=== PATIENT | male | born 1960 | race Caucasian/White ===

== ENCOUNTER → 2022-12-04 10:44 | Outpatient (CLI) | payer MEDICARE, MEDICAID, SELFPAY | PROVIDERS: PCP Family Medicine; Visit Provider Surgery | DX: K40.30 Unilateral inguinal hernia, with obstruction, without gangrene, not specified as recurrent (principal) | CPT/HCPCS: 99202 ==

== ENCOUNTER 2023-01-08 05:45 | Day surgery (SDC) | payer OTHER, SELFPAY ==
[2023-01-01 12:00] VITALS: BMI 36.9
--- NOTE | 2023-01-04 14:31 | P.CONAN_ITS ---
Documented by User: Kimberly Richard NP 01/04/23 14:39 HPI - Anesthesia Eval Consult details Narrative: 62yo F for Right Hernia Repair Inguinal / Open Cardiac cleared ASL Eliquis for afib/flutter PMFSH Active Problems Active Problems: All Active Problems (Updated 01/01/23 @ 11:59 by Britney Knox RN) Inguinal hernia of right side with obstruction and without gangrene (Acute) Past Medical History Medical History Arthritis Atrial flutter Benign prostate hyperplasia Depression Dyslipidemia Essential (primary) hypertension Hearing impairment Hx of coronary angiogram Obesity Prediabetes Tricuspid regurgitation Venous insufficiency Family History Family History Father Heart disease Surgical History Surgical History History of cardiac radiofrequency ablation Hx of appendectomy Hx of heart surgery Social History Social History Are you a primary pet care technician to a significant other at home: No Do you presently have visiting nurse or other home services: Yes (has TTY hearing assistance) Patient Tobacco Use Status: Never used Tobacco Use of substances other than those prescribed or required for medical reasons: No Have you been hit, kicked, punched, or otherwise hurt by someone within the past year? If so, by whom?: No Are you DNR?: No Advance Directives Information Provided: Yes (as above noted) Advance Directives on File: No Recently lost weight without trying: No Eating poorly because of decreased appetite: No Nutrition Risks: No Nutritional Risk Poor oral hygiene: No Meds Allergies Allergy/AdvReac Type Severity Reaction Status Date / Time No Known Allergies Allergy Verified 01/08/23 05:56 Home Medications Medication Instructions Recorded Confirmed Last Taken Type allopurinol 300 mg tablet 300 mg PO DAILY 12/30/22 12/31/22 Unknown History amlodipine 5 mg tablet 5 mg PO DAILY 12/30/22 12/31/22 Unknown History apixaban 5 mg tablet (Eliquis) 5 mg PO BID 12/30/22 12/31/22 01/05/23 History atorvastatin 10 mg tablet 10 mg PO BEDTIME 12/30/22 12/31/22 Unknown History cholecalciferol (vitamin D3) 50 50 mcg PO DAILY 12/30/22 12/31/22 Unknown History mcg (2,000 unit) capsule finasteride 5 mg tablet 5 mg PO DAILY 12/30/22 12/31/22 Unknown History fluoxetine 20 mg capsule 20 mg PO DAILY 12/30/22 12/31/22 Unknown History gabapentin 600 mg tablet 600 mg PO DAILY 12/30/22 12/31/22 Unknown History pantoprazole 40 mg tablet,delayed 40 mg PO DAILY 12/30/22 12/31/22 Unknown History release potassium chloride 20 mEq 20 meq PO DAILY 12/30/22 12/31/22 Unknown History tablet,extended release pramipexole 0.25 mg tablet 0.25 mg PO DAILY 12/30/22 12/31/22 Unknown History spironolactone 25 mg tablet 25 mg PO DAILY 12/30/22 12/31/22 Unknown History tamsulosin 0.4 mg capsule 0.4 mg PO DAILY 12/30/22 12/31/22 Unknown History Exam Exam Date and Time: January 04, 2023 1431 Height,Weight and Vital Signs: Height 6 ft 1 in Weight 127.006 kg Pertinent Lab Results Pertinent Lab Results: From outside facility 09/2022 CBC WNL BMP WNL Narrative Narrative: EKG 11/2022 SR @ 62 1st deg AV block Anterior infarct ECHO 2020 moderate concentric LVH preserved LV systolic function with EF 60-65% hypokenisis of anteroseptal segment mild MR mild to mod TR Assessment and Plan Assessment Anesthesia Assessment: Chart Reviewed Documented by User: Linda Santana MD 01/08/23 07:51 [facility] Past Medical History Medical History Arthritis Atrial flutter Benign prostate hyperplasia Depression Dyslipidemia Essential (primary) hypertension Hearing impairment Hx of coronary angiogram Obesity Prediabetes Tricuspid regurgitation Venous insufficiency Family History Family History Father Heart disease Surgical History Surgical History History of cardiac radiofrequency ablation Hx of appendectomy Hx of heart surgery History of Problems with Anesthesia: No Social History Social History Are you a primary pet care technician to a significant other at home: No Do you presently have visiting nurse or other home services: Yes (has TTY hearing assistance) Patient Tobacco Use Status: Never used Tobacco Use of substances other than those prescribed or required for medical reasons: No Have you been hit, kicked, punched, or otherwise hurt by someone within the past year? If so, by whom?: No Are you DNR?: No Advance Directives Information Provided: Yes (as above noted) Advance Directives on File: No Recently lost weight without trying: No Eating poorly because of decreased appetite: No Nutrition Risks: No Nutritional Risk Poor oral hygiene: No Meds Allergies Allergy/AdvReac Type Severity Reaction Status Date / Time No Known Allergies Allergy Verified 01/08/23 05:56 Home Medications Medication Instructions Recorded Confirmed Last Taken Type allopurinol 300 mg tablet 300 mg PO DAILY 12/30/22 12/31/22 Unknown History amlodipine 5 mg tablet 5 mg PO DAILY 12/30/22 12/31/22 Unknown History apixaban 5 mg tablet (Eliquis) 5 mg PO BID 12/30/22 12/31/22 01/05/23 History atorvastatin 10 mg tablet 10 mg PO BEDTIME 12/30/22 12/31/22 Unknown History cholecalciferol (vitamin D3) 50 50 mcg PO DAILY 12/30/22 12/31/22 Unknown History mcg (2,000 unit) capsule finasteride 5 mg tablet 5 mg PO DAILY 12/30/22 12/31/22 Unknown History fluoxetine 20 mg capsule 20 mg PO DAILY 12/30/22 12/31/22 Unknown History gabapentin 600 mg tablet 600 mg PO DAILY 12/30/22 12/31/22 Unknown History pantoprazole 40 mg tablet,delayed 40 mg PO DAILY 12/30/22 12/31/22 Unknown History release potassium chloride 20 mEq 20 meq PO DAILY 12/30/22 12/31/22 Unknown History tablet,extended release pramipexole 0.25 mg tablet 0.25 mg PO DAILY 12/30/22 12/31/22 Unknown History spironolactone 25 mg tablet 25 mg PO DAILY 12/30/22 12/31/22 Unknown History tamsulosin 0.4 mg capsule 0.4 mg PO DAILY 12/30/22 12/31/22 Unknown History Exam Airway Mallampati Class: III TM Dist: >3cm Neck ROM: Full Loose/Missing/Broken Teeth: No Heart: RRR Lungs: CTA Assessment and Plan Final Anesthetic Review History of Problems with Anesthesia: No NPO: Yes ASA Class: III Final Preanesthetic Review: Meds/Allgs Chart Reviewed, Consent Obtained/Reviewed and Anes Risks/Benef Reviewed Patient Risk: Intermediate Procedure Risk: Low Anesthetic Plan Anesthetic Plan: GA Disposition: Standard PACU
--- NOTE | 2023-01-07 14:14 | MHC.SHP ---
Pre-Procedural Eval Section A Date of Service: 01/07/23 The patient is an INPATIENT: No Changes since office visit: No Cold of Flu in the past 2 weeks, No New Medical Problems, No Changes in Medication and No Patient answered all questions The History & Physical has been completed within 30 days and I have reviewed it.: Yes Section B Chief Complaint: Unilateral inguinal hernia, with obstruction, with Allergies: Allergies Allergy/AdvReac Type Severity Reaction Status Date / Time No Known Allergies Allergy Verified 12/04/22 11:03 Plan I have reviewed the history and physical and performed a pertinent physical examination on my patient. No changes have occurred unless specified. Time Spent With Patient Time: Total time managing care of this patient today ____ minutes.
[2023-01-08] VITALS (8 sets, daily range): BP systolic 97–139; BP diastolic 46–83; PULSE 58–65; RESP 16–18; TEMP 36.3; O2SAT 96–98
[2023-01-08] MEDS: Lactated Ringers 1,000 ML 100 ML IVCONT (06:13)
--- NOTE | 2023-01-08 08:48 | P.OP_ITS ---
Operative Note Operative Note Date of Service: 01/08/23 Narrative: Preoperative diagnosis: []Incarcerated complete/ scrotal right inguinal hernia Postop diagnosis: [] save Procedure [] open repair with mesh right inguinal hernia incarcerated/scrotal /complete Surgeon: [] Donnell Die Out Worker: [] aguilar Mi Type of Anesthesia: [] general Indication for surgery: [] massive incarcerated right inguinal hernia indirect extending down into the scrotum. very corpulent abdomen Findings: [] Patient brought to the operative room, placed on operative table supine position, after adequate level of general anesthesia was induced, the patient's right groin and scrotum were prepped and draped in usual sterile fashion. Using a right perianal incision, this carried down through skin, subcutaneous tissue, which was quite extensive, Isabelle's fascia, down to the external oblique fascia which was opened in direction of its fibers with care to isolate and preserve the ilioinguinal nerve throughout the procedure. No direct hernia was demonstrated. An enormous incarcerated complete/scrotal indirect indirect hernia was identified and reduced from of the scrotum and brought onto the field. This was from the spermatic cord. This is quite tedious secondary to the marked cicatrization and scarring of this chronic hernia. Once completely freed, The massive indirect hernia was reduced and an extra-large Bard plug placed in this defect. The mesh was sutured superiorly to the transversalis fascia and inferiorly to the inguinal ligament using interrupted 0 Ethibond suture. A completion the procedure, internal ring admitted 1 fingertip. t\The mesh also covered The inguinal floor. Wound was irrigated, secured hemostasis, and closed in the following manner; external oblique fascia was reapproximated using running 2-0 Vicryl suture. Interrupted 3-0 Vicryl sutures was used to close Isabelle's fascia. Interrupted inverted subdermal 3-0 Vicryl sutures followed by running subcuticular 4-0 Vicryl suture were placed. States strips insert dressings were applied. Wounds were treated 0.5% Marcaine at completion the procedure. If she lateral testicles intrascrotal at completion of the procedure. Sponge, needle, instrument counts were reported to be correct. Patient tolerated the procedure well and emerged from anesthesia stable condition. EBL minimum
[2023-01-08] MEDS: ondansetron HCL 4 MG/2 ML VIAL IVPUSH (09:18)
== END 2023-01-08 10:25 | disposition home or self-care (01) ==
PROVIDERS: Visit Provider Surgery
PROC: (CPT 49507; principal; 2023-01-08 07:30)
DX: K40.30 Unilateral inguinal hernia, with obstruction, without gangrene, not specified as recurrent (principal)
CPT/HCPCS: 49507; C1781; J0690; J1100; J1170; J2250; J2370; J2405; J2795; J3010

== ENCOUNTER 2023-01-14 13:35 | Outpatient (REF) | payer OTHER, SELFPAY ==
--- NOTE | ~2023-01-14 | US_ITS ---
EXAMINATION: US SCROTUM CLINICAL INFORMATION: Status post right hernia repair 3 days ago. Now presents with enlarged and painful scrotum. COMPARISON: None available. TECHNIQUE: A sonogram of the scrotum was performed assessing green-scale appearance and color Doppler flow. Spectral Doppler analysis of the arterial and venous flow were performed in the testes bilaterally. FINDINGS: RIGHT: Right testicle measures 3.7 x 2.6 x 2.8 cm, volume 14.4 mL. No focal testicular parenchymal lesions are visualized. Spectral Doppler analysis of the arterial and venous flow is mildly increased in the right testis. Right epididymal head is normal in size. There is a small right hydrocele. There is a septated fluid collection along the lateral and superior scrotal sacs suspicious for an multiloculated abscess. There is increased echogenicity of the spermatic cord likely congestion or inflammation. There is arterial thickening seen. The epididymis is identified and has normal vascularity. LEFT: Left testicle measures 4.2 x 2.3 x 2.5 cm, volume 12.7 mL. No focal testicular parenchymal lesions are visualized. Spectral Doppler analysis of the arterial and venous flow is normal in the left testis. Left epididymal head is normal in size. Small left hydrocele is suspected. There is no varicocele seen. Left epididymal Doppler flow is normal. US/US scrotum doppler IMPRESSION: Right scrotal abscess superior and lateral to the inferiorly located testis. Also visualized is echogenic spermatic cord likely edema or inflammation. Mild wall thickening or spermatic vessels are noted. However there is no varicocele suspected. There is increased vascularity of right testis likely reactionary secondary to abscess and spermatic cord inflammation. The right epididymis is normal. Small right hydrocele. Unremarkable left testis and epididymis.
== END 2023-01-14 13:36 | disposition home or self-care (01) ==
LOC: HO.US 13:35
PROVIDERS: Visit Provider Family Medicine
DX: N50.89 Other specified disorders of the male genital organs (principal)
CPT/HCPCS: 76870; 93975

== ENCOUNTER 2023-01-14 14:51 | Emergency (ER) | payer OTHER, SELFPAY ==
[2023-01-14 15:13] VITALS: BP 144/71; PULSE 65; RESP 20; TEMP 36.9; O2SAT 99; BMI 27.1
--- NOTE | 2023-01-14 15:17 | ED_ITS ---
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 Patient was seen by Dr. Jacobo the surgeon postoperatively and was put on Keflex, patient is concerned because increase right scrotal swelling. No trauma. <Juana Rodriguez MD - Last Filed: 01/14/23 20:47> Related Data Home medications: Home Medications Medication Instructions Recorded Confirmed allopurinol 300 mg tablet 300 mg PO DAILY 12/30/22 12/31/22 amlodipine 5 mg tablet 5 mg PO DAILY 12/30/22 12/31/22 apixaban 5 mg tablet (Eliquis) 5 mg PO BID 12/30/22 12/31/22 atorvastatin 10 mg tablet 10 mg PO BEDTIME 12/30/22 12/31/22 cholecalciferol (vitamin D3) 50 50 mcg PO DAILY 12/30/22 12/31/22 mcg (2,000 unit) capsule finasteride 5 mg tablet 5 mg PO DAILY 12/30/22 12/31/22 fluoxetine 20 mg capsule 20 mg PO DAILY 12/30/22 12/31/22 gabapentin 600 mg tablet 600 mg PO DAILY 12/30/22 12/31/22 pantoprazole 40 mg tablet,delayed 40 mg PO DAILY 12/30/22 12/31/22 release potassium chloride 20 mEq 20 meq PO DAILY 12/30/22 12/31/22 tablet,extended release pramipexole 0.25 mg tablet 0.25 mg PO DAILY 12/30/22 12/31/22 spironolactone 25 mg tablet 25 mg PO DAILY 12/30/22 12/31/22 tamsulosin 0.4 mg capsule 0.4 mg PO DAILY 12/30/22 12/31/22 Previous Rx's Medication Instructions Recorded hydrocodone 5 mg-acetaminophen 325 1 tab PO Q4-6H PRN pain #30 tabs 01/08/23 mg tablet <BRIAN Herring - Last Filed: 01/14/23 15:18> Allergies/Adverse reactions: Allergies Allergy/AdvReac Type Severity Reaction Status Date / Time No Known Allergies Allergy Verified 01/08/23 05:56 <BRIAN Herring - Last Filed: 01/14/23 15:18> Review of Systems Review of Systems: All other systems are reviewed and are negative Constitutional: Reports as per HPI and Reports no additional constitutional complaints Eyes: Reports as per HPI and Reports no additional eye complaints Reports system reviewed and no additional complaints, except as documented Cardiovascular: Reports as per HPI and Reports no additional cardiovascular complaints Respiratory: Reports as per HPI and Reports no additional respiratory complaints Gastrointestinal: Reports as per HPI and Reports no additional gastrointestinal complaints Genitourinary: Reports no additional female genitourinary complaints Musculoskeletal: Reports no additional musculoskeletal complaints Skin/Breast: Reports system reviewed and no additional complaints, except as docu Psychiatric: Reports no additional psychiatric complaints Endocrine: Reports no additional endocrine complaints Hematologic/Lymphatic: Reports no additional hematologic/lymphatic complaints Allergic/Immunologic: Reports no additional allergic/immunologic complaints Reports system reviewed and no additional complaints, except as documented and Reports Abnormal speech present <Juana Rodriguez MD - Last Filed: 01/14/23 20:47> [facility] Past Medical History Medical History: Medical History Arthritis Atrial flutter Benign prostate hyperplasia Depression Dyslipidemia Essential (primary) hypertension Hearing impairment Hx of coronary angiogram Obesity Prediabetes Tricuspid regurgitation Venous insufficiency <BRIAN Herring - Last Filed: 01/14/23 15:18> Surgical History: Surgical History History of cardiac radiofrequency ablation Hx of appendectomy Hx of heart surgery <BRIAN Herring - Last Filed: 01/14/23 15:18> Family History Family History: Family History Father Heart disease <BRIAN Herring - Last Filed: 01/14/23 15:18> Social History Social History: Social History Are you a primary animal care supervisor to a significant other at home: No Do you presently have visiting nurse or other home services: Yes (has TTY hearing assistance) Patient Tobacco Use Status: Never used Tobacco Advance Directives: No Advance Directives Information Provided: No <BRIAN Herring - Last Filed: 01/14/23 15:18> Physical Exam Vital Signs: Vital Signs: Last Vital Signs Temp 98.5 F 01/14/23 17:14 Pulse 59 01/14/23 18:30 Resp 18 01/14/23 18:30 BP 121/71 01/14/23 18:30 Pulse Ox 98 01/14/23 18:30 O2 Del Method Room Air 01/14/23 18:30 BMI result Body Mass Index 27.1 <BRIAN Herring - Last Filed: 01/14/23 15:18> Vital Signs: Last Vital Signs Temp 98.5 F 01/14/23 17:14 Pulse 59 01/14/23 18:30 Resp 18 01/14/23 18:30 BP 121/71 01/14/23 18:30 Pulse Ox 98 01/14/23 18:30 O2 Del Method Room Air 01/14/23 18:30 BMI result Body Mass Index 27.1 Vital signs have been reviewed as appeared to be correct. Blood pressure normal. Heart rate normal. Respiration rate normal. Temperature normal. Oxygen saturation normal. <Juana Rodriguez MD - Last Filed: 01/14/23 20:47> Appearance: Alert. Oriented X3. No acute distress. Head: Normal external exam. Normocephalic. Atraumatic. No Miller signs noted. No raccoon eyes noted Eyes: PERRLA. EOMI. Conjunctiva and sclera normal. Eyelids normal. ENT: TM's Normal. Pharynx normal. Uvula midline. Moist mucous membranes. No trismus noted. No drooling noted. No muffled voice noted. Neck: Normal inspection. Neck supple. FROM. No adenopathy. Thyroid Normal. No meningeal signs. No neck mass noted. CVS: Normal heart rate and rhythm. Heart sound normal. No murmurs noted. Pulses normal throughout. Respiratory: No respiratory distress. Painless inspiration. Breath sounds normal. No wheezes/rales/rhonchi noted. Chest nontender. No accessory muscle usage noted or decreased air movement noted. Abdomen: Soft and nontender. Bowel sounds normal in all 4 quadrants. No distention noted. No organomegaly noted. No visible injury noted. Right inguinal incision is dry and clean and intact with no discharge. : Right scrotal swelling, normal cremasteric reflex. Back: No CVA tenderness. Full range of motion noted. Skin: Skin warm and dry. Normal skin color. Normal skin turgor. No rashes/lesions/lacerations noted. Extremities: No lower extremity edema. Extremities exhibit normal range of motion. Extremities nontender. Neuro: Oriented X 3. Cranial nerve exam: II-XII are grossly intact No motor deficit. No sensory deficit. Reflexes normal. <Juana Rodriguez MD - Last Filed: 01/14/23 20:47> Course Course Course Narrative: This is an RME: Additional HPI, ROS, PE not included below will be deferred to primary provider. 62-year-old male presents with swelling to his scrotum concerns that he may have an infection to the right side of his groin, patient had an operation on on 01/04/2023 for unilateral inguinal hernia repair here at [facility], since then he reports he thinks he has been getting an infection in his right groin region, currently on Keflex, despite this infection is getting worse per patient. Denies fevers, chills nausea, vomiting abdominal pain. Plan basic labs. <BRIAN Herring - Last Filed: 01/14/23 15:18> Reevaluation(s) Reevaluation #1: S/p right hernia repair with incarceration to the right scrotum by Dr. Jacobo, no wbc's, no sign of sepsis, had an ultrasound which is questioning right scrotal abscesses the finding was discussed with Dr. Jacobo who believes it is seroma and not abscess, given that the patient is not in toxic appearance with normal labs and WBCs patient will be discharged tonight and follow up with Dr. Jacobo at 08:30 tomorrow. Will give 1 dose of Zosyn in the emergency department and discharged to follow-up with Dr. Allen tomorrow morning. <Juana Rodriguez MD - Last Filed: 01/14/23 20:47> Medications Administered Discontinued Medications Generic Name Dose Route Start Last Admin Trade Name Freq PRN Reason Stop Dose Admin Piperacillin Sod/Tazobactam 50 mls @ 100 mls/hr 01/14/23 19:47 01/14/23 20:26 Sod 3.375 gm/ Sodium Chloride IV 01/14/23 20:16 100 mls/hr ONCE ONE Administration <BRIAN Herring - Last Filed: 01/14/23 15:18> Medications Administered Discontinued Medications Generic Name Dose Route Start Last Admin Trade Name Freq PRN Reason Stop Dose Admin Piperacillin Sod/Tazobactam 50 mls @ 100 mls/hr 01/14/23 19:47 01/14/23 20:26 Sod 3.375 gm/ Sodium Chloride IV 01/14/23 20:16 100 mls/hr ONCE ONE Administration <Juana Rodriguez MD - Last Filed: 01/14/23 20:47> Medical Decision Making Differential Diagnosis Differential Diagnoses: The differential diagnosis associated with the presentation includes (Scrotal cellulitis, seroma, scrotal abscess, sepsis.) <Juana Rodriguez MD - Last Filed: 01/14/23 20:47> Admission/Observation Consideration of admission/observation: Escalation of care including admission/observation considered <Juana Rodriguez MD - Last Filed: 01/14/23 20:47> Consult Healthcare Provider Management of the patient was discussed with: Level Vial Inspector And Tester (Dr. Jacobo.) <Juana Rodriguez MD - Last Filed: 01/14/23 20:47> Lab Data MDM Lab Attestation statement: I reviewed the patient's lab results. <Juana Rodriguez MD - Last Filed: 01/14/23 20:47> Result Diagrams: 01/14/23 15:41 01/14/23 15:41 <BRIAN Herring - Last Filed: 01/14/23 15:18> Labs: Lab Results 01/14/23 01/14/23 Range/Units 15:41 15:41 WBC 7.6 (4.8-10.8) X10*3/uL RBC 4.72 (4.60-5.80) X10*6/uL Hgb 15.3 (14.0-18.0) g/dl Hct 46.2 (42.0-52.0) % MCV 97.9 (80.0-98.0) fL MCH 32.4 (27.0-33.0) pg MCHC 33.1 (31.0-36.0) g/dl RDW 13.1 (11.0-16.0) % Plt Count 267 (160-400) X10*3/uL MPV 10.8 (9.4-12.4) fL Immature Gran % (Auto) 0.4 (0.0-0.4) % Neut % (Auto) 70.8 (45-73) % Lymph % (Auto) 18.3 L (20-40) % Pettis % (Auto) 8.9 (2-11) % Eos % (Auto) 1.2 (0-4) % Baso % (Auto) 0.4 (0-2) % Lymph # (Auto) 1.4 (1.2-4.9) X10*3/uL Pettis # (Auto) 0.7 (0.1-1.2) X10*3/uL Eos # (Auto) 0.1 (0.0-0.4) X10*3/uL Baso # (Auto) 0.0 (0.0-0.2) X10*3/uL Abs Immat Gran (auto) 0.03 (0.00-0.03) X10*3/uL Absolute Neuts (auto) 5.4 (2.0-8.3) x10*3/uL Absolute Nucleated RBC 0.000 (0.0-0.012) X10*3/uL Nucleated RBC % (auto) 0.0 (0.0-0.2) /100WBC Sodium 139 (135-145) mmol/L Potassium 4.4 (3.3-5.1) mmol/L Chloride 103 (96-108) mmol/L Carbon Dioxide 25 (22-29) mmol/L Anion Gap 15 (12-20) BUN 13 (9-16) mg/dL Creatinine 0.79 (0.5-1.4) mg/dL Estim Creat Clear Calc 105.0 Estimated GFR > 60 Random Glucose 104 (60-115) mg/dL Calcium 9.2 (8.4-10.2) mg/dL Total Bilirubin 1.5 H (0.0-1.0) mg/dL AST 27 (5-37) U/L ALT 22 (0-40) U/L Alkaline Phosphatase 66 (39-117) U/L Total Protein 6.9 (6.5-8.0) g/dL Albumin 3.8 (3.5-5.0) g/dL <BRIAN Herring - Last Filed: 01/14/23 15:18> Lab Results 01/14/23 01/14/23 Range/Units 15:41 15:41 WBC 7.6 (4.8-10.8) X10*3/uL RBC 4.72 (4.60-5.80) X10*6/uL Hgb 15.3 (14.0-18.0) g/dl Hct 46.2 (42.0-52.0) % MCV 97.9 (80.0-98.0) fL MCH 32.4 (27.0-33.0) pg MCHC 33.1 (31.0-36.0) g/dl RDW 13.1 (11.0-16.0) % Plt Count 267 (160-400) X10*3/uL MPV 10.8 (9.4-12.4) fL Immature Gran % (Auto) 0.4 (0.0-0.4) % Neut % (Auto) 70.8 (45-73) % Lymph % (Auto) 18.3 L (20-40) % Pettis % (Auto) 8.9 (2-11) % Eos % (Auto) 1.2 (0-4) % Baso % (Auto) 0.4 (0-2) % Lymph # (Auto) 1.4 (1.2-4.9) X10*3/uL Pettis # (Auto) 0.7 (0.1-1.2) X10*3/uL Eos # (Auto) 0.1 (0.0-0.4) X10*3/uL Baso # (Auto) 0.0 (0.0-0.2) X10*3/uL Abs Immat Gran (auto) 0.03 (0.00-0.03) X10*3/uL Absolute Neuts (auto) 5.4 (2.0-8.3) x10*3/uL Absolute Nucleated RBC 0.000 (0.0-0.012) X10*3/uL Nucleated RBC % (auto) 0.0 (0.0-0.2) /100WBC Sodium 139 (135-145) mmol/L Potassium 4.4 (3.3-5.1) mmol/L Chloride 103 (96-108) mmol/L Carbon Dioxide 25 (22-29) mmol/L Anion Gap 15 (12-20) BUN 13 (9-16) mg/dL Creatinine 0.79 (0.5-1.4) mg/dL Estim Creat Clear Calc 105.0 Estimated GFR > 60 Random Glucose 104 (60-115) mg/dL Calcium 9.2 (8.4-10.2) mg/dL Total Bilirubin 1.5 H (0.0-1.0) mg/dL AST 27 (5-37) U/L ALT 22 (0-40) U/L Alkaline Phosphatase 66 (39-117) U/L Total Protein 6.9 (6.5-8.0) g/dL Albumin 3.8 (3.5-5.0) g/dL <Juana Rodriguez MD - Last Filed: 01/14/23 20:47> Independent Interpretation I performed an independent interpretation of an: Ultrasound (Scrotal ultrasound: Possible right scrotal abscess) <Juana Rodriguez MD - Last Filed: 01/14/23 20:47> Radiology Impression Discussion of test interpretation with radiology: I have reviewed the radiologist's reading. <Juana Rodriguez MD - Last Filed: 01/14/23 20:47> Discharge Plan Discharge Clinical Impression: Swelling of right half of scrotum <BRIAN Herring - Last Filed: 01/14/23 15:18> Patient Disposition: Home, Self-Care <BRIAN Herring - Last Filed: 01/14/23 15:18> Instructions: Scrotal Pain (ED) <BRIAN Herring - Last Filed: 01/14/23 15:18> Additional Instructions: Walk into Dr. Jacobo's office tomorrow 08:30 <BRIAN Herring - Last Filed: 01/14/23 15:18> Prescriptions: No Action allopurinol 300 mg tablet 300 mg PO DAILY amlodipine 5 mg tablet 5 mg PO DAILY cholecalciferol (vitamin D3) 50 mcg (2,000 unit) capsule 50 mcg PO DAILY atorvastatin 10 mg tablet 10 mg PO BEDTIME Eliquis 5 mg tablet 5 mg PO BID finasteride 5 mg tablet 5 mg PO DAILY fluoxetine 20 mg capsule 20 mg PO DAILY gabapentin 600 mg tablet 600 mg PO DAILY pantoprazole 40 mg tablet,delayed release (DR/EC) 40 mg PO DAILY potassium chloride 20 mEq tablet extended release 20 meq PO DAILY pramipexole 0.25 mg tablet 0.25 mg PO DAILY spironolactone 25 mg tablet 25 mg PO DAILY tamsulosin 0.4 mg capsule 0.4 mg PO DAILY hydrocodone-acetaminophen 5-325 mg tablet 1 tab PO Q4-6H PRN (Reason: pain) Qty: 30 0RF Rx Instructions: Partial Fill upon patient request. <BRIAN Herring Last Filed: 01/14/23 15:18> Referrals: Lj Jacobo MD [Physician] - <BRIAN Herring - Last Filed: 01/14/23 15:18>
[2023-01-14 15:45] LABS: MANUAL DIFF FLAG NO
[2023-01-14 15:47] LABS: Basophils Percent Auto 0.4 % (0-2); Eosinophils Absolute Auto 0.1 X10*3/uL (0.0-0.4); Eosinophils Percent Auto 1.2 % (0-4); Hematocrit 46.2 % (42.0-52.0); Hemoglobin 15.3 g/dl (14.0-18.0); Imm Gran Abs Auto 0.03 X10*3/uL (0.00-0.03); Imm Gran Pct Auto 0.4 % (0.0-0.4); Lymphocytes Absolute Auto 1.4 X10*3/uL (1.2-4.9); Lymphocytes Percent Auto 18.3 % (20-40); Mean Corpuscular HGB Conc 33.1 g/dl (31.0-36.0); Mean Corpuscular Hemoglobin 32.4 pg (27.0-33.0); Mean Corpuscular Volume 97.9 fL (80.0-98.0); Mean Platelet Volume 10.8 fL (9.4-12.4); Monocytes Absolute Auto 0.7 X10*3/uL (0.1-1.2); Monocytes Percent Auto 8.9 % (2-11); Neutrophils Absolute Auto 5.4 x10*3/uL (2.0-8.3); Neutrophils Percent Auto 70.8 % (45-73); Platelet Count 267 X10*3/uL (160-400); Red Blood Count 4.72 X10*6/uL (4.60-5.80); Red Cell Distribution Width 13.1 % (11.0-16.0); White Blood Count 7.6 X10*3/uL (4.8-10.8)
[2023-01-14 16:05] LABS: Alanine Aminotransferase 22 U/L (0-40); Albumin Level 3.8 g/dL (3.5-5.0); Alkaline Phosphatase 66 U/L (39-117); Anion Gap 15 (12-20); Aspartate Amino Transferase 27 U/L (5-37); Bilirubin Total 1.5 mg/dL (0.0-1.0); Blood Urea Nitrogen 13 mg/dL (9-16); Calcium 9.2 mg/dL (8.4-10.2); Carbon Dioxide 25 mmol/L (22-29); Chloride 103 mmol/L (96-108); Estimated Glomerular Filt Rate > 60; Glucose Random 104 mg/dL (60-115); Potassium 4.4 mmol/L (3.3-5.1); Sodium 139 mmol/L (135-145); Total Protein 6.9 g/dL (6.5-8.0)
[2023-01-14 17:14] VITALS: BP 134/69; PULSE 61; RESP 18; TEMP 36.9; O2SAT 98
[2023-01-14 18:30] VITALS: BP 121/71; PULSE 59; RESP 18; O2SAT 98
[2023-01-14] MEDS: Piperacillin Sodium/Tazobactam 3.375 GM in 0.9 % Sodium Chloride 50 ML IV (20:26)
[2023-01-14 21:07] LABS: Lactic Acid 1.5 mmol/L (0.5-2.0)
== END 2023-01-14 21:17 | disposition home or self-care (01) ==
PROVIDERS: Physician Assistant; Emergency Provider Emergency Medicine
DX: N50.89 Other specified disorders of the male genital organs (principal); Z79.899 Other long term (current) drug therapy
CPT/HCPCS: 36415; 80053; 83605; 85025; 87040; 96365; 99284; J2543

== ENCOUNTER → 2023-01-15 08:37 | Outpatient (BNVA) | payer OTHER, SELFPAY | PROVIDERS: Visit Provider Surgery | DX: K40.30 Unilateral inguinal hernia, with obstruction, without gangrene, not specified as recurrent (principal) | CPT/HCPCS: 99212 ==

== ENCOUNTER → 2023-02-03 08:48 | Outpatient (BNVA) | payer OTHER, SELFPAY | PROVIDERS: Visit Provider Surgery | DX: Z48.815 Encounter for surgical aftercare following surgery on the digestive system (principal); Z87.19 Personal history of other diseases of the digestive system | CPT/HCPCS: 99212 ==

== ENCOUNTER 2023-09-17 11:46 | Outpatient (REF) | payer MEDICARE, SELFPAY ==
[2023-09-17 14:02] LABS: Estimated Average Glucose 108 mg/dL; Hemoglobin A1C 152.5415 umol/L; Hemoglobin A1c % 5.4 % (<6.0)
[2023-09-17 14:44] LABS: Alanine Aminotransferase 27 U/L (0-40); Albumin Level 4.3 g/dL (3.5-5.0); Alkaline Phosphatase 77 U/L (39-117); Anion Gap 13 (12-20); Aspartate Amino Transferase 28 U/L (5-37); Bilirubin Direct 0.3 mg/dL (0.0-0.5); Blood Urea Nitrogen 20 mg/dL (9-16); Calcium 9.7 mg/dL (8.4-10.2); Carbon Dioxide 28 mmol/L (22-29); Chloride 102 mmol/L (96-108); Cholesterol 146 mg/dL (<200); Estimated Glomerular Filt Rate > 60; Glucose Random 112 mg/dL (60-115); HDL Cholesterol 60 mg/dL (>40); LDL Cholesterol Calculated 69 mg/dL (<100); Potassium 4.3 mmol/L (3.3-5.1); Sodium 139 mmol/L (135-145); Total Protein 8.1 g/dL (6.5-8.0); Triglycerides 85 mg/dL (<150)
[2023-09-17 15:22] LABS: Creatinine Urine 113.42 mg/dL; Microalbum/Creatinine Ratio Ur 51.1 ug/mg cr (<30)
== END 2023-09-17 11:47 | disposition home or self-care (01) ==
LOC: HO.HHCL 11:46
PROVIDERS: Visit Provider Family Medicine
DX: I10 Essential (primary) hypertension (principal); E78.5 Hyperlipidemia, unspecified; R73.03 Prediabetes
CPT/HCPCS: 36415; 80048; 80061; 80076; 82043; 82570; 83036

== ENCOUNTER 2024-09-21 10:15 | Outpatient (AMB) | payer MEDICARE, SELFPAY ==
--- NOTE | 2024-09-21 10:18 | A.OFFVIS_ITS ---
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 He is a nonsmoker nondiabetic. He had reported to his primary care that he had left lower extremity pain it was more on the pretibial surface. He reports that he can walk several blocks with no significant difficulty. He now presents for vascular evaluation. He does report some swelling of bilateral lower extremities. Left more so than right. Patient denies any previous venous surgery or injections. Patient denies any history of DVT/ PE. Patient denies any history of phlebitis. Trial of compression includes - [id number] They now present for vascular evaluation regarding their varicose veins. [facility] Medical History Arthritis Atrial flutter Benign prostate hyperplasia Depression Dyslipidemia Essential (primary) hypertension Hearing impairment Hx of coronary angiogram Obesity Prediabetes Tricuspid regurgitation Venous insufficiency Surgical History History of cardiac radiofrequency ablation Hx of appendectomy Hx of heart surgery Family History Father Heart disease Social History Are you a primary home care consultant to a significant other at home: No Do you presently have visiting nurse or other home services: Yes (has TTY hearing assistance) Patient Tobacco Use Status: Never used Tobacco Review of Systems Const All systems reviewed & are unremarkable except as noted in HPI and below Reports no additional complaints ENT Reports Normal hearing present Card Denies chest pain, Denies chest pain at rest, Denies chest pain with activity and Denies pedal edema Resp Denies cough GI Denies abdominal pain Musc Denies abnormal gait, Denies muscle cramps and Denies radiating pain into limb Skin/Breast Denies skin ulcer and Denies wounds Neuro Reports Normal hearing present and Denies abnormal gait Psych Reports no additional complaints Physical Exam Const General: cooperative, healthy appearing and comfortable Orientation/consciousness: oriented to person, oriented to place and oriented to time HEENT Head: Yes normal to inspection Neck Neck: Yes normal visual inspection Carotids: no bruits Chest Chest palpation & inspection: normal inspection of the chest Resp Effort & Inspection: normal respiratory effort and able to speak in complete sentences Auscultation: clear to auscultation bilaterally, no crackles, no rales, no rhonchi and no wheezes Cardio Rate: regular rate Rhythm: regular rhythm Heart sounds: S1 normal heart sound present and S2 normal heart sound present Bruits: no carotid bruits Peripheral pulses: Peripheral pulses 2+ throughout GI Inspection: Yes normal to inspection Skin Wounds: no wounds Hair: normal Neuro General: oriented to person, oriented to place and oriented to time Cranial nerves: Yes CN's II-XII intact bilaterally and Yes Normal hearing present Cognition (Neuro): normal cognition Motor exam (neuro): 5/5 motor strength present throughout Extrem Other: venous exam: +2 edema left greater than right Pretibial pain on direct palpation. General: No clubbing, No cyanosis and No edema Psych Appearance: grossly normal Mental Status: mental status grossly normal Speech and movement: Normal speech and movement present Assessment & Plan Assessment & Plan (1) Varicose veins of left lower extremity with inflammation: Code(s): I83.12 - Varicose veins of left lower extremity with inflammation Category: Medical Plan: In short patient has lower extremity discomfort. This does not appear to be arterial in nature as I did appreciate palpable bilateral dorsalis pedis pulses. Does have some edema and prior history of venous disease. I have taken the liberty of ordering venous insufficiency testing to rule that out. I do feel this may have a component musculoskeletal disease as there is pain and discomfort on direct palpation. He will follow up with us after venous insufficiency testing. Thank you for allowing us to assist in his care. If there are any questions or concerns please do not hesitate to contact us Orders: Orders US venous duplex LE BI 1 Week I83.12 - Varicose veins of left lower extremity with inflammation Coding Level of Care Code New Pt Level 4 (87154) Diagnoses Varicose veins of left lower extremity with inflammation I83.12
== END 2024-09-21 10:48 | disposition home or self-care (01) ==
PROVIDERS: Visit Provider Surgery Vascular Surgery
DX: I83.12 Varicose veins of left lower extremity with inflammation (principal)
CPT/HCPCS: 99204

== ENCOUNTER → 2024-09-21 10:15 | Outpatient (BNVA) | payer MEDICARE, SELFPAY | PROVIDERS: Visit Provider Surgery Vascular Surgery | DX: I83.12 Varicose veins of left lower extremity with inflammation (principal); I73.9 Peripheral vascular disease, unspecified | CPT/HCPCS: 99202 ==

== ENCOUNTER 2024-10-25 12:18 | Outpatient (REF) | payer MEDICARE, MEDICAID, SELFPAY ==
--- NOTE | ~2024-10-25 | US_ITS ---
CLINICAL HISTORY: I83.12 - Varicose veins of left lower extremity with inflammation Venous duplex ultrasound bilateral lower extremity Comparison: None Findings: The visualized deep and veins are fully compressible with normal Doppler color flow and spectral tracings. No popliteal cyst. IMPRESSION: 1. Negative for bilateral lower extremity deep vein thrombosis. This document has been electronically signed by: Cornel Villa MD on 10/26/2024 06:51:53
--- OUTSIDE RECORDS SUMMARY | 2024-10-25 15:13 | XMS_ITS | Encounter Summary ---
Author Organization [employer] Address [address] [facility] 7t [place] [address] Care Team Providers Care Automatic Seamer Name Role Phone Bethany Mccormick MD Primary Care Provider +1- [phone] Reason for Visit * Reason Onset Date Comments Med Refill 12/23/2023 Encounter Details Date Type Department Care Team (Late st Contact Info) Description 12/23/2023 Telephone [facility] MEDICINE [address] [place], [place] [phone] Bethany Mccormick MD [address] [place], [place] [phone] Med Refill Social History Tobacco Use Types Packs/Day Years Used Date Smoking Tobacco: Never Smokeless Tobacco: Never Alcohol Use Standard Drinks/Week Comments Never 0 (1 standard drink = 0.6 oz pur e alcohol) Depression Answer Date Recorded Patient Health Questionnaire-9 Score 0 10/02/2022 Housing Stability Answer Date Recorded What is your housing situation today? I have nimisha esquivel 06/22/[address] you li ve. Do you have problems with any of the following? None of the above 06/22/2023 Food Insecurity Answer Date Recorded Within the past 12 months, y ou worried that your food would run out before you got money to buy more: Never True 06/22/2023 Within the past 12 months,th e food you bought just didn't last and you didn't have enough money to get more: Never True Transportation Answer Date Recorded In the past 12 months, has l ack of transportation kept you from medical appts, meetings, work or from getting things needed for daily living? No 06/22/2023 Utilities Answer Date Recorded In the past 12 months, has t he electric, gas, oil or water company threatened to shut off services in your home? No 06/22/2023 Depression Answer Date Recorded Patient Health Questionnaire-2 Score 0 10/02/2022 Sex and Gender Information Value Date Recorded Sex Assigned at Male 10/01/2022 10:14 AM EST Legal Sex Male 11:11 AM EST Gender Identity Male 10/01/2022 10:14 AM EST Sexual Orientation Choose not to disclose 2022 10:14 AM EST documented as of this encounter Miscellaneous Notes * Telephone Encounter - Darling Clark LPN - 12/23/2023 1:40 PM EDT Medication was sent to [facility] on 09/21/23 #90 with 1 refill. * Telephone Encounter - Ilya Culver - 12/23/2023 1:38 PM EDT TC from pt requesting medication refill. Medications needing refill : finasteride (Proscar) 5 MG tablet To be sent to: [facility] - [place], [place] - [address] [place] [address] documented in this encounter Plan of Treatment Upcoming Encounters Date Type Department Care Team (Late st Contact Info) Description 10/26/2024 10:00 AM EST Medication Management [facility] [address] [place] [address] 11/30/2024 9:45 AM EDT Office Visit [facility] [address] [place] [address] Bethany Mccormick MD [address] [place] [address] documented as of this encounter Visit Diagnoses Not on filedocumented in this encounter Additional Health Concerns Assessment Noted Time PHQ-9 Depression Total Score: 0 10/02/19 23 9:21 AM EST documented as of this encounter Care Teams Automatic Seamer Relationship Specialty Start Date End Date Bethany Mccormick MD [address] [place] [address] PCP - General Family Medicine 09/10/22 documented as of this encounter
--- OUTSIDE RECORDS SUMMARY | 2024-10-25 15:13 | XMS_ITS | Encounter Summary ---
Author Organization [employer] Address [address] 7t [place] [address] Care Team Providers Care Medicare Insurance Specialist Name Role Phone Bethany Mccormick MD Primary Care Provider +1- [phone] Reason for Visit * Reason Onset Date Comments PT-1 09/26/2024 Encounter Details Date Type Department Care Team (Late st Contact Info) Description 09/26/2024 Telephone [facility] MEDICINE [address] [place], [place] [phone] Bethany Mccormick MD [address] [place], [place] [phone] PT-1 Social History Tobacco Use Types Packs/Day Years Used Date Smoking Tobacco: Never Smokeless Tobacco: Never Alcohol Use Standard Drinks/Week Comments Never 0 (1 standard drink = 0.6 oz pur e alcohol) Alcohol Answer Date Recorded Frequency of Alcohol Consumption Not on file 07/10/2024 Average Number of Drinks Not on file 024 Frequency of Binge Drinking Not on file 06/30 Score 0 07/10/2024 Depression Answer Date Recorded Patient Health Questionnaire-9 Score 0 01/26/2024 Patient Health Questionnaire-9 Score 0 01/26/2024 Last PHQ-9: Questionnaire Data Not on file 0 01/26/2024 Housing Stability Answer Date Recorded What is your housing situation today? I have nimisha esquivel 01/26/[address] you li ve. Do you have problems with any of the following? None of the above 01/26/2024 Food Insecurity Answer Date Recorded Within the past 12 months, y ou worried that your food would run out before you got money to buy more: Never True 01/26/2024 Within the past 12 months,th e food you bought just didn't last and you didn't have enough money to get more: Never True Transportation Answer Date Recorded In the past 12 months, has l ack of transportation kept you from medical appts, meetings, work or from getting things needed for daily living? Yes, it has kept me from medical appointments or getting medications. 09/19/2024 Utilities Answer Date Recorded In the past 12 months, has t he electric, gas, oil or water company threatened to shut off services in your home? No 01/26/2024 Depression Answer Date Recorded Patient Health Questionnaire-2 Score 0 01/26/2024 Internet Access Answer Date Recorded Internet Access Q1 Yes 06/29/2024 Internet Access Q2 Not on file 06/29/2024 Sex and Gender Information Value Date Recorded Sex Assigned at Male 10/01/2022 10:14 AM EST Legal Sex Male 11:11 AM EST Gender Identity Male 10/01/2022 10:14 AM EST Sexual Orientation Choose not to disclose 2022 10:14 AM EST documented as of this encounter Miscellaneous Notes * Telephone Encounter - David Blankenship - 09/26/2024 11:19 AM EST Patient calling requesting PT1 Home Address verified: Y/N: Yes Provider name or facility name: [place] [address] Escort needed: Y/N: Yes Do you have a wheelchair: Y/N: No If yes- Manual or electric: N/A Visits: (amount of visits) ( x monthly, weekly, daily) 5 times a month documented in this encounter Plan of Treatment Upcoming Encounters Date Type Department Care Team (Late st Contact Info) Description 10/26/2024 10:00 AM EST Medication Management [facility] MEDICINE [address] [place] [address] 11/30/2024 9:45 AM EDT Office Visit [facility] [address] [place] [address] Bethany Mccormick MD [address] [place] [address] documented as of this encounter Visit Diagnoses Not on filedocumented in this encounter Additional Health Concerns Assessment Noted Time PHQ-9 Depression Total Score: 0 01/26/20 24 10:39 AM EDT documented as of this encounter Care Teams Medicare Insurance Specialist Relationship Specialty Start Date End Date Bethany Mccormick MD [address] [place] [address] PCP - General Family Medicine 09/10/22 documented as of this encounter
--- OUTSIDE RECORDS SUMMARY | 2024-10-25 15:13 | XMS_ITS | Encounter Summary ---
Author Organization [employer] Address [address] 7t [place] [address] Care Team Providers Care Field Appraiser Name Role Phone Bethany Mccormick MD Primary Care Provider +1- [phone] Reason for Visit * Reason Onset Date Comments PT1 10/04/2024 Encounter Details Date Type Department Care Team ([facility] st Contact Info) Description 10/04/2024 Telephone [facility] MEDICINE [address] [place], [place] [phone] Bethany Mccormick MD [address] [place], [place] [phone] PT1 Social History Tobacco Use Types Packs/Day Years [...] encounter Miscellaneous Notes * Telephone Encounter - Yamile Ratliff - 10/12/2024 10:29 AM EST PT-[address] submitted [address] patient for [address] Shahid [address] [place] [address]. They will receive a letter of approval or denial in the mail. PT-1 for PCP good until 03/06/2025 ands [facility] good until 10/09/2025 [facility] good until 09/27/2025. * Telephone Encounter - Zainab Loera - 10/04/2024 9:52 AM EST Patient walked in said he as an active PT1 for 1. [facility] -[address] [facility] [address] [address] Mccormick, 2. [facility]- [address] [facility] [address] [address] Bassem Shahid 3. [facility]- [address] [facility] [address]. Patient said Since end of Jul the services seem to have topped. Patient wants to know if he can renew PT1? Patient has just added 1 more location ([facility] was sent prior) other than that the locations are the same, number of visits a month are the same as well. No wheel chair needed. No escort needed. documented in this encounter Plan of Treatment Upcoming Encounters Date Type Department Care Team (Late st Contact Info) Description 10/26/2024 10:00 AM EST Medication Management [address] [address] 11/30/2024 9:45 AM EDT Office Visit [address] [address] Bethany Mccormick MD [address] [place] [address] documented as of this encounter Visit Diagnoses Not on filedocumented in this encounter Additional Health Concerns Assessment Noted Time PHQ-9 Depression Total Score: 0 01/26/20 24 10:39 AM EDT documented as of this encounter Care Teams Field Appraiser Relationship Specialty Start Date End Date Bethany Mccormick MD [address] [place] [address] PCP - General Family Medicine 09/10/22 documented as of this encounter
--- OUTSIDE RECORDS SUMMARY | 2024-10-25 15:13 | XMS_ITS | Encounter Summary ---
Author Organization [employer] Address [address] [facility] [address] [address] 7t [place] [address] Care Team Providers Care Curer Foam Rubber Name Role Phone Bethany Mccormick MD Primary Care Provider +1- [phone] Reason for Visit * Reason Onset Date Comments PT1 08/31/2024 Encounter Details Date Type Department Care Team ([facility] st Contact Info) Description 08/31/[address] [facility] MEDICINE [address] [place], [place] [phone] Bethany Mccormick MD [address] [place], [place] [phone] PT1 Social History Tobacco Use Types Packs/Day [...] getting things needed for daily living? No 01/26/2024 Utilities Answer Date Recorded In the past [...] encounter Miscellaneous Notes * Telephone Encounter - Lexi Ratliff - 08/31/2024 2:17 PM EST Patient calling requesting PT1 Home Address verified: Y/N: Yes Provider name or facility name: [address] [address] [address] Bassem Shahid (Tuber Machine Operator Helper) Escort needed: Y/N: No Do you have a wheelchair: Y/N: No If yes- Manual or electric: N/A Visits: (2) ( x monthly) documented in this encounter Plan of Treatment Upcoming Encounters Date Type Department Care Team ([facility] st Contact Info) Description 10/26/2024 10:00 AM EST Medication Management [facility] MEDICINE [address] [place] [address] 11/30/2024 9:45 AM EDT Office Visit [facility]INE [address] [place] [address] Bethany Mccormick MD [address] [place] [address] documented as of this encounter Visit Diagnoses Not on filedocumented in this encounter Additional Health Concerns Assessment Noted Time PHQ-9 Depression Total Score: 0 01/26/20 24 10:39 AM EDT documented as of this encounter Care Teams Curer Foam Rubber Relationship Specialty Start Date End Date [place], [place] Bethany [address] [place] [address] PCP - General Family Medicine 09/10/22 documented as of this encounter
--- OUTSIDE RECORDS SUMMARY | 2024-10-25 15:13 | XMS_ITS | Encounter Summary ---
Author Organization [employer] Address [address] 7t [place] [address] Care Team Providers Care Compliance Monitor Name Role Phone Bethany Mccormick MD Primary Care Provider +1- [phone] Reason for Visit * Reason Comments Med Refill Encounter Details Date Type Department Care Team ([facility] st Contact Info) Description 10/18/2024 Refill [facility] [address] [place] [address] Sadie Chavira MD [address] [place] [address] Bilateral foot pain Social History Tobacco Use Types Packs/Day Years [...] AM EST documented as of this encounter Plan of Treatment Upcoming Encounters Date Type Department Care Team (Late st Contact Info) Description 10/26/2024 10:00 AM EST Medication Management [facility] [address] [place] [address] 11/30/2024 9:45 AM EDT Office Visit [address] [address] Bethany Mccormick MD [address] [place] [address] documented as of this encounter Visit Diagnoses Diagnosis Bilateral foot pain documented in this encounter Additional Health Concerns Assessment Noted Time PHQ-9 Depression Total Score: 0 01/26/20 24 10:39 AM EDT documented as of this encounter Care Teams Compliance Monitor Relationship Specialty Start Date End Date Bethany Mccormick MD [address] [place] [address] PCP - General Family Medicine 09/10/22 documented as of this encounter
--- OUTSIDE RECORDS SUMMARY | 2024-10-25 15:13 | XMS_ITS | Encounter Summary ---
Author Organization [employer] Address [address] 7[address] [place] [address] Care Team Providers Care Religious Educator Name Role Phone Bethany Mccormick MD Primary Care Provider +1- [phone] Reason for Visit * Reason Comments Care Coordination CHW outreach for SDO H PT-1 - LVM Encounter Details Date Type Department Care Team (Latest Contact Info) Description 09/26/2024 Patient Outreach [facility]INE [address] [place] [address] Bethany Mccormick MD [address] [place] [address] Care Coordination (CHW outreach for SDOH PT-1 - LVM ) Social History Tobacco Use Types Packs/Day Years [...] is your housing situation today? I have niimsha esquivel 01/26/[address] you [...] AM EST documented as of this encounter Progress Notes * Zi Singh - 09/26/2024 11:33 AM EST CHW Zi Singh, placed outbound call to patient for assistance with SDOH as a referral was placed by the provider. Patient had screened positive for the following SDOH insecurities. No answer atthis time. Patient's name and were not confirmed. CHW left detailed message and provided contact information requesting return call for assistance. Patient educated on extended clinic hours on Mondays through Wednesdays, and Walk-In Urgent Care Located in [facility]. Patient provided with after-hours line for [facility], , which offer night time triage service and option to transfer toon call provider if needed. documented in this encounter Plan of Treatment Upcoming Encounters Date Type Department Care Team (Late st Contact Info) Description 10/26/2024 10:00 AM EST Medication Management [facility] MEDICINE [address] [place] [address] 11/30/2024 9:45 AM EDT Office Visit [facility] MEDICINE [address] [place] [address] Bethany Mccormick MD [address] [place] [address] documented as of this encounter Visit Diagnoses Not on filedocumented in this encounter Additional Health Concerns Assessment Noted Time PHQ-9 Depression Total Score: 0 01/26/20 24 10:39 AM EDT documented as of this encounter Care Teams Religious Educator Relationship Specialty Start Date End Date Bethany Mccormick MD [address] [place] [address] PCP - General Family Medicine 09/10/22 documented as of this encounter
--- OUTSIDE RECORDS SUMMARY | 2024-10-25 15:13 | XMS_ITS | Clinical Summary ---
Author Organization [address] [facility] Address [address] [place] [address] Phone Care Team Providers Care Dental Surgeon Name Role Phone Physician, Pcp Unknown Primary Care Provider Delaney vailable Social History Tobacco Use Types Packs/Day Years Used Date Smoking Tobacco: Never Assessed Sex and Gender Information Value Date Recorded Sex Assigned at Not on file Legal Sex Male 3:44 PM EDT Gender Identity Not on file Sexual Orientation Not on file Plan of Treatment Upcoming Encounters Date Type Department Care Team (Late st Contact Info) Description 12/05/2024 1:45 PM EDT Consult Orthopedic Surgery - [place] [address] [phone] Chris Edmond, [place] [address] [address] Health Maintenance Due Date Last Done Comments DTaP,Tdap,and Td Vaccines (1 - Tdap) 11/18/1978 Pneumococcal Vaccine: 50+ Ye ars (1 of 1 - PCV) 11/18/2009 Zoster Vaccines (1 of 2) 11/18/2009 COVID-19 Vaccine ( - 2023-2 5 season) 2024 Influenza Vaccine (#1) 2024 Cholesterol Screening (Lipid Panel) 06/08/2024 Colorectal Cancer Screening: Colonoscopy 06/08/2024 Depression Screening 06/08/2024 HIV Screening 06/08/2024 Hepatitis C Screening 06/08/2024 Medicare Annual Wellness Visit 06/08/2024 Social Influencers of Health Screening 06/08/2024 RSV Immunization Patients 60 + Years Old (1 - 1-dose 75+ series) 11/18/2034 HIB Vaccines Aged Out No longer eligi ble based on patient's age to complete this topic HPV Vaccines Aged Out No longer eligi ble based on patient's age to complete this topic Hepatitis A Vaccines Aged Out No long er eligible based on patient's age to complete this topic Hepatitis B Vaccines Aged Out No long er eligible based on patient's age to complete this topic IPV Vaccines Aged Out No longer eligi ble based on patient's age to complete this topic MMR Vaccines Aged Out No longer eligi ble based on patient's age to complete this topic Meningococcal ACWY Vaccine Aged Out N o longer eligible based on patient's age to complete this topic Meningococcal B Vacine Aged Out No lo nger eligible based on patient's age to complete this topic Pneumococcal Vaccine: Pediat rics (0 to 5 Years) and At-Risk Patients (6 to 64 Years) Aged Out No longer eligible b ased on patient's age to complete this topic RSV Immunization Patients Un pato 20 months Aged Out No longer eligible b ased on patient's age to complete this topic Varicella Vaccines Aged Out No longer eligible based on patient's age to complete this topic Insurance MEDICAID - [place] [employer] MEDICARE ADVANTAGE Care Teams Dental Surgeon Relationship Specialty Start Date End Date Physician, Pcp Unknown PCP - General 09/26/24
--- OUTSIDE RECORDS SUMMARY | 2024-10-25 15:13 | XMS_ITS | Encounter Summary ---
Author Organization [email or web address] Address [address] [facility] [address] [place] [address] Care Team Providers Care Provider Network Analyst Name Role Phone Bethany Mccormick MD Primary Care Provider +1- [phone] Reason for Visit * Reason Onset Date Comments Chart Prep 09/29/2024 Encounter Details Date Type Department Care Team ([facility] st Contact Info) Description 09/29/2024 Telephone [facility] [address] [place], [place] [phone] Bethany Mccormick MD [address] [place], [place] [phone] Chart Prep Social History Tobacco Use Types Packs/Day Years [...] encounter Miscellaneous Notes * Telephone Encounter - Dianna Daniel MA - 09/29/2024 11:43 AM EST Chart Prep Labs: not applicable Images: not applicable Vaccines due: Tdap Due Referrals: Vascular complete and Podiatry pending appt; faxed a request in case pt has been seen. Screenings: Colonoscopy Overdue care gaps: A1C and Glucose Chart prep for upcoming appt with Dr.Billings day. LB documented in this encounter Plan of Treatment Upcoming Encounters Date Type Department Care Team (Late st Contact Info) Description 10/26/2024 10:00 AM EST Medication Management [facility] [address] [place] [phone] 11/30/2024 9:45 AM EDT Office Visit [facility] [address] [place] [address] Bethany Mccormick MD [address] [place] [phone] documented as of this encounter Visit Diagnoses Not on filedocumented in this encounter Additional Health Concerns Assessment Noted Time PHQ-9 Depression Total Score: 0 01/26/20 24 10:39 AM EDT documented as of this encounter Care Teams Provider Network Analyst Relationship Specialty Start Date End Date Bethany Mccormick MD [address] [facility] [place] [address] PCP - General Family Medicine 09/10/22 documented as of this encounter
--- OUTSIDE RECORDS SUMMARY | 2024-10-25 15:13 | XMS_ITS | Encounter Summary ---
Author Organization [employer] Address [address] [facility] [address] [facility] [address] [place] [address] Care Team Providers Care Inspector Floor Name Role Phone Bethany Mccormick MD Primary Care Provider +1- [phone] Encounter Details Date Type Department Care Team ([facility] st Contact Info) Description 10/06/2024 Telephone [facility] [address] [place], [place] [phone] Bethany Mccormick MD [address] [place], [place] [phone] Social History Tobacco Use Types Packs/Day Years [...] Description 10/26/2024 10:00 AM EST Medication Management [facility] [address] [place] [phone] 11/30/2024 9:45 AM EDT Office Visit [facility] [address] [place] [phone] Bethany Mccormick MD [address] [place] [phone] documented as of this encounter Visit Diagnoses Not on filedocumented in this encounter Additional Health Concerns Assessment Noted Time PHQ-9 Depression Total Score: 0 01/26/20 24 10:39 AM EDT documented as of this encounter Care Teams Inspector Floor Relationship Specialty Start Date End Date Bethany Mccormick MD [address] [place] [phone] PCP - General Family Medicine 09/10/22 documented as of this encounter
--- OUTSIDE RECORDS SUMMARY | 2024-10-25 15:13 | XMS_ITS | Encounter Summary ---
Author Organization [employer] Address [address] [facility] [address] [place] [address] Care Team Providers Care [employer] T[employer] Repairer Name Role Phone Bethany Mccormick MD Primary Care Provider +1- [phone] Reason for Visit * Reason Comments Med Refill Encounter Details Date Type Department Care Team ([facility] st Contact Info) Description 08/17/2024 Refill [facility] [address] [place], [place] [phone] Bethany Mccormick MD [address] [place], [place] [phone] Primary hypertension; Gastroesophageal reflux disease without esophagitis; Gout, unspecified cause, unspecified chronicity, unspecified site; Major depressive disorder, recurrent episode, mild (CMS/HCC) Social History Tobacco Use Types Packs/Day Years [...] Description 10/26/2024 10:00 AM EST Medication Management [facility] [address] [place] [phone] 11/30/2024 9:45 AM EDT Office Visit [facility] [address] [place] [phone] Bethany Mccormick MD [address] [place] [phone] documented as of this encounter Visit Diagnoses Diagnosis Primary hypertension Unspecified essential hypertension Gastroesophageal reflux disease without esophagitis Esophageal reflux Gout, unspecified cause, unspecified chronicity, unspecified site Major depressive disorder, recurrent episode, mild ([facility]/HCC) Major depressive disorder, recurrent episode, mild documented in this encounter Additional Health Concerns Assessment Noted Time PHQ-9 Depression Total Score: 0 01/26/20 24 10:39 AM EDT documented as of this encounter Care Teams [employer] Repairer Relationship Specialty Start Date End Date Jace, MD Bethany [address] [place] [address] PCP - General Family Medicine 09/10/22 documented as of this encounter
--- OUTSIDE RECORDS SUMMARY | 2024-10-25 15:13 | XMS_ITS | Encounter Summary ---
Author Organization [employer] Address [address] [facility] 7[address] [place] [address] Care Team Providers Care Lining Sewer Name Role Bethany Barros MD Primary Care Provider +1- [phone] Reason for Visit * Reason Comments Med Refill Encounter Details Date Type Department Care Team (Late st Contact Info) Description 05/04/2023 Refill [facility] [address] [place] [phone] Darling Savage DO [address] [place] [address] Benign prostatic hyperplasia, unspecified whether lower urinary tract symptoms present Social History Tobacco Use Types Packs/Day Years Used Date Smoking Tobacco: Never Smokeless Tobacco: Never Alcohol Use Standard Drinks/Week Comments Never 0 (1 standard drink = 0.6 oz pur e alcohol) Depression Answer Date Recorded Patient Health Questionnaire-9 Score 0 10/02/2022 Depression Answer Date Recorded Patient Health Questionnaire-2 [...] Description 10/26/2024 10:00 AM EST Medication Management [facility] [address] [place] [phone] 11/30/2024 9:45 AM EDT Office Visit [facility] [address] [place] [address] Bethany Mccormick MD [address] [place] [address] documented as of this encounter Visit Diagnoses Diagnosis Benign prostatic hyperplasia, unspecified whether lower urinary tract symptoms present documented in this encounter Additional Health Concerns Assessment Noted Time PHQ-9 Depression Total Score: 0 10/02/19 9:21 AM EST documented as of this encounter Care Teams Lining Sewer Relationship Specialty Start Date End Date Bethany Mccormick MD [address] [place] [phone] PCP - General Family Medicine 09/10/22 documented as of this encounter
--- OUTSIDE RECORDS SUMMARY | 2024-10-25 15:13 | XMS_ITS | Clinical Summary ---
Author Organization [employer] Address [address] [place] [address] Care Team Providers Care Clinician Oncology Name Role Phone Bethany Mccormick MD Primary Care Provider [phone] Allergies No known active allergies Medications apixaban (Eliquis) 5 MG tabletIndication s:Atrial flutter, unspecified type (CMS/HCC) Take 1 tablet (5 mg) by mouth 2 times daily. 180 tablet 3 07/10/20 24 Active finasteride (Proscar) 5 MG tabletIndication s:Benign prostatic hyperplasia without lower urinary tract symptoms Take 1 tablet (5 mg) by mouth in the morning. 90 tablet 3 07/10/20 24 Active atorvastatin (Lipitor) 10 MG tabletIndication s:Dyslipidemia Take 1 tablet (10 mg) by mouth at bedtime. 90 tablet 3 07/10/20 24 Active pantoprazole (ProtoNix) 40 MG EC tabletIndication s:Gastroesophage al reflux disease without esophagitis Take 1 tablet (40 mg) by mouth in the morning. 90 tablet 3 07/10/20 24 Active allopurinol (Zyloprim) 300 MG tabletIndication s:Gout, unspecified cause, unspecified chronicity, unspecified site Take 1 tablet (300 mg) by mouth in the morning. 90 tablet 3 07/10/20 24 Active FLUoxetine (PROzac) 20 MG capsuleIndicatio ns:Major depressive disorder, recurrent episode, mild (CMS/HCC) Take 1 capsule (20 mg) by mouth Once per day. 90 capsule 3 07/10/20 24 Active spironolactone (Aldactone) 25 MG tabletIndication s:Primary hypertension Take 1 tablet (25 mg) by mouth in the morning. 90 tablet 1 07/10/20 24 Active amLODIPine (Norvasc) 5 MG tabletIndication s:Primary hypertension Take 1 tablet (5 mg) by mouth in the morning. 90 tablet 3 07/10/20 24 Active ibuprofen 600 MG tabletIndication s:Status post fall Take 1 tablet (600 mg) by mouth every 8 (eight) hours if needed for moderate pain or fever. 15 tablet 07/10/20 24 Active gabapentin (Neurontin) 600 MG tablet Take 1 tablet by mouth at bedtime. Active Blood Pressure kitIndications:E ssential hypertension Check bp three times a week 1 kit 08/28/20 24 Active gabapentin (Neurontin) 300 MG capsuleIndicatio ns:Bilateral foot pain TAKE 1 CAPSULE BY MOUTH THREE TIMES DAILY 90 capsule 10/18/19 25 Active gabapentin (Neurontin) 300 MG capsuleIndicatio ns:Bilateral foot pain Take 1 capsule (300 mg) by mouth 3 times daily. 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 Status post fall. Reportedly tripped on some uneven ground and fell onto the cement, face first, injuring left check, RUE, Bilateral Knees. - CT imaging head and maxillofacial reviewed and reassuring. Pt was DC with rx for Ibuprofen for pain. Rest, ice. PCP follow up as needed. - Prescribe 600 mg of Ibuprofen Assessment & Plan (07/11/2024 11:43 AM EST): - Seen on 06/15/24 at [facility]. Status post fall. Reportedly tripped on some uneven ground and fell onto the cement, face first, injuring left check, RUE, Bilateral Knees. - CT imaging head and maxillofacial reviewed and reassuring. Pt was DC with rx for Ibuprofen for pain. Rest, ice. PCP follow up as needed. - Prescribe 600 mg of Ibuprofen First degree AV block 12/30/2023 Overview (12/30/2023): -noted on EKG with cardiology 12/13/22 Assessment & Plan (07/11/2024 10:40 AM EST): -noted on EKG with cardiology 12/13/22 Cardiac risk counseling 12/30/2023 Overview (07/11/2024): Calculated 07/11/24: Intermediate Risk, patient is on moderate intensity statin with LDL at goal The 10-year ASCVD risk score (Geronimo ESTRADA, et al., 2019) is: 11.4% Values used to calculate the score: Age: 63 years Sex: Male Is Non- : No Diabetic: No Tobacco smoker: No Systolic Blood Pressure: 140 mmHg Is BP treated: Yes HDL Cholesterol: 60 mg/dL Total Cholesterol: 146 mg/dL Lab Results Component Value Date LDLCHOL 67 10/06/2022 -LDL goal < 100 -Tobacco cessation: not applicable -Statin therapy: atorvastatin 10mg -Importance of moderate physical activity and nutrition interventions discussed. Assessment & Plan (07/11/2024 11:56 AM EST): Calculated 07/11/24: Intermediate Risk, patient is on moderate intensity statin with LDL at goal The 10-year ASCVD risk score (Geronimo ESTRADA, et al., 2019) is: 11.4% Values used to calculate the score: Age: 63 years Sex: Male Is Non- : No Diabetic: No Tobacco smoker: No Systolic Blood Pressure: 140 mmHg Is BP treated: Yes HDL Cholesterol: 60 mg/dL Total Cholesterol: 146 mg/dL Lab Results Component Value Date LDLCHOL 67 10/06/2022 -LDL goal < 100 -Tobacco cessation: not applicable -Statin therapy: atorvastatin 10mg -Importance of moderate physical activity and nutrition interventions discussed. Tubular adenoma 11/29/2023 Overview (01/26/2024): -tubular adenoma on colonoscopy 11/25/[address] Harman Cabello recommending repeat in 3 years Assessment & Plan (07/11/2024 10:44 AM EST): -tubular adenoma on colonoscopy 11/25/[address] Harman Cabello recommending repeat in 3 years Assessment & Plan (01/26/2024 11:24 AM EDT): -tubular adenoma on colonoscopy 11/25/[address] Harman Cabello recommending repeat in 3 years Venous stasis 05/31/2023 Assessment & Plan (05/31/2023 12:56 PM EDT): -compression stocking written 05/31/2023 Onychomycosis 05/31/2023 Severe obesity 05/24/2023 Tricuspid regurgitation 05/24/2023 Venous insufficiency 05/24/2023 Other specified health status 01/12/2023 Overview (05/22/2024): -next comprehensive annual evaluation due after 01/25/25 -eye care last seen on 11/19, followed by Dr. Naveen Dunn of [facility] -dental is in [place] -health care proxy on file 09/17/23 Assessment & Plan (05/22/2024 10:54 AM EDT): -next comprehensive annual evaluation due after 01/25/25 -eye care last seen on 11/19, followed by Dr. Naveen Dunn of [facility] -dental is in [place] -[facility] proxy on file 09/17/23 Assessment & Plan (01/26/2024 11:24 AM EDT): -Next physical due after 10/01/2023 -Eye care last seen on 11/19 -Dental is in [place] -[facility] care proxy on file 09/17/23 Assessment & Plan (09/17/2023 11:07 AM EST): -Next physical due after 10/01/2023 -Eye care last seen on 11/19 -Dental is in [place] -[facility] proxy paperwork given 09/17/23 Right inguinal hernia 11/18/2022 Overview (07/11/2024): -repaired with [facility] general surgeons 01/2023 Assessment & Plan (07/11/2024 10:41 AM EST): -repaired with [facility] general surgeons 01/2023 Assessment & Plan (09/17/2023 9:53 AM EST): -repiared with [facility] general surgeons 01/2023 Assessment & Plan (11/18/2022 12:04 PM EDT): Referral for surgery done 11/18/22. Gout 10/02/2022 Dyslipidemia 10/02/2022 Overview (01/25/2024): Lab Results Component Value Date CHOL 146 09/17/2023 TRIG 85 09/17/2023 TRIG 95 10/06/2022 HDL 60 09/17/2023 LDLCHOLCAL 69 09/17/2023 -LDL is at goal of < 100 -continue lifestyle modifications -continue atorvastatin 10mg Assessment & Plan (07/11/2024 10:42 AM EST): Lab Results Component Value Date CHOL 146 09/17/2023 TRIG 85 09/17/2023 TRIG 95 10/06/2022 HDL 60 09/17/2023 LDLCHOLCAL 69 09/17/2023 -LDL is at goal of < 100 -continue lifestyle modifications -continue atorvastatin 10mg Assessment & Plan (01/26/2024 11:22 AM EDT): Lab Results Component Value Date CHOL 146 09/17/2023 TRIG 85 09/17/2023 TRIG 95 10/06/2022 HDL 60 09/17/2023 LDLCHOLCAL 69 09/17/2023 -LDL is at goal of < 100 -continue lifestyle modifications -continue atorvastatin 10mg Assessment & Plan (09/17/2023 10:58 AM EST): Lab Results Component Value Date CHOLESTEROL 143 10/06/2022 HDLCHOL 58 10/06/2022 TRIG 95 10/06/2022 LDLCHOL 67 10/06/2022 CHOLHDLRAT 2.5 10/06/2022 NONHDLCHOL 85 10/06/2022 -continue lifestyle modifications -continue atorvastatin 10mg BPH (benign prostatic hyperplasia) 10/02/2022 Essential hypertension 10/02/2022 Overview (09/17/2023): -Blood pressure is at goal -Continue lifestyle modifications -Continue current medications Assessment & Plan (05/22/2024 10:53 AM EDT): -Blood pressure is at goal -Continue lifestyle modifications -Continue current medications Assessment & Plan (01/26/2024 11:23 AM EDT): -Blood pressure is at goal -Continue lifestyle modifications -Continue current medications Assessment & Plan (09/17/2023 10:58 AM EST): -Blood pressure is at goal -Continue lifestyle modifications -Continue current medications Deaf 10/02/2022 Overview (03/15/2024): -Patient needs cognos tm1 developer for all visits. Please make note of this in any referrals. -Audiology at [facility] -has appropriate assistive devices in home including fire alarm with light Patient walked in with PT1 denial letter for [facility]. The letter says it was denied because '[facility] does not participate with medicaid. Patient showed FD appointment reminder for [facility] set for 04/28/2024 at 10am. FD called '[facility]' to ask if the accept Patient insurance or if they can provide on time transpiration. [facility] advised they do not accept Patient insurance and he has No Showed to the last few apps (according to them he does not have an yelitza set up). Patient said he was already evaluated (ear molds were taken, hearing was checked the only reason for the yelitza was to f/u). Patient would like new place to keep getting evaluated that do accept his insurance and so PT1 can be approved. Patient cannot travel in bus. He gets lost. -referral placed to audiology 03/15/24 Assessment & Plan (07/11/2024 10:43 AM EST): -Patient needs cognos tm1 developer for all visits. Please make note of this in any referrals. -Audiology at [facility] -has appropriate assistive devices in home including fire alarm with light Patient walked in with PT1 denial letter for [facility]. The letter says it was denied because '[facility] does not participate with medicaid. Patient showed FD appointment reminder for [facility] set for 04/28/2024 at 10am. FD called '[facility]' to ask if the accept Patient insurance or if they can provide on time transpiration. [facility] advised they do not accept Patient insurance and he has No Showed to the last few apps (according to them he does not have an yelitza set up). Patient said he was already evaluated (ear molds were taken, hearing was checked the only reason for the yelitza was to f/u). Patient would like new place to keep getting evaluated that do accept his insurance and so PT1 can be approved. Patient cannot travel in bus. He gets lost. -referral placed to audiology 03/15/24 Assessment & Plan (05/22/2024 10:53 AM EDT): -Patient needs cognos tm1 developer for all visits. Please make note of this in any referrals. -Audiology at [facility] -has appropriate assistive devices in home including fire alarm with light Patient walked in with PT1 denial letter for [facility]. The letter says it was denied because '[employer]' does not participate with medicaid. Patient showed FD appointment reminder for '[facility]' set for 04/28/2024 at 10am. FD called '[employer]' to ask if the accept Patient insurance or if they can provide on time transpiration. [facility] [employer] advised they do not accept Patient insurance and he has No Showed to the last few apps (according to them he does not have an yelitza set up). Patient said he was already evaluated (ear molds were taken, hearing was checked the only reason for the yelitza was to f/u). Patient would like new place to keep getting evaluated that do accept his insurance and so PT1 can be approved. Patient cannot travel in bus. He gets lost. -referral placed to audiology 03/15/24 Assessment & Plan (01/26/2024 11:23 AM EDT): -Patient needs cognos tm1 developer for all visits. Please make note of this in any referrals. -Audiology at [facility] -has appropriate assistive devices in home including fire alarm with light Assessment & Plan (09/17/2023 9:50 AM EST): -[place]dean Sign Language Assessment & Plan (10/02/2022 12:38 PM EST): -[place] Sign Language used during visit PVD (peripheral vascular disease) 10/02/2022 Overview (10/02/2022): -doppler 04/19/2021 in [place] revealed evidence of bilateral common femoral and popliteal venin valves incompetence Assessment & Plan (09/01/2024 3:17 PM EST): Patient also tells me pain is worse with walking, feels cramps and throbbing sensation I will refer him to vascular specialist in light he already had h/o PVD Assessment & Plan (09/17/2023 9:50 AM EST): -doppler 04/19/2021 in [place] revealed evidence of bilateral common femoral and popliteal venin valves incompetence Assessment & Plan (10/02/2022 12:35 PM EST): -doppler 04/19/2021 in [place] revealed evidence of bilateral common femoral and popliteal venin valves incompetence Arterial atherosclerosis 10/02/2022 Overview (05/31/2023): -Cardiac cath in [place] 07/05/2020 for chest pain and noted to have normal coronaries without any evidence of atherosclerosis Assessment & Plan (07/11/2024 10:40 AM EST): -Cardiac cath in [place] 07/05/2020 for chest pain and noted to have normal coronaries without any evidence of atherosclerosis Assessment & Plan (09/17/2023 9:50 AM EST): -Cardiac cath in [place] 07/05/2020 for chest pain and noted to have normal coronaries without any evidence of atherosclerosis Prediabetes 10/02/2022 Overview (07/11/2024): Lab Results Component Value Date HGBA1C 5.1 01/26/2024 HGBA1C 5.4 09/17/2023 HGBA1C 5.7 09/17/2023 HGBA1C 5.7 (H) 10/06/2022 GLUCOSE 112 09/17/2023 -Lifestyle modification discussed Assessment & Plan (07/11/2024 11:51 AM EST): Lab Results Component Value Date HGBA1C 5.1 01/26/2024 HGBA1C 5.4 09/17/2023 HGBA1C 5.7 09/17/2023 HGBA1C 5.7 (H) 10/06/2022 GLUCOSE 112 09/17/2023 -Lifestyle modification discussed Assessment & Plan (01/26/2024 11:24 AM EDT): Lab Results Component Value Date HGBA1C 5.4 09/17/2023 HGBA1C 5.7 09/17/2023 HGBA1C 5.7 (H) 10/06/2022 GLUCOSE 112 09/17/2023 -Lifestyle modification discussed Assessment & Plan (09/17/2023 9:52 AM EST): Lab Results Component Value Date HGBA1C 5.7 (H) 10/06/2022 ---Lifestyle modification discussed Assessment & Plan (05/31/2023 12:56 PM EDT): Lab Results Component Value Date HGBA1C 5.7 (H) 10/06/2022 GLUCOSE 123 (H) 01/19/2023 -Lifestyle modification discussed Assessment & Plan (11/18/2022 12:06 PM EDT): A1c 5.7% on 10/06/2022. Lifestyle modification discussed. Hx of myocardial infarction 10/02/2022 Hx of hypertrophic cardiomyopathy 10/02/2022 Overview (05/31/2024): -Hx cardiac cath 07/05/2020 in [place] with normal coronary arteries, mild dilated left ventricle with borderline low EF, mild pulmonary hypertension, normal cardiac output -echo 06/17/2021 EF 60-65%, mild anteroseptal LV wall motion is hypokinetic, mild dilated left atrium, mild enlarged right atrium, calcified aortic cusps, mild MR, mild to mod TR -Cardiology note from 05/04/24 reviewed -Pt on Eliquis for aflutter but has been NSR. Recommends Zio path for 24 days, if no further aflutter episodes will discontinue apixaban -repeat Echo ordered 05/04/24 Assessment & Plan (05/22/2024 10:54 AM EDT): -Hx cardiac cath 07/05/2020 in [place] with normal coronary arteries, mild dilated left ventricle with borderline low EF, mild pulmonary hypertension, normal cardiac output -echo 06/17/2021 EF 60-65%, mild anteroseptal LV wall motion is hypokinetic, mild dilated left atrium, mild enlarged right atrium, calcified aortic cusps, mild MR, mild to mod TR -referred back to Cardiology 05/22/24 Assessment & Plan (01/26/2024 11:23 AM EDT): -Hx cardiac cath 07/05/2020 in [place] with normal coronary arteries, mild dilated left ventricle with borderline low EF, mild pulmonary hypertension, normal cardiac output -echo 06/17/2021 EF 60-65%, mild anteroseptal LV wall motion is hypokinetic, mild dilated left atrium, mild enlarged right atrium, calcified aortic cusps, mild MR, mild to mod TR Assessment & Plan (09/17/2023 9:53 AM EST): -Hx cardiac cath 07/05/2020 in [place] with normal coronary arteries, mild dilated left ventricle with borderline low EF, mild pulmonary hypertension, normal cardiac output -echo 06/17/2021 EF 60-65%, mild anteroseptal LV wall motion is hypokinetic, mild dilated left atrium, mild enlarged right atrium, calcified aortic cusps, mild MR, mild to mod TR Assessment & Plan (10/02/2022 12:33 PM EST): -Hx cardiac cath 07/05/2020 in [place] with normal coronary arteries, mild dilated left ventricle with borderline low EF, mild pulmonary hypertension, normal cardiac output -echo 06/17/2021 EF 60-65%, mild anteroseptal LV wall motion is hypokinetic, mild dilated left atrium, mild enlarged right atrium, calcified aortic cusps, mild MR, mild to mod TR -euvolemic on exam Atrial flutter 10/02/2022 Overview (05/31/2024): Noted in [place] during ECG for palpitations. -[id number] of 1 -s/p CTI ablation 09/22/2021 with good results -on Eliquis (apixaban) -seen by [facility] cardiology Dr. Myra Feliciano MD 12/13/2022 recommending 6 month follow up -Cardiology note from 05/04/24 reviewed Recommends Zio path for 24 days, if no further aflutter episodes will discontinue apixaban -repeat Echo ordered Assessment & Plan (05/22/2024 10:53 AM EDT): Noted in [place] during ECG for palpitations. -[id number] of 1 -s/p CTI ablation 09/22/2021 with good results -on Eliquis (apixaban) -seen by [facility] cardiology Dr. Myra Feliciano MD 12/13/2022 recommending 6 month follow up -has not been to see incubator tender since, referred back again today 05/22/24. Assessment & Plan (01/26/2024 11:23 AM EDT): Noted in [place] during ECG for palpitations. -[id number] of 1 -s/p CTI ablation 09/22/2021 with good results -on Eliquis (apixaban) -seen by [facility] cardiology Dr. Myra Feliciano MD 12/13/2022 recommending 6 month follow up Assessment & Plan (09/17/2023 9:52 AM EST): Noted in [place] during ECG for palpitations. -[id number] of 1 -s/p CTI ablation 09/22/2021 with good results -on Eliquis (apixaban) -seen by [facility] cardiology Dr. Myra Feliciano MD 12/13/2022 recommending 6 month follow up Assessment & Plan (05/31/2023 12:55 PM EDT): Noted in [place] during ECG for palpitations. -[id number] of 1 -s/p CTI ablation 09/22/2021 with good results -on Eliquis (apixaban) -seen by [facility] cardiology Dr. Myra Feliciano MD 12/13/2022 recommending 6 month follow up Assessment & Plan (10/02/2022 12:36 PM EST): Noted in [place] during ECG for palpitations. -s/p CTI ablation 09/22/2021 with good results -on Eliquis Resolved Problems Problem Noted Date Diagnosed Date Resolved Date Homeless 09/17/2023 01/26/2024 Left foot pain 11/18/2022 01/26/2024 Overview (11/18/2022): Exam normal. Possible planter fascitis. Discussed massage with ball. Assessment & Plan (09/17/2023 9:53 AM EST): Exam normal. Possible planter fascitis. Discussed massage with ball. Assessment & Plan (11/18/2022 12:06 PM EDT): Exam normal. Possible planter fascitis. Discussed massage with ball. Eye exam, routine 11/18/2022 09/06/2024 Assessment & Plan (11/18/2022 12:10 PM EDT): Pt will call to schedule a vision screening. Hx of heart surgery 10/02/2022 05/31/20 Overview (10/02/2022): -pt repots hx heart surgery age 5 in [place] for unknown reason Assessment & Plan (10/02/2022 12:31 PM EST): -pt repots hx heart surgery age 5 in [place] for unknown reason Encounters Date Type Department Care Team Description 10/18/2024 Refill [facility] [address] [place] [address] Sadie Chavira MD Bilateral foot pain 10/06/2024 Telephone [facility] [address], [place] [phone] Bethany Mccormick MD 10/04/2024 Telephone [facility] [address], [place] [phone] Bethany Mccormick MD PT1 09/29/2024 Telephone [facility] [address] [place], [place] [phone] Bethany Mccormick MD Chart Prep 09/26/2024 Patient Outreach [facility] [address] [place] [phone] Bethany Mccormick MD Care Coordination (W outreach for SDOH PT-1 - LVM ) 09/26/[address] [phone] Bethany Mccormick MD PT-1 09/20/2024 Patient Outreach [address] [address] Bethany Mccormick MD Care Coordination (W outreach for SDOH PT-1 - LVM ) 09/19/2024 Patient Outreach [address] [address] Bethany Mccormick MD Pre-visit Planning (SDOH Screening positive and Tobacco screening negative) 09/01/2024 2:00 PM EST Office Visit [facility] [address] [place] [phone] Sadie Chavira MD Bilateral foot pain (Primary Dx); PVD (peripheral vascular disease) ([facility]); Prediabetes 08/31/2024 Patient Outreach [address] [phone] Bethany Mccormick MD Care Coordination ([facility] outreach for SDOH PT-1 and food needs-referral completed /) 08/31/2024 Patient Outreach [address] [phone] Bethany Mccormick MD Care Coordination ([facility] outreach for SDOH PT-1 and food needs-referral completed /) 08/31/[address] [phone] Bethany Mccormick MD PT1 08/28/2024 Orders Only [address] [phone] Bethany Mccormick MD Essential hypertension (Primary Dx) 08/17/[address] [address] Bethany Mccormick MD Primary hypertension; Gastroesophageal reflux disease without esophagitis; Gout, unspecified cause, unspecified chronicity, unspecified site; Major depressive disorder, recurrent episode, mild ([facility]/HCC) 08/07/2024 Telephone [facility] [address] [place] [phone] Bethany Mccormick MD mdication refill from Last 3 Months Immunizations Name Administration Dates Next Due Hep B, adult 05/31/2023,12/22/2022,11/18/2022 Influenza injectable quadriv alent preservative free 05/31/2023,11/18/2022 Influenza, seasonal, injecta ble, preservative free 05/22/2024 Pfizer Covid-19 Vaccine 12+ 05/22/2024, Pfizer Covid-19 Vaccine 12+ Bivalent 11/18/2022 Pneumococcal Conjugate PCV 20 09/17/2023 RSV Bivalent 02/08/2024 Tdap 11/12/2022 Zoster, Recombinant 11/12/2022,09/10/2022 Social History Tobacco Use Types Packs/Day Years Used Date Smoking Tobacco: Never Smokeless Tobacco: Never Tobacco Cessation:Counseling Given: Not Answered Alcohol Use Standard Drinks/Week Comments Never 0 [...] not to disclose 2022 10:14 AM EST Last Filed Vital Signs Vital Sign Reading Time Taken Comments Blood Pressure 128/77 09/01/2024 2:04 PM EST Pulse 55 09/01/2024 2:04 PM EST Temperature 36.4 ??C (97.5 ??F) 09/01/2024 2:04 PM ES T Respiratory Rate 18 09/01/2024 2:04 PM EST Oxygen Saturation 96% 09/01/2024 2:04 PM EST Inhaled Oxygen Concentration - - Weight 132 kg (290 lb 12.8 oz) 07/10/2024 9:11 A M EST Height 185.4 cm (6' 1 ) 07/10/2024 9:11 AM EST Body Mass Index 38.37 07/10/2024 9:11 AM EST Plan of Treatment Upcoming Encounters Date Type Department Care Team (Late st Contact Info) Description 10/26/2024 10:00 AM EST Medication Management [facility] [address] [place] [address] [phone] 11/30/2024 9:45 AM EDT Office Visit [facility] [address] [place] [phone] Bethany Mccormick MD [address] [place] [phone] Health Maintenance Due Date Last Done Comments CT Colonography 1959 FIT DNA/Cologuard 1959 FIT 1959 FOBT 1959 Sigmoidoscopy 1959 Depression Screening 01/25/2025 01/26/2024, 01/26/20 24 Diabetes: Hemoglobin A1C 01/25/2025 024, 09/17/2023, 09/17/2023, Additional history exists Alcohol/Substance Use Screening 07/10/2025 07/10/2024 Tobacco Screening 07/10/2025 07/10/2024 SDOH Screening 09/19/2025 09/19/2024 Colonoscopy 11/25/2025 11/25/2022 Colorectal Cancer Screening 11/25/2025 Lipid Panel 09/17/2028 09/17/2023, 10/06/2022 DTaP/Tdap/Td Vaccines (2 - Td or Tdap) 11/12/2032 11/12/2022 HIV Screening Completed 10/06/2022 Hepatitis C Screening Completed 10/06/2022 Zoster Vaccines Completed 11/12/2022, 09/10/2022 Hepatitis B Vaccines Completed 05/31/2023, 12/22/2022, 11/18/2022 Pneumococcal Vaccine: 50+ Years Completed 09/17/2023 RSV Patients and Patients Aged 60 years or older Completed 02/08/2024 COVID-19 Vaccine Completed 05/22/2024, 09/2022, 11/18/2022 Influenza Vaccine Completed 05/22/2024, , 11/18/2022 HIB Vaccines Aged Out No longer eligi [...] patient's age to complete this topic Meningococcal Vaccine Aged Out No dee dee skip eligible based on patient's age to complete this topic RSV under 20 months Aged Out No longe r eligible based on patient's age to complete this topic Rotavirus Vaccines Aged Out No longer eligible based on patient's age to complete this topic Procedures Procedure Name Priority Date/Time Associated Diagnosis Comments POCT GLYCATED HEMOGLOBIN, TOTAL Routine 01/26/2024 2:46 PM EDT Prediabetes LIPID PANEL, STANDARD Routine 09/17/2023 11:50 AM EST Dyslipidemia HM COLONOSCOPY Routine 11/25/2022 HEPATITIS C AB W/REFL TO HCV RNA, QN, PCR Routine 10/06/2022 8:42 AM EST Routine screening for STI (sexually transmitted infection) HIV 1/2 ANTIGEN/ANTIBODY, FOURTH GENERATION W/RFL Routine 10/06/2022 8:42 AM EST Routine screening for STI (sexually transmitted infection) from Last 3 Months or Most Recently Relevant to Health Maintenance Results * POCT A1C (01/26/2024 2:46 PM EDT) Hemoglobin A1C 5.1 4.0 - 6.0 % QC Media Lot # [id number] Lot# Expiration Date Blood 01/26/2024 2:46 PM EDT Bethany Mccormick MD POINT OF CARE TEST ENTER/E DIT ORDERABLES Final Result * Lipid Panel, Standard (09/17/2023 11:50 AM EST) Triglycerides 85 <150 mg/dL [facility] Comment:Desirable Triglyceri de: less than 150 mg/dLBorderline High Triglyceride 150-199 mg/dLHigh Triglyceride: 200-499 mg/dLVery High Triglyceride: greater than or equal to 5OO mg/dL Cholesterol 146 <200 mg/dL [facility] Comment:Desirable Cholestero l: less than 200 mg/dLBorderline High Cholesterol: 200-239 mg/dLHigh Cholesterol: greater than 239 mg/dL LDL Cholesterol Calculated 69 <100 mg/dL [facility] Comment:Desirable LDL: less than 100 mg/dLNear Optimal/Above Optimal LDL: 110- 129 mg/dLBorderline High LDL: 130-159 mg/dLHigh LDL: 160-189 mg/dLVery High LDL: greater than or equal to 190 mg/dL HDL Cholesterol 60 >40 mg/dL [facility] Comment:Desirable HDL: great er than 40 mg/dL Note: This HDL assay may give artificially low results in patients with liver disease. Blood Venous blood specimen / Unknown 09/17/2023 11:50 AM EST 09/17/2023 1:26 PM EST Bethany Mccormick MD LAB BLOOD ORDERABLES Final Result Performing Organization Address City/[facility]/ZIP Co de Phone Number [facility] [address] [place] [phone] * (ABNORMAL) Hm Colonoscopy (11/25/2022) Pathologist [facility] Colonoscopy Abnormal(A ) Normal Jose Ramon Hernández MD HEALTH MAINTENANCE Final Result * Hepatitis C Antibody with Reflex to HCV, RNA, Quantitative, Real-Time PCR (10/06/2022 8:42 AM EST) Pathologist [facility] Hepatitis C Antibody NON-REACT MIRA NON-REACT MIRA [facility] [place] [employer] Index 0.07 <1.00 [facility] Comment: HCV antibody was non-reactive. There is no laboratory evidence of HCV infection. In most cases, no further action is required. However, if recent HCV exposure is suspected, a test for HCV RNA (test code 91285) is suggested. For additional information please refer to http://education.[employer]/faq/DKJ63r1 (This link is being provided for informational/ educational purposes only.) Blood Venous blood specimen / Unknown 10/06/2022 8:42 AM EST 10/06/2022 8:43 AM EST Narrative [facility] - 10/09/2022 12:25 AM EST FASTING:YES FASTING: YES Bethany Mccormick MD LAB BLOOD ORDERABLES Final Result Performing Organization Address City/[facility]/ZIP Co de Phone Number [facility] [address] [place] [address], [place] [address] [facility] [address] [facility], [address]) [place] [address] * HIV-1/2 Antigen and Antibodies, Fourth Generation, with Reflexes (10/06/2022 8:42 AM EST) HIV Antigen/Antibody, 4th Generation NON-REAC TIVE NON-REAC TIVE [facility] Comment: HIV-1 antigen and HIV-1/HIV-2 antibodies were not detected. There is no laboratory evidence of HIV infection. PLEASE NOTE: This information has been disclosed to you from records whose confidentiality may be protected by state law. ??If your state requires such protection, then the state law prohibits you from making any further disclosure of the information without the specific written consent of the person to whom it pertains, or as otherwise permitted by law. A general authorization for the release of medical or other information is NOT sufficient for this purpose. ?? For additional information please refer to http://education.[employer]/faq/XTK966 (This link is being provided for informational/ educational purposes only.) The performance of this assay has not been clinically validated in patients less than 2 years old. Blood Venous blood specimen / Unknown 10/06/2022 8:42 AM EST 10/06/2022 8:43 AM EST Narrative [facility] - 10/09/2022 12:25 AM EST FASTING:YES FASTING: YES Bethany Mccormick MD LAB BLOOD ORDERABLES Final Result [facility] [address] [facility], [place] [address] [facility] [address] [facility], [address] [place] [address] from Last 3 Months or Most Recently Relevant to Health Maintenance [place] [address] [place] [address] STANDARD [employer] MEDICARE REPLACEMENT Advance Directives Documents on File Type Date Recorded 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
== END 2024-10-25 12:19 | disposition home or self-care (01) ==
LOC: HO.US 12:18
PROVIDERS: Visit Provider Surgery Vascular Surgery
DX: I83.12 Varicose veins of left lower extremity with inflammation (principal)
CPT/HCPCS: 93970

== ENCOUNTER → 2024-10-25 12:24 | Outpatient (BNV) | payer MEDICARE, MEDICAID, SELFPAY | PROVIDERS: Visit Provider Radiology Diagnostic Radiology | DX: I83.12 Varicose veins of left lower extremity with inflammation (principal) | CPT/HCPCS: 93970 ==

== ENCOUNTER 2024-11-07 12:52 | Outpatient (AMB) | payer MEDICARE, MEDICAID, SELFPAY ==
--- NOTE | 2024-11-07 13:14 | MHC.OFFVIS ---
Intake Visit Reasons: follow up s/p US 10/26/24 Intake Note: Patient presents for US performed on 10/26/24. No complaints. Accompanied by: Self / Same As Patient Allergies No Known Allergies Allergy (Verified 11/07/24 13:16) HPI HPI follow up s/p US 10/26/24: Details: William is presenting today for a follow up to US, performed on 10/25/24. 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 The pt states he is able to read lips, in Mexican. He has no complaints today. He states the swelling and pain has gone away. He is participating in PT, which he states is helping a lot. PFSH Medical History Arthritis Hearing impairment Depression Hx of coronary angiogram Venous insufficiency Tricuspid regurgitation Prediabetes Obesity Essential (primary) hypertension Dyslipidemia Benign prostate hyperplasia Atrial flutter Surgical History Hx of appendectomy History of cardiac radiofrequency ablation Hx of heart surgery Family History Father Heart disease Social History Are you a primary child care development specialist to a significant other at home: No Do you presently have visiting nurse or other home services: Yes (has TTY hearing assistance) Patient Tobacco Use Status: Never used Tobacco Review of Systems Const Reports as per HPI and Denies weakness ENT Reports Normal hearing present and Denies dizziness Card Reports as per HPI, Denies chest pain, Denies chest pain at rest, Denies chest pain with activity, Denies dyspnea and Denies dyspnea on exertion Resp Reports as per HPI, Denies cough, Denies dyspnea and Denies dyspnea on exertion GI Reports as per HPI, Denies abdominal pain, Denies nausea and Denies vomiting Musc Denies numbness Skin/Breast Reports as per HPI, Denies erythema and Denies wounds Neuro Reports Normal hearing present, Denies dizziness, Denies numbness, Denies Sensory deficit (Neuro) and Denies weakness Psych Reports no additional complaints Endo Reports no additional complaints Physical Exam Const General: healthy appearing and no acute distress Orientation/consciousness: patient oriented x3 HEENT Head: Yes normal to inspection Ears: hearing grossly normal bilaterally Mouth: Normal oral and palatal mucosa present Resp Effort & Inspection: normal respiratory effort and able to speak in complete sentences Auscultation: clear to auscultation bilaterally Cardio Jugular venous distension: no JVD Rate: regular rate Rhythm: regular rhythm Heart sounds: S1 normal heart sound present and S2 normal heart sound present Bruits: no abdominal aortic bruits, no carotid bruits, no femoral bruits and no renal bruits Peripheral pulses: Peripheral pulses 2+ throughout GI Inspection: Yes normal to inspection Palpation (GI): No Abdominal aortic bruit present Skin General skin exam: no rashes or lesions noted Wounds: no wounds Hair: normal Neuro General: patient oriented x3 Cranial nerves: Yes Normal hearing present Cognition (Neuro): normal cognition Gait exam (Neuro): Normal gait present Motor exam (neuro): 5/5 motor strength present throughout Sensory Exam: No Sensory deficit (Neuro) Extrem Other: Bilateral lower extremities: Trace peripheral edema noted. No pain to palpation. Palpable DP pulses. General: Yes normal to inspection, Yes full ROM, Yes capillary refill normal and Yes normal gait Results Reviewed Results Reviewed: Brief summary of venous insufficiency testing is as follows: right great saphenous vein: negative; small amount of reflux noted mid thigh to the above the knee with very small vein size. right small saphenous vein: negative right accessory vein: none present left great saphenous vein: negative left small saphenous vein: negative left accessory vein: none present Please note there is no evidence of any venous aneurysms or significant tortuosity Assessment & Plan Assessment & Plan (1) Varicose veins of left lower extremity with inflammation: Code(s): I83.12 - Varicose veins of left lower extremity with inflammation Category: Medical Plan: William is presenting today as a follow up to venous insufficiency ultrasound, performed on 10/25/2024. He states the swelling in the pain in his lower extremities has gotten better. There was no venous insufficiency noted on ultrasound; however, there was a small amount of reflux noted in the right great saphenous vein in the mid thigh/above knee area, but the veins are small in size and the patient has no complaints in that area. He states he has started PT and he has been feeling better since starting it; he has also been walking more. We discussed to continue with PT as well as physical activity. We discussed that if he has any concerns he can reach back out to us. Thank you for allowing us to participate in the patient's care. If there are any questions or concerns, please do not hesitate to reach out to us. Coding Level of Care Code Est Pt Level 4 (79520) Diagnoses Varicose veins of left lower extremity with inflammation I83.12 Comment Review of venous insufficiency ultrasound
--- OUTSIDE RECORDS SUMMARY | 2024-11-07 15:24 | XMS_ITS | Encounter Summary ---
Author Organization [employer] Address [address] [facility] 7[address] [place] [address] Care Team Providers Care Child Care Cook Name Role Phone Bethany Mccormick MD Primary Care Provider [phone]- [phone] Reason for Visit * Reason Comments Med Refill Encounter Details Date Type Department Care Team (Late st Contact Info) Description 05/04/2023 Refill [facility] [address] [place] [phone] Darling Savage DO [address] [place] [address] Benign prostatic hyperplasia, unspecified whether lower urinary [...] Care Team (Late st Contact Info) Description 11/30/2024 9:45 AM EDT Office Visit [facility] [address] [place] [address] Bethany Mccormick MD [address] [place] [address] documented as of this encounter Visit Diagnoses Diagnosis Benign prostatic hyperplasia, unspecified whether lower urinary tract symptoms present documented in this encounter Additional Health Concerns Assessment Noted Time PHQ-9 Depression Total Score: 0 10/02/19 23 9:21 AM EST documented as of this encounter Care Teams Child Care Cook Relationship Specialty Start Date End Date Bethany Mccormick MD [address] [place] [address] PCP - General Family Medicine 09/10/22 documented as of this encounter
--- OUTSIDE RECORDS SUMMARY | 2024-11-07 15:24 | XMS_ITS | Encounter Summary ---
Author Organization [employer] Address [address] [facility] [address] 7[address] [place] [address] Care Team Providers Care Foundation Relations Director Name Role Phone Bethany Mccormick MD Primary Care Provider [phone]- [phone] Reason for Visit * Reason Onset Date Comments PT1 08/31/2024 Encounter Details Date Type Department Care Team ([facility] st Contact Info) Description 08/31/2024 Telephone [facility] [address] [place], [place] [phone] Bethany Mccormick MD [address] [place], [place] [phone] PT1 Social History Tobacco Use Types Packs/Day [...] Y/N: Yes Provider name or facility name: [address] [address] [address] Bassem Shahid (Day Worker) Escort needed: Y/N: No Do you have a wheelchair: Y/N: No If yes- Manual or electric: N/A Visits: (2) ( x monthly) documented in this encounter Plan of Treatment Upcoming Encounters Date Type Department Care Team ([facility] st Contact Info) Description 11/30/2024 9:45 AM EDT Office Visit [facility] [address] [place], [place] [phone] Bethany Mccormick MD [address] [place], [place] [phone] documented as of this encounter Visit Diagnoses Not on filedocumented in this encounter Additional Health Concerns Assessment Noted Time PHQ-9 Depression Total Score: 0 01/26/20 24 10:39 AM EDT documented as of this encounter Care Teams Foundation Relations Director Relationship Specialty Start Date End Date Bethany Mccormick MD [address] [place] [address] PCP - General Family Medicine 09/10/22 documented as of this encounter
--- OUTSIDE RECORDS SUMMARY | 2024-11-07 15:24 | XMS_ITS | Encounter Summary ---
Author Organization [employer] Address [address] [facility] [address] [place] [address] Care Team Providers Care Finance Clerk Name Role Phone Bethany Mccormick MD Primary Care Provider [phone]- [phone] Reason for Visit * Reason Onset Date Comments PT1 10/04/2024 Encounter Details Date Type Department Care Team ([facility] st Contact Info) Description 10/04/2024 Telephone [facility] [address] [place], [place] [phone] Bethany Mccormick MD [address] [place], [place] [phone] PT1 Social History Tobacco Use Types Packs/Day [...] PT-1 submitted for patient for Dr Shahid [address] [place] [address]. They will receive a letter of approval or denial in the mail. PT-1 for PCP good until 03/06/2025 ands [facility] good until 10/09/2025 [facility] good until 09/27/2025. * Telephone Encounter - Zainab Loera - 10/04/2024 9:52 AM EST Patient walked in said he as an active PT1 for 1. [facility] -[address] [facility] [address] [address] Mccormick, 2. [facility]- [address] [facility] [address] Dr[address] Bassem Shahid 3. [facility]- [address] [facility] [address]. Patient said Since end of Jul the services seem to have topped. Patient wants to know if he can renew PT1? Patient has just added 1 more location ([facility] message was sent prior) other than that the locations are the same, number of visits a month are the same as well. No wheel chair needed. No escort needed. documented in this encounter Plan of Treatment Upcoming Encounters Date Type Department Care Team (Late st Contact Info) Description 11/30/2024 9:45 AM EDT Office Visit [facility] [address] [place] [address] Bethany Mccormick MD [address] [place] [address] documented as of this encounter Visit Diagnoses Not on filedocumented in this encounter Additional Health Concerns Assessment Noted Time PHQ-9 Depression Total Score: 0 01/26/20 24 10:39 AM EDT documented as of this encounter Care Teams Finance Clerk Relationship Specialty Start Date End Date Bethany Mccormick MD [address] [place] [address] PCP - General Family Medicine 09/10/22 documented as of this encounter
--- OUTSIDE RECORDS SUMMARY | 2024-11-07 15:24 | XMS_ITS | Encounter Summary ---
Author Organization [employer] Address [address] [place] [address] Care Team Providers Care Customer Service And Sales Consultant Name Role Phone Bethany Mccormick MD Primary Care Provider [phone]- [phone] Reason for Visit * Reason Onset Date Comments PT-1 09/26/2024 Encounter Details Date Type Department Care Team (Late st Contact Info) Description 09/26/2024 Telephone [facility] [address] [place], [place] [phone] Bethany Mccormick MD [address] [place], [place] [phone] PT-1 Social History Tobacco Use Types Packs/Day [...] Y/N: Yes Provider name or facility name: [place] [address] Escort needed: Y/N: Yes Do you have a wheelchair: Y/N: No If yes- Manual or electric: N/A Visits: (amount of visits) ( x monthly, weekly, daily) 5 times a month documented in this encounter Plan of Treatment Upcoming Encounters Date Type Department Care Team (Late st Contact Info) Description 11/30/2024 9:45 AM EDT Office Visit [facility] [address] [place] [address] Bethany Mccormick MD [address] [place] [address] documented as of this encounter Visit Diagnoses Not on filedocumented in this encounter Additional Health Concerns Assessment Noted Time PHQ-9 Depression Total Score: 0 01/26/20 24 10:39 AM EDT documented as of this encounter Care Teams Customer Service And Sales Consultant Relationship Specialty Start Date End Date Bethany Mccormick MD [address] [place] [address] PCP - General Family Medicine 09/10/22 documented as of this encounter
--- OUTSIDE RECORDS SUMMARY | 2024-11-07 15:24 | XMS_ITS | Clinical Summary ---
Author Organization [employer] Address [address] 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 Status post fall. Reportedly tripped on some [...] AM EST): - Seen on 06/15/24 at [facility]. Status post fall. Reportedly tripped on some [...] 11/19, followed by Dr. Naveen Dunn of [facility] -dental is [place] -health care proxy on file 09/17/23 Assessment & Plan (05/22/2024 10:54 AM EDT): -next comprehensive annual evaluation due after 01/25/25 -eye care last seen on 11/19, followed by Dr. Naveen Dunn of [facility] -dental is [place] -[facility] proxy on file 09/17/23 Assessment & Plan (01/26/2024 11:24 AM EDT): -Next physical due after 10/01/2023 -Eye care last seen on 11/19 -Dental is in [place] -[facility] care proxy on file 09/17/23 Assessment & Plan (09/17/2023 11:07 AM EST): -Next physical due after 10/01/2023 -Eye care last seen on 11/19 -Dental is in [place] -[facility] proxy paperwork given 09/17/23 Right inguinal hernia 11/18/2022 Overview (07/11/2024): -repaired with [facility] general surgeons 01/2023 Assessment & Plan (07/11/2024 10:41 AM EST): -repaired with [facility] general surgeons 01/2023 Assessment & Plan (09/17/2023 9:53 AM EST): -repiared with [facility] general surgeons 01/2023 Assessment & Plan (11/18/2022 [...] medications Deaf 10/02/2022 Overview (03/15/2024): -Patient needs snap shearer for all visits. Please make note of this in any referrals. -Audiology at [facility] -has appropriate assistive devices in home including [...] Plan (07/11/2024 10:43 AM EST): -Patient needs snap shearer for all visits. Please make note of this in any referrals. -Audiology at [facility] -has appropriate assistive devices in home including [...] Plan (05/22/2024 10:53 AM EDT): -Patient needs snap shearer for all visits. Please make note of this in any referrals. -Audiology at [facility] -has appropriate assistive devices in home including fire alarm with light Patient walked in with PT1 denial letter for [employer]. The letter says it was denied because '[employer]' does not participate with medicaid. Patient showed FD appointment reminder for [facility]' set for 04/28/2024 at 10am. FD called '[employer]' to ask if the accept Patient insurance or if they can provide on time transpiration. [facility] advised they do not accept Patient insurance [...] Plan (01/26/2024 11:23 AM EDT): -Patient needs snap shearer for all visits. Please make note of this in any referrals. -Audiology at [facility] -has appropriate assistive devices in home including fire alarm with light Assessment & Plan (09/17/2023 9:50 AM EST): -British Sign Language Assessment & Plan (10/02/2022 12:38 PM EST): -British Sign Language used during visit PVD (peripheral vascular disease) 10/02/2022 Overview (10/02/2022): -doppler 04/19/2021 in [place] revealed evidence of bilateral common femoral and popliteal venin valves incompetence Assessment & Plan (09/01/2024 3:17 PM EST): Patient also tells me pain is worse with walking, feels cramps and throbbing sensation I will refer him to vascular specialist in light he already had h/o PVD Assessment & Plan (09/17/2023 9:50 AM EST): -doppler 04/19/2021 in [place] revealed evidence of bilateral common femoral and popliteal venin valves incompetence Assessment & Plan (10/02/2022 12:35 PM EST): -doppler 04/19/2021 in [place] revealed evidence of bilateral common femoral and popliteal venin valves incompetence Arterial atherosclerosis 10/02/2022 Overview (05/31/2023): -Cardiac cath in [place] 07/05/2020 for chest pain and noted to have normal coronaries without any evidence of atherosclerosis Assessment & Plan (07/11/2024 10:40 AM EST): -Cardiac cath in [place] 07/05/2020 for chest pain and noted to have normal coronaries without any evidence of atherosclerosis Assessment & Plan (09/17/2023 9:50 AM EST): -Cardiac cath in [place] 07/05/2020 for chest pain and noted to [...] Overview (05/31/2024): -Hx cardiac cath 07/05/2020 in [place] with normal coronary arteries, mild dilated left [...] AM EDT): -Hx cardiac cath 07/05/2020 in [place] with normal coronary arteries, mild dilated left ventricle with borderline low EF, mild pulmonary hypertension, normal cardiac output -echo 06/17/2021 EF 60-65%, mild anteroseptal LV wall motion is hypokinetic, mild dilated left atrium, mild enlarged right atrium, calcified aortic cusps, mild MR, mild to mod TR -referred back to Cardiology 05/22/24 Assessment & Plan (01/26/2024 11:23 AM EDT): -Hx cardiac cath 07/05/2020 in [place] with normal coronary arteries, mild dilated left ventricle with borderline low EF, mild pulmonary hypertension, normal cardiac output -echo 06/17/2021 EF 60-65%, mild anteroseptal LV wall motion is hypokinetic, mild dilated left atrium, mild enlarged right atrium, calcified aortic cusps, mild MR, mild to mod TR Assessment & Plan (09/17/2023 9:53 AM EST): -Hx cardiac cath 07/05/2020 in [place] with normal coronary arteries, mild dilated left ventricle with borderline low EF, mild pulmonary hypertension, normal cardiac output -echo 06/17/2021 EF 60-65%, mild anteroseptal LV wall motion is hypokinetic, mild dilated left atrium, mild enlarged right atrium, calcified aortic cusps, mild MR, mild to mod TR Assessment & Plan (10/02/2022 12:33 PM EST): -Hx cardiac cath 07/05/2020 in [place] with normal coronary arteries, mild dilated left ventricle with borderline low EF, mild pulmonary hypertension, normal cardiac output -echo 06/17/2021 EF 60-65%, mild anteroseptal LV wall motion is hypokinetic, mild dilated left atrium, mild enlarged right atrium, calcified aortic cusps, mild MR, mild to mod TR -euvolemic on exam Atrial flutter 10/02/2022 Overview (05/31/2024): Noted in [place] during ECG for palpitations. -[id number] of 1 -s/p CTI ablation 09/22/2021 with good results -on Eliquis (apixaban) -seen by [facility] cardiology Dr. Myra Feliciano MD 12/13/2022 recommending 6 month follow up -Cardiology note from 05/04/24 reviewed Recommends Zio path for 24 days, if no further aflutter episodes will discontinue apixaban -repeat Echo ordered Assessment & Plan (05/22/2024 10:53 AM EDT): Noted in [place] during ECG for palpitations. -[id number] of 1 -s/p CTI ablation 09/22/2021 with good results -on Eliquis (apixaban) -seen by [facility] cardiology Dr. Myra Feliciano MD 12/13/2022 recommending 6 month follow up -has not been to see emergency preparedness coordinator since, referred back again today 05/22/24. Assessment & Plan (01/26/2024 11:23 AM EDT): Noted in [place] during ECG for palpitations. -[id number] of 1 -s/p CTI ablation 09/22/2021 with good results -on Eliquis (apixaban) -seen by [facility] cardiology Dr. Myra Feliciano MD 12/13/2022 recommending 6 month follow up Assessment & Plan (09/17/2023 9:52 AM EST): Noted in [place] during ECG for palpitations. -[id number] of 1 -s/p CTI ablation 09/22/2021 with good results -on Eliquis (apixaban) -seen by [facility] cardiology Dr. Myra Feliciano MD 12/13/2022 recommending 6 month follow up Assessment & Plan (05/31/2023 12:55 PM EDT): Noted in [place] during ECG for palpitations. -[id number] of 1 -s/p CTI ablation 09/22/2021 with good results -on Eliquis (apixaban) -seen by [facility] cardiology Dr. Myra Feliciano MD 12/13/2022 recommending 6 month follow up Assessment & Plan (10/02/2022 12:36 PM EST): Noted in [place] during ECG for palpitations. -s/p CTI ablation [...] repots hx heart surgery age 5 in [place] for unknown reason Assessment & Plan (10/02/2022 12:31 PM EST): -pt repots hx heart surgery age 5 in [place] for unknown reason Encounters Date Type Department Care Team Description 10/18/2024 Refill [facility] [address] [place] [address] Sadie Chavira MD Bilateral foot pain 10/06/2024 Telephone [facility] [address] [place], [place] [phone] Bethany Mccormick MD 10/04/2024 Telephone [facility] [address] [place], [place] [phone] Bethany Mccormick MD PT1 09/29/2024 Telephone [facility] [address] [place], [place] [phone] Bethany Mccormick MD Chart Prep 09/26/2024 Patient Outreach [facility] [address] [place] [phone] Bethany Mccormick MD Care Coordination (W outreach for SDOH PT-1 - LVM ) 09/26/[address] [address] Bethany Mccormick MD PT-1 09/20/2024 Patient Outreach [address] [address] Bethany Mccormick MD Care Coordination (W outreach for SDOH PT-1 - LVM ) 09/19/2024 Patient Outreach [address] [address] Bethany Mccormick MD Pre-visit Planning (SDOH Screening positive and Tobacco screening negative) 09/01/2024 2:00 PM EST Office Visit [facility] [address] [place] [phone] Sadie Chavira MD Bilateral foot pain (Primary Dx); PVD (peripheral vascular disease) ([facility]); Prediabetes 08/31/2024 Patient Outreach [address] [address] Bethany Mccormick MD Care Coordination (CHW outreach for SDOH PT-1 and food needs-referral completed /) 08/31/2024 Patient Outreach [address] [address] Bethany Mccormick MD Care Coordination (CHW outreach for SDOH PT-1 and food needs-referral completed /) 08/31/[address] [address] Bethany Mccormick MD PT1 08/28/2024 Orders Only [address] [address] Bethany Mccormick MD Essential hypertension (Primary Dx) 08/17/[address] [address] Bethany Mccormick MD Primary hypertension; Gastroesophageal reflux disease without esophagitis; Gout, unspecified cause, unspecified chronicity, unspecified site; Major depressive disorder, recurrent episode, mild (CMS/HCC) from Last 3 Months Immunizations Name Administration [...] Description 11/30/2024 9:45 AM EDT Office Visit [facility] [address] [place] [address] Bethany Mccormick MD [address] [place] [address] Health Maintenance Due Date Last Done Comments [...] 11:50 AM EST) Triglycerides 85 <150 mg/dL [facility] Comment:Desirable Triglyceri de: less than 150 mg/dLBorderline High Triglyceride 150-199 mg/dLHigh Triglyceride: 200-499 mg/dLVery High Triglyceride: greater than or equal to 5OO mg/dL Cholesterol 146 <200 mg/dL [facility] Comment:Desirable Cholestero l: less than 200 mg/dLBorderline High Cholesterol: 200-239 mg/dLHigh Cholesterol: greater than 239 mg/dL LDL Cholesterol Calculated 69 <100 mg/dL [facility] Comment:Desirable LDL: less than 100 mg/dLNear Optimal/Above Optimal LDL: 110- 129 mg/dLBorderline High LDL: 130-159 mg/dLHigh LDL: 160-189 mg/dLVery High LDL: greater than or equal to 190 mg/dL HDL Cholesterol 60 >40 mg/dL [facility] Comment:Desirable HDL: great er than 40 mg/dL Note: This HDL assay may give artificially low results in patients with liver disease. Blood Venous blood specimen / Unknown 09/17/2023 11:50 AM EST 09/17/2023 1:26 PM EST Bethany Mccormick MD LAB BLOOD ORDERABLES Final Result Performing Organization Address City/[facility]/ZIP Co de Phone Number [facility] [address] [place] [phone] * (ABNORMAL) Hm Colonoscopy (11/25/2022) Colonoscopy Abnormal(A ) Normal Historical Provider HEALTH MAINTENANCE Final Result * Hepatitis C Antibody with Reflex to HCV, RNA, Quantitative, Real-Time PCR (10/06/2022 8:42 AM EST) Pathologist [facility] Hepatitis C Antibody NON-REACT MIRA NON-REACT MIRA [facility] [place] [employer] [facility] Index 0.07 <1.00 [facility] [place] [facility] Comment: HCV antibody was non-reactive. There is no laboratory evidence of HCV infection. In most cases, no further action is required. However, if recent HCV exposure is suspected, a test for HCV RNA (test code 07526) is suggested. For additional information please refer to http://education.[employer]/faq/YJF84v9 (This link is being provided for informational/ educational purposes only.) Blood Venous blood specimen / Unknown 10/06/2022 8:42 AM EST 10/06/2022 8:43 AM EST Narrative [facility] - 10/09/2022 12:25 AM EST FASTING:YES FASTING: YES Result [facility] Bethany Mccormick MD LAB BLOOD ORDERABLES Final Result Performing Organization Address City/[facility]/ZIP Co de Phone Number [facility] [address] [place] [address], [facility], [place] [address] [facility] [place] [employer] [facility] [address] [facility], ([address]) [place] [address] * HIV-1/2 Antigen and Antibodies, Fourth Generation, with Reflexes (10/06/2022 8:42 AM EST) Pathologist [facility] HIV Antigen/Antibody, 4th Generation NON-REAC TIVE NON-REAC TIVE [facility] [place] [facility] Comment: HIV-1 antigen and HIV-1/HIV-2 antibodies [...] ?? For additional information please refer to http://education.[employer]ior/faq/YNZ900 (This link is being provided for informational/ educational purposes only.) The performance of this assay has not been clinically validated in patients less than 2 years old. Blood Venous blood specimen / Unknown 10/06/2022 8:42 AM EST 10/06/2022 8:43 AM EST Narrative [facility] - 10/09/2022 12:25 AM EST FASTING:YES FASTING: YES us Bethany Mccormick MD LAB BLOOD ORDERABLES Final Result [facility] [address], [place] [address] [facility] [place] [facility] [address] [facility], ([address]) [place] [address] from Last 3 Months or Most Recently Relevant to Health Maintenance [place] [address] [place] [address] STANDARD AET[employer] MEDICARE REPLACEMENT Advance Directives Documents on File Type Date Recorded Patient Aerospace Project Manager Expl anation Power of Sock Knitting Machine Operator 09/21/2023 HealthCare Proxy 09/17/23 Care Teams Fusing Machine Operator Relationship Specialty Start Date End Date Jace, MD Bethany [address] [place] [phone] PCP - General Family Medicine 09/10/22
--- OUTSIDE RECORDS SUMMARY | 2024-11-07 15:24 | XMS_ITS | Clinical Summary ---
Author Organization [address] [facility] Address [address] [place] [address] Phone Care Team Providers Care Pump Machine Operator Name Role Phone Physician, Pcp Unknown Primary [...] 1:45 PM EDT Consult Orthopedic Surgery - [place] [address] [phone] Chris Edmond, [place] [address] [address] Health Maintenance Due Date Last Done Comments [...] to complete this topic Insurance [place]ICA[place] AETNA MEDICARE ADVANTAGE Care Teams Pump Machine Operator Relationship Specialty Start Date End Date Physician, Pcp Unknown PCP - General 09/26/24
--- OUTSIDE RECORDS SUMMARY | 2024-11-07 15:24 | XMS_ITS | Encounter Summary ---
Author Organization [employer] Address [address] [place] [address] Care Team Providers Care Frame Tender Name Role Phone Bethany Mccormick MD Primary Care Provider +1- [phone] Encounter Details Date Type Department Care Team ([facility] st Contact Info) Description 10/06/2024 Telephone [facility] [address] [place], [place] [phone] Bethany Mccormick MD [address] [place], [place] [phone] Social History Tobacco Use Types Packs/Day Years [...] Description 11/30/2024 9:45 AM EDT Office Visit [facility] [address] [place] [phone] Bethany Mccormick MD [address] [place] [phone] documented as of this encounter Visit Diagnoses Not on filedocumented in this encounter Additional Health Concerns Assessment Noted Time PHQ-9 Depression Total Score: 0 01/26/20 24 10:39 AM EDT documented as of this encounter Care Teams Frame Tender Relationship Specialty Start Date End Date Bethany Mccormick MD [address] [place] [phone] PCP - General Family Medicine 09/10/22 documented as of this encounter
--- OUTSIDE RECORDS SUMMARY | 2024-11-07 15:24 | XMS_ITS | Encounter Summary ---
Author Organization [employer] Address [address] [facility] 7t [place] [address] Care Team Providers Care Information Security Associate Name Role Phone Bethany Mccormick MD Primary Care Provider +1- [phone] Reason for Visit * Reason Onset Date Comments Med Refill 12/23/2023 Encounter Details Date Type Department Care Team (Late st Contact Info) Description 12/23/2023 Telephone [facility] [address] [place], [place] [phone] Bethany Mccormick MD [address] [place], [place] [phone] Med Refill Social History Tobacco Use Types [...] 1:40 PM EDT Medication was sent to [facility] on 09/21/23 #90 with 1 refill. * Telephone Encounter - Ilya Culver - 12/23/2023 1:38 PM EDT TC from pt requesting medication refill. Medications needing refill : finasteride (Proscar) 5 MG tablet To be sent to: [facility] - [place], [place] - [address] [facility] documented in this encounter Plan of Treatment Upcoming Encounters Date Type Department Care Team (Late st Contact Info) Description 11/30/2024 9:45 AM EDT Office Visit [facility] [address] [place] [address] Bethany Mccormick MD [address] [place] [address] documented as of this encounter Visit Diagnoses Not on filedocumented in this encounter Additional Health Concerns Assessment Noted Time PHQ-9 Depression Total Score: 0 10/02/19 23 9:21 AM EST documented as of this encounter Care Teams Information Security Associate Relationship Specialty Start Date End Date Bethany Mccormick MD [address] [place] [phone] PCP - General Family Medicine 09/10/22 documented as of this encounter
--- OUTSIDE RECORDS SUMMARY | 2024-11-07 15:24 | XMS_ITS | Encounter Summary ---
Author Organization [employer] Address [address] [facility] [facility] [address] [place] [address] Care Team Providers Care Forest Fire Warden Name Role Phone Bethany Mccormick MD Primary Care Provider +1- [phone] Reason for Visit * Reason Comments Med Refill Encounter Details Date Type Department Care Team ([facility] st Contact Info) Description 08/17/2024 Refill [facility] [address] [place], [place] [phone] Bethany Mccormick MD 230 [place], [place] [phone] Primary hypertension; Gastroesophageal reflux disease without esophagitis; [...] Description 11/30/2024 9:45 AM EDT Office Visit [facility] [address] [place] [phone] Bethany Mccormick MD [address] [place] [phone] documented as of this encounter Visit Diagnoses Diagnosis Primary hypertension Unspecified essential hypertension Gastroesophageal reflux disease without esophagitis Esophageal reflux Gout, unspecified cause, unspecified chronicity, unspecified site Major depressive disorder, recurrent episode, mild (CMS/[facility]) Major depressive disorder, recurrent episode, mild documented in this encounter Additional Health Concerns Assessment Noted Time PHQ-9 Depression Total Score: 0 01/26/20 24 10:39 AM EDT documented as of this encounter Care Teams Forest Fire Warden Relationship Specialty Start Date End Date Bethany Mccormick MD [address] [place] [phone] PCP - General Family Medicine 09/10/22 documented as of this encounter
--- OUTSIDE RECORDS SUMMARY | 2024-11-07 15:24 | XMS_ITS | Encounter Summary ---
Author Organization [employer] Address [address] [facility] [address] [place] [address] Care Team Providers Care Hazardous Substances Scientist Name Role Phone Bethany Mccormick MD Primary Care Provider +1- [phone] Reason for Visit * Reason Comments Med Refill Encounter Details Date Type Department Care Team ([facility] st Contact Info) Description 10/18/2024 Refill [facility] [address] [place] [address] Sadie Chavira MD [address] [place] [address] Bilateral foot pain Social History Tobacco Use [...] Description 11/30/2024 9:45 AM EDT Office Visit [facility] [address] [place] [address] Bethany Mccormick MD [address] [place] [address] documented as of this encounter Visit Diagnoses Diagnosis Bilateral foot pain documented in this encounter Additional Health Concerns Assessment Noted Time PHQ-9 Depression Total Score: 0 01/26/20 24 10:39 AM EDT documented as of this encounter Care Teams Hazardous Substances Scientist Relationship Specialty Start Date End Date Bethany Mccormick MD [address] [place] [phone] PCP - General Family Medicine 09/10/22 documented as of this encounter
== END 2024-11-07 13:26 | disposition home or self-care (01) ==
LOC: HO.HVS 12:52
PROVIDERS: Visit Provider Physician Assistant Surgical
DX: I83.12 Varicose veins of left lower extremity with inflammation (principal)
CPT/HCPCS: 99214

== ENCOUNTER → 2024-11-07 12:52 | Outpatient (BNVA) | payer MEDICARE, MEDICAID, SELFPAY | PROVIDERS: Visit Provider Physician Assistant Surgical | DX: I83.12 Varicose veins of left lower extremity with inflammation (principal) | CPT/HCPCS: 99212 ==

== ENCOUNTER 2024-11-30 11:28 | Outpatient (REF) | payer MEDICARE, MEDICAID, SELFPAY ==
--- OUTSIDE RECORDS SUMMARY | 2024-11-30 12:46 | XMS_ITS | Clinical Summary ---
Author Organization [employer] Address [address] [place] [address] Care Team Providers Care Filling Separator Name Role Phone Bethany Ruano MD Primary Care Provider [phone]- [phone] Allergies No known active allergies Medications apixaban [...] or fever. 15 tablet 07/10/20 24 Active Blood Pressure kitIndications:E ssential hypertension Check bp three times a week 1 kit 08/28/20 24 Active gabapentin (Neurontin) 300 MG capsuleIndicatio ns:Bilateral foot pain Take 1 capsule (300 mg) by mouth 2 times daily. 190 capsule 3 12/01/19 25 Active lisinopril 10 MG tabletIndication s:Primary hypertension Take 1 tablet (10 mg) by mouth Once per day. 30 tablet 11 12/01/19 25 026 Active gabapentin (Neurontin) 600 MG tablet Take 1 tablet by mouth at bedtime. 025 Discontinued gabapentin (Neurontin) 300 MG capsuleIndicatio ns:Bilateral foot pain TAKE 1 CAPSULE BY MOUTH THREE TIMES DAILY 90 capsule 10/18/19 25 025 Discontinued gabapentin (Neurontin) 300 MG capsuleIndicatio ns:Bilateral foot pain TAKE 1 CAPSULE BY MOUTH THREE TIMES DAILY 90 capsule 11/15/19 25 025 Discontinued(Re order (will not trigger notification to Pharmacy)) Active Problems Problem Noted Date Diagnosed Date Urinary hesitancy 11/30/2024 Overview (11/30/2024): Reports frequent urinary hesitancy episodes. -ordered PSA and UA + Culture 11/30/24 -referred to Urology 11/30/24 Assessment & Plan (11/30/2024 11:06 AM EDT): Reports frequent urinary hesitancy episodes. -ordered PSA and UA + Culture 11/30/24 -referred to Urology 11/30/24 Class 2 severe obesity due t o excess calories with serious comorbidity and body mass index (BMI) of 39.0 to 39.9 in adult 10/02/2024 Overview (11/30/2024): Discussed weight, diet, exercise with patient in relation to health conditions. Used motivational interviewing to illicit change talk and established initial goals with patient. Assessment & Plan (11/30/2024 10:57 AM EDT): Discussed weight, diet, exercise with patient in relation to health conditions. Used motivational interviewing to illicit change talk and established initial goals with patient. Exercise counseling 10/02/2024 Assessment & Plan (11/30/2024 10:57 AM EDT): Exercise Recommendations: At least 150 minutes of moderate-intensity physical activity per week, or an equivalent combination of moderate- and vigorous-intensity activity. Dietary counseling 10/02/2024 Assessment & Plan (11/30/2024 10:58 AM EDT): Dietary Recommendations: Fruits, vegetables, whole grains, protein foods, and fat-free or low-fat dairy products are healthy choices. Eat different types of protein foods in your diet. This can include seafood, lean meats, poultry, beans, peas, lentils, nuts, seeds, soy products, and eggs. Limit foods and beverages higher in added sugars, saturated fat, and sodium. Major depressive disorder, recurrent episode, mi ld 09/06/2024 Overview (11/30/2024): Denies suicidial or homacidial ideation. Therapist and psychiatrist offered. -referred to [facility] 11/30/24 Assessment & Plan (11/30/2024 11:12 AM EDT): Denies suicidial or homacidial ideation. Therapist and psychiatrist offered. -referred to [facility] 11/30/24 Bilateral foot pain 09/01/2024 Overview (11/30/2024): Clinical picture neuropathy. -was switched to Gabapentin 300mg Q 8hrs. -referred to Podiatry 09/01/24 -encouraged to call 11/30/24 Assessment & Plan (11/30/2024 11:10 AM EDT): Clinical picture neuropathy. -was switched to Gabapentin 300mg Q 8hrs. -referred to Podiatry 09/01/24 -encouraged to call 11/30/24 Assessment & Plan (09/01/2024 3:15 PM EST): Clinical picture neuropathy, patient used to be on gabapentin 600mg at bed time, I will put him on gabapentin 300mg Q 8hrs I debt counselor patient about side effects I will refer him to podiatry Status post fall 07/10/2024 Overview (07/11/2024): - Seen on 06/15/24 at [facility]. Status post fall. Reportedly tripped on some [...] AM EST): - Seen on 06/15/24 at [facility]. Status post fall. Reportedly tripped on some [...] cardiology 12/13/22 Cardiac risk counseling 12/30/2023 Overview (11/30/2024): Calculated 11/30/24: Intermediate Risk, patient is on moderate intensity statin with LDL at goal The 10-year ASCVD risk score (Geronimo ESTRADA, et al., 2019) is: 10.7% Values used to calculate the score: Age: 64 years Sex: Male Is Non- : No Diabetic: No Tobacco smoker: No Systolic Blood Pressure: 128 mmHg Is BP treated: Yes HDL Cholesterol: [...] 11/19, followed by Dr. Naveen Dunn of [facility] -[place] -[facility] care proxy on file 09/17/23 Assessment & Plan (05/22/2024 10:54 AM EDT): -next comprehensive annual evaluation due after 01/25/25 -eye care last seen on 11/19, followed by Dr. Naveen Dunn of [facility] -[place] -[facility] care proxy on file 09/17/23 Assessment & Plan (01/26/2024 11:24 AM EDT): -Next physical due after 10/01/2023 -Eye care last seen on 11/19 -Dental is [place] -[facility] proxy on file 09/17/23 Assessment & Plan (09/17/2023 11:07 AM EST): -Next physical due after 10/01/2023 -Eye care last seen on 11/19 -Dental is [place] -[facility] proxy paperwork given 09/17/23 Right inguinal hernia 11/18/2022 Overview (07/11/2024): -repaired with [facility] general surgeons 01/2023 Assessment & Plan (07/11/2024 10:41 AM EST): -repaired with [facility] general surgeons 01/2023 Assessment & Plan (09/17/2023 9:53 AM EST): -repiared with [facility] general surgeons 01/2023 Assessment & Plan [...] atorvastatin 10mg BPH (benign prostatic hyperplasia) 10/02/2022 Deaf 10/02/2022 Overview (03/15/2024): -Patient needs hourly sign language interpreter for all visits. Please make note of this in any referrals. -Audiology at [facility] -has appropriate assistive devices in home including fire alarm with light Patient walked in with PT1 denial letter for [employer]. The letter says it was denied because '[employer]' does not participate with medicaid. Patient showed FD appointment reminder for '[employer] [facility]' set for 04/28/2024 at 10am. [...] placed to audiology 03/15/24 Assessment & Plan (11/30/2024 10:58 AM EDT): -Patient needs hourly sign language interpreter for all visits. Please make note of this in any referrals. -Audiology at [facility] -has appropriate assistive devices in home including fire alarm with light Patient walked in with PT1 denial letter for [employer]. The letter says it was denied because '[employer]' does not participate with medicaid. Patient showed FD appointment reminder for '[employer] [facility]' set for 04/28/2024 at 10am. [...] Plan (07/11/2024 10:43 AM EST): -Patient needs hourly sign language interpreter for all visits. Please make note of this in any referrals. -Audiology at [facility] -has appropriate assistive devices in home including fire alarm with light Patient walked in with PT1 denial letter for [employer]. The letter says it was denied because '[employer]' does not participate with medicaid. Patient showed FD appointment reminder for '[employer] [facility]' set for 04/28/2024 at 10am. [...] Plan (05/22/2024 10:53 AM EDT): -Patient needs hourly sign language interpreter for all visits. Please make note of this in any referrals. -Audiology at [facility] -has appropriate assistive devices in home including fire alarm with light Patient walked in with PT1 denial letter for [facility]. The letter says it was denied because '[employer]' does not participate with medicaid. Patient showed FD appointment reminder for '[employer] [facility]' set for 04/28/2024 at 10am. [...] Plan (01/26/2024 11:23 AM EDT): -Patient needs hourly sign language interpreter for all visits. Please make note of this in any referrals. -Audiology at [facility] -has appropriate assistive devices in home including fire alarm with light Assessment & Plan (09/17/2023 9:50 AM EST): -Sudanese Sign Language Assessment & Plan (10/02/2022 12:38 PM EST): -Sudanese Sign Language used during visit PVD (peripheral vascular disease) 10/02/2022 Overview (10/02/2022): -doppler 04/19/2021 in [place] revealed evidence of bilateral common femoral and popliteal venin valves incompetence Assessment & Plan (09/01/2024 3:17 PM EST): Patient also tells me pain is worse with walking, feels cramps and throbbing sensation I will refer him to vascular specialist in light he already had h/o PVD Assessment & Plan (09/17/2023 9:50 AM EST): -doppler 04/19/2021 in [place] revealed evidence of bilateral common femoral and popliteal venin valves incompetence Assessment & Plan (10/02/2022 12:35 PM EST): -doppler 04/19/2021 in [place] revealed evidence of bilateral common femoral and popliteal venin valves incompetence Arterial atherosclerosis 10/02/2022 Overview (05/31/2023): -Cardiac cath in [place] 07/05/2020 for chest pain and noted to have normal coronaries without any evidence of atherosclerosis Assessment & Plan (07/11/2024 10:40 AM EST): -Cardiac cath in [place] 07/05/2020 for chest pain and noted to have normal coronaries without any evidence of atherosclerosis Assessment & Plan (09/17/2023 9:50 AM EST): -Cardiac cath in [place] 07/05/2020 for chest pain and noted to have normal coronaries without any evidence of atherosclerosis Prediabetes 10/02/2022 Overview (11/30/2024): Lab Results Component Value Date HGBA1C 5.1 [...] Overview (05/31/2024): -Hx cardiac cath 07/05/2020 in [place] with normal coronary arteries, mild dilated left [...] AM EDT): -Hx cardiac cath 07/05/2020 in [place] with normal coronary arteries, mild dilated left ventricle with borderline low EF, mild pulmonary hypertension, normal cardiac output -echo 06/17/2021 EF 60-65%, mild anteroseptal LV wall motion is hypokinetic, mild dilated left atrium, mild enlarged right atrium, calcified aortic cusps, mild MR, mild to mod TR -referred back to Cardiology 05/22/24 Assessment & Plan (01/26/2024 11:23 AM EDT): -Hx cardiac cath 07/05/2020 in [place] with normal coronary arteries, mild dilated left ventricle with borderline low EF, mild pulmonary hypertension, normal cardiac output -echo 06/17/2021 EF 60-65%, mild anteroseptal LV wall motion is hypokinetic, mild dilated left atrium, mild enlarged right atrium, calcified aortic cusps, mild MR, mild to mod TR Assessment & Plan (09/17/2023 9:53 AM EST): -Hx cardiac cath 07/05/2020 in [place] with normal coronary arteries, mild dilated left ventricle with borderline low EF, mild pulmonary hypertension, normal cardiac output -echo 06/17/2021 EF 60-65%, mild anteroseptal LV wall motion is hypokinetic, mild dilated left atrium, mild enlarged right atrium, calcified aortic cusps, mild MR, mild to mod TR Assessment & Plan (10/02/2022 12:33 PM EST): -Hx cardiac cath 07/05/2020 in [place] with normal coronary arteries, mild dilated left ventricle with borderline low EF, mild pulmonary hypertension, normal cardiac output -echo 06/17/2021 EF 60-65%, mild anteroseptal LV wall motion is hypokinetic, mild dilated left atrium, mild enlarged right atrium, calcified aortic cusps, mild MR, mild to mod TR -euvolemic on exam Atrial flutter 10/02/2022 Overview (05/31/2024): Noted in [place] during ECG for palpitations. -[id number] of 1 -s/p CTI ablation 09/22/2021 with good results -on Eliquis (apixaban) -seen by [facility] cardiology Dr. Myra Feliciano MD 12/13/2022 recommending 6 month follow up -Cardiology note from 05/04/24 reviewed Recommends Zio path for 24 days, if no further aflutter episodes will discontinue apixaban -repeat Echo ordered Assessment & Plan (11/30/2024 11:13 AM EDT): Noted in [place] during ECG for palpitations. -[id number] of 1 -s/p CTI ablation 09/22/2021 with good results -on Eliquis (apixaban) -seen by [facility] cardiology Dr. Myra Feliciano MD 12/13/2022 recommending 6 month follow up -Cardiology note from 05/04/24 reviewed Recommends Zio path for 24 days, if no further aflutter episodes will discontinue apixaban -repeat Echo ordered Assessment & Plan (05/22/2024 10:53 AM EDT): Noted in [place] during ECG for palpitations. -[id number] of 1 -s/p CTI ablation 09/22/2021 with good results -on Eliquis (apixaban) -seen by [facility] cardiology Dr. Myra Feliciano MD 12/13/2022 recommending 6 month follow up -has not been to see machine buffer since, referred back again today 05/22/24. Assessment & Plan (01/26/2024 11:23 AM EDT): Noted in [place] during ECG for palpitations. -[id number] of 1 -s/p CTI ablation 09/22/2021 with good results -on Eliquis (apixaban) -seen by [facility] cardiology Dr. Myra Feliciano MD 12/13/2022 recommending 6 month follow up Assessment & Plan (09/17/2023 9:52 AM EST): Noted in [place] during ECG for palpitations. -[id number] of 1 -s/p CTI ablation 09/22/2021 with good results -on Eliquis (apixaban) -seen by [facility] cardiology Dr. Myra Feliciano MD 12/13/2022 recommending 6 month follow up Assessment & Plan (05/31/2023 12:55 PM EDT): Noted in [place] during ECG for palpitations. -[id number] of 1 -s/p CTI ablation 09/22/2021 with good results -on Eliquis (apixaban) -seen by [facility] cardiology Dr. Myra Feliciano MD 12/13/2022 recommending 6 month follow up Assessment & Plan (10/02/2022 12:36 PM EST): Noted in [place] during ECG for palpitations. -s/p CTI ablation 09/22/2021 with good results -on Eliquis Primary hypertension 10/02/2022 Overview (11/30/2024): -Blood pressure is not at goal, not currently on any medications 11/30/24 -Continue lifestyle modifications -Continue current medications -Referred to [facility] with our DINO Thompson 07/10/24 -Start Lisinopril 10 mg 11/30/24 -Re-referred to [facility] with our DINO Thompson 11/30/24 -Follows with [facility] cardiology Dr. Myra Feliciano MD Assessment & Plan (11/30/2024 11:09 AM EDT): -Blood pressure is not at goal, not currently on any medications 11/30/24 -Continue lifestyle modifications -Continue current medications -Referred to [facility] with our DINO Thompson 07/10/24 -Start Lisinopril 10 mg 11/30/24 -Re-referred to [facility]agment Program with our PharmD, DINO 11/30/24 -Follows with [facility] cardiology Dr. Myra Feliciano MD Assessment & Plan (11/30/2024 11:02 AM EDT): >>ASSESSMENT AND PLAN FOR ESSENTIAL HYPERTENSION WRITTEN ON 09/17/2023 10:58 AM BY CHICO NIELSEN -Blood pressure is at goal -Continue lifestyle modifications -Continue current medications Assessment & Plan (11/30/2024 11:02 AM EDT): >>ASSESSMENT AND PLAN FOR ESSENTIAL HYPERTENSION WRITTEN ON 01/26/2024 11:23 AM BY BETHANY RUANO MD -Blood pressure is at goal -Continue lifestyle modifications -Continue current medications Assessment & Plan (11/30/2024 11:02 AM EDT): >>ASSESSMENT AND PLAN FOR ESSENTIAL HYPERTENSION WRITTEN ON 05/22/2024 10:53 AM BY EZEQUIEL NANCE -Blood pressure is at goal -Continue lifestyle modifications -Continue current medications Assessment & Plan (07/11/2024 12:05 PM EST): -Blood pressure is at goal -Continue lifestyle modifications -Continue current medications - Referred to [facility] Program with our DINO Thompson 07/10/24 Resolved Problems Problem Noted Date Diagnosed Date [...] screening. Hx of heart surgery 10/02/2022 05/31/20 23 Overview (10/02/2022): -pt repots hx heart surgery age 5 in [place] for unknown reason Assessment & Plan (10/02/2022 12:31 PM EST): -pt repots hx heart surgery age 5 in [place] for unknown reason Encounters Date Type Department Care Team Description 11/30/2024 9:45 AM EDT Office Visit [facility] [address] [place] [phone] Bethany Ruano MD Primary hypertension (Primary Dx); Atrial flutter, unspecified type (CMS/HCC); Bilateral foot pain; Urinary hesitancy; Major depressive disorder, recurrent episode, mild (CMS/HCC); Class 2 severe obesity due to excess calories with serious comorbidity and body mass index (BMI) of 39.0 to 39.9 in adult (CMS/HCC); Dietary counseling; Exercise counseling; Bilateral deafness 11/30/2024 Telephone [facility] [address] [place] [phone] Bethany Ruano MD 11/27/2024 Telephone [facility] [address] [place] [phone] Bethany Ruano MD chartprep 11/21/2024 Patient Outreach [facility] [address] [place] [phone] Bethany Ruano MD Pre-visit Planning (SDOH screening was completed on 09/19/2024) 11/14/2024 Refill [facility] [address] [place] [address] [phone] Lorna Phillips MD Bilateral foot pain 10/18/2024 Refill [facility] [address] [address] Sadie Chavira MD Bilateral foot pain 10/06/[address] [address] Bethany Ruano MD 10/04/[address] [address] Bethany Ruano MD PT1 09/29/[address] [phone] Bethany Ruano MD Chart Prep 09/26/2024 Patient Outreach [address] [phone] Bethany Ruano MD Care Coordination ([facility] outreach for SDOH PT-1 - LVM ) 09/26/[address] [address] Bethany Ruano MD PT-1 09/20/2024 Patient Outreach [address] [address] Bethany Ruano MD Care Coordination ([facility] outreach for SDOH PT-1 - LVM ) 09/19/2024 Patient Outreach [address] [address] Bethany Ruano MD Pre-visit Planning (SDOH Screening positive and Tobacco screening negative) 09/01/2024 2:00 PM EST Office Visit [facility] [address] [address] Sadie Chavira MD Bilateral foot pain (Primary Dx); PVD (peripheral vascular disease) (CMS/HCC); Prediabetes from Last 3 Months Immunizations Name Administration Dates Next Due Hep B, adult 05/31/2023,12/22/2022,11/18/2022 Influenza injectable quadriv alent preservative free 05/31/2023,11/18/2022 Influenza, seasonal, injecta ble, preservative free 05/22/2024 Pfizer Covid-19 Vaccine 12+ 05/22/2024, Pfizer Covid-19 Vaccine 12+ Bivalent 11/18/2022 Pneumococcal Conjugate PCV 20 09/17/2023 RSV Bivalent 02/08/2024 Tdap 11/12/2022 Zoster, Recombinant 11/12/2022,09/10/2022 Family History Medical History Relation Name Comments Diabetes Maternal Grandmother Breast cancer Sister Relation Name Status Comments Maternal Grandmother Sister Social History Tobacco Use Types Packs/Day Years [...] Answer Date Recorded Patient Health Questionnaire-9 Score 2 11/30/2024 Patient Health Questionnaire-9 Score 2 11/30/2024 Last PHQ-9: Questionnaire Data Not on file 0 11/30/2024 Housing Stability Answer Date Recorded What is [...] Answer Date Recorded Patient Health Questionnaire-2 Score 2 11/30/2024 Internet Access Answer Date Recorded Internet Access [...] Sign Reading Time Taken Comments Blood Pressure 142/78 11/30/2024 11:13 AM EDT Pulse 57 11/30/2024 10:32 AM EDT Temperature 36.9 ??C (98.5 ??F) 11/30/2024 10:32 AM E DT Respiratory Rate 18 11/30/2024 10:32 AM EDT Oxygen Saturation 98% 11/30/2024 10:32 AM EDT Inhaled Oxygen Concentration - - Weight 136 kg (300 lb 9.6 oz) 11/30/2024 10:32 A M EDT Height 185.4 cm (6' 1 ) 07/10/2024 9:11 AM EST Body Mass Index 39.66 07/10/2024 9:11 AM EST Plan of Treatment Upcoming Encounters Date Type Department Care Team (Late st Contact Info) Description 02/21/2025 10:30 AM EDT Office Visit [facility] [address] [place] [address] Bethany Ruano MD [address] [place] [address] Health Maintenance Due Date Last Done Comments CT Colonography 1959 FIT DNA/Cologuard 1959 FIT 1959 FOBT 1960 Sigmoidoscopy 1959 Diabetes: Hemoglobin A1C 01/25/2025 024, 09/17/2023, 09/17/2023, Additional history exists Alcohol/Substance Use Screening 07/10/2025 07/10/2024 SDOH Screening 09/19/2025 09/19/2024 Colonoscopy 11/25/2025 11/25/2022 Colorectal Cancer Screening 11/25/2025 Depression Screening 11/30/2025 11/30/2024, 12/01/19 Tobacco Screening 11/30/2025 11/30/2024 Lipid Panel 09/17/2028 09/17/2023, 10/06/2022 DTaP/Tdap/Td Vaccines (2 - Td or Tdap) 11/12/2032 11/12/2022 Hepatitis C Screening Completed 10/06/2022 Zoster Vaccines [...] Date Blood 01/26/2024 2:46 PM EDT Bethany Ruano MD POINT OF CARE TEST ENTER/E DIT ORDERABLES Final Result * Lipid Panel, Standard (09/17/2023 11:50 AM EST) Triglycerides 85 <150 mg/dL [facility] Comment:Desirable Triglyceri de: less than 150 mg/dLBorderline High Triglyceride 150-199 mg/dLHigh Triglyceride: 200-499 mg/dLVery High Triglyceride: greater than or equal to 5OO mg/dL Cholesterol 146 <200 mg/dL [facility] Comment:Desirable Cholestero l: less than 200 mg/dLBorderline High Cholesterol: 200-239 mg/dLHigh Cholesterol: greater than 239 mg/dL LDL Cholesterol Calculated 69 <100 mg/dL [facility] Comment:Desirable LDL: less than 100 mg/dLNear Optimal/Above Optimal LDL: 110- 129 mg/dLBorderline High LDL: 130-159 mg/dLHigh LDL: 160-189 mg/dLVery High LDL: greater than or equal to 190 mg/dL HDL Cholesterol 60 >40 mg/dL [facility] Comment:Desirable HDL: great er than 40 mg/dL Note: This HDL assay may give artificially low results in patients with liver disease. Blood Venous blood specimen / Unknown 09/17/2023 11:50 AM EST 09/17/2023 1:26 PM EST Bethany Ruano MD LAB BLOOD ORDERABLES Final Result [facility] [address] [place] [phone] * (ABNORMAL) Hm Colonoscopy (11/25/2022) Colonoscopy Abnormal(A ) Normal Jose Ramon Hernández MD HEALTH MAINTENANCE Final Result * Hepatitis C Antibody with Reflex to HCV, RNA, Quantitative, Real-Time PCR (10/06/2022 8:42 AM EST) Hepatitis C Antibody NON-REACT MIRA NON-REACT MIRA [facility] [place] [employer] Index 0.07 <1.00 [facility] [place] [employer] Comment: HCV antibody was non-reactive. There is no laboratory evidence of HCV infection. In most cases, no further action is required. However, if recent HCV exposure is suspected, a test for HCV RNA (test code 04438) is suggested. For additional information please refer to http://education.Nexsan/faq/STD06t2 (This link is being provided for informational/ educational purposes only.) Blood Venous blood specimen / Unknown 10/06/2022 8:42 AM EST 10/06/2022 8:43 AM EST Narrative [facility] - 10/09/2022 12:25 AM EST FASTING:YES FASTING: YES Bethany Ruano MD LAB BLOOD ORDERABLES Final Result [facility] [address], [place] [address] [facility] [place] [employer] [address] [facility], ([address]) [place] [address] from Last 3 Months or Most Recently Relevant to Health Maintenance Insurance [facility] [employer] MEDICARE REPLACEMENT Advance Directives Documents on File Type Date Recorded Patient Seal Delivery Vehicle Officer Expl anation Power of Detective Investigator 09/21/2023 HealthCare Proxy 09/17/23 Care Teams Filling Separator Relationship Specialty Start Date End Date Jace, MD Bethany [address] [place] [address] PCP - General Family Medicine 09/10/22 Dr. Bassem Shahid [facility] [address] [place] [address] Cardiology 11/30/24
--- OUTSIDE RECORDS SUMMARY | 2024-11-30 12:47 | XMS_ITS | Encounter Summary ---
Author Organization [employer] Address [address] [facility] 7t [place] [address] Care Team Providers Care Automated Manufacturing Instructor Name Role Phone Bethany Mccormick MD Primary Care Provider +1- [phone] Reason for Visit * Reason Onset Date Comments Med Refill 12/23/2023 Encounter Details Date Type Department Care Team (Late st Contact Info) Description 12/23/2023 Telephone [facility] MEDICINE [address] [place], [place] [phone] Bethany Mccormick MD 230 [place], [place] [phone] Med Refill Social History Tobacco Use Types [...] 1:40 PM EDT Medication was sent to [facility] on 09/21/23 #90 with 1 refill. * Telephone Encounter - Ilya Culver - 12/23/2023 1:38 PM EDT TC from pt requesting medication refill. Medications needing refill : finasteride (Proscar) 5 MG tablet To be sent to: [facility] - [place], [place] - [address] [facility] documented in this encounter Plan of Treatment Upcoming Encounters Date Type Department Care Team (Late st Contact Info) Description 02/21/2025 10:30 AM EDT Office Visit [facility] MEDICINE [address] [place] [address] Bethany Mccormick MD 230 [place] [address] documented as of this encounter Visit Diagnoses Not on filedocumented in this encounter Additional Health Concerns Assessment Noted Time PHQ-9 Depression Total Score: 0 10/02/19 23 9:21 AM EST documented as of this encounter Care Teams Automated Manufacturing Instructor Relationship Specialty Start Date End Date Bethany Mccormick MD 230 [place] [address] PCP - General Family Medicine 09/10/22 Dr. Bassem Shahid [address] [address] Cardiology 11/30/24 documented as of this encounter
--- OUTSIDE RECORDS SUMMARY | 2024-11-30 12:47 | XMS_ITS | Encounter Summary ---
Author Organization [employer] Address [address] [facility] 7t [place] [address] Care Team Providers Care Dialysis Equipment Technician Name Role Phone Bethany Mccormick MD Primary Care Provider +1- [phone] Reason for Visit * Reason Comments Med Refill Encounter Details Date Type Department Care Team (Late st Contact Info) Description 05/04/2023 Refill [facility] MEDICINE [address] [place] [address] Darling Savage DO [address] [place] [address] Benign prostatic hyperplasia, unspecified whether lower urinary [...] Description 02/21/2025 10:30 AM EDT Office Visit [facility] MEDICINE [address] [place] [address] Bethany Mccormick MD [address] [place] [address] documented as of this encounter Visit Diagnoses Diagnosis Benign prostatic hyperplasia, unspecified whether lower urinary tract symptoms present documented in this encounter Additional Health Concerns Assessment Noted Time PHQ-9 Depression Total Score: 0 10/02/19 23 9:21 AM EST documented as of this encounter Care Teams Dialysis Equipment Technician Relationship Specialty Start Date End Date Bethany Mccormick MD [address] [place] [address] PCP - General Family Medicine 09/10/22 [place] [address] Cardiology 11/30/24 documented as of this encounter
--- OUTSIDE RECORDS SUMMARY | 2024-11-30 12:47 | XMS_ITS | Encounter Summary ---
Author Organization [employer] Address [address] [facility] [address] 7t [place] [address] Care Team Providers Care Mechanical Systems Design Engineer Name Role Phone Bethany Mccormick MD Primary Care Provider +1- [phone] Reason for Visit * Reason Onset Date Comments PT1 08/31/2024 Encounter Details Date Type Department Care Team ([facility] st Contact Info) Description 08/31/2024 Telephone [facility] MEDICINE 230 [place], [place] [phone] Bethany Mccormick MD 230 [place], [place] [phone] PT1 Social History Tobacco Use Types Packs/Day [...] Yes Provider name or facility name: [address] [address] [address] Bassem Shahid (Dice Spotter) Escort needed: Y/N: No Do you have a wheelchair: Y/N: No If yes- Manual or electric: N/A Visits: (2) ( x monthly) documented in this encounter Plan of Treatment Upcoming Encounters Date Type Department Care Team ([facility] st Contact Info) Description 02/21/2025 10:30 AM EDT Office Visit [facility] MEDICINE [address] [place], [place] [phone] Bethany Mccormick MD [address] [place], [place] [phone] documented as of this encounter Visit Diagnoses Not on filedocumented in this encounter Additional Health Concerns Assessment Noted Time PHQ-9 Depression Total Score: 0 01/26/20 24 10:39 AM EDT documented as of this encounter Care Teams Mechanical Systems Design Engineer Relationship Specialty Start Date End Date Bethany Mccormick MD 230 [place] [address] PCP - General Family Medicine 09/10/22 Dr. Bassem Shahid [address] [address] Cardiology 11/30/24 documented as of this encounter
--- OUTSIDE RECORDS SUMMARY | 2024-11-30 12:47 | XMS_ITS | Encounter Summary ---
Author Organization [email or web address] Address [address] [facility] [address] 7t [place] [address] Care Team Providers Care Corn Sheller Name Role Phone Bethany Mccormick MD Primary Care Provider +1- [phone] Encounter Details Date Type Department Care Team ([facility] st Contact Info) Description 10/06/2024 Telephone [facility] MEDICINE 230 [place], [place] [phone] Bethany Mccormick MD 230 [place], [place] [phone] Social History Tobacco Use Types Packs/Day Years [...] Description 02/21/2025 10:30 AM EDT Office Visit [facility] MEDICINE 230 [place] [address] Bethany Mccormick MD [address] [place] [address] documented as of this encounter Visit Diagnoses Not on filedocumented in this encounter Additional Health Concerns Assessment Noted Time PHQ-9 Depression Total Score: 0 01/26/20 24 10:39 AM EDT documented as of this encounter Care Teams Corn Sheller Relationship Specialty Start Date End Date Bethany Mccormick MD [address] [place] [address] PCP - General Family Medicine 09/10/22 Dr. Bassem Shahid [place] [address] [place] [address] Cardiology 11/30/24 documented as of this encounter
--- OUTSIDE RECORDS SUMMARY | 2024-11-30 12:47 | XMS_ITS | Encounter Summary ---
Author Organization [employer] Address [address] [facility] [address] 7t [place] [address] Care Team Providers Care Risk Management Intern Name Role Phone Bethany Mccormick MD Primary Care Provider +1- [phone] Reason for Visit * Reason Onset Date Comments PT-1 09/26/2024 Encounter Details Date Type Department Care Team (Late st Contact Info) Description 09/26/2024 Telephone [facility] MEDICINE 230 [place], [place] [phone] Bethany Mccormick MD 230 [place], [place] [phone] PT-1 Social History Tobacco Use Types Packs/Day [...] Y/N: Yes Provider name or facility name: [place] [address] Escort needed: Y/N: Yes Do you have a wheelchair: Y/N: No If yes- Manual or electric: N/A Visits: (amount of visits) ( x monthly, weekly, daily) 5 times a month documented in this encounter Plan of Treatment Upcoming Encounters Date Type Department Care Team (Late st Contact Info) Description 02/21/2025 10:30 AM EDT Office Visit [facility] MEDICINE [address] [place] [address] Bethany Mccormick MD 230 [place] [address] documented as of this encounter Visit Diagnoses Not on filedocumented in this encounter Additional Health Concerns Assessment Noted Time PHQ-9 Depression Total Score: 0 01/26/20 24 10:39 AM EDT documented as of this encounter Care Teams Risk Management Intern Relationship Specialty Start Date End Date Bethany Mccormick MD 230 [place] [address] PCP - General Family Medicine 09/10/22 Dr. Bassem Shahid [facility] [address] [place] [address] Cardiology 11/30/24 documented as of this encounter
--- OUTSIDE RECORDS SUMMARY | 2024-11-30 12:47 | XMS_ITS | Encounter Summary ---
Author Organization [employer] Address [address] [facility] [address] 7t [place] [address] Care Team Providers Care Offbearer Name Role Phone Bethany Mccormick MD Primary Care Provider +1- [phone] Reason for Visit * Reason Comments Med Refill Encounter Details Date Type Department Care Team ([facility] st Contact Info) Description 08/17/2024 Refill [facility] MEDICINE 230 [place], [place] [phone] Bethany Mccormick MD 230 [place], [place] [phone] Primary hypertension; Gastroesophageal reflux disease without esophagitis; [...] Description 02/21/2025 10:30 AM EDT Office Visit [facility] MEDICINE [address] [place] [address] Bethany Mccormick MD [address] [place] [address] documented as of this encounter Visit Diagnoses Diagnosis Primary hypertension Unspecified essential hypertension Gastroesophageal reflux disease without esophagitis Esophageal reflux Gout, unspecified cause, unspecified chronicity, unspecified site Major depressive disorder, recurrent episode, mild (CMS/[facility]) Major depressive disorder, recurrent episode, mild documented in this encounter Additional Health Concerns Assessment Noted Time PHQ-9 Depression Total Score: 0 01/26/20 24 10:39 AM EDT documented as of this encounter Care Teams Offbearer Relationship Specialty Start Date End Date Bethany Mccormick MD [address] [place] [address] PCP - General Family Medicine 09/10/22 Dr. Bassem Shahid [address] [address] Cardiology 11/30/24 documented as of this encounter
--- OUTSIDE RECORDS SUMMARY | 2024-11-30 12:47 | XMS_ITS | Clinical Summary ---
Author Organization [address] [facility] Address 175 [place] [address] Phone Care Team Providers Care Music Agent Name Role Phone Physician, Pcp Unknown Primary [...] 1:45 PM EDT Consult Orthopedic Surgery - [place] [address] [phone] Chris Edmond, [place] [address] [address] Health Maintenance Due Date Last Done Comments DTaP,Tdap,and Td Vaccines (1 - Tdap) 11/18/1978 Pneumococcal Vaccine: 50+ Ye ars (1 of 1 - PCV) 11/18/2009 Zoster Vaccines (1 of 2) 11/18/2009 COVID-19 Vaccine ( - 2023-2 5 season) 2024 Abdominal Aortic Aneurysm (A AA) Screen 06/08/2024 Cholesterol Screening (Lipid Panel) 06/08/2024 Colorectal Cancer Screening: Colonoscopy 06/08/2024 Depression Screening 06/08/2024 Hepatitis C Screening 06/08/2024 Medicare Annual Wellness Visit 06/08/2024 Social Influencers of Health Screening 06/08/2024 Falls Risk Assessment 11/18/2024 Influenza Vaccine (Season Ended) 2025 RSV Immunization Adult Patie nts (1 - 1-dose 75+ series) 11/18/2034 HIB [...] to complete this topic Insurance MEDICAID - [place] [employer] MEDICARE ADVANTAGE Care Teams Music Agent Relationship Specialty Start Date End Date Physician, Pcp Unknown PCP - General 09/26/24
--- OUTSIDE RECORDS SUMMARY | 2024-11-30 12:47 | XMS_ITS | Encounter Summary ---
Author Organization [employer] Address [address] [facility] [address] 7t [place] [address] Care Team Providers Care Almond Blancher Name Role Phone Bethany Mccormick MD Primary Care Provider +1- [phone] Encounter Details Date Type Department Care Team ([facility] st Contact Info) Description 11/30/2024 Telephone [facility] MEDICINE 230 [place], [place] [phone] Bethany Mccormick MD [address] [place], [place] [phone] Social History Tobacco Use Types Packs/Day Years [...] encounter Miscellaneous Notes * Telephone Encounter - Dulce Maria Valera RN - 11/30/2024 12:03 PM EDT Pt came via PT1 but service did not show up to pick pt up. Ordered Uber per policy. * Telephone Encounter - Lexus Ratliff - 11/30/2024 10:05 AM EDT Pt no showed to apt on 11/30/2024 letter will be sent out to rs documented in this encounter Plan of Treatment Upcoming Encounters Date Type Department Care Team (Late st Contact Info) Description 02/21/2025 10:30 AM EDT Office Visit [facility] MEDICINE 230 [place] [address] Bethany Mccormick MD 230 [place] [address] documented as of this encounter Visit Diagnoses Not on filedocumented in this encounter Additional Health Concerns Assessment Noted Time PHQ-9 Depression Total Score: 2 12/01/19 25 10:35 AM EDT documented as of this encounter Care Teams Almond Blancher Relationship Specialty Start Date End Date Jace, MD Bethany [address] [place] [address] PCP - General Family Medicine 09/10/22 Dr. Bassem Shahid [place] [address] [place] [address] Cardiology 11/30/24 documented as of this encounter
--- OUTSIDE RECORDS SUMMARY | 2024-11-30 12:47 | XMS_ITS | Encounter Summary ---
Author Organization [employer] Address [address] [facility] 7t [place] [address] Care Team Providers Care Express Manager Name Role Phone Bethany Mccormick MD Primary Care Provider +1- [phone] Reason for Referral * Consultation (Routine) - Pending Review Specialty Diagnoses / Procedures Referred By Domenica chávez Referred To Contact Behavioral Health Diagnoses Depression, unspecified depression type Bethany Mccormick MD [address] [place] [address] Phone: tel: fax: Referral ID Status Reason Start Date Expiration Date Visits Requested Visits Authorized [id number] Pending Review Specialty Services Required 11/30/2024 11/30/2025 1 1 * Consultation (Routine) - Authorized Specialty Diagnoses / Procedures Referred By Domenica chávez Referred To Contact Pharmacy Diagnoses Primary hypertension Bethany Mccormick MD [address] [place] [address] Phone: tel: fax: Referral ID Status Reason Start Date Expiration Date Visits Requested Visits Authorized [id number] Authorized Consult and Treat 11/30/2024 11/30/2025 6 6 * Consultation (Routine) - Pending Review Specialty Diagnoses / Procedures Referred By Domenica chávez Referred To Contact Urology Diagnoses Urinary hesitancy Bilateral deafness Bethany Mccormick MD [address] [place] [address] Phone: tel: fax: Referral ID Status Reason Start Date Expiration Date Visits Requested Visits Authorized [id number] Pending Review Specialty Services Required 11/30/2024 11/30/2025 1 1 Reason for Visit * Reason Comments Follow-up Pain in leg Encounter Details Date Type Department Care Team (Late st Contact Info) Description 11/30/2024 9:45 AM EDT Office Visit [facility] [address] [facility] [place] [address] Bethany Mccormick MD [address] [place] [address] Primary hypertension (Primary Dx); Atrial flutter, unspecified type (CMS/HCC); Bilateral foot pain; Urinary hesitancy; Major depressive disorder, recurrent episode, mild (CMS/HCC); Class 2 severe obesity due to excess calories with serious comorbidity and body mass index (BMI) of 39.0 to 39.9 in adult (CMS/HCC); Dietary counseling; Exercise counseling; Bilateral deafness Social History Tobacco Use Types Packs/Day Years [...] the past 12 months, has t he [employer], gas, oil or water company threatened to [...] AM EST documented as of this encounter Last Filed Vital Signs Vital Sign Reading [...] oz) 11/30/2024 10:32 A M EDT Height - - Body Mass Index 39.66 07/10/2024 9:11 AM EST documented in this encounter Patient Instructions * Patient Instructions* Bethany Mccormick MD - 11/30/2024 9:45 AM EDT FOOT DOCTOR Chris Edmond DPM Podiatry [address] [place] [address] Date: December 05, 2024 Time 2:00 documented in this encounter Miscellaneous Notes * Assessment & Plan Note - Billy Gabriel - 11/30/2024 11:13 AM EDTAssociated Problem(s): Atrial flutter (CMS/HCC) Noted in [place] during ECG for palpitations. -[id number] of 1 -s/p CTI ablation 09/22/2021 with good results -on Eliquis (apixaban) -seen by [facility] cardiology Dr. Myra Feliciano MD 12/13/2022 recommending 6 month follow up -Cardiology note from 05/04/24 reviewed Recommends Zio path for 24 days, if no further aflutter episodes will discontinue apixaban -repeat Echo ordered * Assessment & Plan Note - Billy Gabriel - 11/30/2024 11:10 AM EDTAssociated Problem(s): Bilateral foot pain Clinical picture neuropathy. -was switched to Gabapentin 300mg Q 8hrs. -referred to Podiatry 09/01/24 -encouraged to call 11/30/24 * Assessment & Plan Note - Billy Gabriel - 11/30/2024 11:06 AM EDTAssociated Problem(s): Major depressive disorder, recurrent episode, mild (CMS/HCC) Denies suicidial or homacidial ideation. Therapist and psychiatrist offered. -referred to [facility] 11/30/24 * Assessment & Plan Note - Billy Gabriel - 11/30/2024 11:06 AM EDTAssociated Problem(s): Urinary hesitancy Reports frequent urinary hesitancy episodes. -ordered PSA and UA + Culture 11/30/24 -referred to Urology 11/30/24 * Assessment & Plan Note - Billy Gabriel - 11/30/2024 11:05 AM EDTAssociated Problem(s): Primary hypertension -Blood pressure is not at goal, not currently on any medications 11/30/24 -Continue lifestyle modifications -Continue current medications -Referred to Collaborative Drug Therapy Managment Program with our DINO Thompson 07/10/24 -Start Lisinopril 10 mg 11/30/24 -Re-referred to Collaborative Drug Therapy Managment Program with our PharmDDINO 11/30/24 -Follows with [facility] cardiology Dr. Myra Feliciano MD * Assessment & Plan Note - Billy Gabriel - 11/30/2024 11:02 AM EDTAssociated Problem(s): Essential hypertension (Deleted) -Blood pressure is not at goal, not currently on any medications 11/30/24 -Continue lifestyle modifications -Continue current medications -Start Lisinopril 10 mg 11/30/24 * Assessment & Plan Note - Billy Gabriel - 11/30/2024 10:58 AM EDTAssociated Problem(s): Deaf -Patient needs language interpreter for all visits. Please make note of this in any referrals. -Audiology at [facility] -has appropriate assistive devices in home including fire alarm with light Patient walked in with PT1 denial letter for [facility] [place]. The letter says it was denied because '[facility]' does not participate with medicaid. Patient showed FD appointment reminder for '[facility]' set for 04/28/2024 at 10am. FD called [facility] to ask if the accept Patient insurance or if they can provide on time transpiration. '[facility]' advised they do not accept Patient insurance and he has No Showed to the last few apps (according to them he does not have an yelitza set up). Patient said he was already evaluated (ear molds were taken, hearing was checked the only reason for the yelitza was to f/u). Patient would like new place to keep getting evaluated that do accept his in surance and so PT1 can be approved. Patient cannot travel in bus. He gets lost. -referral placed to audiology 03/15/24 * Assessment & Plan Note - Billy Gabriel - 11/30/2024 10:58 AM EDTAssociated Problem(s): Dietary counseling Dietary Recommendations: Fruits, vegetables, whole grains, protein foods, and fat-free or low-fat dairy products are healthychoices. Eat different types of protein foods in your diet. This can include seafood, lean meats, poultry, beans, peas, lentils, nuts, seeds, soy products, and eggs. Limit foods and beverages higher in added sugars, saturated fat, and sodium. * Assessment & Plan Note - Billy Gabriel - 11/30/2024 10:57 AM EDTAssociated Problem(s): Exercise counseling Exercise Recommendations: At least 150 minutes of moderate-intensity physical activity per week, or an equivalent combinationof moderate- and vigorous-intensity activity. * Assessment & Plan Note - Billy Gabriel - 11/30/2024 10:57 AM EDTAssociated Problem(s): Class 2 severe obesity due to excess calories with serious comorbidity and body mass index (BMI) of 39.0 to 39.9 in adult ([facility]) Discussed weight, diet, exercise with patient in relation to health conditions. Used motivational interviewing to illicit change talk and established initial goals with patient. documented in this encounter Plan of Treatment Upcoming Encounters Date Type Department Care Team (Late st Contact Info) Description 02/21/2025 10:30 AM EDT Office Visit [facility] [address] [place] [address] Bethany Mccormick MD [address] [place] [address] Scheduled Orders Name Type Priority Associated Diagnoses Orde r Schedule PSA,Total Lab Routine Urinary hesitancy Expected: 11/30/2024, Expires: 11/30/2025 Urinalysis, Complete, with Reflex to Culture Lab Routine Urinary hesitancy Expected: 11/30/2024 (Approximate), Expires: 11/30/2025 Scheduled Referrals Name Type Priority Associated Diagnoses Orde r Schedule Referral to Urology Outpatient Referral Routine Urinary hesitancy Bilateral deafness Expected: 11/30/2024 (Approximate), Expires: 11/30/2025 Referral to Pharmacy CDTM Outpatient Referral Routine Primary hypertension Ordered: 11/30/2024 Referral to Behavioral Health Outpatient Referral Routine Major depressive disorder, recurrent episode, mild (CMS/HCC) Expected: 11/30/2024 (Approximate), Expires: 11/30/2025 documented as of this encounter Visit Diagnoses Diagnosis Primary hypertension- Primary Unspecified essential hypertension Atrial flutter, unspecified type (CMS/HCC) Bilateral foot pain Urinary hesitancy Major depressive disorder, recurrent episode, mild (CMS/HCC) Major depressive disorder, recurrent episode, mild Class 2 severe obesity due to excess calories with serious comorbidity and body mass index (BMI) of 39.0 to 39.9 in adult (CMS/HCC) Dietary counseling Dietary surveillance and counseling Exercise counseling Bilateral deafness Unspecified hearing loss documented in this encounter Additional Health Concerns Assessment Noted Time PHQ-9 Depression Total Score: 2 12/01/19 25 10:35 AM EDT documented as of this encounter Care Teams Express Manager Relationship Specialty Start Date End Date Bethany Mccormick MD [address] [place] [address] PCP - General Family Medicine 09/10/22 Dr. Bassem Shahid [address] [address] Cardiology 11/30/24 documented as of this encounter
--- OUTSIDE RECORDS SUMMARY | 2024-11-30 12:47 | XMS_ITS | Encounter Summary ---
Author Organization [employer] Address [address] [facility] [address] 7t [place] [address] Care Team Providers Care Farm Crew Member Name Role Phone Bethany Mccormick MD Primary Care Provider +1- [phone] Reason for Visit * Reason Onset Date Comments chartprep 11/27/2024 Encounter Details Date Type Department Care Team (Late st Contact Info) Description 11/27/2024 Telephone [facility] MEDICINE [address] [place], [place] [phone] Bethany Mccormick MD [address] [place], [place] [phone] chartprep Social History Tobacco Use Types Packs/Day Years [...] encounter Miscellaneous Notes * Telephone Encounter - Madonna Culver MA - 11/27/2024 11:02 AM EDT ..Chart Prep Labs: not applicable Images: not applicable Vaccines due: Updated Referrals: Not Applicable Screenings: Colonoscopy Overdue care gaps: A1C, Glucose, Sbirt, SDOH, PQ9, and Disability documented in this encounter Plan of Treatment Upcoming Encounters Date Type Department Care Team (Late st Contact Info) Description 02/21/2025 10:30 AM EDT Office Visit [facility] MEDICINE [address] [place], [place] [phone] Bethany Mccormick MD [address] [place] [address] documented as of this encounter Visit Diagnoses Not on filedocumented in this encounter Additional Health Concerns Assessment Noted Time PHQ-9 Depression Total Score: 0 01/26/20 10:39 AM EDT documented as of this encounter Care Teams Farm Crew Member Relationship Specialty Start Date End Date [place], [place] Bethany [address] [place] [address] PCP - General Family Medicine 09/10/22 documented as of this encounter
[2024-11-30 13:25] LABS: Appearance Urine Clear; Color Urine Yellow; Glucose Urine UA Negative (Negative); Leukocyte Esterase Urine Moderate (2+) (Negative); Nitrite Urine Positive (Negative); PH 6.5 (5.0-9.0); UMIC TRIGGER UACC YES; Urine Blood Small (1+) (Negative); Urine Ketones Negative (Negative); Urine Protein Trace mg/dL (Neg-Trace)
[2024-11-30 13:28] LABS: Bacteria Urine 2+ (None Seen); Hyaline Casts Urine 0-2 /LPF (0-2); Squamous Epithelial Cell Urine 0-2 /HPF (0-2); UACC Culture Trigger YES; WBC Urine 21-50 /HPF (0-5)
== END 2024-11-30 11:29 | disposition home or self-care (01) ==
LOC: HO.HHCL 11:28
PROVIDERS: Visit Provider Family Medicine
DX: R39.11 Hesitancy of micturition (principal); Z12.5 Encounter for screening for malignant neoplasm of prostate
CPT/HCPCS: 36415; 81001; 84153; 87086; 87088; 87186

== ENCOUNTER 2024-12-13 09:37 | Outpatient (REF) | payer MEDICARE, MEDICAID, SELFPAY ==
--- OUTSIDE RECORDS SUMMARY | 2024-12-13 10:45 | XMS_ITS | Encounter Summary ---
Author Organization [employer] Address [address] 7[address] [place] [address] Care Team Providers Care Hairpiece Stylist Name Role Phone Bethany Mccormick MD Primary Care Provider +- [phone] Jennifer Kramer PharmD Unavailable Irineo Arevalo MD Unavailable [phone] Encounter Details Date Type Department Care Team (Late st Contact Info) Description 12/13/2024 Telephone [facility] [address] [place], [place] [phone] Bethany Mccormick MD [address] [place], [place] [phone] Social History Tobacco Use Types Packs/Day Years [...] encounter Miscellaneous Notes * Telephone Encounter - Bethany Mccromick MD - 12/13/2024 9:21 AM EDT Please set up PT 1 for urology at [address] [place] [address] [address]. Thank you. documented in this encounter Plan of Treatment Upcoming Encounters Date Type Department Care Team (Late st Contact Info) Description 01/01/2025 10:00 AM EDT Medication Management [facility] [address] [place] [address] Jennifer Kramer, PharmD [address] [place] [address] 02/21/2025 10:30 AM EDT Office Visit [facility] [address] [place] [address] Bethany Mccormick MD 230 [place] [address] documented as of this encounter Visit Diagnoses Not on filedocumented in this encounter Additional Health Concerns Assessment Noted Time PHQ-9 Depression Total Score: 2 12/01/19 25 10:35 AM EDT documented as of this encounter Care Teams Hairpiece Stylist Relationship Specialty Start Date End Date Bethany Mccormick MD [address] [place] [address] PCP - General Family Medicine 09/10/22 Jennifer Kramer, AllanD [address] [place] [address] Pharmacist Internal Medicine 12/04/24 Irineo Arevalo MD [address] [place] [address] Urology 12/13/24 Dr. Bassem Shahid [facility] [address] [place] [address] Cardiology 11/30/24 documented as of this encounter
--- OUTSIDE RECORDS SUMMARY | 2024-12-13 10:45 | XMS_ITS | Encounter Summary ---
Author Organization [employer] Address [address] 7t [place] [address] Care Team Providers Care Insecticide Supervisor Name Role Phone Bethany Mccormick MD Primary Care Provider +- [phone] Jennifer Kramer PharmD Unavailable Irineo Arevalo MD Unavailable +[phone] Encounter Details Date Type Department Care Team (Late st Contact Info) Description 10/06/2024 Telephone [facility] 230 [place], [place] [phone] Bethany Mccormick MD 230 [place], [place] [phone] Social History Tobacco Use Types Packs/Day Years [...] Description 01/01/2025 10:00 AM EDT Medication Management [facility] [address] [place] [address] Jennifer Kramer, PharmD [address] [place] [address] 02/21/2025 10:30 AM EDT Office Visit [facility] [address] [place] [address] Bethany Mccormick MD [address] [place] [address] documented as of this encounter Visit Diagnoses Not on filedocumented in this encounter Additional Health Concerns Assessment Noted Time PHQ-9 Depression Total Score: 0 01/26/20 24 10:39 AM EDT documented as of this encounter Care Teams Insecticide Supervisor Relationship Specialty Start Date End Date Bethany Mccormick MD [address] [place] [address] PCP - General Family Medicine 09/10/22 Jennifer Kramer PharmD 230 [place] [address] Pharmacist Internal Medicine 12/04/24 Irineo Arevalo MD [address] [place] [address] Drive [address] [place] [address] Urology 12/13/24 Dr. Bassem Shahid [address] [address] Cardiology 11/30/24 documented as of this encounter
--- OUTSIDE RECORDS SUMMARY | 2024-12-13 10:45 | XMS_ITS | Encounter Summary ---
Author Organization [employer] Address [address] 7[address] [place] [address] Care Team Providers Care Glue Maker Bone Name Role Phone Bethany Mccormick MD Primary Care Provider + [phone] Jennifer Kramer PharmD Unavailable [phone] Irnieo Arevalo MD Unavailable [phone] Encounter Details Date Type Department Care Team (Latest Contact Info) Description 12/13/2024 Travel Social History Tobacco Use Types Packs/Day Years [...] your housing situation today? I have nimisha sing 01/26/[address] you li [...] Description 01/01/2025 10:00 AM EDT Medication Management [facility] [address] [place] [address] Jennifer Kramer, PharmD [address] [place] [address] 02/21/2025 10:30 AM EDT Office Visit [facility] [address] [place] [address] Bethany Mccormick MD [address] [place] [address] documented as of this encounter Visit Diagnoses Not on filedocumented in this encounter Additional Health Concerns Assessment Noted Time PHQ-9 Depression Total Score: 2 12/01/19 25 10:35 AM EDT documented as of this encounter Care Teams Glue Maker Bone Relationship Specialty Start Date End Date Bethany Mccormick MD [address] [place] [address] PCP - General Family Medicine 09/10/22 Jennifer Kramer, AllanD 230 [place] [address] Pharmacist Internal Medicine 12/04/24 Irineo Arevalo MD [address] [place] [address] Drive [address] [place] [address] Urology 12/13/24 Dr. Bassem Shahid [address] [address] Cardiology 11/30/24 documented as of this encounter
--- OUTSIDE RECORDS SUMMARY | 2024-12-13 10:45 | XMS_ITS | Encounter Summary ---
Author Organization [employer] Address [address] 7t [place] [address] Care Team Providers Care Depalletizer Operator Name Role Phone Bethany Mccormick MD Primary Care Provider +- [phone] Jennifer Kramer PharmD Unavailable [phone] Irineo Arevalo MD Unavailable [phone] Reason for Visit * Reason Onset Date Comments PT1 08/31/2024 Encounter Details Date Type Department Care Team (Late st Contact Info) Description 08/31/2024 Telephone [facility] 230 [place], [place] [phone] Bethany Mccormick MD 230 [place], [place] [phone] PT1 Social History Tobacco Use Types Packs/Day [...] Yes Provider name or facility name: [address] [address] [address] Bassem Shahid (Hot Stone Setter) Escort needed: Y/N: No Do you have a wheelchair: Y/N: No If yes- Manual or electric: N/A Visits: (2) ( x monthly) documented in this encounter Plan of Treatment Upcoming Encounters Date Type Department Care Team (Late st Contact Info) Description 01/01/2025 10:00 AM EDT Medication Management [address] [address] Jennifer Kramer, PharmD [address] [place] [address] 02/21/2025 10:30 AM EDT Office Visit [facility] 230 [place] [address] Bethany Mccormick MD [address] [place] [address] documented as of this encounter Visit Diagnoses Not on filedocumented in this encounter Additional Health Concerns Assessment Noted Time PHQ-9 Depression Total Score: 0 01/26/20 10:39 AM EDT documented as of this encounter Care Teams Depalletizer Operator Relationship Specialty Start Date End Date Bethany Mccormick MD [address] [place] [address] PCP - General Family Medicine 09/10/22 Jennifer Kramer, PharmD [address] [place] [address] Pharmacist Internal Medicine 12/04/24 Irineo Arevalo MD [address] [place] [address] Urology 12/13/24 Dr. Bassem Shahid [address] [address] Cardiology 11/30/24 documented as of this encounter
--- OUTSIDE RECORDS SUMMARY | 2024-12-13 10:45 | XMS_ITS | Encounter Summary ---
Author Organization [employer] Address [address] 7[address] [place] [address] Care Team Providers Care Hoop Flaring Machine Operator Helper Name Role Phone Bethany Mccormick MD Primary Care Provider +- [phone] Jennifer Kramer PharmD Unavailable [phone] Reason for Visit * Reason Onset Date Comments Lab Orders 12/12/2024 Encounter Details Date Type Department Care Team (Late st Contact Info) Description 12/12/2024 Telephone [facility] 230 [place], [place] [phone] Bethany Mccormick MD 230 [place], [place] [phone] Lab Orders Social History Tobacco Use Types Packs/Day Years [...] as of this encounter Miscellaneous Notes * Addendum Note - Naila Valera RN - 12/12/2024 2:35 PM EDTAddended by: NAILA VALERA on: 12/12/2024 02:35 PM Modules accepted: Orders * Telephone Encounter - Naila Valera RN - 12/12/2024 2:05 PM EDT Incoming phone call from pt via [employer] chemical engineering technologist. Pt states he needs a TB test for program Care [facility] along with copy of physical. Advised pt will order T.spot per protocol for labwork and will ask PCP to generate PE summary. Pt asked about PT 1 referral but pt unable to provide informationon which providers office this is for. Advised pt to call back or bring in any paperwork about that appt and C can assist with PT1. Pt verbalized understanding, no further questions. * Telephone Encounter - Naila Valera RN - 12/12/2024 1:44 PM EDT Called pt at main number on file that has chemical engineering technologist, was on hold waiting chemical engineering technologist for 20 min. Will task to call again to confirm request below. * Telephone Encounter - Lexus Ratliff - 12/12/2024 10:49 AM EDT Pt walked in requesting tb test for program documented in this encounter Plan of Treatment Upcoming Encounters Date Type Department Care Team (Late st Contact Info) Description 01/01/2025 10:00 AM EDT Medication Management [facility] [address] [place] [address] Jennifer Kramer, PharmD [address] [place] [address] 02/21/2025 10:30 AM EDT Office Visit [facility] [address] [place] [address] Bethany Mccormick MD [address] [place] [address] Scheduled Orders Name Type Priority Associated Diagnoses Orde r Schedule T-SPOT??.TB Lab Routine Screening for tuberculosis Expected: 12/12/2024 (Approximate), Expires: 12/12/2025 documented as of this encounter Visit Diagnoses Diagnosis Screening for tuberculosis Screening examination for pulmonary tuberculosis documented in this encounter Additional Health Concerns Assessment Noted Time PHQ-9 Depression Total Score: 2 12/01/19 10:35 AM EDT documented as of this encounter Care Teams Hoop Flaring Machine Operator Helper Relationship Specialty Start Date End Date Bethany Mccormick MD 230 [place] [address] PCP - General Family Medicine 09/10/22 Jennifer Kramer, Donna 230 [place] [address] Pharmacist Internal Medicine 12/04/24 Dr. Luevano [address] [address] Cardiology 11/30/24 documented as of this encounter
--- OUTSIDE RECORDS SUMMARY | 2024-12-13 10:45 | XMS_ITS | Clinical Summary ---
Author Organization [address] [facility] Address 175 [place] [address] Phone Care Team Providers Care Bath Steward Name Role Phone Physician, Pcp Unknown Primary [...] Care Team (Late st Contact Info) Description 01/09/2025 2:00 PM EDT Consult Orthopedic Surgery - [place] [address] [phone] Chris Edmond, DPPrashant [address] [address] Health Maintenance Due Date Last Done Comments [...] age to complete this topic Meningococcal B Vaccine Aged Out No l onger eligible based on patient's age to complete [...] to complete this topic Insurance [place]ICA[place] - [place] [employer] MEDICARE ADVANTAGE Care Teams Bath Steward Relationship Specialty Start Date End Date Physician, Pcp Unknown PCP - General 09/26/24
--- OUTSIDE RECORDS SUMMARY | 2024-12-13 10:45 | XMS_ITS | Encounter Summary ---
Author Organization [employer] Address [address] 7t [place] [address] Care Team Providers Care Currency Examiner Name Role Phone Bethany Mccormick MD Primary Care Provider +- [phone] Jennifer Kramer PharmD Unavailable Irineo Arevalo MD Unavailable [phone] Reason for Visit * Reason Comments Med Refill Encounter Details Date Type Department Care Team (Late st Contact Info) Description 05/04/2023 Refill [facility] 230 [place], [place] [phone] Darling Savage DO 230 [place], [place] [phone] Benign prostatic hyperplasia, unspecified whether lower urinary [...] Description 01/01/2025 10:00 AM EDT Medication Management [facility] [address] [place] [address] Jennifer Kramer PharmD [address] [place] [address] 02/21/2025 10:30 AM EDT Office Visit [facility] [address] [place] [address] Bethany Mccormick MD [address] [place] [address] documented as of this encounter Visit Diagnoses Diagnosis Benign prostatic hyperplasia, unspecified whether lower urinary tract symptoms present documented in this encounter Additional Health Concerns Assessment Noted Time PHQ-9 Depression Total Score: 0 10/02/19 9:21 AM EST documented as of this encounter Care Teams Currency Examiner Relationship Specialty Start Date End Date Bethany Mccormick MD [address] [place] [address] PCP - General Family Medicine 09/10/22 Jennifer Kramer, AllanD [address] [place] [address] Pharmacist Internal Medicine 12/04/24 Irineo Arevalo MD [address] [place] [address] Urology 12/13/24 Dr. Bassem Shahid [address] [address] Cardiology 11/30/24 documented as of this encounter
--- OUTSIDE RECORDS SUMMARY | 2024-12-13 10:45 | XMS_ITS | Encounter Summary ---
Author Organization [employer] Address [address] 7t [place] [address] Care Team Providers Care Finish Repairer Name Role Phone Bethany Mccormick MD Primary Care Provider +- [phone] Jennifer Kramer PharmD Unavailable [phone] Irineo Arevalo MD Unavailable [phone] Reason for Visit * Reason Comments Med Refill Encounter Details Date Type Department Care Team (Late st Contact Info) Description 08/17/2024 Refill [facility] 230 [place], [place] [phone] Bethany Mccormick MD 230 [place], [place] [phone] Primary hypertension; Gastroesophageal reflux disease without esophagitis; [...] Description 01/01/2025 10:00 AM EDT Medication Management [facility] [address] [place] [address] Jennifer Kramer, PharmD [address] [place] [address] 02/21/2025 10:30 AM EDT Office Visit [facility] [address] [place] [address] Bethany Mccormick MD [address] [place] [address] documented as of this encounter Visit Diagnoses Diagnosis Primary hypertension Unspecified essential hypertension Gastroesophageal reflux disease without esophagitis Esophageal reflux Gout, unspecified cause, unspecified chronicity, unspecified site Major depressive disorder, recurrent episode, mild ([facility]) Major depressive disorder, recurrent episode, mild documented in this encounter Additional Health Concerns Assessment Noted Time PHQ-9 Depression Total Score: 0 01/26/20 24 10:39 AM EDT documented as of this encounter Care Teams Finish Repairer Relationship Specialty Start Date End Date [place], MD Bethany [address] [place] [address] PCP - General Family Medicine 09/10/22 Jennifer Kramer, AllanD [address] [place] [address] Pharmacist Internal Medicine 12/04/24 Irineo Arevalo MD [address] [place] [address] Drive [address] [place] [address] Urology 12/13/24 Dr. Bassem Shahid [facility] [address] [place] [address] Cardiology 11/30/24 documented as of this encounter
--- OUTSIDE RECORDS SUMMARY | 2024-12-13 10:45 | XMS_ITS | Encounter Summary ---
Author Organization [employer] Address [address] 7t [place] [address] Care Team Providers Care Racing Secretary And Handicapper Name Role Phone Bethany Mccormick MD Primary Care Provider +- [phone] Jennifer Kramer PharmD Unavailable Irineo Arevalo MD Unavailable [phone] Encounter Details Date Type Department Care Team (Late st Contact Info) Description 12/13/2024 9:15 AM EDT Office Visit [facility] [address] [place], [place] [phone] Bethany Mccormick MD [address] [place], [place] [phone] Bilateral deafness (Primary Dx); Dyslipidemia; Primary hypertension; Acute cystitis without hematuria; Prediabetes Social History Tobacco Use Types Packs/Day Years [...] Sign Reading Time Taken Comments Blood Pressure 122/80 12/13/2024 10:03 AM EDT Pulse 80 12/13/2024 10:03 AM EDT Temperature - - Respiratory Rate 12 12/13/2024 10:03 AM EDT Oxygen Saturation - - Inhaled Oxygen Concentration - - Weight - - Height - - Body Mass Index - - documented in this encounter Progress Notes * Bethany Mccormick MD - 12/13/2024 9:15 AM EDT Subjective Patient ID: William Ortiz is a 64 y.o. male who presents for blood pressure check. Here for BP check. No concerns. Doing well on lisinopril started 11/29/24. Seeing [facility] with our PharmD, DINO. His urinary symptoms resolved after treatment for UTI. Office Visit on 11/30/2024. He has urology apt in January. PT one requested today. He will be starting [facility] adult day program. Review of Systems Constitutional: Negative for fever and unexpected weight change. Respiratory: Negative for shortness of breath. Cardiovascular: Negative for chest pain. Gastrointestinal: Negative for abdominal pain. Genitourinary: Negative for difficulty urinating. Objective Visit Vitals BP 122/80 (BP Location: Left arm, BP Cuff Size: Adult) Pulse 80 Resp 12 There is no height or weight on file to calculate BMI. Physical Exam Constitutional: Appearance: Normal appearance. Cardiovascular: Rate and Rhythm: Normal rate and regular rhythm. Heart sounds: Normal heart sounds. Pulmonary: Effort: Pulmonary effort is normal. Breath sounds: Normal breath sounds. Abdominal: General: Abdomen is flat. Palpations: Abdomen is soft. Tenderness: There is no abdominal tenderness. Musculoskeletal: Cervical back: Normal range of motion and neck supple. Lymphadenopathy: Cervical: No cervical adenopathy. Skin: General: Skin is warm and dry. Neurological: Mental Status: Mental status is at baseline. Psychiatric: Behavior: Behavior normal. Problem List Items Addressed This Visit Deaf - Primary Dyslipidemia Lab Results Component Value Date CHOL 146 09/17/2023 TRIG 85 09/17/2023 TRIG 95 10/06/2022 HDL 60 09/17/2023 LDLCHOLCAL 69 09/17/2023 -LDL is at goal of < 100 -continue lifestyle modifications -continue atorvastatin 10mg Primary hypertension -Blood pressure is at goal -Continue lifestyle modifications -Continue current medications -Continue Lisinopril 10 mg 11/30/24 -Re-referred to [facility] with our DINO Thompson 11/30/24 -Follows with [facility] cardiology Dr. Myra Feliciano MD Acute cystitis without hematuria 11/30/24: Citrobacter koseri > 100,000 cfu/mL, olvera sensitive -treated with keflex x 7 day, symptoms resolved. Prediabetes Future Appointments Date Time Provider Department Center 01/01/2025 10:00 AM Jennifer Kramer PharmD MEDICINE [facility] 02/21/2025 10:30 AM Bethany Mccormick MD [facility] documented in this encounter Miscellaneous Notes * Assessment & Plan Note - Bethany Mccormick MD - 12/13/2024 10:10 AM EDT Associated Problem(s): Acute cystitis without hematuria 11/30/24: Citrobacter koseri > 100,000 cfu/mL, olvera sensitive -treated with keflex x 7 day, symptoms resolved. * Assessment & Plan Note - Bethany Mccormick MD - 12/13/2024 10:07 AM EDT Associated Problem(s): Primary hypertension -Blood pressure is at goal -Continue lifestyle modifications -Continue current medications -Continue Lisinopril 10 mg 11/30/24 -Re-referred to [facility] with our PharmD, DINO 11/30/24 -Follows with [facility] cardiology Dr. Myra Feliciano MD * Assessment & Plan Note - Bethany Mccormick MD - 12/13/2024 10:07 AM EDT Associated Problem(s): Dyslipidemia Lab Results Component Value Date CHOL 146 09/17/2023 TRIG 85 09/17/2023 TRIG 95 10/06/2022 HDL 60 09/17/2023 LDLCHOLCAL 69 09/17/2023 -LDL is at goal of < 100 -continue lifestyle modifications -continue atorvastatin 10mg documented in this encounter Plan of Treatment Upcoming Encounters Date Type Department Care Team (Late st Contact Info) Description 01/01/2025 10:00 AM EDT Medication Management [facility] [address] [place] [address] Jenniefr Kramer, PharmD [address] [place] [address] 02/21/2025 10:30 AM EDT Office Visit [facility] [address] [place] [address] Bethany Mccormick MD [address] [place] [address] documented as of this encounter Visit Diagnoses Diagnosis Bilateral deafness- Primary Unspecified hearing loss Dyslipidemia Other and unspecified hyperlipidemia Primary hypertension Unspecified essential hypertension Acute cystitis without hematuria Prediabetes Other abnormal glucose documented in this encounter Additional Health Concerns Assessment Noted Time PHQ-9 Depression Total Score: 2 12/01/19 25 10:35 AM EDT documented as of this encounter Care Teams Racing Secretary And Handicapper Relationship Specialty Start Date End Date Bethany Mccormick MD [address] [place] [address] PCP - General Family Medicine 09/10/22 Jennifer Kramer, AllanD [address] [place] [address] Pharmacist Internal Medicine 12/04/24 Irineo Arevalo MD [address] [place] [address] Urology 12/13/24 Dr. Bassem Shahid [address] [address] Cardiology 11/30/24 documented as of this encounter
--- OUTSIDE RECORDS SUMMARY | 2024-12-13 10:45 | XMS_ITS | Clinical Summary ---
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 apixaban (Eliquis) 5 MG tabletIndication s:Atrial flutter, [...] 15 tablet 07/10/20 24 Active gabapentin (Neurontin) 300 MG capsuleIndicatio ns:Bilateral foot pain Take 1 capsule (300 mg) by mouth 2 times daily. 190 capsule 3 12/01/19 25 Active lisinopril 10 MG tabletIndication s:Primary hypertension Take 1 tablet (10 mg) by mouth Once per day. 30 tablet 11 12/01/19 25 026 Active gabapentin (Neurontin) 600 MG tablet Take 1 tablet by mouth at bedtime. 025 Discontinued Blood Pressure kitIndications:E ssential hypertension Check bp three times a week 1 kit 08/28/20 24 025 Discontinued(Me d list cleanup (will not trigger notification to Pharmacy)) gabapentin (Neurontin) 300 MG capsuleIndicatio ns:Bilateral foot pain TAKE 1 CAPSULE BY MOUTH THREE TIMES DAILY 90 capsule 10/18/19 25 025 Discontinued gabapentin (Neurontin) 300 MG capsuleIndicatio ns:Bilateral foot pain TAKE 1 CAPSULE BY MOUTH THREE TIMES DAILY 90 capsule 11/15/19 25 025 Discontinued(Re order (will not trigger notification to Pharmacy)) sulfamethoxazole -trimethoprim (Bactrim DS) 800-160 MG tabletIndication s:Urinary Tract Infection Take 1 tablet by mouth 2 times daily for 3 days. 6 tablet 12/01/19 25 025 Active Problems Problem Noted Date Diagnosed Date Urinary hesitancy 11/30/2024 Overview (11/30/2024): Reports frequent urinary hesitancy episodes. -ordered PSA and UA + Culture 11/30/24 -referred to Urology 11/30/24 Assessment & Plan (11/30/2024 11:06 AM EDT): Reports frequent urinary hesitancy episodes. -ordered PSA and UA + Culture 11/30/24 -referred to Urology 11/30/24 Acute cystitis without hematuria 11/30/2024 Overview (12/13/2024): 11/30/24: Citrobacter koseri > 100,000 cfu/mL, olvera sensitive -treated with keflex x 7 day, symptoms resolved. Assessment & Plan (12/13/2024 10:10 AM EDT): 11/30/24: Citrobacter koseri > 100,000 cfu/mL, olvera sensitive -treated with keflex x 7 day, symptoms resolved. Class 2 severe obesity due t o [...] ideation. Therapist and psychiatrist offered. -referred to [facility] 11/30/24 Assessment & Plan (11/30/2024 11:12 AM EDT): Denies suicidial or homacidial ideation. Therapist and psychiatrist offered. 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 Status post fall. Reportedly tripped on [...] AM EST): - Seen on 06/15/24 at [facility]. Status post fall. Reportedly tripped on [...] 11/19, followed by Dr. Naveen Dunn of [facility] -dental is in [place] -[facility] care proxy on file 09/17/23 Assessment & Plan (05/22/2024 10:54 AM EDT): -next comprehensive annual evaluation due after 01/25/25 -eye care last seen on 11/19, followed by Dr. Naveen Dunn of [facility] -dental is in [place] -[facility] care proxy on file 09/17/23 Assessment & Plan (01/26/2024 11:24 AM EDT): -Next physical due after 10/01/2023 -Eye care last seen on 11/19 -Dental is in [place] -health care proxy on file 09/17/23 Assessment & Plan (09/17/2023 11:07 AM EST): -Next physical due after 10/01/2023 -Eye care last seen on 11/19 -Dental is in [place] -health care proxy paperwork given 09/17/23 Right inguinal hernia 11/18/2022 Overview (07/11/2024): -repaired with [facility] general surgeons 01/2023 Assessment & Plan (07/11/2024 10:41 AM EST): -repaired with [facility] general surgeons 01/2023 Assessment & Plan (09/17/2023 9:53 AM EST): -repiared with [facility] general surgeons 01/2023 Assessment & Plan (11/18/2022 12:04 PM EDT): Referral for surgery done 11/18/22. Gout 10/02/2022 Dyslipidemia 10/02/2022 Overview (12/13/2024): Lab Results Component Value Date CHOL 146 09/17/2023 TRIG 85 09/17/2023 TRIG 95 10/06/2022 HDL 60 09/17/2023 LDLCHOLCAL 69 09/17/2023 -LDL is at goal of < 100 -continue lifestyle modifications -continue atorvastatin 10mg Assessment & Plan (12/13/2024 10:07 AM EDT): Lab Results Component Value Date [...] 10/02/2022 Deaf 10/02/2022 Overview (03/15/2024): -Patient needs american sign language interpreter for all visits. Please make note of this in any referrals. -Audiology at [facility] -has appropriate assistive devices in home including fire alarm with light Patient walked in with PT1 denial letter for [facility]. The letter says it was denied because '[employer]' does not participate with medicaid. Patient showed appointment reminder for '[employer] [facility]' set for 04/28/2024 at 10am. FD called '[employer]' to ask if the accept Patient insurance or if they can provide on time transpiration. '[employer]' advised they do not accept Patient insurance [...] Plan (11/30/2024 10:58 AM EDT): -Patient needs american sign language interpreter for all visits. Please make note of this in any referrals. -Audiology at [facility] -has appropriate assistive devices in home [...] Plan (07/11/2024 10:43 AM EST): -Patient needs american sign language interpreter for all visits. Please make note of this in any referrals. -Audiology at [facility] -has appropriate assistive devices in home [...] Plan (05/22/2024 10:53 AM EDT): -Patient needs american sign language interpreter for all visits. Please make note of this in any referrals. -Audiology at [facility] -has appropriate assistive devices in home including fire alarm with light Patient walked in with PT1 denial letter for [facility] [employer]. The letter says it was denied because '[employer]' does not participate with medicaid. Patient showed FD appointment reminder for '[employer] [facility]' set for 04/28/2024 at 10am. FD called '[employer]' to ask if the accept Patient insurance or if they can provide on time transpiration. '[employer]' advised they do not accept Patient insurance [...] Plan (01/26/2024 11:23 AM EDT): -Patient needs american sign language interpreter for all visits. Please make note of this in any referrals. -Audiology at [facility] -has appropriate assistive devices in home including fire alarm with light Assessment & Plan (09/17/2023 9:50 AM EST): -Emirati Sign Language Assessment & Plan (10/02/2022 12:38 PM EST): -Emirati Sign Language used during visit PVD (peripheral vascular disease) 10/02/2022 Overview (10/02/2022): -doppler 04/19/2021 in [place] revealed evidence of bilateral common femoral and popliteal venin valves incompetence Assessment & Plan (09/01/2024 3:17 PM EST): Patient also tells me pain is worse with walking, feels cramps and throbbing sensation I will refer him to vascular specialist in light he already had h/o PVD Assessment & Plan (09/17/2023 9:50 AM EST): -doppler 04/19/2021 in [place] revealed evidence of bilateral common femoral and popliteal venin valves incompetence Assessment & Plan (10/02/2022 12:35 PM EST): -doppler 04/19/2021 in [place] revealed evidence of bilateral common femoral and popliteal venin valves incompetence Arterial atherosclerosis 10/02/2022 Overview (05/31/2023): -Cardiac cath in [place] 07/05/2020 for chest pain and noted to have normal coronaries without any evidence of atherosclerosis Assessment & Plan (07/11/2024 10:40 AM EST): -Cardiac cath in [place] 07/05/2020 for chest pain and noted to have normal coronaries without any evidence of atherosclerosis Assessment & Plan (09/17/2023 9:50 AM EST): -Cardiac cath in [place] 07/05/2020 for chest pain and noted to have normal coronaries without any evidence of atherosclerosis Prediabetes 10/02/2022 Overview (12/13/2024): Lab Results Component Value Date HGBA1C 5.1 [...] Overview (05/31/2024): -Hx cardiac cath 07/05/2020 in [place] with normal coronary arteries, mild dilated left [...] AM EDT): -Hx cardiac cath 07/05/2020 in [place] with normal coronary arteries, mild dilated left ventricle with borderline low EF, mild pulmonary hypertension, normal cardiac output -echo 06/17/2021 EF 60-65%, mild anteroseptal LV wall motion is hypokinetic, mild dilated left atrium, mild enlarged right atrium, calcified aortic cusps, mild MR, mild to mod TR -referred back to Cardiology 05/22/24 Assessment & Plan (01/26/2024 11:23 AM EDT): -Hx cardiac cath 07/05/2020 in [place] with normal coronary arteries, mild dilated left ventricle with borderline low EF, mild pulmonary hypertension, normal cardiac output -echo 06/17/2021 EF 60-65%, mild anteroseptal LV wall motion is hypokinetic, mild dilated left atrium, mild enlarged right atrium, calcified aortic cusps, mild MR, mild to mod TR Assessment & Plan (09/17/2023 9:53 AM EST): -Hx cardiac cath 07/05/2020 in [place] with normal coronary arteries, mild dilated left ventricle with borderline low EF, mild pulmonary hypertension, normal cardiac output -echo 06/17/2021 EF 60-65%, mild anteroseptal LV wall motion is hypokinetic, mild dilated left atrium, mild enlarged right atrium, calcified aortic cusps, mild MR, mild to mod TR Assessment & Plan (10/02/2022 12:33 PM EST): -Hx cardiac cath 07/05/2020 in [place] with normal coronary arteries, mild dilated left ventricle with borderline low EF, mild pulmonary hypertension, normal cardiac output -echo 06/17/2021 EF 60-65%, mild anteroseptal LV wall motion is hypokinetic, mild dilated left atrium, mild enlarged right atrium, calcified aortic cusps, mild MR, mild to mod TR -euvolemic on exam Atrial flutter 10/02/2022 Overview (05/31/2024): Noted in [place] during ECG for palpitations. -[id number] of 1 -s/p CTI ablation 09/22/2021 with good results -on Eliquis (apixaban) -seen by [facility] cardiology Dr. Myra Feliciano MD 12/13/2022 recommending 6 month follow up -Cardiology note from 05/04/24 reviewed Recommends Zio path for 24 days, if no further aflutter episodes will discontinue apixaban -repeat Echo ordered Assessment & Plan (11/30/2024 11:13 AM EDT): Noted in [place] during ECG for palpitations. -[id number] of 1 -s/p CTI ablation 09/22/2021 with good results -on Eliquis (apixaban) -seen by [facility] cardiology Dr. Myra Feliciano MD 12/13/2022 recommending 6 month follow up -Cardiology note from 05/04/24 reviewed Recommends Zio path for 24 days, if no further aflutter episodes will discontinue apixaban -repeat Echo ordered Assessment & Plan (05/22/2024 10:53 AM EDT): Noted in [place] during ECG for palpitations. -[id number] of 1 -s/p CTI ablation 09/22/2021 with good results -on Eliquis (apixaban) -seen by [facility] cardiology Dr. Myra Feliciano MD 12/13/2022 recommending 6 month follow up -has not been to see shirring tender since, referred back again today 05/22/24. Assessment & Plan (01/26/2024 11:23 AM EDT): Noted in [place] during ECG for palpitations. -[id number] of 1 -s/p CTI ablation 09/22/2021 with good results -on Eliquis (apixaban) -seen by [facility] cardiology Dr. Myra Feliciano MD 12/13/2022 recommending 6 month follow up Assessment & Plan (09/17/2023 9:52 AM EST): Noted in [place] during ECG for palpitations. -[id number] of 1 -s/p CTI ablation 09/22/2021 with good results -on Eliquis (apixaban) -seen by [facility] cardiology Dr. Myra Feliciano MD 12/13/2022 recommending 6 month follow up Assessment & Plan (05/31/2023 12:55 PM EDT): Noted in [place] during ECG for palpitations. -[id number] of 1 -s/p CTI ablation 09/22/2021 with good results -on Eliquis (apixaban) -seen by [facility] cardiology Dr. Myra Feliciano MD 12/13/2022 recommending 6 month follow up Assessment & Plan (10/02/2022 12:36 PM EST): Noted in [place] during ECG for palpitations. -s/p CTI ablation 09/22/2021 with good results -on Eliquis Primary hypertension 10/02/2022 Overview (12/13/2024): -Blood pressure is at goal -Continue lifestyle modifications -Continue current medications -Continue Lisinopril 10 mg 11/30/24 -Re-referred to Collaborative Drug Therapy Managment Program with our DINO Thompson 11/30/24 -Follows with [facility] cardiology Dr. Myra Feliciano MD Assessment & Plan (12/13/2024 10:07 AM EDT): -Blood pressure is at goal -Continue lifestyle modifications -Continue current medications -Continue Lisinopril 10 mg 11/30/24 -Re-referred to Collaborative Drug Therapy Managment Program with our DINO Thompson 11/30/24 -Follows with [facility] cardiology Dr. Myra Feliciano MD Assessment & Plan (11/30/2024 11:09 AM EDT): -Blood pressure is not at goal, not currently on any medications 11/30/24 -Continue lifestyle modifications -Continue current medications -Referred to Collaborative Drug Therapy Managment Program with DINO berrios PharmD 07/10/24 -Start Lisinopril 10 mg 11/30/24 -Re-referred to Collaborative Drug Therapy Managment Program with our PharmD, DINO 11/30/24 -Follows with [facility] cardiology Dr. Myra Feliciano MD Assessment & Plan (11/30/2024 11:02 AM EDT): >>ASSESSMENT AND PLAN FOR ESSENTIAL HYPERTENSION WRITTEN ON 09/17/2023 10:58 AM BY CHICO NIELSEN -Blood pressure is at goal -Continue lifestyle modifications -Continue current medications Assessment & Plan (11/30/2024 11:02 AM EDT): >>ASSESSMENT AND PLAN FOR ESSENTIAL HYPERTENSION WRITTEN ON 01/26/2024 11:23 AM BY BETHANY MCCORMICK MD -Blood pressure is at goal -Continue [...] Therapy Managment Program with our PharmD, DINO 07/10/24 Resolved Problems Problem Noted Date Diagnosed [...] repots hx heart surgery age 5 in [place] for unknown reason Assessment & Plan (10/02/2022 12:31 PM EST): -pt repots hx heart surgery age 5 in [place] for unknown reason Encounters * This document contains information received from the source organization and may not represent a complete record from that organization. Date Type Department Care Team Description 12/13/2024 9:15 AM EDT Office Visit [facility] [place] [address] Bethany Mccormick MD Bilateral deafness (Primary Dx); Dyslipidemia; Primary hypertension; Acute cystitis without hematuria; Prediabetes 12/13/2024 Telephone [facility] [place] [address] Bethany Mccormick MD 12/13/2024 Telephone [facility] [place] [address] Bethany Mccormick MD 12/13/2024 Travel 12/12/2024 Telephone [facility] [place] [address] Bethany Mccormick MD Lab Orders 12/04/2024 Travel 11/30/2024 9:45 AM EDT Office Visit [facility] [address] Bethany Mccormick MD Primary hypertension (Primary Dx); Atrial flutter, unspecified type (CMS/HCC); Bilateral foot pain; Urinary hesitancy; Acute cystitis without hematuria; Major depressive disorder, recurrent episode, mild (CMS/HCC); Class 2 severe obesity due to excess calories with serious comorbidity and body mass index (BMI) of 39.0 to 39.9 in adult (CMS/HCC); Dietary counseling; Exercise counseling; Bilateral deafness 11/30/2024 Orders Only [facility] [place] [address] Bethany Mccormick MD 11/30/[address] [address] Bethany Mccormick MD Results 11/30/[address] [address] Bethany Mccormick MD 11/27/[address] [address] Bethany Mccormick MD chartprep 11/21/2024 Patient Outreach [address] [address] Bethany Mccormick MD Pre-visit Planning (SDOH screening was completed on 09/19/2024) 11/14/2024 Refill [facility] [address] [place] [phone] Lorna Phillips MD Bilateral foot pain 10/18/2024 Refill [facility] [address] [place] [phone] Sadie Chavira MD Bilateral foot pain 10/06/[address] [address] Bethany Mccormick MD 10/04/[address] [address] Bethany Mccormick MD PT1 09/29/[address] [address] Bethany Mccormick MD Chart Prep 09/26/2024 Patient Outreach [address] [address] Bethany Mccormick MD Care Coordination (CHW outreach for SDOH PT-1 - LVM ) 09/26/[address] [address] Bethany Mccormick MD PT-1 09/20/2024 Patient Outreach [address] [address] Bethany Mccormick MD Care Coordination (CHW outreach for SDOH PT-1 - LVM ) 09/19/2024 Patient Outreach [facility] [address] [place], [place] [id number] Bethany Mccormick MD Pre-visit Planning (SDOH Screening positive and Tobacco screening negative) from Last 3 Months Immunizations Name Administration [...] your housing situation today? I have nimisha alvin 01/26/[address] you li [...] Pulse 80 12/13/2024 10:03 AM EDT Temperature 36.9 ??C (98.5 ??F) 11/30/2024 10:32 AM E DT Respiratory Rate 12 12/13/2024 10:03 AM EDT Oxygen Saturation 98% 11/30/2024 10:32 [...] Description 01/01/2025 10:00 AM EDT Medication Management [facility] [address] [place] [id number] Jennifer Kramer, PharmD [address] [place] [address] 02/21/2025 10:30 AM EDT Office Visit [facility] [address] [place] [address] Bethany Mccormick MD [address] [place] [address] Health Maintenance Due Date Last Done Comments CT Colonography 1959 FIT DNA/Cologuard 1959 FIT 1959 FOBT 1959 Sigmoidoscopy 1959 Diabetes: Hemoglobin A1C 01/25/2025 024, 09/17/2023, 09/17/2023, Additional history exists Alcohol/Substance Use Screening 07/10/2025 07/10/2024 SDOH Screening 09/19/2025 09/19/2024 Colonoscopy 11/25/2025 11/25/2022 Colorectal Cancer Screening 11/25/2025 Depression Screening 11/30/2025 11/30/2024, 12/01/19 Tobacco Screening 12/13/2025 12/13/2024 Lipid Panel 09/17/2028 09/17/2023, 10/06/2022 DTaP/Tdap/Td Vaccines [...] Procedure Name Priority Date/Time Associated Diagnosis Comments URINALYSIS, COMPLETE, WITH REFLEX TO CULTURE Routine 11/30/2024 11:30 AM EDT Urinary hesitancy PSA, TOTAL Routine 11/30/2024 11:30 AM EDT Urinary hesitancy CULTURE, URINE, ROUTINE Routine 11/30/2024 12:00 AM EDT POCT GLYCATED HEMOGLOBIN, TOTAL Routine 01/26/2024 2:46 PM EDT Prediabetes LIPID PANEL, STANDARD Routine 09/17/2023 11:50 AM EST Dyslipidemia HM COLONOSCOPY Routine 11/25/2022 HEPATITIS C AB W/REFL TO HCV RNA, QN, PCR Routine 10/06/2022 8:42 AM EST Routine screening for STI (sexually transmitted infection) from Last 3 Months or Most Recently Relevant to Health Maintenance Results * (ABNORMAL) Urinalysis, Complete, with Reflex to Culture (11/30/2024 11:30 AM EDT) Color Urine Yellow [facility] Appearance Urine Clear [facility] PH 6.5 5.0 - 9.0 [facility] Glucose Urine UA Negative Negative mg/dL [facility] Urine Blood Small (1+)(A) Negative [facility] Specific [place] - Urine 1.020 1.005 - 1.025 [facility] Urine Protein Trace Neg-Trace mg/dL [facility] Urine Ketones Negative Negative mg/dL [facility] Nitrite Urine Positive(A) Negative [facility] Leukocyte Esterase Urine Moderate (2+)(A) Negative [facility] RBC Urine 6-10(A) 0 - 2 /HPF [facility] Urine WBC 21-50(A) 0 - 5 /HPF [facility] Urine Squamous Epithelial Cell 0-2 0 - 2 /HPF [facility] Urine Bacteria 2+ None Seen [facility] Hyaline Casts, Urine 0-2 0 - 2 /LPF [facility] Urine 11/30/2024 11:3 0 AM EDT 11/30/2024 1:19 PM EDT Narrative [facility] - 11/30/2024 1:29 PM EDT Urine, Clean Catch Bethany Mccormick MD LAB URINE ORDERABLES Final Result [facility] [address] [place] [phone] * PSA,Total (11/30/2024 11:30 AM EDT) Prostate Specific Antigen 0.60 <0.05 - 4.0 ng/mL [facility] Comment:PSA methodology: Abb traci Mena i ChemiluminescentMicroparticle Immunoassay (CMIA) Blood Venous blood specimen / Unknown 11/30/2024 11:30 AM EDT 11/30/2024 1:26 PM EDT Bethany Mccormick MD LAB BLOOD ORDERABLES Final Result Performing Organization Address City/[facility]/ZIP Co de Phone Number [facility] [address] [place] [phone] * Culture, Urine, Routine (11/30/2024 12:00 AM EDT) Urine Urine specimen obtained by clean catch procedure / Unknown 11/30/2024 11/30/2024 Comment:UACC Narrative [facility] - 12/02/2024 8:50 AM EDT Citrobacter koseri Quant > 100,000 cfu/mL Citrobacter koseri: Cefazolin <=1(S) Citrobacter koseri: Cefepime <=0.12(S) Citrobacter koseri: Ceftriaxone <=0.25(S) Citrobacter koseri: Ciprofloxacin <=0.06(S) Citrobacter koseri: Gentamicin <=1(S) Citrobacter koseri: Nitrofurantoin <=16(S) Citrobacter koseri: Trimethoprim/Sulfamethoxazole <=20(S) Specimen Source: Urine clean catch Bethany Mccormick MD LAB MICROBIOLOGY - GENERAL ORDERABLES Final Result [facility] [address] [place] [phone] * POCT A1C (01/26/2024 2:46 PM EDT) Hemoglobin A1C 5.1 4.0 - 6.0 % QC Media Lot # [id number] Lot# Expiration Date Blood 01/26/2024 2:46 PM EDT Bethany Mccormick MD POINT OF CARE TEST ENTER/E DIT ORDERABLES Final Result * Lipid Panel, Standard (09/17/2023 11:50 AM EST) Triglycerides 85 <150 mg/dL [facility] Comment:Desirable Triglyceri de: less than 150 mg/dLBorderline High Triglyceride 150-199 mg/dLHigh Triglyceride: 200-499 mg/dLVery High Triglyceride: greater than or equal to 5OO mg/dL Cholesterol 146 <200 mg/dL [facility] Comment:Desirable Cholestero l: less than 200 mg/dLBorderline High Cholesterol: 200-239 mg/dLHigh Cholesterol: greater than 239 mg/dL LDL Cholesterol Calculated 69 <100 mg/dL [facility] Comment:Desirable LDL: less than 100 mg/dLNear Optimal/Above Optimal LDL: 110- 129 mg/dLBorderline High LDL: 130-159 mg/dLHigh LDL: 160-189 mg/dLVery High LDL: greater than or equal to 190 mg/dL HDL Cholesterol 60 >40 mg/dL [facility] Comment:Desirable HDL: great er than 40 mg/dL Note: This HDL assay may give artificially low results in patients with liver disease. Blood Venous blood specimen / Unknown 09/17/2023 11:50 AM EST 09/17/2023 1:26 PM EST Bethany Mccormick MD LAB BLOOD ORDERABLES Final Result [facility] [address] [place] [phone] * (ABNORMAL) Hm Colonoscopy (11/25/2022) Colonoscopy Abnormal(A ) Normal Jose Ramon Hernández MD HEALTH MAINTENANCE Final Result * Hepatitis C Antibody with Reflex to HCV, RNA, Quantitative, Real-Time PCR (10/06/2022 8:42 AM EST) Hepatitis C Antibody NON-REACT MIRA NON-REACT MIRA [facility] Index 0.07 <1.00 [facility] Comment: HCV antibody was non-reactive. There is no laboratory evidence of HCV infection. In most cases, no further action is required. However, if recent HCV exposure is suspected, a test for HCV RNA (test code 46156) is suggested. For additional information please refer to http://education.[employer]/faq/XFH10u2 (This link is being provided for informational/ educational purposes only.) Blood Venous blood specimen / Unknown 10/06/2022 8:42 AM EST 10/06/2022 8:43 AM EST Narrative [facility] - 10/09/2022 12:25 AM EST FASTING:YES FASTING: YES Bethany Mccormick MD LAB BLOOD ORDERABLES Final Result [facility] [address], [place] [address] [place] [facility] [address] [facility], ([address]) [place] [address] from Last 3 Months or Most Recently Relevant to Health Maintenance Insurance [facility] STANDARD [employer] MEDICARE REPLACEMENT Advance Directives Documents on File Type Date Recorded 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 Bassem Shahid [address] [address] Cardiology 11/30/24
--- OUTSIDE RECORDS SUMMARY | 2024-12-13 10:45 | XMS_ITS | Encounter Summary ---
Author Organization [employer] Address [address] [place] [address] Care Team Providers Care Physical Therapy Coordinator Name Role Phone Bethany Mccormick MD Primary Care Provider +- [phone] Jennifer Kramer PharmD Unavailable Irineo Arevalo MD Unavailable [phone] Encounter Details Date Type Department Care Team (Late st Contact Info) Description 12/13/2024 Telephone [facility] [address] [place], [place] [phone] Bethany Mccormick MD [address] [place], [place] [phone] Social History Tobacco Use Types Packs/Day Years [...] Miscellaneous Notes * Telephone Encounter - Bethany Mccormick MD - 12/13/2024 10:11 AM EDT Please see if cardiology at [facility] has any notes, echo or holter monitor. I am notsure if pt is supposed to be on apixiban still. Thank you. documented in this encounter Plan of Treatment Upcoming Encounters Date Type Department Care Team (Late st Contact Info) Description 01/01/2025 10:00 AM EDT Medication Management [facility] [address] [place] [address] Jennifer Kramer, PharmD [address] [place] [address] 02/21/2025 10:30 AM EDT Office Visit [facility] [address] [place] [address] Bethany Mccormick MD [address] [place] [address] documented as of this encounter Visit Diagnoses Not on filedocumented in this encounter Additional Health Concerns Assessment Noted Time PHQ-9 Depression Total Score: 2 12/01/19 25 10:35 AM EDT documented as of this encounter Care Teams Physical Therapy Coordinator Relationship Specialty Start Date End Date Bethany Mccormick MD [address] [place] [address] PCP - General Family Medicine 09/10/22 Jennifer Kramer, PharmD [address] [place] [address] Pharmacist Internal Medicine 12/04/24 Irineo Arevalo MD [address] [place] [address] Drive [address] [place] [address] Urology 12/13/24 Dr. Luevano [address] [address] Cardiology 11/30/24 documented as of this encounter
--- OUTSIDE RECORDS SUMMARY | 2024-12-13 10:45 | XMS_ITS | Encounter Summary ---
Author Organization [employer] Address [address] [place] [address] Care Team Providers Care French Weaver Name Role Phone Bethany Mccormick MD Primary Care Provider +- [phone] Jennifer Kramer PharmD Unavailable Irineo Arevalo MD Unavailable [phone] Reason for Visit * Reason Onset Date Comments PT-1 09/26/2024 Encounter Details Date Type Department Care Team (Late st Contact Info) Description 09/26/2024 Telephone [facility] [address] [place], [place] [phone] Bethany Mccormick MD [address] [place], [place] [phone] PT-1 Social History Tobacco Use Types Packs/Day [...] Y/N: Yes [facility] [address] [place] [address] Escort needed: Y/N: Yes Do you have a wheelchair: Y/N: No If yes- Manual or electric: N/A Visits: (amount of visits) ( x monthly, weekly, daily) 5 times a month documented in this encounter Plan of Treatment Upcoming Encounters Date Type Department Care Team (Late st Contact Info) Description 01/01/2025 10:00 AM EDT Medication Management [facility] [address] [place] [phone] Jennifer Kramer, PharmD [address] [place] [address] 02/21/2025 10:30 AM EDT Office Visit [facility] [address] [place] [address] Bethany Mccormick MD [address] [place] [address] documented as of this encounter Visit Diagnoses Not on filedocumented in this encounter Additional Health Concerns Assessment Noted Time PHQ-9 Depression Total Score: 0 01/26/20 10:39 AM EDT documented as of this encounter Care Teams French Weaver Relationship Specialty Start Date End Date Bethany Mccormick MD [address] [place] [address] PCP - General Family Medicine 09/10/22 Jennifer Kramer, PharmD [address] [place] [address] Pharmacist Internal Medicine 12/04/24 Irineo Arevalo MD [address] [place] [address] Urology 12/13/24 Dr. Bassem Shahid [address] [address] Cardiology 11/30/24 documented as of this encounter
--- OUTSIDE RECORDS SUMMARY | 2024-12-13 10:45 | XMS_ITS | Encounter Summary ---
Author Organization [employer] Address [address] [place] [address] Care Team Providers Care Staff Scientist Name Role Phone Bethany Mccormick MD Primary Care Provider +- [phone] Jennifer Kramer PharmD Unavailable Irineo Arevalo MD Unavailable [phone] Reason for Visit * Reason Onset Date Comments Med Refill 12/23/2023 Encounter Details Date Type Department Care Team (Late st Contact Info) Description 12/23/2023 Telephone [facility] [address] [place], [place] [phone] Bethany Mccormick MD [address] [place], [place] [phone] Med Refill Social History Tobacco Use Types Packs/Day Years Used Date Smoking Tobacco: Never Smokeless Tobacco: Never Alcohol Use Standard Drinks/Week Comments Never 0 (1 standard drink = 0.6 oz pur e alcohol) Depression Answer Date Recorded Patient Health Questionnaire-9 Score 0 10/02/2022 Housing Stability Answer Date Recorded What is your housing situation today? I have nimisha alvin 06/22/[address] you li [...] 1:40 PM EDT Medication was sent to [facility] on 09/21/23 #90 with 1 refill. * Telephone Encounter - Ilya Culver - 12/23/2023 1:38 PM EDT TC from pt requesting medication refill. Medications needing refill : finasteride (Proscar) 5 MG tablet To be sent to: [facility] - [place], [place] - [address] [place] [address] documented in this encounter Plan of Treatment Upcoming Encounters Date Type Department Care Team (Late st Contact Info) Description 01/01/2025 10:00 AM EDT Medication Management [facility] [address] [place] [phone] Jennifer Kramer, PharmD [address] [place] [address] 02/21/2025 10:30 AM EDT Office Visit [facility] [address] [place] [address] Bethany Mccormick MD [address] [place] [address] documented as of this encounter Visit Diagnoses Not on filedocumented in this encounter Additional Health Concerns Assessment Noted Time PHQ-9 Depression Total Score: 0 10/02/19 23 9:21 AM EST documented as of this encounter Care Teams Staff Scientist Relationship Specialty Start Date End Date Bethany Mccormick MD [address] [place] [address] PCP - General Family Medicine 09/10/22 Jennifer Kramer, AllanD [address] [place] [address] Pharmacist Internal Medicine 12/04/24 Irineo Arevalo MD [address] [place] [address] Drive [address] [place] [address] Urology 12/13/24 Dr. Bassem Shahid [facility] [address] [place] [address] Cardiology 11/30/24 documented as of this encounter
[2024-12-13 11:36] LABS: Anion Gap 13 (12-20); Blood Urea Nitrogen 19 mg/dL (9-16); Calcium 9.5 mg/dL (8.4-10.2); Carbon Dioxide 27 mmol/L (22-29); Chloride 101 mmol/L (96-108); Estimated Glomerular Filt Rate > 60; Glucose Random 118 mg/dL (60-115); Potassium 4.5 mmol/L (3.3-5.1); Sodium 136 mmol/L (135-145)
[2024-12-13 12:57] LABS: Creatinine Urine 92.16 mg/dL; Microalbum/Creatinine Ratio Ur 58.5 ug/mg cr (<30)
[2024-12-19 11:56] LABS: TSpotTB Invalid (Negative)
== END 2024-12-13 09:38 | disposition home or self-care (01) ==
LOC: HO.HHCL 09:37
PROVIDERS: Visit Provider Family Medicine
DX: Z11.1 Encounter for screening for respiratory tuberculosis (principal); I10 Essential (primary) hypertension
CPT/HCPCS: 36415; 80048; 82043; 82570; 86481

== ENCOUNTER 2024-12-20 08:39 | Outpatient (REF) | payer MEDICARE, MEDICAID, SELFPAY ==
--- OUTSIDE RECORDS SUMMARY | 2024-12-20 09:04 | XMS_ITS | Encounter Summary ---
Author Organization [employer] Address [address] [place] [address] Care Team Providers Care Cloth Shearing Supervisor Name Role Phone Bethany Mccormick MD Primary Care Provider +- [phone] Jennifer Kramer PharmD Unavailable Irineo Arevalo MD Unavailable [phone] Encounter Details Date Type Department Care Team (Late st Contact Info) Description 12/19/2024 Orders Only [facility] [address] [place], [place] [phone] Bethany Mccormick MD [address] [place], [place] [phone] Screening-pulmonary TB (Primary Dx) Social History Tobacco Use Types Packs/Day Years [...] your housing situation today? I have nimisha eqsuivel 01/26/[address] you li [...] Description 01/01/2025 10:00 AM EDT Medication Management [facility] [address] [place] [phone] Jennifer Kramer, PharmD [address] [place] [address] 02/21/2025 10:30 AM EDT Office Visit [facility] [address] [place] [address] Bethany Mccormick MD [address] [place] [address] Scheduled Orders Name Type Priority Associated Diagnoses Orde r Schedule T-SPOT??.TB Lab Routine Screening-pulmonary TB Expected: 12/19/2024 (Approximate), Expires: 12/19/2025 documented as of this encounter Visit Diagnoses Diagnosis Screening-pulmonary TB- Primary Screening examination for pulmonary tuberculosis documented in this encounter Additional Health Concerns Assessment Noted Time PHQ-9 Depression Total Score: 2 12/01/19 25 10:35 AM EDT documented as of this encounter Care Teams Cloth Shearing Supervisor Relationship Specialty Start Date End Date Bethany Mccormick MD [address] [place] [address] PCP - General Family Medicine 09/10/22 Jennifer Kramer, AllanD [address] [place] [address] Pharmacist Internal Medicine 12/04/24 Irineo Arevalo MD [address] [place] [address] Drive [address] [place] [address] Urology 12/13/24 Dr. Bassem Shahid [address] [address] Cardiology 11/30/24 Rubin Gupta DO Electrophysiology Cardiology [address] [facility] [address] [place] [address] Electrophysiology 12/15/24 documented as of this encounter
--- OUTSIDE RECORDS SUMMARY | 2024-12-20 09:04 | XMS_ITS | Encounter Summary ---
Author Organization [employer] Address [address] [place] [address] Care Team Providers Care Senior Tech Manufacturing Engineering Name Role Phone Bethany Mccormick MD Primary Care Provider +- [phone] Jennifer Kramer PharmD Unavailable Irineo Arevalo MD Unavailable [phone] Encounter Details Date Type Department Care Team (Late st Contact Info) Description 12/19/2024 Telephone [facility] [address] [place], [place] [phone] Bethany Mccormick MD [address] [place] [address] Social History Tobacco Use Types Packs/Day Years [...] encounter Miscellaneous Notes * Telephone Encounter - Pricila Almanza RN - 12/19/2024 1:04 PM EDT Incoming call from [facility] lab regarding pt labs for T-spot. Results were inconclusive and need to be redrawn if needed. Please advise if labs can be reordered. documented in this encounter Plan of Treatment Upcoming Encounters Date Type Department Care Team (Late st Contact Info) Description 01/01/2025 10:00 AM EDT Medication Management [facility] [address] [place] [phone] Jennifer Kramer, PharmD [address] [place] [address] 02/21/2025 10:30 AM EDT Office Visit [facility] [address] [place] [address] Bethany Mccormick MD [address] [place] [address] documented as of this encounter Visit Diagnoses Not on filedocumented in this encounter Additional Health Concerns Assessment Noted Time PHQ-9 Depression Total Score: 2 12/01/19 25 10:35 AM EDT documented as of this encounter Care Teams Senior Tech Manufacturing Engineering Relationship Specialty Start Date End Date Bethany Mccormick MD [address] [place] [address] PCP - General Family Medicine 09/10/22 Jennifer Kramer, PharmD [address] [place] [address] Pharmacist Internal Medicine 12/04/24 Irineo Arevalo MD [address] [place] [address] [address] [place] [address] Urology 12/13/24 Dr. Bassem Shahid [facility] [address] [place] [address] Cardiology 11/30/24 Rubin Gupta DO Electrophysiology Cardiology [address] [address] Electrophysiology 12/15/24 documented as of this encounter
--- OUTSIDE RECORDS SUMMARY | 2024-12-20 09:04 | XMS_ITS | Clinical Summary ---
Author Organization [employer] Address [address] [place] [address] Care Team Providers Care Space Operations Name Role Phone Bethany Mccormick MD Primary Care Provider [phone]- [phone] Jennifer Kramer PharmD Unavailable Irineo Arevalo MD Unavailable [phone] Allergies No known active allergies Medications [...] ideation. Therapist and psychiatrist offered. -referred to [facility] 11/30/24 Assessment & Plan (11/30/2024 11:12 AM EDT): Denies suicidial or homacidial ideation. Therapist and psychiatrist offered. 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 Status post fall. Reportedly tripped [...] AM EST): - Seen on 06/15/24 at [facility]. Status post fall. Reportedly tripped [...] 11/19, followed by Dr. Naveen Dunn of [facility] -dental is in tubac -[facility] care proxy on file 09/17/23 Assessment & Plan (05/22/2024 10:54 AM EDT): -next comprehensive annual evaluation due after 01/25/25 -eye care last seen on 11/19, followed by Dr. Naveen Dunn of [facility] -dental is in tubac -health care proxy on file 09/17/23 Assessment & Plan (01/26/2024 11:24 AM EDT): -Next physical due after 10/01/2023 -Eye care last seen on 11/19 -Dental is in tubac -[facility] care proxy on file 09/17/23 Assessment & Plan (09/17/2023 11:07 AM EST): -Next physical due after 10/01/2023 -Eye care last seen on 11/19 -Dental is in tubac -[facility] care proxy paperwork given 09/17/23 Right inguinal hernia 11/18/2022 Overview (07/11/2024): -repaired with [facility] general surgeons 01/2023 Assessment & Plan (07/11/2024 10:41 AM EST): -repaired with [facility] general surgeons 01/2023 Assessment & Plan (09/17/2023 9:53 AM EST): -repiared with [facility] general surgeons 01/2023 Assessment & Plan [...] 10/02/2022 Deaf 10/02/2022 Overview (03/15/2024): -Patient needs last turner for all visits. Please make note of this in any referrals. -Audiology at [facility] -has appropriate assistive devices in home including fire alarm with light Patient walked in with PT1 denial letter for [employer]. The letter says it was denied because '[facility]' does not participate with medicaid. Patient showed appointment reminder for [facility]' set for 04/28/2024 at 10am. FD called '[facility]' to ask if the accept Patient insurance or if they can provide on time transpiration. [facility] advised they do not accept Patient insurance [...] Plan (11/30/2024 10:58 AM EDT): -Patient needs last turner for all visits. Please make note of this in any referrals. -Audiology at [facility] -has appropriate assistive devices in home including fire alarm with light Patient walked in with PT1 denial letter for [facility]. The letter says it was denied because '[facility]' does not participate with medicaid. Patient showed appointment reminder for [facility]' set [...] Plan (07/11/2024 10:43 AM EST): -Patient needs last turner for all visits. Please make note of this in any referrals. -Audiology at [facility] -has appropriate assistive devices in home [...] Plan (05/22/2024 10:53 AM EDT): -Patient needs last turner for all visits. Please make note of this in any referrals. -Audiology at [facility] -has appropriate assistive devices in home including fire alarm with light Patient walked in with PT1 denial letter for [employer]. The letter says it was denied because '[facility]' does not participate with medicaid. Patient showed FD appointment reminder for [facility]' set for 04/28/2024 at 10am. FD called [facility]' to ask if the accept Patient insurance or if they can provide on time transpiration. [facility] advised they do not accept Patient insurance [...] Plan (01/26/2024 11:23 AM EDT): -Patient needs last turner for all visits. Please make note of this in any referrals. -Audiology at [facility] -has appropriate assistive devices in home including fire alarm with light Assessment & Plan (09/17/2023 9:50 AM EST): -[place] Sign Language Assessment & Plan (10/02/2022 12:38 PM EST): -[place] Sign Language used during visit PVD (peripheral vascular disease) 10/02/2022 Overview (10/02/2022): -doppler 04/19/2021 in [place] revealed evidence of bilateral common femoral and popliteal venin valves incompetence Assessment & Plan (09/01/2024 3:17 PM EST): Patient also tells me pain is worse with walking, feels cramps and throbbing sensation I will refer him to vascular specialist in light he already had h/o PVD Assessment & Plan (09/17/2023 9:50 AM EST): -doppler 04/19/2021 in [place] revealed evidence of bilateral common femoral and popliteal venin valves incompetence Assessment & Plan (10/02/2022 12:35 PM EST): -doppler 04/19/2021 in [place] revealed evidence of bilateral common femoral and popliteal venin valves incompetence Arterial atherosclerosis 10/02/2022 Overview (12/15/2024): -unspecified cardiothoracic surgery (congential malformations ) in 1965 -Cardiac cath in [place] 07/05/2020 for chest pain and noted to have normal coronaries without any evidence of atherosclerosis -atrail flutter status post CTI ablation in 2021 on anticoagulation still -14 day Zio patch to monitor for aflutter Aug 2024 found evidence of sinus pauses and evidence of complete heart block, first degree AV block, 1 run SVT lasting 8 beats -seen by [facility] cardiology with Dr. Juan Luis Gonzalez MD: echo ordered, EP evaluation, sleep studies ordered, continue anticoagulation for now, return with Dr. Haro in 3 months -echo 11/15/24 Summary The left ventricle is poorly visualized. The left ventricular size is normal. The left ventricular wall thickness is upper normal. Cannot assess LV ejection fraction due to poor windows but overall appears preserved in limited views. Image quality is inadequate to assess regional wall motion. No obvious wall motion abnormalities seen. Probably normal diastolic function. The right ventricle is poorly visualized, appears dilated. The right ventricular function appears grossly normal. The pulmonary artery systolic pressure estimation is 29 mmhg + CVP. Called [facility] Cardiology, spoke with Alyssa. Pt scheduled for EP consult on 02/08/25 at 1:45pm with Rubin Gupta DO at [address] [place] [address], [address], [place] [address]. Pt does not have sleep study scheduled yet. Message was sent to cards team to inquire if this will be scheduled via cardiology or if needs to be ordered by PCP. Assessment & Plan (07/11/2024 10:40 AM EST): -Cardiac cath in [place] 07/05/2020 for chest pain and noted to have normal coronaries without any evidence of atherosclerosis Assessment & Plan (09/17/2023 9:50 AM EST): -Cardiac cath in [place] 07/05/2020 for chest pain and noted to [...] Overview (05/31/2024): -Hx cardiac cath 07/05/2020 in [place] with normal coronary arteries, mild dilated left [...] AM EDT): -Hx cardiac cath 07/05/2020 in [place] with normal coronary arteries, mild dilated left ventricle with borderline low EF, mild pulmonary hypertension, normal cardiac output -echo 06/17/2021 EF 60-65%, mild anteroseptal LV wall motion is hypokinetic, mild dilated left atrium, mild enlarged right atrium, calcified aortic cusps, mild MR, mild to mod TR -referred back to Cardiology 05/22/24 Assessment & Plan (01/26/2024 11:23 AM EDT): -Hx cardiac cath 07/05/2020 in [place] with normal coronary arteries, mild dilated left ventricle with borderline low EF, mild pulmonary hypertension, normal cardiac output -echo 06/17/2021 EF 60-65%, mild anteroseptal LV wall motion is hypokinetic, mild dilated left atrium, mild enlarged right atrium, calcified aortic cusps, mild MR, mild to mod TR Assessment & Plan (09/17/2023 9:53 AM EST): -Hx cardiac cath 07/05/2020 in [place] with normal coronary arteries, mild dilated left ventricle with borderline low EF, mild pulmonary hypertension, normal cardiac output -echo 06/17/2021 EF 60-65%, mild anteroseptal LV wall motion is hypokinetic, mild dilated left atrium, mild enlarged right atrium, calcified aortic cusps, mild MR, mild to mod TR Assessment & Plan (10/02/2022 12:33 PM EST): -Hx cardiac cath 07/05/2020 in [place] with normal coronary arteries, mild dilated left ventricle with borderline low EF, mild pulmonary hypertension, normal cardiac output -echo 06/17/2021 EF 60-65%, mild anteroseptal LV wall motion is hypokinetic, mild dilated left atrium, mild enlarged right atrium, calcified aortic cusps, mild MR, mild to mod TR -euvolemic on exam Atrial flutter 10/02/2022 Overview (05/31/2024): Noted in [place] during ECG for palpitations. -[id number] of 1 -s/p CTI ablation 09/22/2021 with good results -on Eliquis (apixaban) -seen by [facility] cardiology Dr. Myra Feliciano MD 12/13/2022 recommending 6 month follow up -Cardiology note from 05/04/24 reviewed Recommends Zio path for 24 days, if no further aflutter episodes will discontinue apixaban -repeat Echo ordered Assessment & Plan (11/30/2024 11:13 AM EDT): Noted in [place] during ECG for palpitations. -[id number] of 1 -s/p CTI ablation 09/22/2021 with good results -on Eliquis (apixaban) -seen by [facility] cardiology Dr. Myra Feliciano MD 12/13/2022 recommending 6 month follow up -Cardiology note from 05/04/24 reviewed Recommends Zio path for 24 days, if no further aflutter episodes will discontinue apixaban -repeat Echo ordered Assessment & Plan (05/22/2024 10:53 AM EDT): Noted in [place] during ECG for palpitations. -[id number] of 1 -s/p CTI ablation 09/22/2021 with good results -on Eliquis (apixaban) -seen by [facility] cardiology Dr. Myra Feliciano MD 12/13/2022 recommending 6 month follow up -has not been to see yacht hand since, referred back again today 05/22/24. Assessment & Plan (01/26/2024 11:23 AM EDT): Noted in [place] during ECG for palpitations. -[id number] of 1 -s/p CTI ablation 09/22/2021 with good results -on Eliquis (apixaban) -seen by [facility] cardiology Dr. Myra Feliciano MD 12/13/2022 recommending 6 month follow up Assessment & Plan (09/17/2023 9:52 AM EST): Noted in [place] during ECG for palpitations. -[id number] of 1 -s/p CTI ablation 09/22/2021 with good results -on Eliquis (apixaban) -seen by [facility] cardiology Dr. Myra Feliciano MD 12/13/2022 recommending 6 month follow up Assessment & Plan (05/31/2023 12:55 PM EDT): Noted in [place] during ECG for palpitations. -[id number] of 1 -s/p CTI ablation 09/22/2021 with good results -on Eliquis (apixaban) -seen by [facility] cardiology Dr. Myra Feliciano MD 12/13/2022 recommending 6 month follow up Assessment & Plan (10/02/2022 12:36 PM EST): Noted in [place] during ECG for palpitations. -s/p CTI ablation 09/22/2021 with good results -on Eliquis Primary hypertension 10/02/2022 Overview (12/13/2024): -Blood pressure is at goal -Continue lifestyle modifications -Continue current medications -Continue Lisinopril 10 mg 11/30/24 -Re-referred to [facility] with our DINO Thompson 11/30/24 -Follows with [facility] cardiology Dr. Myra Feliciano MD Assessment & Plan (12/13/2024 10:07 AM EDT): -Blood pressure is at goal -Continue lifestyle modifications -Continue current medications -Continue Lisinopril 10 mg 11/30/24 -Re-referred to [facility] Program with our PharmDINO Teixeira 11/30/24 -Follows with [facility] cardiology Dr. Myra Feliciano MD Assessment & Plan (11/30/2024 11:09 AM EDT): -Blood pressure is not at goal, not currently on any medications 11/30/24 -Continue lifestyle modifications -Continue current medications -Referred to [facility] with our DINO Thompson 07/10/24 -Start Lisinopril 10 mg 11/30/24 -Re-referred to [facility] Program with our PharmDINO Teixeira 11/30/24 -Follows with [facility] cardiology Dr. Myra Feliciano MD Assessment & [...] HYPERTENSION WRITTEN ON 05/22/2024 10:53 AM BY ANNISE LEE ANN -Blood pressure is at goal -Continue lifestyle modifications -Continue current medications Assessment & Plan (07/11/2024 12:05 PM EST): -Blood pressure is at goal -Continue lifestyle modifications -Continue current medications - Referred to [facility] Program with our AllanDDINO 07/10/24 Resolved Problems Problem Noted Date Diagnosed [...] repots hx heart surgery age 5 in [place] for unknown reason Assessment & Plan (10/02/2022 12:31 PM EST): -pt repots hx heart surgery age 5 in [place] for unknown reason Encounters * This document contains information received from the source organization and may not represent a complete record from that organization. Date Type Department Care Team Description 12/19/2024 Telephone [facility] [address] [place] [address] Bethany Mccormick MD Lab Orders; Results 12/19/2024 Orders Only [facility] [address] [place] [address] Bethany Mccormick MD Screening-pulmonary TB (Primary Dx) 12/19/2024 Telephone [facility] [address] [place] [address] Bethany Mccormick MD 12/13/2024 9:15 AM EDT Office Visit [address] [address] Bethany Mccormick MD Bilateral deafness (Primary Dx); Dyslipidemia; Primary hypertension; Acute cystitis without hematuria; Prediabetes 12/13/2024 Orders Only [address] [address] Bethany Mccormick MD 12/13/[address] [address] Bethany Mccormick MD Medication Question 12/13/[address] [address] Bethany Mccormick MD 12/13/2024 Travel 12/12/[address] [address] Bethany Mccormick MD Lab Orders 12/04/2024 Travel 11/30/2024 9:45 AM EDT Office Visit [address] [address] Bethany Mccormick MD Primary hypertension (Primary Dx); Atrial flutter, unspecified type (CMS/HCC); Bilateral foot pain; Urinary hesitancy; Acute cystitis without hematuria; Major depressive disorder, recurrent episode, mild (CMS/HCC); Class 2 severe obesity due to excess calories with serious comorbidity and body mass index (BMI) of 39.0 to 39.9 in adult (CMS/HCC); Dietary counseling; Exercise counseling; Bilateral deafness 11/30/2024 Orders Only [address] [address] Bethany Mccormick MD 11/30/[address] [address] Bethany Mccormick MD Results 11/30/[address] [address] Bethany Mccormick MD 11/27/[address] [address] Bethany Mccormick MD chartprep 11/21/2024 Patient Outreach [address] [address] Bethany Mccormick MD Pre-visit Planning (SDOH screening was completed on 09/19/2024) 11/14/2024 Refill [facility] [address] [place] [address] Lorna Phillips MD Bilateral foot pain 10/18/2024 Refill [facility] [address] [place] [address] Sadie Chavira MD Bilateral foot pain 10/06/[address] [address] Bethany Mccormick MD 10/04/[address] [address] Bethany Mccormick MD PT1 09/29/[address] [address] Bethany Mccormick MD Chart Prep 09/26/2024 Patient Outreach [address] [address] Bethany Mccormick MD Care Coordination (W outreach for SDOH PT-1 - LVM ) 09/26/[address] [address] Bethany Mccormick MD PT-1 from Last 3 Months Immunizations Name Administration [...] Description 01/01/2025 10:00 AM EDT Medication Management [facility] [address] [place] [phone] Jennifer Kramer, PharmD [address] [place] [phone] 02/21/2025 10:30 AM EDT Office Visit [facility] [address] [place] [address] Bethany Mccormick MD [address] [place] [address] Health Maintenance Due Date Last Done Comments [...] Procedure Name Priority Date/Time Associated Diagnosis Comments ALBUMIN, RANDOM URINE W/CREATININE Routine 12/13/2024 9:40 AM EDT BASIC METABOLIC PANEL Routine 12/13/2024 9:40 AM EDT T-SPOT(R).TB Routine 12/13/2024 9:40 AM EDT Screening for tuberculosis URINALYSIS, COMPLETE, WITH REFLEX TO CULTURE Routine [...] Recently Relevant to Health Maintenance Results * T-SPOT??.TB (12/13/2024 9:40 AM EDT) [facility] T Spot TB Invalid Negative [facility] Comment:The test result is i nvalid (not interpretable) due toa test control failure. Invalid results are uncommonand may be related to factors such as the immune statusof the patient, inappropriate blood storage conditions,delay in sample transport, or other technicaldifficulties. Retesting by collecting another sampleis recommended. If the test result remains invalid,consider the individual's epidemiological history,current medical status, and results of otherdiagnostic evaluations to help determine the TBinfection status of the patient.For additional information, please refer [email or web address](This link is being provided for informational/educational purposes only.)REPORT COMMENT:REC'D IN 12/19/24 NOTIFIED [facility] OFFICE-SPOKE WITH TERA Howell [place] [address]THIS TEST WAS PERFORMED AT:[facility]/[id number] [place] [address]TFKJNXLKELSEA FULTON MD,PHD TS PANEL A [facility] TS PANEL B TNP [facility] Negative Control TNP [facility] Positive Control TNP [facility] 12/13/2024 9:40 AM EDT 12/13/2024 11:10 AM EDT Bethany Mccormick MD LAB BLOOD ORDERABLES Edite d Result - Final Performing Organization Address [facility] Co de Phone Number [facility] [address] [place] [address] [phone] * (ABNORMAL) Albumin, Random Urine W/Creatinine (12/13/2024 9:40 AM EDT) Creatinine, Urine 92.16 mg/dL [facility] Microalbumin Urine 54.0 mg/L [facility] Microalbum Creatinine Ratio Ur 58.5(H) <30 ug/mg cr [facility] Comment:Albumin/Creatinine R atio Reference Ranges: Normal: < 30 ug/mg creatinine Microalbuminuria: 30 - 300 ug/mg creatinineClinical Albuminuria: > 300 ug/mg creatinine 12/13/2024 9:40 AM EDT 12/13/2024 11:09 AM EDT Bethany Mccormick MD LAB URINE ORDERABLES Final Result Performing Organization Address [facility] Co de Phone Number [facility] [address] [place] [address] [phone] * (ABNORMAL) Basic Metabolic Panel (12/13/2024 9:40 AM EDT) Sodium 136 135 - 145 mmol/L [facility] Potassium 4.5 3.3 - 5.1 mmol/L [facility] Chloride 101 96 - 108 mmol/L [facility] Carbon Dioxide 27 22 - 29 mmol/L [facility] Anion Gap 13 12 - [address] [facility] Urea Nitrogen (BUN) 19(H) 9 - 16 mg/dL [facility] Creatinine, Serum 0.84 0.5 - 1.4 mg/dL [facility] Estimated Glomerular Filt Rate >[address] [facility] Comment:Chronic Kidney Disea se: Estimated GFR < 60 mL/min/1.06a9Auryfm Kidney Disease: Estimated GFR < 15 mL/min/1.73m2 Glucose 118(H) 60 - 115 mg/dL [facility] Calcium 9.5 8.4 - 10.2 mg/dL [facility] 12/13/2024 9:40 AM EDT 12/13/2024 11:10 AM EDT us Bethany Mccormick MD LAB BLOOD ORDERABLES Final Result [facility] [address] [place] [address] [phone] * (ABNORMAL) Urinalysis, Complete, with Reflex to Culture (11/30/2024 11:30 AM EDT) Color Urine Yellow [facility] Appearance Urine Clear [facility] PH 6.5 5.0 - 9.[address] [facility] Glucose Urine UA Negative Negative mg/dL [facility] Urine Blood Small (1+)(A) Negative [facility] Specific [place] - Urine 1.020 1.005 - 1.[address] [facility] Urine Protein Trace Neg-Trace mg/dL [facility] Urine Ketones Negative Negative mg/dL [facility] Nitrite Urine Positive(A) Negative [facility] Leukocyte Esterase Urine Moderate (2+)(A) Negative [facility] RBC Urine 6-10(A) 0 - 2 /HPF [facility] Urine WBC 21-50(A) 0 - 5 /HPF [facility] Urine Squamous Epithelial Cell 0-2 0 - 2 /HPF [facility] Urine Bacteria 2+ None Seen [facility] Hyaline Casts, Urine 0-2 0 - 2 /LPF [facility] Urine 11/30/2024 11:3 0 AM EDT 11/30/2024 1:19 PM EDT Narrative [facility] - 11/30/2024 1:29 PM EDT Urine, Clean Catch Bethany Mccormick MD LAB URINE ORDERABLES Final Result Performing Organization Address [facility] Co de Phone Number [facility] [address] [place] [phone] * PSA,Total (11/30/2024 11:30 AM EDT) Prostate Specific Antigen 0.60 <0.05 - 4.0 ng/mL [facility] Comment:PSA methodology: Maral aviles Alialan i ChemiluminescentMicroparticle Immunoassay (CMIA) Blood Venous blood specimen / Unknown 11/30/2024 11:30 AM EDT 11/30/2024 1:26 PM EDT Bethany Mccormick MD LAB BLOOD ORDERABLES Final Result Performing Organization Address [facility] Co de Phone Number [facility] [address] [place] [phone] * Culture, Urine, Routine (11/30/2024 12:00 AM EDT) Urine Urine specimen obtained by clean catch procedure / Unknown 11/30/2024 11/30/2024 Comment:UACC Narrative [facility] - 12/02/2024 8:50 AM EDT Citrobacter koseri Quant > 100,000 cfu/mL Citrobacter koseri: Cefazolin <=1(S) Citrobacter koseri: Cefepime <=0.12(S) Citrobacter koseri: Ceftriaxone <=0.25(S) Citrobacter koseri: Ciprofloxacin <=0.06(S) Citrobacter koseri: Gentamicin <=1(S) Citrobacter koseri: Nitrofurantoin <=16(S) Citrobacter koseri: Trimethoprim/Sulfamethoxazole <=20(S) Specimen Source: Urine clean catch Bethany Mccormick MD LAB MICROBIOLOGY - GENERAL ORDERABLES Final Result Performing Organization Address City/[facility] Co de Phone Number [facility] [address] [place] [address] [phone] * POCT A1C (01/26/2024 2:46 PM EDT) Hemoglobin A1C 5.1 4.0 - 6.0 % QC Media Lot # [id number] Lot# Expiration Date Blood 01/26/2024 2:46 PM EDT Bethany Mccormick MD POINT OF CARE TEST ENTER/E DIT ORDERABLES Final Result * Lipid Panel, Standard (09/17/2023 11:50 AM EST) Triglycerides 85 <150 mg/dL [facility] Comment:Desirable Triglyceri de: less than 150 mg/dLBorderline High Triglyceride 150-199 mg/dLHigh Triglyceride: 200-499 mg/dLVery High Triglyceride: greater than or equal to 5OO mg/dL Cholesterol 146 <200 mg/dL [facility] Comment:Desirable Cholestero l: less than 200 mg/dLBorderline High Cholesterol: 200-239 mg/dLHigh Cholesterol: greater than 239 mg/dL LDL Cholesterol Calculated 69 <100 mg/dL [facility] Comment:Desirable LDL: less than 100 mg/dLNear Optimal/Above Optimal LDL: 110- 129 mg/dLBorderline High LDL: 130-159 mg/dLHigh LDL: 160-189 mg/dLVery High LDL: greater than or equal to 190 mg/dL HDL Cholesterol 60 >40 mg/dL [facility] Comment:Desirable HDL: great er than 40 mg/dL Note: This HDL assay may give artificially low results in patients with liver disease. Blood Venous blood specimen / Unknown 09/17/2023 11:50 AM EST 09/17/2023 1:26 PM EST Bethany Mccormick MD LAB BLOOD ORDERABLES Final Result [facility] [address] [place] [address] [phone] * (ABNORMAL) Colonoscopy (11/25/2022) Colonoscopy Abnormal(A ) Normal Jose Ramon Provider HEALTH MAINTENANCE Final Result * Hepatitis C Antibody with Reflex to HCV, RNA, Quantitative, Real-Time PCR (10/06/2022 8:42 AM EST) Hepatitis C Antibody NON-REACT MIRA NON-REACT MIRA [employer] [place] Trend[employer] Index 0.07 <1.00 [facility] Comment: HCV antibody was non-reactive. There is no laboratory evidence of HCV infection. In most cases, no further action is required. However, if recent HCV exposure is suspected, a test for HCV RNA (test code 35457) is suggested. For additional information please refer to http://education.Happy Cloud/faq/RNH79c2 (This link is being provided for informational/ educational purposes only.) Blood Venous blood specimen / Unknown 10/06/2022 8:42 AM EST 10/06/2022 8:43 AM EST Narrative [facility] - 10/09/2022 12:25 AM EST FASTING:YES FASTING: YES Bethany Mccormick MD LAB BLOOD ORDERABLES Final Result [facility] [address], [place] [address] [employer] [place] [employer] [address] [facility], (Nl2) [place] [address] from Last 3 Months or Most Recently Relevant to Health Maintenance Insurance [employer] MEDICARE REPLACEMENT Advance Directives Documents on File Type Date Recorded 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 Bassem Shahid [facility] [address] [place] [address] Cardiology 11/30/24 Rubin Gupta DO Electrophysiology Cardiology [address] [place] [address] Electrophysiology 12/15/24
--- OUTSIDE RECORDS SUMMARY | 2024-12-20 09:04 | XMS_ITS | Encounter Summary ---
Author Organization [employer] Address 75 [facility] [address] 7t [place] [address] Care Team Providers Care Mac Developer Name Role Phone Bethany Mccormick MD Primary Care Provider +- [phone] Jennifer Kramer PharmD Unavailable Irineo Arevalo MD Unavailable [phone] Reason for Visit * Reason Onset Date Comments Med Refill 12/23/2023 Encounter Details Date Type Department Care Team (Late st Contact Info) Description 12/23/2023 Telephone [facility] [address] [place], [place] [phone] Bethany Mccormick MD [address] [place], [place] [phone] Med Refill Social History Tobacco Use Types [...] 1:40 PM EDT Medication was sent to [facility] on 09/21/23 #90 with 1 refill. * Telephone Encounter - Ilya Culver - 12/23/2023 1:38 PM EDT TC from pt requesting medication refill. Medications needing refill : finasteride (Proscar) 5 MG tablet To be sent to: [facility] - [place], [place] - [address] [place] [address] documented in this encounter Plan of Treatment Upcoming Encounters Date Type Department Care Team (Late st Contact Info) Description 01/01/2025 10:00 AM EDT Medication Management [facility] [address] [place] [address] Jennifer Kramer, PharmD [address] [place] [address] 02/21/2025 10:30 AM EDT Office Visit [facility] [address] [place] [address] Bethany Mccormick MD [address] [place] [address] documented as of this encounter Visit Diagnoses Not on filedocumented in this encounter Additional Health Concerns Assessment Noted Time PHQ-9 Depression Total Score: 0 10/02/19 23 9:21 AM EST documented as of this encounter Care Teams Mac Developer Relationship Specialty Start Date End Date Bethany Mccormick MD [address] [place] [address] PCP - General Family Medicine 09/10/22 Jennifer Kramer, AllanD [address] [place] [address] Pharmacist Internal Medicine 12/04/24 Irineo Arevalo MD [address] [place] [address] [address] [place] [address] Urology 12/13/24 Dr. Bassem Shahid [facility] [address] [place] [address] Cardiology 11/30/24 Rubin Gupta DO Electrophysiology Cardiology [address] [place] [address] Electrophysiology 12/15/24 documented as of this encounter
--- OUTSIDE RECORDS SUMMARY | 2024-12-20 09:04 | XMS_ITS | Encounter Summary ---
Author Organization [employer] Address 75 [facility] [address] 7t [place] [address] Care Team Providers Care Registration Clerk Name Role Phone Bethany Mccormick MD Primary Care Provider +- [phone] Jennifer Kramer PharmD Unavailable Irineo Arevalo MD Unavailable [phone] Reason for Visit * Reason Onset Date Comments PT1 08/31/2024 Encounter Details Date Type Department Care Team (Late st Contact Info) Description 08/31/2024 Telephone [facility] [address] [place], [place] [phone] Bethany Mccormick MD [address] [place], [place] [phone] PT1 Social History Tobacco Use Types Packs/Day [...] Y/N: Yes Provider name or facility name: [address] [address] [address] Bassem Shahid (Strategic Planning Consultant) Escort needed: Y/N: No Do you have a wheelchair: Y/N: No If yes- Manual or electric: N/A Visits: (2) ( x monthly) documented in this encounter Plan of Treatment Upcoming Encounters Date Type Department Care Team (Late st Contact Info) Description 01/01/2025 10:00 AM EDT Medication Management [address] [address] Jennifer Kramer, PharmD [address] [place] [address] 02/21/2025 10:30 AM EDT Office Visit [facility] [address] [place] [address] Bethany Mccormick MD [address] [place] [address] documented as of this encounter Visit Diagnoses Not on filedocumented in this encounter Additional Health Concerns Assessment Noted Time PHQ-9 Depression Total Score: 0 01/26/20 10:39 AM EDT documented as of this encounter Care Teams Registration Clerk Relationship Specialty Start Date End Date Bethany Mccormick MD [address] [place] [address] PCP - General Family Medicine 09/10/22 Jennifer Kramer, PharmD [address] [place] [address] Pharmacist Internal Medicine 12/04/24 Irineo Arevalo MD [address] [place] [address] [address] [place] [address] Urology 12/13/24 Dr. Bassem Shahid [address] [address] Cardiology 11/30/24 Rubin Gupta DO Electrophysiology Cardiology [address] [place] [address] [place] [address] Electrophysiology 12/15/24 documented as of this encounter
--- OUTSIDE RECORDS SUMMARY | 2024-12-20 09:04 | XMS_ITS | Clinical Summary ---
Author Organization 175 [facility] Address 175 [place] [address] Phone Care Team Providers Care Resident Services Manager Name Role Phone Physician, Pcp Unknown Primary [...] 2:00 PM EDT Consult Orthopedic Surgery - [place] [address] [phone] Chris Edmond, DPPrashant [address] [address] Health Maintenance Due Date Last Done Comments [...] - [place] [employer] [place]AGE Care Teams Resident Services Manager Relationship Specialty Start Date End Date Physician, Pcp Unknown PCP - General 09/26/24
--- OUTSIDE RECORDS SUMMARY | 2024-12-20 09:04 | XMS_ITS | Encounter Summary ---
Author Organization [employer] Address [address] [facility] [address] 7t [place] [address] Care Team Providers Care Track Repairer Helper Name Role Phone Bethany Mccormick MD Primary Care Provider [phone] Jennifer Kramer PharmD Unavailable Irineo Arevalo MD Unavailable [phone] Reason for Visit * Reason Onset Date Comments Lab Orders 12/19/2024 Results 12/19/2024 Encounter Details Date Type Department Care Team (Late st Contact Info) Description 12/19/2024 Telephone [facility] 230 [place], [place] [phone] Bethany Mccormick MD 230 [place] [address] Lab Orders; Results Social History Tobacco Use Types Packs/Day Years [...] Encounter - Dulce Maria Valera RN - 12/19/2024 3:55 PM EDT Telephone call to pt using air route controller. Advised pt that TB test was invalid and labs need to bedrawn again to complete the test. Advised lab order pending. Pt verbalized understanding, stated hewill come to lab tomorrow. No further questions. * Telephone Encounter - Dulce Maria Valera RN - 12/19/2024 3:40 PM EDT ----- Message from Bethany Mccormick MD sent at 12/19/2024 1:52 PM EDT ----- Please let William know we need to redraw the tb test due to lab error. I placed the order. Please have him come in for test so he can start day program. Thank you. documented in this encounter Plan of Treatment Upcoming Encounters Date Type Department Care Team (Late st Contact Info) Description 01/01/2025 10:00 AM EDT Medication Management [facility] [address] [place] [address] Jennifer Kramer PharmD [address] [place] [address] 02/21/2025 10:30 AM EDT Office Visit [address] [address] Bethany Mccormick MD [address] [place] [address] documented as of this encounter Visit Diagnoses Not on filedocumented in this encounter Additional Health Concerns Assessment Noted Time PHQ-9 Depression Total Score: 2 12/01/19 10:35 AM EDT documented as of this encounter Care Teams Track Repairer Helper Relationship Specialty Start Date End Date Bethany Mccormick MD [address] [place] [address] PCP - General Family Medicine 09/10/22 Jennifer Kramer, PharmD [address] [place] [address] Pharmacist Internal Medicine 12/04/24 Irineo Arevalo MD [address] [place] [address] Urology 12/13/24 Dr. Bassem Shahid [facility] [address] [place] [address] Cardiology 11/30/24 Rubin Gupta DO Electrophysiology Cardiology [address] [place] [address] Electrophysiology 12/15/24 documented as of this encounter
--- OUTSIDE RECORDS SUMMARY | 2024-12-20 09:04 | XMS_ITS | Encounter Summary ---
Author Organization [employer] Address [address] [facility] [address] 7t [place] [address] Care Team Providers Care Karate Black Belt Name Role Phone Bethany Mccormick MD Primary Care Provider +- [phone] Jennifer Kramer PharmD Unavailable Irineo Arevalo MD Unavailable [phone] Reason for Visit * Reason Comments Med Refill Encounter Details Date Type Department Care Team (Late st Contact Info) Description 05/04/2023 Refill [facility] 230 [place], [place] [phone] Darling Savage DO [address] [place], [place] [phone] Benign prostatic hyperplasia, unspecified whether lower urinary [...] Description 01/01/2025 10:00 AM EDT Medication Management [facility] [address] [place] [address] Jennifer Kramer PharmD [address] [place] [address] 02/21/2025 10:30 AM EDT Office Visit [facility] [address] [place] [address] Bethany Mccormick MD [address] [place] [address] documented as of this encounter Visit Diagnoses Diagnosis Benign prostatic hyperplasia, unspecified whether lower urinary tract symptoms present documented in this encounter Additional Health Concerns Assessment Noted Time PHQ-9 Depression Total Score: 0 10/02/19 9:21 AM EST documented as of this encounter Care Teams Karate Black Belt Relationship Specialty Start Date End Date Bethany Mccormick MD [address] [place] [address] PCP - General Family Medicine 09/10/22 Jennifer Kramer, AllanD [address] [place] [address] Pharmacist Internal Medicine 12/04/24 Irineo Arevalo MD [address] [facility] [address] [place] [address] Urology 12/13/24 Dr. Bassem Shahid [address] [address] Cardiology 11/30/24 Rubin Gupta DO Electrophysiology Cardiology [address] [place] [address] Electrophysiology 12/15/24 documented as of this encounter
--- OUTSIDE RECORDS SUMMARY | 2024-12-20 09:04 | XMS_ITS | Encounter Summary ---
Author Organization [employer] Address [address] [facility] [address] 7t [place] [address] Care Team Providers Care Mannequin Sander And Finisher Name Role Phone Bethany Mccormick MD Primary Care Provider +- [phone] Jennifer Kramer PharmD Unavailable Irineo Arevalo MD Unavailable [phone] Reason for Visit * Reason Comments Med Refill Encounter Details Date Type Department Care Team (Late st Contact Info) Description 08/17/2024 Refill [facility] 230 [place], [place] [phone] Bethany Mccormick MD 230 [place], [place] [phone] Primary hypertension; Gastroesophageal reflux disease without esophagitis; [...] 10:00 AM EDT Medication Management [facility] [address] [place] [address] Jennifer Kramer, PharmD [address] [place] [address] 02/21/2025 10:30 AM EDT Office Visit [facility] [address] [place] [address] Bethany Mccormick MD [address] [place] [address] documented as of this encounter Visit Diagnoses Diagnosis Primary hypertension Unspecified essential hypertension Gastroesophageal reflux disease without esophagitis Esophageal reflux Gout, unspecified cause, unspecified chronicity, unspecified site Major depressive disorder, recurrent episode, mild ([facility]) Major depressive disorder, recurrent episode, mild documented in this encounter Additional Health Concerns Assessment Noted Time PHQ-9 Depression Total Score: 0 01/26/20 24 10:39 AM EDT documented as of this encounter Care Teams Mannequin Sander And Finisher Relationship Specialty Start Date End Date [place], MD Bethany [address] [place] [address] PCP - General Family Medicine 09/10/22 Jennifer Kramer, AllanD [address] [place] [address] Pharmacist Internal Medicine 12/04/24 Irineo Arevalo MD [address] [place] [address] [address] [place] [address] Urology 12/13/24 Dr. Bassem Shahid [address] [address] Cardiology 11/30/24 Rubin Gupta DO Electrophysiology Cardiology [address] [place] [address] Electrophysiology 12/15/24 documented as of this encounter
--- OUTSIDE RECORDS SUMMARY | 2024-12-20 09:04 | XMS_ITS | Encounter Summary ---
Author Organization [employer] Address [address] [facility] [address] 7t [place] [address] Care Team Providers Care Emergency Medicine Physician Name Role Phone Bethany Mccormick MD Primary Care Provider +- [phone] Jennifer Kramer PharmD Unavailable [phone] Irineo Arevalo MD Unavailable [phone] Encounter Details Date Type Department Care Team (Late st Contact Info) Description 10/06/2024 Telephone [facility] 230 [place], [place] [phone] Bethany Mccormick MD 230 [place], [place] [phone] Social History Tobacco Use Types Packs/Day Years [...] Description 01/01/2025 10:00 AM EDT Medication Management [facility] [address] [place] [address] Jennifer Kramer, PharmD [address] [place] [address] 02/21/2025 10:30 AM EDT Office Visit [facility] [address] [place] [address] Bethany Mccormick MD [address] [place] [address] documented as of this encounter Visit Diagnoses Not on filedocumented in this encounter Additional Health Concerns Assessment Noted Time PHQ-9 Depression Total Score: 0 01/26/20 24 10:39 AM EDT documented as of this encounter Care Teams Emergency Medicine Physician Relationship Specialty Start Date End Date [place], MD Bethany 230 [place] [address] PCP - General Family Medicine 09/10/22 Jennifer Kramer PharmD 230 [place] [address] Pharmacist Internal Medicine 12/04/24 Irineo Arevalo MD [address] [place] [address] Drive [address] [place] [address] Urology 12/13/24 Dr. Bassem Shahid [address] [address] Cardiology 11/30/24 Rubin Gupta DO Electrophysiology Cardiology [address] [address] Electrophysiology 12/15/24 documented as of this encounter
--- OUTSIDE RECORDS SUMMARY | 2024-12-20 09:04 | XMS_ITS | Encounter Summary ---
Author Organization [employer] Address 75 [facility] [address] 7t [place] [address] Care Team Providers Care Closing Specialist Name Role Phone Bethany Mccormick MD Primary Care Provider [phone] Jennifer Kramer PharmD Unavailable Irineo Arevalo MD Unavailable [phone] Reason for Visit * Reason Onset Date Comments Medication Question 12/13/2024 Encounter Details Date Type Department Care Team (Late st Contact Info) Description 12/13/2024 Telephone [facility] 230 [place], [place] [phone] Bethany Mccormick MD 230 [place], [place] [phone] Medication Question Social History Tobacco Use Types Packs/Day Years [...] Encounter - Dulce Maria Valera RN - 12/15/2024 9:02 AM EDT Called [facility] Cardiology, spoke with Alyssa. Pt scheduled for EP consult on 02/08/25 at 1:45pm with Rubin Gupta DO at [address] [place] [address], [place] [address]. Pt does not have sleep study scheduled yet. Message was sent to cards team to inquire if this will be scheduled via cardiology or if needs to be ordered by PCP. * Telephone Encounter - Dulce Maria Valera RN - 12/14/2024 4:22 PM EDT Spoke to Dr Mccormick in office who is requesting nurses to [place] [facility] [place] and follow up to see if pt has EP evaluation and sleep study scheduled as written in Recommendations section of 10/12/24 [facility] Cards note. Will task to call [facility] * Telephone Encounter - Dulce Maria Valera RN - 12/14/2024 11:59 AM EDT Uploaded [facility]iology note from 10/12/24. Please see Media. Does list Eliquis on home med list and includes notes from 14 day Zio patch monitor. Of note, at end, recommends to rule out AMISHA with sleep study. * Telephone Encounter - Bethany Mccormick MD - 12/13/2024 10:11 AM EDT Please see if cardiology at [facility] has any notes, echo or holter monitor. I am notsure if pt is supposed to be on apixiban still. Thank you. documented in this encounter Plan of Treatment Upcoming Encounters Date Type Department Care Team (Late st Contact Info) Description 01/01/2025 10:00 AM EDT Medication Management [facility] [address] [place] [address] Jennifer Kramer, PharmD 230 [place] [address] 02/21/2025 10:30 AM EDT Office Visit [facility] [address] [place] [address] Bethany Mccormick MD [address] [place] [address] documented as of this encounter Visit Diagnoses Diagnosis Arterial atherosclerosis- Primary documented in this encounter Additional Health Concerns Assessment Noted Time PHQ-9 Depression Total Score: 2 12/01/19 25 10:35 AM EDT documented as of this encounter Care Teams Closing Specialist Relationship Specialty Start Date End Date Bethany Mccormick MD 230 [place] [address] PCP - General Family Medicine 09/10/22 Jennifer Kramer, AllanD [address] [place] [address] Pharmacist Internal Medicine 12/04/24 Irineo Arevalo MD [address] [place] [address] [address] [place] [address] Urology 12/13/24 Dr. Bassem Shahid [address] [address] Cardiology 11/30/24 Rubin Gupta DO Electrophysiology Cardiology [address] [place] [address] Electrophysiology 12/15/24 documented as of this encounter
--- OUTSIDE RECORDS SUMMARY | 2024-12-20 09:04 | XMS_ITS | Encounter Summary ---
Author Organization [employer] Address [address] [facility] [address] 7t [place] [address] Care Team Providers Care It Teacher Name Role Phone Bethany Mccormick MD Primary Care Provider +- [phone] Jennifer Kramer PharmD Unavailable Irineo Arevalo MD Unavailable [phone] Reason for Visit * Reason Onset Date Comments PT-1 09/26/2024 Encounter Details Date Type Department Care Team (Late st Contact Info) Description 09/26/2024 Telephone [facility] 230 [place], [place] [phone] Bethany Mccormick MD 230 [place], [place] [phone] PT-1 Social History Tobacco Use Types Packs/Day [...] Miscellaneous Notes * Telephone Encounter - David Blankesnhip - 09/26/2024 11:19 AM EST Patient calling requesting PT1 Home Address verified: Y/N: Yes Provider name or facility name: [facility] [address] [place] [address] Escort needed: Y/N: Yes Do you have a wheelchair: Y/N: No If yes- Manual or electric: N/A Visits: (amount of visits) ( x monthly, weekly, daily) 5 times a month documented in this encounter Plan of Treatment Upcoming Encounters Date Type Department Care Team (Late st Contact Info) Description 01/01/2025 10:00 AM EDT Medication Management [facility] [address] [place] [address] Jennifer Kramer, PharmD 230 [place] [address] 02/21/2025 10:30 AM EDT Office Visit [facility] [address] [place] [address] Bethany Mccormick MD 230 [place] [address] documented as of this encounter Visit Diagnoses Not on filedocumented in this encounter Additional Health Concerns Assessment Noted Time PHQ-9 Depression Total Score: 0 01/26/20 10:39 AM EDT documented as of this encounter Care Teams It Teacher Relationship Specialty Start Date End Date Bethnay Mccormick MD [address] [place] [address] PCP - General Family Medicine 09/10/22 Jennifer Kramer, PharmD [address] [place] [address] Pharmacist Internal Medicine 12/04/24 Irineo Arevalo MD [address] [place] [address] [address] [place] [address] Urology 12/13/24 Dr. Bassem Shahid [address] [address] Cardiology 11/30/24 Rubin Gupta DO Electrophysiology Cardiology [address] [place] [address] Electrophysiology 12/15/24 documented as of this encounter
[2024-12-22 22:29] LABS: TSpotTB Invalid (Negative)
== END 2024-12-20 08:40 | disposition home or self-care (01) ==
LOC: HO.HHCL 08:39
PROVIDERS: Visit Provider Family Medicine
DX: Z11.1 Encounter for screening for respiratory tuberculosis (principal)
CPT/HCPCS: 36415; 86481

== ENCOUNTER 2025-02-09 08:57 | Outpatient (AMB) | payer MEDICARE, SELFPAY ==
--- NOTE | 2025-02-09 09:03 | MHC.OFFVIS ---
Intake Visit Reasons: urinary hesitancy Intake Note: New patient presents today for initial visit for urinary hesitancy Urology Medication:Allopurinol, Finasteride, potassium, Tamsulosin Blood Thinner:Apixaban Antibiotic Allergies:None PVR:0ml Allergies No Known Allergies Allergy (Verified 02/09/25 09:04) Medication List - Last Reconciled 02/09/25 by Kelly Ha MD allopurinol 300 mg PO DAILY amlodipine 5 mg PO DAILY apixaban (Eliquis) 5 mg PO BID atorvastatin 10 mg PO BEDTIME cholecalciferol (vitamin D3) 50 mcg PO DAILY finasteride 5 mg PO DAILY fluoxetine 20 mg PO DAILY gabapentin 600 mg PO DAILY hydrocodone-acetaminophen 5-325 mg 1 tab PO Q4-6H PRN pantoprazole 40 mg PO DAILY potassium chloride ER 20 mEq PO DAILY pramipexole 0.25 mg PO DAILY spironolactone 25 mg PO DAILY tamsulosin 0.4 mg PO DAILY PFSH Medical History Arthritis Hearing impairment Depression Hx of coronary angiogram Venous insufficiency Tricuspid regurgitation Prediabetes Obesity Essential (primary) hypertension Dyslipidemia Benign prostate hyperplasia Atrial flutter Surgical History Hx of appendectomy History of cardiac radiofrequency ablation Hx of heart surgery Family History Father Heart disease Social History Are you a primary career discovery teacher to a significant other at home: No Do you presently have visiting nurse or other home services: Yes (has TTY hearing assistance) Patient Tobacco Use Status: Never used Tobacco Review of Systems Const All systems reviewed & are unremarkable except as noted in HPI and below Reports no additional complaints Eyes Reports no additional complaints ENT Reports no additional complaints Card Reports no additional complaints Resp Reports no additional complaints GI Reports no additional complaints Reports as per HPI Musc Reports no additional complaints Skin/Breast Reports system reviewed and no additional complaints, except as documented Neuro Reports no additional complaints Psych Reports no additional complaints Endo Reports no additional complaints Fito/Lymph Reports no additional complaints Aller/Immun Reports no additional complaints Physical Exam Const General: healthy appearing, no acute distress and well developed Nutritional Appearance: overweight Orientation/consciousness: patient oriented x3 HEENT Head: Yes normocephalic and Yes atraumatic Eyes Conjunctivae: conjunctivae normal Neck Neck: Yes normal visual inspection Chest Chest palpation & inspection: normal inspection of the chest Resp Effort & Inspection: normal respiratory effort GI Inspection: Yes normal to inspection Neuro General: patient oriented x3 Psych Appearance: grossly normal Affect: normal affect Results AMB Urinalysis, Automated UA Leukoctes 0 Trevon/uL Last Edit by Luisa Andrade on 02/09/25 14:14 UA Nitrite Negative Last Edit by Luisa Andrade on 02/09/25 14:14 UA Urobilinogen 3.5 mg/dL Last Edit by Luisa Andrade on 02/09/25 14:14 UA Protein 1 mg/dL Last Edit by Luisa Andrade on 02/09/25 14:14 UA pH 6.0 Last Edit by Luisa Andrade on 02/09/25 14:14 UA Blood 0 Florencio/uL Last Edit by Luisa Andrade on 02/09/25 14:14 UA Specific [place] 1.015 Last Edit by Luisa Andrade on 02/09/25 14:14 UA Ketone Negative Last Edit by Luisa Andrade on 02/09/25 14:14 UA Bilirubin 0 mg/dL Last Edit by Luisa Andrade on 02/09/25 14:14 UA Glucose 0 mg/dL Last Edit by Luisa Andrade on 02/09/25 14:14 Assessment & Plan Assessment & Plan (1) Hematuria: Code(s): R31.9 - Hematuria, unspecified Category: Medical (2) BPH loc w urin obs/LUTS: Code(s): N40.1 - Benign prostatic hyperplasia with lower urinary tract symptoms Category: Medical (3) UTI (urinary tract infection): Code(s): N39.0 - Urinary tract infection, site not specified Category: Medical (4) UTI symptoms: Code(s): R39.9 - Unspecified symptoms and signs involving the genitourinary system Category: Medical Orders: Orders AMB Urinalysis Automated Today N39.0 - Urinary tract infection, site not specified, N40.1 - Benign prostatic hyperplasia with lower urinary tract symptoms, R31.9 - Hematuria, unspecified, R39.9 - Unspecified symptoms and signs involving the genitourinary system AMB Post Void Residual by ultrasound Today N39.0 - Urinary tract infection, site not specified, N40.1 - Benign prostatic hyperplasia with lower urinary tract symptoms, R31.9 - Hematuria, unspecified, R39.9 - Unspecified symptoms and signs involving the genitourinary system US renal BI Today R31.9 - Hematuria, unspecified Coding Diagnoses Hematuria R31.9 BPH loc w urin obs/LUTS N40.1 UTI (urinary tract infection) N39.0 UTI symptoms R39.9
--- OUTSIDE RECORDS SUMMARY | 2025-02-09 09:19 | XMS_ITS | Clinical Summary ---
Author Organization [employer] Address [address] [facility] [address] [place] [address] Care Team Providers Care Health Records Technology Teacher Name Role Phone Bethany Mccormick MD Primary Care Provider + [phone] Jennifer Kramer PharmD Unavailable Irineo Arevalo MD Unavailable [phone] Chris Edmond Unavailable Allergies No known active allergies Medications * This document contains information received from the source organization and may not represent a complete record from that organization. apixaban (Eliquis) 5 MG tabletIndicatio ns:Atrial flutter, unspecified type (CMS/HCC) Take 1 tablet (5 mg) by mouth 2 times daily. 180 tablet 3 024 Active finasteride (Proscar) 5 MG tabletIndicatio ns:Benign prostatic hyperplasia without lower urinary tract symptoms Take 1 tablet (5 mg) by mouth in the morning. 90 tablet 3 024 Active atorvastatin (Lipitor) 10 MG tabletIndicatio ns:Dyslipidemia Take 1 tablet (10 mg) by mouth at bedtime. 90 tablet 3 024 Active pantoprazole (ProtoNix) 40 MG EC tabletIndicatio ns:Gastroesopha geal reflux disease without esophagitis Take 1 tablet (40 mg) by mouth in the morning. 90 tablet 3 024 Active allopurinol (Zyloprim) 300 MG tabletIndicatio ns:Gout, unspecified cause, unspecified chronicity, unspecified site Take 1 tablet (300 mg) by mouth in the morning. 90 tablet 3 Active FLUoxetine (PROzac) 20 MG capsuleIndicati ons:Major depressive disorder, recurrent episode, mild (CMS/HCC) Take 1 capsule (20 mg) by mouth Once per day. 90 capsule 3 Active spironolactone (Aldactone) 25 MG tabletIndicatio ns:Primary hypertension Take 1 tablet (25 mg) by mouth in the morning. 90 tablet 1 024 Active amLODIPine (Norvasc) 5 MG tabletIndicatio ns:Primary hypertension Take 1 tablet (5 mg) by mouth in the morning. 90 tablet 3 024 Active ibuprofen 600 MG tabletIndicatio ns:Status post fall Take 1 tablet (600 mg) by mouth every 8 (eight) hours if needed for moderate pain or fever. 15 tablet 024 Active lisinopril 10 MG tabletIndicatio ns:Primary hypertension Take 1 tablet (10 mg) by mouth Once per day. 30 tablet 11 025 2025 Active albuterol 108 (90 Base) MCG/ACT inhaler Inhale 2 puffs every 4 (four) hours if needed for wheezing or shortness of breath. 18 g 1 Active albuterol (2.5 MG/3ML) 0.083% nebulizer solutionIndicat ions:Mild intermittent asthma with acute exacerbation Take 3 mL (2.5 mg) by nebulization every 6 (six) hours if needed for wheezing or shortness of breath. 75 mL 1 Active Spacer/Aero-Hol ding Chambers (OptiChamber Anushka) misc 1 each every 4 (four) hours if needed (asthma). 1 each Active gabapentin (Neurontin) 300 MG capsuleIndicati ons:Bilateral foot pain Take 1 capsule (300 mg) by mouth 2 times daily. 190 capsule 3 025 Active gabapentin (Neurontin) 300 MG capsuleIndicati ons:Bilateral foot pain Take 1 capsule (300 mg) by mouth 2 times daily. 190 capsule 3 025 2024 Discontinued(R eorder (will not trigger notification to Pharmacy)) Active Problems Problem Noted Date Diagnosed Date Mild intermittent asthma with acute exacerbation 01/10/2025 Urinary hesitancy 11/30/2024 Overview (11/30/2024): Reports frequent [...] offered. -referred to [facility] 11/30/24 Assessment & Plan (11/30/2024 11:12 AM EDT): Denies suicidial or homacidial ideation. Therapist and psychiatrist offered. -referred to [facility] 11/30/24 Bilateral foot pain 09/01/2024 Overview (01/25/2025): Clinical picture neuropathy. -was switched to Gabapentin 300mg Q 8hrs. -referred to Podiatry 09/01/24 -encouraged to call 11/30/24 -seen by Dr. Edmond podiatry 11/21/24 Assessment & Plan (11/30/2024 11:10 AM EDT): Clinical picture neuropathy. -was switched to Gabapentin 300mg Q 8hrs. -referred to Podiatry 09/01/24 -encouraged to call 11/30/24 Assessment & Plan (09/01/2024 3:15 PM EST): Clinical picture neuropathy, patient used to be on gabapentin 600mg at bed time, I will put him on gabapentin 300mg Q 8hrs I milieu counselor patient about side effects I will refer him to podiatry Status post fall 07/10/2024 Overview (07/11/2024): - Seen on 06/15/24 at [facility]. Status post fall. Reportedly tripped [...] AM EST): - Seen on 06/15/24 at [facility]. Status post fall. Reportedly tripped [...] Harman Cabello recommending repeat in 3 years Severe obesity 05/24/2023 Tricuspid regurgitation 05/24/2023 Other specified health status 01/12/2023 Overview (05/22/2024): -next comprehensive annual evaluation due after 01/25/25 -eye care last seen on 11/19, followed by Dr. Naveen Dunn of [facility] -d[place] in [place] -[facility] care proxy on file 09/17/23 Assessment & Plan (05/22/2024 10:54 AM EDT): -next comprehensive annual evaluation due after 01/25/25 -eye care last seen on 11/19, followed by Dr. Naveen Dunn of [facility] -dental is in [place] -[facility] care proxy on file 09/17/23 Assessment & Plan (01/26/2024 11:24 AM EDT): -Next physical due after 10/01/2023 -Eye care last seen on 11/19 -Dental is in [place] -[facility] care proxy on file 09/17/23 Assessment & Plan (09/17/2023 11:07 AM EST): -Next physical due after 10/01/2023 -Eye care last seen on 11/19 -Dental is in [place] -[facility] care proxy paperwork given 09/17/23 Right inguinal hernia 11/18/2022 Overview (07/11/2024): -repaired with [facility] general surgeons 01/2023 Assessment & Plan (07/11/2024 10:41 AM EST): -repaired with [facility] general surgeons 01/2023 Assessment & Plan (09/17/2023 9:53 AM EST): -repiared with [facility] general surgeons 01/2023 Assessment & Plan (11/18/2022 [...] 10/02/2022 Deaf 10/02/2022 Overview (03/15/2024): -Patient needs jewel bearing turner for all visits. Please make note of this in any referrals. -Audiology at [facility] -has appropriate assistive devices in home including fire alarm with light Patient walked in with PT1 denial letter for [employer]. The letter says it was denied because '[employer] does not participate with medicaid. Patient showed appointment reminder for '[employer] [facility]' set for 04/28/2024 at 10am. FD called '[employer] to ask if the accept Patient insurance or if they can provide on time transpiration. '[employer] advised they do not accept Patient insurance [...] Plan (11/30/2024 10:58 AM EDT): -Patient needs jewel bearing turner for all visits. Please make note of this in any referrals. -Audiology at [facility] -has appropriate assistive devices in home [...] Plan (07/11/2024 10:43 AM EST): -Patient needs jewel bearing turner for all visits. Please make note of this in any referrals. -Audiology at [facility] -has appropriate assistive devices in home [...] Plan (05/22/2024 10:53 AM EDT): -Patient needs jewel bearing turner for all visits. Please make note of this in any referrals. -Audiology at [facility] -has appropriate assistive devices in home including fire alarm with light Patient walked in with PT1 denial letter for [employer]. The letter says it was denied because '[employer] does not participate with medicaid. Patient showed FD appointment reminder for '[facility] [facility]' set for 04/28/2024 at 10am. FD called '[employer] to ask if the accept Patient insurance or if they can provide on time transpiration. '[employer] advised they do not accept Patient insurance [...] Plan (01/26/2024 11:23 AM EDT): -Patient needs jewel bearing turner for all visits. Please make note of this in any referrals. -Audiology at [facility] -has appropriate assistive devices in home including fire alarm with light Assessment & Plan (09/17/2023 9:50 AM EST): -[place] Sign Language Assessment & Plan (10/02/2022 12:38 PM EST): -[place] Sign Language used during visit PVD (peripheral [...] malformations ) in 1965 -Cardiac cath in [place] 07/05/2020 for chest pain and noted to have normal coronaries without any evidence of atherosclerosis -atrail flutter status post CTI ablation in 2021 on anticoagulation still -14 day Zio patch to monitor for aflutter Aug 2024 found evidence of sinus pauses and evidence of complete heart block, first degree AV block, 1 run SVT lasting 8 beats -seen by [facility] cardiology with Dr. Juan Luis Gonzalez [...] estimation is 29 mmhg + CVP. Called [facility]iology, spoke with Alyssa. Pt scheduled for EP consult on 02/08/25 at 1:45pm with Rubin Gupta DO at [address] [place] [address], [address], [place] [address]. Pt does not have sleep study scheduled [...] Noted in [place] during ECG for palpitations. -[id number] of 1 -s/p CTI ablation 09/22/2021 with good results -on Eliquis (apixaban) -seen by [facility] cardiology Dr. Myra Feliciano MD 12/13/2022 recommending 6 month follow up -Cardiology note from 05/04/24 reviewed Recommends Zio path for 24 days, if no further aflutter episodes will discontinue apixaban -repeat Echo ordered Assessment & Plan (11/30/2024 11:13 AM EDT): Noted in [place] during ECG for palpitations. -[id number] of 1 -s/p CTI ablation 09/22/2021 with good results -on Eliquis (apixaban) -seen by [facility] cardiology Dr. Myra Feliciano MD 12/13/2022 recommending 6 month follow up -Cardiology note from 05/04/24 reviewed Recommends Zio path for 24 days, if no further aflutter episodes will discontinue apixaban -repeat Echo ordered Assessment & Plan (05/22/2024 10:53 AM EDT): Noted in [place] during ECG for palpitations. -[id number] of 1 -s/p CTI ablation 09/22/2021 with good results -on Eliquis (apixaban) -seen by [facility] cardiology Dr. Myra Feliciano MD 12/13/2022 recommending 6 month follow up -has not been to see roaster operator since, referred back again today 05/22/24. Assessment & Plan (01/26/2024 11:23 AM EDT): Noted in [place] during ECG for palpitations. -[id number] of 1 -s/p CTI ablation 09/22/2021 with good results -on Eliquis (apixaban) -seen by [facility] cardiology Dr. Myra Feliciano MD 12/13/2022 recommending 6 month follow up Assessment & Plan (09/17/2023 9:52 AM EST): Noted in [place] during ECG for palpitations. -[id number] of 1 -s/p CTI ablation 09/22/2021 with good results -on Eliquis (apixaban) -seen by [facility] cardiology Dr. Myra Feliciano MD 12/13/2022 recommending 6 month follow up Assessment & Plan (05/31/2023 12:55 PM EDT): Noted in [place] during ECG for palpitations. -[id number] of 1 -s/p CTI ablation 09/22/2021 with good results -on Eliquis (apixaban) -seen by [facility] cardiology Dr. Myra Feliciano MD 12/13/2022 [...] with our PharmDINO Teixeira 11/30/24 -Follows with [facility] cardiology Dr. Myra Feliciano MD Assessment & Plan (12/13/2024 10:07 AM EDT): -Blood pressure is at goal -Continue lifestyle modifications -Continue current medications -Continue Lisinopril 10 mg 11/30/24 -Re-referred to [facility] with our PharmDINO Teixeira 11/30/24 -Follows with [facility] cardiology Dr. Myra Feliciano MD Assessment & Plan (11/30/2024 11:09 AM EDT): -Blood pressure is not at goal, not currently on any medications 11/30/24 -Continue lifestyle modifications -Continue current medications -Referred to [facility] with our PharmDINO Teixeira 07/10/24 -Start Lisinopril 10 mg 11/30/24 -Re-referred to [facility] Program with our PharmDDINO 11/30/24 -Follows with [facility] cardiology Dr. Myra Feliciano MD Assessment [...] Diagnosed Date Resolved Date Homeless 09/17/2023 01/26/2024 Venous stasis 05/31/2023 01/25/2025 Assessment & Plan (05/31/2023 12:56 PM EDT): -compression stocking written 05/31/2023 Onychomycosis 05/31/2023 01/25/2025 Venous insufficiency 05/24/2023 025 Left foot pain 11/18/2022 01/26/2024 Overview (11/18/2022): [...] organization. Date Type Department Care Team Description 02/02/2025 Refill [facility] [place] [address] Bethany Mccormick MD Bilateral foot pain 02/02/2025 Travel 01/10/2025 11:20 AM EDT Office Visit [facility] [address] [place] [phone] Robert Figueredo MD Parainfluenza type 1 infection (Primary Dx); Mild intermittent asthma with acute exacerbation; Viral URI 01/09/[address] [address] Bethany Mccormick MD Medication Question 01/01/[address] [address] Bethany Mccormick MD 01/01/2025 Travel 12/27/2024 Orders Only [address] [address] Bethany Mccormick MD 12/26/2024 10:30 AM EDT Clinical Support [address] [address] Kathya Rm, RN Encounter for tuberculin skin test 12/26/2024 Travel 12/25/[address] [address] Bethany Mccormick MD TSPOT invalid; Appointment Request 12/19/[address] [address] Bethany Mccormick MD Lab Orders; Results 12/19/2024 Orders Only [address] [address] Bethany Mccormick MD Screening-pulmonary TB (Primary Dx) 12/19/2024 Telephone [facility] [address] [place] [address] Bethany Mccormick MD 12/13/2024 9:15 AM EDT Office Visit [address] [address] Bethany Mccormick MD Bilateral deafness (Primary Dx); Dyslipidemia; Primary hypertension; Acute cystitis without hematuria; Prediabetes 12/13/2024 Orders Only [address] [address] Bethany Mccormick MD 12/13/[address] [address] Bethany Mccormick MD Medication Question 12/13/[address] [address] Bethany Mccormick MD 12/13/2024 Travel 12/12/[address] [address] Bethany Mccormick MD Lab Orders 12/04/2024 Travel 11/30/2024 9:45 AM EDT Office Visit [address] [address] Bethany Mccormick MD Primary hypertension (Primary Dx); Atrial flutter, unspecified type (CMS/HCC); Bilateral foot pain; Urinary hesitancy; Acute cystitis without hematuria; Major depressive disorder, recurrent episode, mild (CMS/HCC); Class 2 severe obesity due to excess calories with serious comorbidity and body mass index (BMI) of 39.0 to 39.9 in adult (CMS/HCC); Dietary counseling; Exercise counseling; Bilateral deafness 11/30/2024 Orders Only [address] [address] Bethany Mccormick MD 11/30/[address] [address] Bethany Mccormick MD Results 11/30/[address] [address] Bethany Mccormick MD 11/27/[address] [address] Bethany Mccormick MD chartprep 11/21/2024 Patient Outreach [address] [address] Bethany Mccormick MD Pre-visit Planning ([facility] screening was completed on 09/19/2024) 11/14/2024 Refill [facility] [address] [place] [phone] Lorna [place] MD Bilateral foot pain from Last 3 Months Immunizations Immunization Administration Dates Next Due Hep B, adult 05/31/2023,12/22/2022,11/18/2022 Influenza injectable quadriv alent preservative free 05/31/2023,11/18/2022 Influenza, seasonal, injecta ble, preservative free 05/22/2024 PPD Test 12/26/2024 Pfizer Covid-19 Vaccine 12+ 05/22/2024, Pfizer Covid-19 [...] Sign Reading Time Taken Comments Blood Pressure 102/56 02/02/2025 10:09 AM EDT Pulse 57 02/02/2025 10:09 AM EDT Temperature 36.7 ??C (98.1 ??F) 01/10/2025 11:32 AM E DT Respiratory Rate 17 01/10/2025 11:32 AM EDT Oxygen Saturation 96% 01/10/2025 11:32 AM EDT Inhaled Oxygen Concentration - - Weight 135 kg (296 lb 12.8 oz) 01/10/2025 11:32 AM EDT Height 185.4 cm (6' 1 ) 07/10/2024 9:11 AM EST Body Mass Index 39.16 07/10/2024 9:11 AM EST Plan of Treatment Upcoming Encounters Date Type Department Care Team (Late st Contact Info) Description 02/21/2025 10:30 AM EDT Office Visit [facility] [address] [place] [address] Bethany Mccormick MD [address] [place] [address] Health Maintenance Due Date Last Done Comments CT Colonography 1959 FIT DNA/Cologuard 1959 FIT 1959 FOBT 1959 Sigmoidoscopy 1959 COVID-19 Vaccine ( season) 2024 05/22/2024, 05/31/2023, 11/18/2022 Diabetes: Hemoglobin A1C 01/25/2025 024, 09/17/2023, 09/17/2023, Additional history exists Alcohol/Substance Use Screening 07/10/2025 07/10/2024 SDOH Screening 09/19/2025 09/19/2024 Colonoscopy 11/25/2025 11/25/2022 Colorectal Cancer Screening 11/25/2025 Depression Screening 11/30/2025 11/30/2024, 12/01/19 Tobacco Screening 01/10/2026 01/10/2025 Lipid Panel 09/17/2028 09/17/2023, 10/06/2022 DTaP/Tdap/Td Vaccines (2 - Td or Tdap) 11/12/2032 11/12/2022 Hepatitis C Screening Completed 10/06/2022 Zoster Vaccines Completed 11/12/2022, 09/10/2022 Hepatitis B Vaccines Completed 05/31/2023, 12/22/2022, 11/18/2022 Pneumococcal Vaccine: 50+ Years Completed 09/17/2023 RSV Patients and Patients Aged 60 years or older Completed 02/08/2024 Influenza Vaccine Completed 05/22/2024, , 11/18/2022 HIB [...] Procedure Name Priority Date/Time Associated Diagnosis Comments AMB REFERRAL TO PODIATRY Routine 02/06/2025 Bilateral foot pain Prediabetes POCT INFLUENZA B (ID NOW RAPID MOLECULAR) Routine 01/10/2025 11:46 AM EDT Viral URI POCT INFLUENZA A (ID NOW RAPID MOLECULAR) Routine 01/10/2025 11:46 AM EDT Viral URI POCT RAPID COVID ANTIGEN Routine 01/10/2025 11:46 AM EDT Viral URI TB SKIN TEST Routine 12/28/2024 10:15 AM EDT Encounter for tuberculin skin test T-SPOT(R).TB Routine 12/20/2024 8:41 AM EDT Screening-pulmonary TB ALBUMIN, RANDOM URINE W/CREATININE Routine 12/13/2024 9:40 [...] Recently Relevant to Health Maintenance Results * Referral to Podiatry (02/06/2025) Sadie Foster MD OUTPATIENT REFERRAL O RDERABLES Final Result * Influenza B (ID NOW Rapid Molecular) (01/10/2025 11:46 AM EDT) [facility] Influenza B Negative Negative, Indeterminate [facility] Swab 01/10/2025 11:4 6 AM EDT us Robert Figueredo MD POINT OF CARE TEST ENTER/EDIT OR DERABLES Final Result Performing Organization Address [facility]/ZIP Co de Phone Number [facility] [address] [place] [phone] * Influenza A (ID NOW Rapid Molecular) (01/10/2025 11:46 AM EDT) [facility] Influenza A Negative Negative, Indeterminate [facility] Swab 01/10/2025 11:4 6 AM EDT Robert Figueredo MD POINT OF CARE TEST ENTER/EDIT OR DERABLES Final Result Performing Organization Address [facility] Co de Phone Number [facility] [address] [place] [phone] * POCT Rapid COVID Ag (01/10/2025 11:46 AM EDT) Rapid COVID Ag Negative [facility] Swab 01/10/2025 11:4 6 AM EDT Robert Figueredo MD POINT OF CARE TEST ENTER/EDIT OR DERABLES Final Result Performing Organization Address [facility]/ZIP Co de Phone Number [facility] [address] [place] [address] [phone] * TB Skin Test (12/28/2024 10:15 AM EDT) TB Skin Test Negative Negative Other 12/28/2024 10:1 5 AM EDT Bethany Mccormick MD POINT OF CARE TEST ENTER/E DIT ORDERABLES Final Result * T-SPOT??.TB (12/20/2024 8:41 AM EDT) Only the most recent of2 resultswithin the time period is included. T Spot TB Invalid Negative [facility] Comment:The test result is i [...] of the patient.For additional information, please refer tohttp://education.[employer]Spice/faq/AOP400(This link is being provided for informational/educational purposes only.)THIS TEST WAS PERFORMED AT:[id number] [place] [address]JZHGGNLKELSEA FULTON MD,PHD TS PANEL A [facility] Comment:NOTIFIED [facility] 12/25 AT 1205 FORREORDER AND RECOLLECT. TS PANEL B [facility] Comment:NOTIFIED [facility] 12/25 AT 1205 FORREORDER AND RECOLLECT. Negative Control [facility] Comment:NOTIFIED [facility] 12/25 AT 1205 FORREORDER AND RECOLLECT. Positive Control [facility] Comment:NOTIFIED [facility] 12/25 AT 1205 FORREORDER AND RECOLLECT. 12/20/2024 8:41 AM EDT 12/20/2024 11:27 AM EDT Bethany Mccormick MD LAB BLOOD ORDERABLES Final Result Performing Organization Address [facility] Co de Phone Number [facility] [address] [place] [address] [phone] * (ABNORMAL) Albumin, Random Urine W/Creatinine (12/13/2024 9:40 AM EDT) Creatinine, Urine 92.16 mg/dL [facility] Microalbumin Urine 54.0 mg/L [facility] Microalbum Creatinine Ratio Ur 58.5(H) <30 ug/mg cr [facility] Comment:Albumin/Creatinine R atio Reference Ranges: Normal: < 30 ug/mg creatinine Microalbuminuria: 30 - 300 ug/mg creatinineClinical Albuminuria: > 300 ug/mg creatinine 12/13/2024 9:40 AM EDT 12/13/2024 11:09 AM EDT Bethany Mccormick MD LAB URINE ORDERABLES Final Result Performing Organization Address [facility] Co de Phone Number [facility] [address] [place] [phone] * (ABNORMAL) Basic Metabolic Panel (12/13/2024 9:40 AM EDT) Sodium 136 135 - 145 mmol/L [facility] Potassium 4.5 3.3 - 5.1 mmol/L [facility] Chloride 101 96 - 108 mmol/L [facility] Carbon Dioxide 27 22 - 29 mmol/L [facility] Anion Gap 13 12 - 20 [facility] Urea Nitrogen (BUN) 19(H) 9 - 16 mg/dL [facility] Creatinine, Serum 0.84 0.5 - 1.4 mg/dL [facility] Estimated Glomerular Filt Rate >60 [facility] Comment:Chronic Kidney Disea se: Estimated GFR < 60 mL/min/1.72h2Iopbck Kidney Disease: Estimated GFR < 15 mL/min/1.73m2 Glucose 118(H) 60 - 115 mg/dL [facility] Calcium 9.5 8.4 - 10.2 mg/dL [facility] 12/13/2024 9:40 AM EDT 12/13/2024 11:10 AM EDT us Bethany Mccormick MD LAB BLOOD ORDERABLES Final Result [facility] [address] [place], [place] [phone] * (ABNORMAL) Urinalysis, Complete, with Reflex to Culture (11/30/2024 11:30 AM EDT) Color Urine Yellow [facility] Appearance Urine Clear [facility] PH 6.5 5.0 - 9.0 [facility] Glucose Urine UA Negative Negative mg/dL [facility] Urine Blood Small (1+)(A) Negative [facility] Specific [place] - Urine 1.020 1.005 - 1.025 [facility] Urine Protein Trace Neg-Trace mg/dL [facility] Urine Ketones Negative Negative mg/dL [facility] Nitrite Urine Positive(A) Negative [facility] Leukocyte Esterase Urine Moderate (2+)(A) Negative [facility] RBC Urine 6-10(A) 0 - 2 /HPF [facility] Urine WBC 21-50(A) 0 - 5 /HPF [facility] Urine Squamous Epithelial Cell 0-2 0 - 2 /HPF [facility] Urine Bacteria 2+ None Seen [facility] Hyaline Casts, Urine 0-2 0 - 2 /LPF [facility] Urine 11/30/2024 11:3 0 AM EDT 11/30/2024 1:19 PM EDT Narrative [facility] - 11/30/2024 1:29 PM EDT Urine, Clean Catch Bethany Mccormick MD LAB URINE ORDERABLES Final Result Performing Organization Address City/[facility]/ZIP Co de Phone Number [facility] [address] [place] [phone] * PSA,Total (11/30/2024 11:30 AM EDT) Prostate Specific Antigen 0.60 <0.05 - 4.0 ng/mL [facility] Comment:PSA methodology: Maral Mena i ChemiluminescentMicroparticle Immunoassay (CMIA) Blood Venous blood specimen / Unknown 11/30/2024 11:30 AM EDT 11/30/2024 1:26 PM EDT Bethany Mccormick MD LAB BLOOD ORDERABLES Final Result Performing Organization Address [facility] Co de Phone Number [facility] [address] [place] [phone] * Culture, Urine, Routine (11/30/2024 12:00 AM EDT) Urine Urine specimen obtained by clean catch procedure / Unknown 11/30/2024 11/30/2024 Comment:UACC Narrative [facility] - 12/02/2024 8:50 AM EDT Citrobacter koseri Quant > 100,000 cfu/mL Citrobacter koseri: Cefazolin <=1(S) Citrobacter koseri: Cefepime <=0.12(S) Citrobacter koseri: Ceftriaxone <=0.25(S) Citrobacter koseri: Ciprofloxacin <=0.06(S) Citrobacter koseri: Gentamicin <=1(S) Citrobacter koseri: Nitrofurantoin <=16(S) Citrobacter koseri: Trimethoprim/Sulfamethoxazole <=20(S) Specimen Source: Urine clean catch Bethany Mccormick MD LAB MICROBIOLOGY - GENERAL ORDERABLES Final Result [facility] [address] [place] [phone] * POCT A1C (01/26/2024 2:46 PM EDT) Hemoglobin A1C 5.1 4.0 - 6.0 % QC Media Lot # [id number] Lot# Expiration Date Blood 01/26/2024 2:46 PM EDT Bethany Mccormick MD POINT OF CARE TEST ENTER/E DIT ORDERABLES Final Result * Lipid Panel, Standard (09/17/2023 11:50 AM EST) Triglycerides 85 <150 mg/dL [facility] Comment:Desirable Triglyceri de: less than [...] 190 mg/dL HDL Cholesterol 60 >40 mg/dL [facility] Comment:Desirable HDL: great er than 40 mg/dL Note: This HDL assay may give artificially low results in patients with liver disease. Blood Venous blood specimen / Unknown 09/17/2023 11:50 AM EST 09/17/2023 1:26 PM EST Bethany Mccormick MD LAB BLOOD ORDERABLES Final Result [facility] [address] [place] [phone] * (ABNORMAL) Hm Colonoscopy (11/25/2022) Colonoscopy Abnormal(A ) Normal Jose Ramon Provider HEALTH MAINTENANCE Final Result * Hepatitis C Antibody with Reflex to HCV, RNA, Quantitative, Real-Time PCR (10/06/2022 8:42 AM EST) Hepatitis C Antibody NON-REACT MIRA NON-REACT MIRA [facility] Index 0.07 <1.00 [facility] Comment: HCV antibody was non-reactive. There is no laboratory evidence of HCV infection. In most cases, no further action is required. However, if recent HCV exposure is suspected, a test for HCV RNA (test code 68101) is suggested. For additional information please refer to http://education.[employer]Spice/faq/CHA72j9 (This link is being provided for informational/ educational purposes only.) Blood Venous blood specimen / Unknown 10/06/2022 8:42 AM EST 10/06/2022 8:43 AM EST Narrative [facility] - 10/09/2022 12:25 AM EST FASTING:YES FASTING: YES Bethany Mccormick MD LAB BLOOD ORDERABLES Final Result [facility] [address], [place] [phone] [employer] [place] [employer] [address] [facility], ([address]) [place] [address] from Last 3 Months or Most Recently Relevant to Health Maintenance [place] [address] [place] [address] [facility] DETENTION OPTIONS (HMO D-SNP) Advance Directives Documents on File Type Date Recorded Patient Inspector Purchased Parts Expl anation Power of Chain Sales Consultant 09/21/2023 HealthCare Proxy 09/17/23 Care Teams Health Records Technology Teacher Relationship Specialty Start Date End Date [place], MD Bethany [address] [place] [address] PCP - General Family Medicine 09/10/22 Jennifer Kramer, PharmD [address] [place] [address] Pharmacist Internal Medicine 12/04/24 Irineo Arevalo MD [address] [place] [address] Urology 12/13/24 Chris Edmond [address] [place] [phone] Podiatry 01/25/25 Dr. Bassem Shahid [address] [address] Cardiology 11/30/24 Rubin Gupta DO Electrophysiology Cardiology [address] [place] [phone] Electrophysiology 12/15/24
== END 2025-02-09 10:01 | disposition home or self-care (01) ==
LOC: HO.HUSH 08:57
PROVIDERS: Visit Provider Urology
DX: R39.9 Unspecified symptoms and signs involving the genitourinary system (principal); N39.0 Urinary tract infection, site not specified; N40.1 Benign prostatic hyperplasia with lower urinary tract symptoms; R31.9 Hematuria, unspecified

== ENCOUNTER 2025-02-09 08:57 | Outpatient (REF) | payer OTHER, SELFPAY ==
[2025-02-09 16:32] LABS: Urine Cytology See Pathology rpt
== END 2025-02-09 08:58 | disposition home or self-care (01) ==
LOC: HO.LNP 08:57
PROVIDERS: Visit Provider Urology
DX: N40.1 Benign prostatic hyperplasia with lower urinary tract symptoms (principal); N13.8 Other obstructive and reflux uropathy; R31.9 Hematuria, unspecified; N39.0 Urinary tract infection, site not specified; R39.9 Unspecified symptoms and signs involving the genitourinary system
CPT/HCPCS: 81003; 88112

== ENCOUNTER 2025-02-26 08:07 | Outpatient (REF) | payer OTHER, SELFPAY ==
--- OUTSIDE RECORDS SUMMARY | 2025-02-26 08:12 | XMS_ITS | Clinical Summary ---
Author Organization [employer] Address [address] [place] [address] Care Team Providers Care Lead Application Architect Name Role Phone Bethany Mccormick MD Primary Care Provider + [phone] Jennifer Kramer PharmD Unavailable Irineo Arevalo MD Unavailable [phone] Chris Edmond Unavailable Kelly Cho MD Unavailable Allergies No known active allergies Medications [...] the morning. 90 tablet 3 024 Active FLUoxetine (PROzac) 20 MG capsuleIndicati ons:Major depressive disorder, recurrent episode, mild (CMS/HCC) Take 1 capsule (20 mg) by mouth Once per day. 90 capsule 3 024 Active spironolactone (Aldactone) 25 MG tabletIndicatio ns:Primary [...] or shortness of breath. 18 g 1 025 Active Spacer/Aero-Hol ding Chambers (OptiChamber Anushka) misc 1 each every 4 (four) hours if needed (asthma). 1 each 025 Active gabapentin (Neurontin) 300 MG capsuleIndicati ons:Bilateral foot pain Take 1 capsule (300 mg) by mouth 2 times daily. 190 capsule 3 025 Active albuterol (2.5 MG/3ML) 0.083% nebulizer solutionIndicat ions:Mild intermittent asthma with acute exacerbation INHALE 1 AMPULE USING A NEBULIZER EVERY 6 HOURS NEEDED FOR WHEEZING OR SHORTNESS OF BREATH 90 mL 1 025 Active gabapentin (Neurontin) 300 MG capsuleIndicati ons:Bilateral foot pain Take 1 capsule (300 mg) by mouth 2 times daily. 190 capsule 3 025 06/06/ 2025 Discontinued(R eorder (will not trigger notification to Pharmacy)) albuterol (2.5 MG/3ML) 0.083% nebulizer solutionIndicat ions:Mild intermittent asthma with acute exacerbation Take 3 mL (2.5 mg) by nebulization every 6 (six) hours if needed for wheezing or shortness of breath. 75 mL 1 025 2024 Discontinued Active Problems Problem Noted Date Diagnosed Date Mild intermittent asthma with acute exacerbation 01/10/2025 Overview (02/21/2025): Continue Assessment & Plan (02/21/2025 2:03 PM EDT): Continue albuterol 108 (90 Base) MCG/ACT inhaler PRN Continue albuterol (2.5 MG/3ML) 0.083% nebulizer solution PRN Urinary hesitancy 11/30/2024 Overview (02/21/2025): Reports frequent urinary hesitancy episodes. -ordered PSA and UA + Culture 11/30/24 -referred to Urology 11/30/[address] Howard with Urology. -Has scheduled bladder US and follow-up. 02/21/25 Assessment & Plan (02/21/2025 2:03 PM EDT): Reports frequent urinary hesitancy episodes. -ordered PSA and UA + Culture 11/30/24 -referred to Urology 11/30/[address] Howard with Urology. -Has scheduled bladder US and follow-up. 02/21/25 Assessment & Plan (11/30/2024 11:06 AM EDT): Reports frequent urinary hesitancy episodes. -ordered PSA and UA + Culture 11/30/24 -referred to Urology 11/30/24 Acute cystitis without hematuria 11/30/2024 Overview (12/13/2024): 11/30/24: Citrobacter koseri > 100,000 cfu/mL, olvera sensitive -treated with keflex x 7 day, symptoms resolved. Assessment & Plan (12/13/2024 10:10 AM EDT): 11/30/24: Citrobacter koseri > 100,000 cfu/mL, olvear sensitive -treated with keflex x 7 day, symptoms resolved. Class 2 severe obesity due t o excess calories with serious comorbidity and body mass index (BMI) of 39.0 to 39.9 in adult 10/02/2024 Overview (11/30/2024): Discussed weight, diet, exercise with patient in relation to health conditions. Used motivational interviewing to illicit change talk and established initial goals with patient. Assessment & Plan (02/21/2025 2:03 PM EDT): Discussed weight, diet, exercise with patient in relation to health conditions. Used motivational interviewing to illicit change talk and established initial goals with patient. Assessment & Plan (11/30/2024 10:57 AM EDT): Discussed weight, diet, exercise with patient in relation to health conditions. Used motivational interviewing to illicit change talk and established initial goals with patient. Major depressive disorder, recurrent episode, mi ld 09/06/2024 Overview (11/30/2024): Denies suicidial or homacidial ideation. Therapist and psychiatrist offered. -referred to [facility] 11/30/24 Assessment & Plan (11/30/2024 11:12 AM EDT): Denies suicidial or homacidial ideation. Therapist and psychiatrist offered. 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 Status post fall. Reportedly tripped on [...] EST): - Seen on 06/15/24 at [facility]. Status post fall. Reportedly tripped on [...] 05/24/2023 Other specified health status 01/12/2023 Overview (02/21/2025): -next comprehensive annual evaluation due after 02/21/26 -eye care last seen on 11/19, followed by Dr. Naveen Dunn of [facility] -dental is in comins -health care proxy on file 09/17/23 Assessment & Plan (02/21/2025 2:03 PM EDT): -next comprehensive annual evaluation due after 02/21/26 -eye care last seen on 11/19, followed by Dr. Naveen Dunn of [facility] -dental is in [place] -[facility] proxy on file 09/17/23 Assessment & Plan (05/22/2024 10:54 AM EDT): -next comprehensive annual evaluation due after 01/25/25 -eye care last seen on 11/19, followed by Dr. Naveen Dunn of [facility] -dental is in [place] -[facility] proxy on file 09/17/23 Assessment & Plan (01/26/2024 11:24 AM EDT): -Next physical due after 10/01/2023 -Eye care last seen on 11/19 -Dental is in comins -[facility] proxy on file 09/17/23 Assessment & Plan (09/17/2023 11:07 AM EST): -Next physical due after 10/01/2023 -Eye care last seen on 11/19 -Dental is in comins -[facility] proxy paperwork given 09/17/23 Right [...] done 11/18/22. Gout 10/02/2022 Dyslipidemia 10/02/2022 Overview (02/21/2025): Lab Results Component Value Date CHOL 146 09/17/2023 TRIG 85 09/17/2023 TRIG 95 10/06/2022 HDL 60 09/17/2023 LDLCHOLCAL 69 09/17/2023 -LDL is at goal of < 100 -continue lifestyle modifications -continue atorvastatin 10mg -ordered repeat HFP and FLP 02/21/25 Assessment & Plan (02/21/2025 2:03 PM EDT): Lab Results Component Value Date CHOL 146 09/17/2023 TRIG 85 09/17/2023 TRIG 95 10/06/2022 HDL 60 09/17/2023 LDLCHOLCAL 69 09/17/2023 -LDL is at goal of < 100 -continue lifestyle modifications -continue atorvastatin 10mg -ordered repeat HFP and FLP 02/21/25 Orders: Hepatic Function Panel; Future Lipid Panel, Standard; Future Assessment & Plan (12/13/2024 10:07 AM EDT): [...] atorvastatin 10mg BPH (benign prostatic hyperplasia) 10/02/2022 Overview (02/21/2025): Reports frequent urinary hesitancy episodes. -ordered PSA and UA + Culture 11/30/24 -referred to Urology 11/30/[address] Howard with Urology. -Has scheduled bladder US and follow-up. 02/21/25 Assessment & Plan (02/21/2025 2:03 PM EDT): Reports frequent urinary hesitancy episodes. -ordered PSA and UA + Culture 11/30/24 -referred to Urology 11/30/[address] Howard with Urology. -Has scheduled bladder US and follow-up. 02/21/25 Deaf 10/02/2022 Overview (03/15/2024): -Patient needs police liaison officer for all visits. Please make note of this in any referrals. -Audiology at [facility] -has appropriate assistive devices in home including fire alarm with light Patient walked in with PT1 denial letter for [employer]. The letter says it was denied because '[employer]' does not participate with medicaid. Patient showed FD appointment reminder for '[facility]' set for 04/28/2024 at 10am. FD called '[employer]' to ask if the accept Patient insurance or if they can provide on time transpiration. '[employer]' advised they do not accept Patient insurance [...] placed to audiology 03/15/24 Assessment & Plan (02/21/2025 2:03 PM EDT): -Patient needs police liaison officer for all visits. Please make note of this in any referrals. -Audiology at [facility] -has appropriate assistive devices in home including [...] Plan (11/30/2024 10:58 AM EDT): -Patient needs police liaison officer for all visits. Please make note of this in any referrals. -Audiology at [facility] -has appropriate assistive devices in home including [...] Plan (07/11/2024 10:43 AM EST): -Patient needs police liaison officer for all visits. Please make note of this in any referrals. -Audiology at [facility] -has appropriate assistive devices in home including [...] Plan (05/22/2024 10:53 AM EDT): -Patient needs police liaison officer for all visits. Please make note of this in any referrals. -Audiology at [facility] -has appropriate assistive devices in home including [...] Plan (01/26/2024 11:23 AM EDT): -Patient needs police liaison officer for all visits. Please make note of this in any referrals. -Audiology at [facility] -has appropriate assistive devices in home including fire alarm with light Assessment & Plan (09/17/2023 9:50 AM EST): -[place]an Sign Language Assessment & Plan (10/02/2022 12:38 PM EST): -[place] Sign Language used during visit PVD (peripheral vascular disease) 10/02/2022 Overview (10/02/2022): -doppler 04/19/2021 in [place] revealed evidence of bilateral common femoral and popliteal venin valves incompetence Assessment & Plan (02/21/2025 2:03 PM EDT): -doppler 04/19/2021 in [place] revealed evidence of [...] venin valves incompetence Arterial atherosclerosis 10/02/2022 Overview (02/21/2025): -unspecified cardiothoracic surgery (congential malformations ) in 1965 -Cardiac cath in [place] 07/05/2020 for chest pain and noted to have normal coronaries without any evidence of atherosclerosis -atrail flutter status post CTI ablation in 2021 on anticoagulation still -14 day Zio patch to monitor for aflutter Aug 2024 found evidence of sinus pauses and evidence of complete heart block, first degree AV block, 1 run SVT lasting 8 beats -seen by [facility] cardiology with Dr. Juan Luis Gonzalez MD: [...] estimation is 29 mmhg + CVP. Called [facility], spoke with Alyssa. Pt scheduled for EP consult on 02/08/25 at 1:45pm with Rubin Gupta DO at [address] [place] [address], [address], [place] [address]. Pt does not have sleep study scheduled yet. Message was sent to cards team to inquire if this will be scheduled via cardiology or if needs to be ordered by PCP. -last seen by [facility] 11/09/24, reports follow up for 02/15/25 Had sleep study done -Follow-up appt with Cardiology 03/28/25 Assessment & Plan (02/21/2025 2:03 PM EDT): -unspecified cardiothoracic surgery (congential malformations ) in 1965 -Cardiac cath in [place] 07/05/2020 for chest pain and noted to have normal coronaries without any evidence of atherosclerosis -atrail flutter status post CTI ablation in 2021 on anticoagulation still -14 day Zio patch to monitor for aflutter Aug 2024 found evidence of sinus pauses and evidence of complete heart block, first degree AV block, 1 run SVT lasting 8 beats -seen by [facility] cardiology with Dr. Juan Luis Gonzalez MD: [...] estimation is 29 mmhg + CVP. Called [facility], spoke with Alyssa. Pt scheduled for EP consult on 02/08/25 at 1:45pm with Rubin Gupta DO at [address] [place] [address], [address], [place] [address]. Pt does not have sleep study scheduled yet. Message was sent to cards team to inquire if this will be scheduled via cardiology or if needs to be ordered by PCP. -last seen by [facility] 11/09/24, reports follow up for 02/15/25 Had sleep study done -Follow-up appt with Cardiology 03/28/25 Assessment & Plan (07/11/2024 10:40 AM EST): -Cardiac cath in [place] 07/05/2020 for chest pain and noted to have normal coronaries without any evidence of atherosclerosis Assessment & Plan (09/17/2023 9:50 AM EST): -Cardiac cath in [place] 07/05/2020 for chest pain and noted to have normal coronaries without any evidence of atherosclerosis Prediabetes 10/02/2022 Overview (02/21/2025): Lab Results Component Value Date HGBA1C 5.1 01/26/2024 HGBA1C 5.4 09/17/2023 HGBA1C 5.7 09/17/2023 HGBA1C 5.7 (H) 10/06/2022 GLUCOSE 118 (H) 12/13/2024 -Lifestyle modification discussed -Ordered repeat A1c 02/21/25 Assessment & Plan (02/21/2025 2:03 PM EDT): Lab Results Component Value Date HGBA1C 5.1 01/26/2024 HGBA1C 5.4 09/17/2023 HGBA1C 5.7 09/17/2023 HGBA1C 5.7 (H) 10/06/2022 GLUCOSE 118 (H) 12/13/2024 -Lifestyle modification discussed -Ordered repeat A1c 02/21/25 Orders: Hemoglobin A1c; Future Assessment & Plan (07/11/2024 11:51 AM EST): [...] 10/02/2022 Hx of hypertrophic cardiomyopathy 10/02/2022 Overview (02/21/2025): -Hx cardiac cath 07/05/2020 in [place] with [...] will discontinue apixaban -repeat Echo ordered 05/04/24 -last seen by [facility] 11/09/24, reports follow up for 02/15/25 Had sleep study done -Follow-up appt with Cardiology 03/28/25 Assessment & Plan (02/21/2025 2:03 PM EDT): -Hx cardiac cath 07/05/2020 in [place] [...] will discontinue apixaban -repeat Echo ordered 05/04/24 -last seen by [facility] Card[facility] 11/09/24, reports follow up for 02/15/25 Had sleep study done -Follow-up appt with Cardiology 03/28/25 Assessment & Plan (05/22/2024 10:54 AM EDT): [...] -euvolemic on exam Atrial flutter 10/02/2022 Overview (02/21/2025): Noted in [place] during ECG for palpitations. -[id number] of 1 -s/p CTI ablation 09/22/2021 with good results -on Eliquis (apixaban) -seen by [facility] cardiology Dr. Myra Feliciano MD 12/13/2022 recommending 6 month follow up -Cardiology note from 05/04/24 reviewed Recommends Zio path for 24 days, if no further aflutter episodes will discontinue apixaban -repeat Echo ordered -last seen by [facility] Card[facility] 11/09/24, reports follow up for 02/15/25 Had sleep study done -Follow-up appt with Cardiology 03/28/25 Assessment & Plan (02/21/2025 2:03 PM EDT): Noted in [place] during ECG for palpitations. -[id number] of 1 -s/p CTI ablation 09/22/2021 with good results -on Eliquis (apixaban) -seen by [facility] cardiology Dr. Myra Feliciano MD 12/13/2022 recommending 6 month follow up -Cardiology note from 05/04/24 reviewed Recommends Zio path for 24 days, if no further aflutter episodes will discontinue apixaban -repeat Echo ordered -last seen by [facility] Card[facility] 11/09/24, reports follow up for 02/15/25 Had sleep study done -Follow-up appt with Cardiology 03/28/25 Assessment & Plan (11/30/2024 11:13 AM EDT): Noted in [place] during ECG for palpitations. -[id number] of 1 -s/p CTI ablation 09/22/2021 with good results -on Eliquis (apixaban) -seen by [facility] cardiology Dr. Myra Feliciano MD 12/13/2022 recommending 6 month follow up -Cardiology note from 05/04/24 reviewed Recommends Zio path for 24 days, if no further aflutter episodes will discontinue apixaban -repeat Echo ordered Assessment & Plan (05/22/2024 10:53 AM EDT): Noted in [place] during ECG for palpitations. -[id number] of 1 -s/p CTI ablation 09/22/2021 with good results -on Eliquis (apixaban) -seen by [facility] cardiology Dr. Myra Feliciano MD 12/13/2022 recommending 6 month follow up -has not been to see red hat engineer since, referred back again today 05/22/24. Assessment & Plan (01/26/2024 11:23 AM EDT): Noted in [place] during ECG for palpitations. -[id number] of 1 -s/p CTI ablation 09/22/2021 with good results -on Eliquis (apixaban) -seen by [facility] cardiology Dr. Myra Feliciano MD 12/13/2022 recommending 6 month follow up Assessment & Plan (09/17/2023 9:52 AM EST): Noted in [place] during ECG for palpitations. -[id number] of 1 -s/p CTI ablation 09/22/2021 with good results -on Eliquis (apixaban) -seen by [facility] cardiology Dr. Myra Feliciano MD 12/13/2022 recommending 6 month follow up Assessment & Plan (05/31/2023 12:55 PM EDT): Noted in [place] during ECG for palpitations. -[id number] of 1 -s/p CTI ablation 09/22/2021 with good results -on Eliquis (apixaban) -seen by [facility] cardiology Dr. Myra Feliciano MD 12/13/2022 recommending [...] with our PharmD, DINO 11/30/24 -Follows with [facility] cardiology Dr. Myra Feliciano MD Assessment & Plan (02/21/2025 2:03 PM EDT): -Blood pressure is at goal -Continue lifestyle modifications -Continue current medications -Continue Lisinopril 10 mg 11/30/24 -Re-referred to [facility] with our DINO Thompson 11/30/24 -Follows with [facility] cardiology Dr. Myra Feliciano MD Orders: Albumin, Random Urine W/Creatinine; Future Basic Metabolic Panel; Future Assessment & Plan (12/13/2024 10:07 AM EDT): -Blood pressure is at goal -Continue lifestyle modifications -Continue current medications -Continue Lisinopril 10 mg 11/30/24 -Re-referred to [facility] with our PharmDINO Teixeira 11/30/24 -Follows with [facility] cardiology Dr. Myra Feliciano MD Assessment & Plan (11/30/2024 11:09 AM EDT): -Blood pressure is not at goal, not currently on any medications 11/30/24 -Continue lifestyle modifications -Continue current medications -Referred to [facility] with our DINO Thompson 07/10/24 -Start Lisinopril 10 mg 11/30/24 -Re-referred to [facility] with our DINO Thompson 11/30/24 -Follows with [facility] cardiology Dr. Myra Feliciano MD Assessment & [...] Problem Noted Date Diagnosed Date Resolved Date Mixed stress and urge urinary incontinence 02/21/2025 02/21/2025 Overview (02/21/2025): Reports frequent urinary hesitancy episodes. -ordered PSA and UA + Culture 11/30/24 -referred to Urology 11/30/[address] Howard with Urology. -Has scheduled bladder US and follow-up. 02/21/25 Assessment & Plan (02/21/2025 10:52 AM EDT): Follows with Dr. Howard with Urology. -Has scheduled bladder US and follow-up. 02/21/25 Exercise counseling 10/02/2024 02/22/20 Assessment & Plan (11/30/2024 10:57 AM EDT): [...] in added sugars, saturated fat, and sodium. Homeless 09/17/2023 01/26/2024 Venous stasis 05/31/2023 01/25/2025 [...] 6 in [place] for unknown reason Encounters * This document contains information received from the source organization and may not represent a complete record from that organization. Date Type Department Care Team Description 02/22/[address] [facility] [address] [place] [address] Robert Figueredo MD Mild intermittent asthma with acute exacerbation 02/21/2025 10:30 AM EDT Office Visit [facility] [address] [place] [address] Bethany Mccormick MD Primary hypertension (Primary Dx); Mild intermittent asthma with acute exacerbation; Hx of hypertrophic cardiomyopathy; Atrial flutter, unspecified type (CMS/HCC); Arterial atherosclerosis; PVD (peripheral vascular disease) (CMS/HCC); Prediabetes; Dyslipidemia; Urinary hesitancy; Benign prostatic hyperplasia with urinary hesitancy; Bilateral deafness; Class 2 severe obesity due to excess calories with serious comorbidity and body mass index (BMI) of 39.0 to 39.9 in adult ([facility]); Dietary counseling; Exercise counseling; Other specified health status 02/21/[address] [address] Bethany Mccormick MD Results; Referral 02/21/2025 Travel 02/20/[address] [address] Bethany Mccormick MD CHART PREP 02/13/2025 Patient Outreach [facility] [address] [place], [place] [id number] Bethany Mccormick MD Pre-visit Planning ([facility] unable to reach [facility]) 02/02/[address] [address] Bethany Mccormick MD Bilateral foot pain 02/02/2025 Travel 01/10/2025 11:20 AM EDT Office Visit [facility] [address] [place] [id number] Robert Figueredo MD Parainfluenza type 1 infection (Primary Dx); Mild intermittent asthma with acute exacerbation; Viral URI 01/09/[address] [address] Bethany Mccormick MD Medication Question 01/01/[address] [address] Bethany Mccormick MD 01/01/2025 Travel 12/27/2024 Orders Only [address] [address] Bethany Mccormick MD 12/26/2024 10:30 AM EDT Clinical Support [address] [address] Kathya Rm, RN Encounter for tuberculin skin test 12/26/2024 Travel 12/25/[address] [address] Bethany Mccormick MD TSPOT invalid; Appointment Request 12/19/2024 [address] [place] [address] Bethany Mccormick MD Lab Orders; Results 12/19/2024 Orders Only [facility] [address] [place], [place] [address] [address] Bethany Mccormick MD Screening-pulmonary TB (Primary Dx) 12/19/2024 Telephone [facility] [address] [place] [address] Bethany Mccormick MD 12/13/2024 9:15 AM EDT Office Visit [address] [place] [address] Bethany Mccormick MD Bilateral deafness (Primary Dx); Dyslipidemia; Primary hypertension; Acute cystitis without hematuria; Prediabetes 12/13/2024 Orders Only [address] [address] Bethany Mccormick MD 12/13/[address] [address] Bethany Mccormick MD Medication Question 12/13/[address] [address] Bethany Mccormick MD 12/13/2024 Travel 12/12/[address] [address] Bethany Mccormick MD Lab Orders 12/04/2024 Travel 11/30/2024 9:45 AM EDT Office Visit [address] [address] Bethany Mccormick MD Primary hypertension (Primary Dx); Atrial flutter, unspecified type (CMS/HCC); Bilateral foot pain; Urinary hesitancy; Acute cystitis without hematuria; Major depressive disorder, recurrent episode, mild (CMS/HCC); Class 2 severe obesity due to excess calories with serious comorbidity and body mass index (BMI) of 39.0 to 39.9 in adult (CMS/HCC); Dietary counseling; Exercise counseling; Bilateral deafness 11/30/2024 Orders Only [facility] [address] [place] [address] Bethany Mccormick MD 11/30/[address] [address] Bethany Mccormick MD Results 11/30/[address] [id number] Bethany Mccormick MD 11/27/[address] [address] Bethany Mccormick MD chartprep from Last 3 Months Immunizations Immunization Administration [...] Sign Reading Time Taken Comments Blood Pressure 110/58 02/21/2025 10:28 AM EDT Pulse 58 02/21/2025 10:28 AM EDT Temperature 36.1 C (96.9 F) 02/21/2025 10:28 AM EDT Respiratory Rate 20 02/21/2025 10:28 AM EDT Oxygen Saturation 98% 02/21/2025 10:28 AM EDT Inhaled Oxygen Concentration - - Weight 134 kg (296 lb 3.2 oz) 02/21/2025 10:28 A M EDT Height 185.4 cm (6' 1 ) 02/21/2025 10:28 AM EDT Body Mass Index 39.08 02/21/2025 10:28 AM EDT Plan of Treatment Upcoming Encounters Date Type Department Care Team (Late st Contact Info) Description 05/28/2025 10:45 AM EDT Office Visit [facility] [address] [place] [address] Bethany Mccormick MD [address] [place] [address] Health Maintenance Due Date Last Done Comments CT Colonography 1959 FIT DNA/Cologuard 1959 FIT 1959 FOBT 1959 Sigmoidoscopy 1959 Diabetes: Hemoglobin A1C 01/25/2025 024, 09/17/2023, 09/17/2023, Additional history exists Alcohol/Substance Use Screening 07/10/2025 07/10/2024 SDOH Screening 09/19/2025 09/19/2024 Colonoscopy 11/25/2025 11/25/2022 Colorectal Cancer Screening 11/25/2025 Depression Screening 11/30/2025 11/30/2024, 12/01/19 25 COVID-19 Vaccine ( season) 2026 05/22/2024, 05/31/2023, 11/18/2022 Postponed from 2024 (Patient Refused) Tobacco Screening 02/21/2026 02/21/2025 Lipid Panel 09/17/2028 09/17/2023, 10/06/2022 DTaP/Tdap/Td Vaccines [...] NOW Rapid Molecular) (01/10/2025 11:46 AM EDT) Influenza B Negative Negative, Indeterminate [facility] Swab 01/10/2025 11:4 6 AM EDT us Robert Figueredo MD POINT OF CARE TEST ENTER/EDIT OR DERABLES Final Result Performing Organization Address [facility] Co de Phone Number [facility] [address] [place] [phone] * Influenza A (ID NOW Rapid Molecular) (01/10/2025 11:46 AM EDT) Influenza A Negative Negative, Indeterminate [facility] Swab 01/10/2025 11:4 6 AM EDT us Robert Figueredo MD POINT OF CARE TEST ENTER/EDIT OR DERABLES Final Result Performing Organization Address [facility] Co de Phone Number [facility] [address] [place] [phone] * POCT Rapid COVID Ag (01/10/2025 11:46 AM EDT) Rapid COVID Ag Negative [facility] Swab 01/10/2025 11:4 6 AM EDT Robert Figueredo MD POINT OF CARE TEST ENTER/EDIT OR DERABLES Final Result [facility] [address] [place] [phone] * TB Skin Test (12/28/2024 10:15 AM EDT) TB Skin Test Negative Negative Other 12/28/2024 10:1 5 AM EDT Bethany Mccormick MD POINT OF CARE TEST ENTER/E DIT ORDERABLES Final Result * T-SPOT??.TB (12/20/2024 8:41 AM EDT) Only the most recent of2 resultswithin the time period is included. T Spot TB Invalid Negative [facility] Comment:The test result is i nvalid [...] of the patient.For additional information, please refer tohttp://education.[employer]/faq/VEO727(This link is being provided for informational/educational purposes only.)THIS TEST WAS PERFORMED AT:[employer] [id number] [place] [id number] FULTON MD,PHD TS PANEL A [facility] Comment:NOTIFIED [facility] 12/25 AT 1205 FORREORDER AND RECOLLECT. TS PANEL B [facility] Comment:NOTIFIED [facility] 12/25 AT 1205 FORREORDER AND RECOLLECT. Negative Control [facility] Comment:NOTIFIED [facility] 12/25 AT 1205 FORREORDER AND RECOLLECT. Positive Control [facility] Comment:NOTIFIED [facility] 12/25 AT 1205 FORREORDER AND RECOLLECT. 12/20/2024 8:41 AM EDT 12/20/2024 11:27 AM EDT Bethany Mccormick MD LAB BLOOD ORDERABLES Final Result Performing Organization Address [facility]/ZIP Co de Phone Number [facility] [address] [place] [phone] * (ABNORMAL) Albumin, Random Urine W/Creatinine (12/13/2024 9:40 AM EDT) Creatinine, Urine 92.16 mg/dL [facility] Microalbumin Urine 54.0 mg/L [facility] Microalbum Creatinine Ratio Ur 58.5(H) <30 ug/mg cr [facility] Comment:Albumin/Creatinine R atio Reference Ranges: Normal: < 30 ug/mg creatinine Microalbuminuria: 30 - 300 ug/mg creatinineClinical Albuminuria: > 300 ug/mg creatinine 12/13/2024 9:40 AM EDT 12/13/2024 11:09 AM EDT Bethany Mccormick MD LAB URINE ORDERABLES Final Result Performing Organization Address [facility]/ZIP Co de Phone Number [facility] [address] [place] [address] [phone] * (ABNORMAL) Basic Metabolic Panel (12/13/2024 9:40 AM EDT) Sodium 136 135 - 145 mmol/L [facility] Potassium 4.5 3.3 - 5.1 mmol/L [facility] Chloride 101 96 - 108 mmol/L [facility] Carbon Dioxide 27 22 - 29 mmol/L [facility] Anion Gap 13 12 - 20 [facility] Urea Nitrogen (BUN) 19(H) 9 - 16 mg/dL [facility] Creatinine, Serum 0.84 0.5 - 1.4 mg/dL [facility] Estimated Glomerular Filt Rate >60 [facility] Comment:Chronic Kidney Disea se: Estimated GFR < 60 mL/min/1.51r3Lbhlel Kidney Disease: Estimated GFR < 15 mL/min/1.73m2 Glucose 118(H) 60 - 115 mg/dL [facility] Calcium 9.5 8.4 - 10.2 mg/dL [facility] 12/13/2024 9:40 AM EDT 12/13/2024 11:10 AM EDT us Bethany Mccormick MD LAB BLOOD ORDERABLES Final Result [facility] [address] [place] [phone] * (ABNORMAL) Urinalysis, Complete, with Reflex to Culture (11/30/2024 11:30 AM EDT) Color Urine Yellow [facility] Appearance Urine Clear [facility] PH 6.5 5.0 - 9.0 [facility] Glucose Urine UA Negative Negative mg/dL [facility] Urine Blood Small (1+)(A) Negative [facility] Specific [place] - Urine 1.020 1.005 - 1.025 [facility] Urine Protein Trace Neg-Trace mg/dL [facility] Urine Ketones Negative Negative mg/dL [facility] Nitrite Urine Positive(A) Negative [facility] Leukocyte Esterase Urine Moderate (2+)(A) Negative [facility] RBC Urine 6-10(A) 0 - 2 /HPF [facility] Urine WBC 21-50(A) 0 - 5 /HPF [facility] Urine Squamous Epithelial Cell 0-2 0 - 2 /HPF [facility] Urine Bacteria 2+ None Seen [facility] Hyaline Casts, Urine 0-2 0 - 2 /LPF [facility] Urine 11/30/2024 11:3 0 AM EDT 11/30/2024 1:19 PM EDT Narrative [facility] - 11/30/2024 1:29 PM EDT Urine, Clean Catch Bethany Mccormick MD LAB URINE ORDERABLES Final Result Performing Organization Address City/[facility]/ZIP Co de Phone Number [facility] [address] [place] [phone] * PSA,Total (11/30/2024 11:30 AM EDT) Prostate Specific Antigen 0.60 <0.05 - 4.0 ng/mL [facility] Comment:PSA methodology: Maral Mena i ChemiluminescentMicroparticle Immunoassay (CMIA) Blood Venous blood specimen / Unknown 11/30/2024 11:30 AM EDT 11/30/2024 1:26 PM EDT Bethany Mccormick MD LAB BLOOD ORDERABLES Final Result Performing Organization Address [facility] Co de Phone Number [facility] [address] [place] [phone] * Culture, Urine, Routine (11/30/2024 12:00 AM EDT) Urine Urine specimen obtained by clean catch procedure / Unknown 11/30/2024 11/30/2024 Comment:UACC Narrative [facility] - 12/02/2024 8:50 AM EDT Citrobacter koseri Quant > 100,000 cfu/mL Citrobacter koseri: Cefazolin <=1(S) Citrobacter koseri: Cefepime <=0.12(S) Citrobacter koseri: Ceftriaxone <=0.25(S) Citrobacter koseri: Ciprofloxacin <=0.06(S) Citrobacter koseri: Gentamicin <=1(S) Citrobacter koseri: Nitrofurantoin <=16(S) Citrobacter koseri: Trimethoprim/Sulfamethoxazole <=20(S) Specimen Source: Urine clean catch us Bethany Mccormick MD LAB MICROBIOLOGY - GENERAL ORDERABLES Final Result [facility] [address] [place] [phone] * POCT A1C (01/26/2024 2:46 PM EDT) Hemoglobin A1C 5.1 4.0 - 6.0 % QC Media Lot # [id number] Lot# Expiration Date Blood 01/26/2024 2:46 PM EDT Bethany Mccormick MD POINT OF CARE TEST ENTER/E DIT ORDERABLES Final Result * Lipid Panel, Standard (09/17/2023 11:50 AM EST) Triglycerides 85 <150 mg/dL [facility] Comment:Desirable Triglyceri de: less than 150 mg/dLBorderline High Triglyceride 150-199 mg/dLHigh Triglyceride: 200-499 mg/dLVery High Triglyceride: greater than or equal to 5OO mg/dL Cholesterol 146 <200 mg/dL [facility] Comment:Desirable Cholestero l: less than 200 mg/dLBorderline High Cholesterol: 200-239 mg/dLHigh Cholesterol: greater than 239 mg/dL LDL Cholesterol Calculated 69 <100 mg/dL [facility] Comment:Desirable LDL: less than 100 mg/dLNear Optimal/Above Optimal LDL: 110- 129 mg/dLBorderline High LDL: 130-159 mg/dLHigh LDL: 160-189 mg/dLVery High LDL: greater than or equal to 190 mg/dL HDL Cholesterol 60 >40 mg/dL [facility] Comment:Desirable HDL: great er than 40 mg/dL Note: This HDL assay may give artificially low results in patients with liver disease. Blood Venous blood specimen / Unknown 09/17/2023 11:50 AM EST 09/17/2023 1:26 PM EST Bethany Mccormick MD LAB BLOOD ORDERABLES Final Result [facility] [address] [place] [phone] * (ABNORMAL) Hm Colonoscopy (11/25/2022) Colonoscopy Abnormal(A ) Normal Historical Provider HEALTH MAINTENANCE Final Result * Hepatitis C Antibody with Reflex to HCV, RNA, Quantitative, Real-Time PCR (10/06/2022 8:42 AM EST) Hepatitis C Antibody NON-REACT MIRA NON-REACT MIRA [facility] [place] [facility] Index 0.07 <1.00 [facility] [place] [facility] Comment: HCV antibody was non-reactive. There is no laboratory evidence of HCV infection. In most cases, no further action is required. However, if recent HCV exposure is suspected, a test for HCV RNA (test code 38559) is suggested. For additional information please refer to http://education.[employer].tv/faq/RFM39i9 (This link is being provided for informational/ educational purposes only.) Blood Venous blood specimen / Unknown 10/06/2022 8:42 AM EST 10/06/2022 8:43 AM EST Narrative [facility] - 10/09/2022 12:25 AM EST FASTING:YES FASTING: YES Bethany Mccormick MD LAB BLOOD ORDERABLES Final Result [facility] [address], [place] [phone] [facility] [place] [facility] [address] [facility], ([address]) [place] [phone] from Last 3 Months or Most Recently Relevant to Health Maintenance Insurance [employer] [facility] LONG TERM OPTIONS (HMO D-SNP) Advance Directives Documents on File Type Date Recorded Patient Head Of Academic Technology Expl anation Power of Dermatology Teacher 09/21/2023 HealthCare Proxy 09/17/23 Care Teams Lead Application Architect Relationship Specialty Start Date End Date Beaver, MD Bethany [address] [place] [address] PCP - General Family Medicine 09/10/22 Jennifer Kramer PharmD [address] [place] [address] Pharmacist Internal Medicine 12/04/24 Irineo Arevalo MD [address] [place] [address] Urology 12/13/24 Chris Edmond [address] [place] [phone] Podiatry 01/25/25 Kelly Cho MD [address] [place] [address] Urology 02/21/25 Dr. Bassem Shahid [address] [address] Cardiology 11/30/24 Rubin Gupta DO Electrophysiology Cardiology [address] [address] Electrophysiology 12/15/24
[2025-02-26 11:51] LABS: Creatinine Urine 84.15 mg/dL; Estimated Average Glucose 111 mg/dL; Hemoglobin A1C 150.0502 umol/L; Hemoglobin A1c % 5.5 % (<6.0); Microalbum/Creatinine Ratio Ur 15.4 ug/mg cr (<30)
[2025-02-26 11:53] LABS: Alanine Aminotransferase 48 U/L (0-40); Albumin Level 4.4 g/dL (3.5-5.0); Alkaline Phosphatase 79 U/L (39-117); Anion Gap 12 (12-20); Aspartate Amino Transferase 53 U/L (5-37); Bilirubin Direct 0.4 mg/dL (0.0-0.5); Bilirubin Total 1.1 mg/dL (0.0-1.0); Blood Urea Nitrogen 20 mg/dL (9-16); Calcium 9.6 mg/dL (8.4-10.2); Carbon Dioxide 29 mmol/L (22-29); Chloride 103 mmol/L (96-108); Cholesterol 157 mg/dL (<200); Estimated Glomerular Filt Rate > 60; Glucose Random 110 mg/dL (60-115); HDL Cholesterol 62 mg/dL (>40); LDL Cholesterol Calculated 73 mg/dL (<100); Potassium 5.1 mmol/L (3.3-5.1); Sodium 139 mmol/L (135-145); Total Protein 7.8 g/dL (6.5-8.0); Triglycerides 114 mg/dL (<150)
== END 2025-02-26 08:08 | disposition home or self-care (01) ==
LOC: HO.HHCL 08:07
PROVIDERS: PCP Family Medicine; Visit Provider Family Medicine
DX: I10 Essential (primary) hypertension (principal); R73.03 Prediabetes; E78.5 Hyperlipidemia, unspecified
CPT/HCPCS: 36415; 80048; 80061; 80076; 82043; 82570; 83036

== ENCOUNTER 2025-03-20 12:17 | Outpatient (REF) | payer OTHER, SELFPAY ==
--- NOTE | ~2025-03-20 | US_ITS ---
CLINICAL HISTORY: R31.9 - Hematuria, unspecified US Renal Comparison: None provided Findings: Right kidney normal size and echotexture, 15.2 cm length. Simple appearing lower pole cyst measuring 39 x 35 x 40 mm. Additional echogenic lesion along the cortex in the lower pole which could be an AML measuring 12 x 11 x 8 mm. Left kidney normal size and echotexture, 9.8 cm length. The left kidney is atrophic in appearance with contour lobulation and cortical thinning. Pelvic fullness. Normal color Doppler. IMPRESSION: 1. Atrophic appearing left kidney with pelvic fullness and renal cortical thinning. 2. 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 No prior exams available for comparison. A follow-up ultrasound is recommended in 6 months to assess for stability. Alternatively if there is high clinical concern for malignancy, CT urogram could be performed. This document has been electronically signed by: Kristen Hinton MD on 03/21/2025 11:14:23
--- OUTSIDE RECORDS SUMMARY | 2025-03-20 13:20 | XMS_ITS | Clinical Summary ---
Author Organization [employer] Address [address] [facility] [address] [place] [address] Care Team Providers Care Netsuite Developer Name Role Phone Bethany Mccormick MD Primary Care Provider + [phone] Jennifer Kramer PharmD Unavailable Irineo Arevalo MD Unavailable [phone] Chris Edmond Unavailable Kelly Cho MD Unavailable Allergies No known active allergies Medications * This document contains information received from the source organization and may not represent a complete record from that organization. apixaban (Eliquis) 5 MG tabletIndicatio ns:Atrial flutter, unspecified type (CMS/HCC) Take 1 tablet (5 mg) by mouth 2 times daily. 180 tablet 3 07/10/20 24 Active finasteride (Proscar) 5 MG tabletIndicatio ns:Benign prostatic hyperplasia without lower urinary tract symptoms Take 1 tablet (5 mg) by mouth in the morning. 90 tablet 3 07/10/20 24 Active atorvastatin (Lipitor) 10 MG tabletIndicatio ns:Dyslipidemia Take 1 tablet (10 mg) by mouth at bedtime. 90 tablet 3 07/10/20 24 Active pantoprazole (ProtoNix) 40 MG EC tabletIndicatio ns:Gastroesopha geal reflux disease without esophagitis Take 1 tablet (40 mg) by mouth in the morning. 90 tablet 3 07/10/20 24 Active allopurinol (Zyloprim) 300 MG tabletIndicatio ns:Gout, unspecified cause, unspecified chronicity, unspecified site Take 1 tablet (300 mg) by mouth in the morning. 90 tablet 3 07/10/20 24 Active FLUoxetine (PROzac) 20 MG capsuleIndicati ons:Major depressive disorder, recurrent episode, mild (CMS/HCC) Take 1 capsule (20 mg) by mouth Once per day. 90 capsule 3 07/10/20 24 Active spironolactone (Aldactone) 25 MG tabletIndicatio ns:Primary hypertension Take 1 tablet (25 mg) by mouth in the morning. 90 tablet 1 07/10/20 24 Active ibuprofen 600 MG tabletIndicatio ns:Status post fall Take 1 tablet (600 mg) by mouth every 8 (eight) hours if needed for moderate pain or fever. 15 tablet 07/10/20 24 Active lisinopril 10 MG tabletIndicatio ns:Primary hypertension Take 1 tablet (10 mg) by mouth Once per day. 30 tablet 11 12/01/19 25 2025 Active albuterol 108 (90 Base) MCG/ACT inhaler Inhale 2 puffs every 4 (four) hours if needed for wheezing or shortness of breath. 18 g 1 01/11/20 25 Active Spacer/Aero-Hol ding Chambers (OptiChamber Anushka) misc 1 each every 4 (four) hours if needed (asthma). 1 each 01/11/20 25 Active gabapentin (Neurontin) 300 MG capsuleIndicati ons:Bilateral foot pain Take 1 capsule (300 mg) by mouth 2 times daily. 190 capsule 3 02/03/20 25 Active albuterol (2.5 MG/3ML) 0.083% nebulizer solutionIndicat ions:Mild intermittent asthma with acute exacerbation INHALE 1 AMPULE USING A NEBULIZER EVERY 6 HOURS NEEDED FOR WHEEZING OR SHORTNESS OF BREATH 90 mL 1 02/23/20 25 Active amLODIPine (Norvasc) 5 MG tabletIndicatio ns:Primary hypertension TAKE 1 TABLET BY MOUTH EVERY MORNING 90 tablet 1 03/14/20 25 Active amLODIPine (Norvasc) 5 MG tabletIndicatio ns:Primary hypertension Take 1 tablet (5 mg) by mouth in the morning. 90 tablet 3 07/10/20 24 2024 Discontinued albuterol (2.5 MG/3ML) 0.083% nebulizer solutionIndicat ions:Mild intermittent asthma with acute exacerbation Take 3 mL (2.5 mg) by nebulization every 6 (six) hours if needed for wheezing or shortness of breath. 75 mL 1 01/11/20 25 2024 Discontinued Active Problems Problem Noted Date Diagnosed Date AV block 03/08/2025 Overview (03/08/2025): -14 day ambulatory monitory Aug 2024 revealed 34 pauses, longest 4.5 seconds with sinus lslowing and sinus arrest -seen for pacemaker consult 02/08/25 [facility] EP office with Dr. Rubin Gupta, DO -no indication for pacemaker at this time, advise test for AMISHA and treat Mild intermittent asthma with acute exacerbation 01/10/2025 [...] ideation. Therapist and psychiatrist offered. -referred to [facility] 11/30/24 Assessment & Plan (11/30/2024 11:12 AM EDT): Denies suicidial or homacidial ideation. Therapist and psychiatrist offered. 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 Status post fall. Reportedly tripped on [...] AM EST): - Seen on 06/15/24 at [facility]. Status post fall. Reportedly tripped on [...] EST): -noted on EKG with cardiology 12/13/22 Tubular adenoma 11/29/2023 Overview (01/26/2024): -tubular adenoma [...] 11/19, followed by [facility] -dental is in [place] -[facility] care proxy on file 09/17/23 Assessment & Plan (02/21/2025 2:03 PM EDT): -next comprehensive annual evaluation due after 02/21/26 -eye care last seen on 11/19, followed by Dr[facility] Naveen [facility] -dental is in [place] -[facility] care proxy on file 09/17/23 Assessment & Plan (05/22/2024 10:54 AM EDT): -next comprehensive annual evaluation due after 01/25/25 -eye care last seen on 11/19, followed by Dr[facility] Naveen [facility] -dental is in [place] -[facility] proxy on file 09/17/23 Assessment & Plan (01/26/2024 11:24 AM EDT): -Next physical due after 10/01/2023 -Eye care last seen on 11/19 -Dental is in [place] -[facility] proxy on file 09/17/23 Assessment & Plan (09/17/2023 11:07 AM EST): -Next physical due after 10/01/2023 -Eye care last seen on 11/19 -Dental is in [place] -[facility] care proxy paperwork given 09/17/23 Right inguinal hernia 11/18/2022 Overview (07/11/2024): -repaired with [facility] general surgeons 01/2023 Assessment & Plan (07/11/2024 10:41 AM EST): -repaired with [facility] general surgeons 01/2023 Assessment & Plan (09/17/2023 9:53 AM EST): -repiared with [facility] general surgeons 01/2023 Assessment & Plan [...] 02/21/25 Deaf 10/02/2022 Overview (03/15/2024): -Patient needs foreign language interpreter for all visits. Please make note of this in any referrals. -Audiology at [facility] -has appropriate assistive devices in home [...] Plan (02/21/2025 2:03 PM EDT): -Patient needs foreign language interpreter for all visits. Please make note of this in any referrals. -Audiology at [facility] -has appropriate assistive devices in home [...] Plan (11/30/2024 10:58 AM EDT): -Patient needs foreign language interpreter for all visits. Please make note of this in any referrals. -Audiology at [facility] -has appropriate assistive devices in home [...] Plan (07/11/2024 10:43 AM EST): -Patient needs foreign language interpreter for all visits. Please make note of this in any referrals. -Audiology at [facility] -has appropriate assistive devices in home [...] Plan (05/22/2024 10:53 AM EDT): -Patient needs foreign language interpreter for all visits. Please make note of this in any referrals. -Audiology at [facility] -has appropriate assistive devices in home including fire alarm with light Patient walked in with PT1 denial letter for [employer]. The letter says it was denied because '[employer]' does not participate with medicaid. Patient showed FD appointment reminder for '[facility]' set for 04/28/2024 at 10am. FD called '[employer]' to ask if the accept Patient insurance or if they can provide on time transpiration. '[employer]' advised they do not accept Patient insurance [...] Plan (01/26/2024 11:23 AM EDT): -Patient needs foreign language interpreter for all visits. Please make note of this in any referrals. -Audiology at [facility] -has appropriate assistive devices in home including fire alarm with light Assessment & Plan (09/17/2023 9:50 AM EST): -Liberian Sign Language Assessment & Plan (10/02/2022 12:38 PM EST): -Liberian Sign Language used during visit PVD (peripheral vascular disease) 10/02/2022 Overview (10/02/2022): -doppler 04/19/2021 in [place] revealed evidence of bilateral common femoral and popliteal venin valves incompetence Assessment & Plan (02/21/2025 2:03 PM EDT): -doppler 04/19/2021 in [place] revealed evidence of bilateral common femoral and popliteal venin valves incompetence Assessment & Plan (09/01/2024 3:17 PM EST): Patient also tells me pain is worse with walking, feels cramps and throbbing sensation I will refer him to vascular specialist in light he already had h/o PVD Assessment & Plan (09/17/2023 9:50 AM EST): -doppler 04/19/2021 in [place] revealed evidence of bilateral common femoral and popliteal venin valves incompetence Assessment & Plan (10/02/2022 12:35 PM EST): -doppler 04/19/2021 in [place] revealed evidence of bilateral common femoral and popliteal venin valves incompetence Arterial atherosclerosis 10/02/2022 Overview (03/08/2025): -unspecified cardiothoracic surgery (congential malformations ) in 1965 -Cardiac cath in [place] 07/05/2020 for chest pain and noted to have normal coronaries without any evidence of atherosclerosis -atrail flutter status post CTI ablation in 2021 on anticoagulation still -14 day Zio patch to monitor for aflutter Aug 2024 found evidence of sinus pauses and evidence of complete heart block, first degree AV block, 1 run SVT lasting 8 beats -seen by [facility] cardiology with Dr. Juan Luis Gonzalez [...] pressure estimation is 29 mmhg + CVP. - [facility] note from 01/18/25 recommends EP consult, seleep study -EP consult on 02/08/25 at [facility] said no indication for pacemaker but recommended testing for AMISHA -Pt now scheduled for sleep study 04/16/25 at 9:30. -Follow-up appt with Cardiology 03/28/25 Assessment & Plan (02/21/2025 2:03 PM EDT): -unspecified cardiothoracic surgery (congential malformations ) in 1965 -Cardiac cath in [place] 07/05/2020 for chest pain and noted to have normal coronaries without any evidence of atherosclerosis -atrail flutter status post CTI ablation in 2021 on anticoagulation still -14 day Zio patch to monitor for aflutter Aug 2024 found evidence of sinus pauses and evidence of complete heart block, first degree AV block, 1 run SVT lasting 8 beats -seen by [facility] cardiology with Dr. Juan Luis Gonzalez [...] estimation is 29 mmhg + CVP. Called [facility], spoke with Alyssa. Pt scheduled for EP consult on 02/08/25 at 1:45pm with Rubin Gupta DO at [facility] [facility], [address], [place] [address]. Pt does not have sleep study scheduled yet. Message was sent to cards team to inquire if this will be scheduled via cardiology or if needs to be ordered by PCP. -last seen by [facility] Cardiology 11/09/24, reports follow up for 02/15/25 Had sleep study done -Follow-up appt with Cardiology 03/28/25 Assessment & Plan (07/11/2024 10:40 AM EST): -Cardiac cath in [place] 07/05/2020 for chest pain and noted to have normal coronaries without any evidence of atherosclerosis Assessment & Plan (09/17/2023 9:50 AM EST): -Cardiac cath in [place] 07/05/2020 for chest pain and noted to [...] Overview (02/21/2025): -Hx cardiac cath 07/05/2020 in [place] with normal coronary arteries, mild dilated left [...] -repeat Echo ordered 05/04/24 -last seen by [facility] 11/09/24, reports follow up for 02/15/25 Had sleep study done -Follow-up appt with Cardiology 03/28/25 Assessment & Plan (02/21/2025 2:03 PM EDT): -Hx cardiac cath 07/05/2020 in [place] with normal coronary arteries, mild dilated left [...] -repeat Echo ordered 05/04/24 -last seen by [facility] 11/09/24, reports follow up for 02/15/25 Had sleep study done -Follow-up appt with Cardiology 03/28/25 Assessment & Plan (05/22/2024 10:54 AM EDT): -Hx cardiac cath 07/05/2020 in [place] with normal coronary arteries, mild dilated left ventricle with borderline low EF, mild pulmonary hypertension, normal cardiac output -echo 06/17/2021 EF 60-65%, mild anteroseptal LV wall motion is hypokinetic, mild dilated left atrium, mild enlarged right atrium, calcified aortic cusps, mild MR, mild to mod TR -referred back to Cardiology 05/22/24 Assessment & Plan (01/26/2024 11:23 AM EDT): -Hx cardiac cath 07/05/2020 in [place] with normal coronary arteries, mild dilated left ventricle with borderline low EF, mild pulmonary hypertension, normal cardiac output -echo 06/17/2021 EF 60-65%, mild anteroseptal LV wall motion is hypokinetic, mild dilated left atrium, mild enlarged right atrium, calcified aortic cusps, mild MR, mild to mod TR Assessment & Plan (09/17/2023 9:53 AM EST): -Hx cardiac cath 07/05/2020 in [place] with normal coronary arteries, mild dilated left ventricle with borderline low EF, mild pulmonary hypertension, normal cardiac output -echo 06/17/2021 EF 60-65%, mild anteroseptal LV wall motion is hypokinetic, mild dilated left atrium, mild enlarged right atrium, calcified aortic cusps, mild MR, mild to mod TR Assessment & Plan (10/02/2022 12:33 PM EST): -Hx cardiac cath 07/05/2020 in [place] with normal coronary arteries, mild dilated left ventricle with borderline low EF, mild pulmonary hypertension, normal cardiac output -echo 06/17/2021 EF 60-65%, mild anteroseptal LV wall motion is hypokinetic, mild dilated left atrium, mild enlarged right atrium, calcified aortic cusps, mild MR, mild to mod TR -euvolemic on exam Atrial flutter 10/02/2022 Overview (02/21/2025): Noted in [place] during ECG for palpitations. -[id number] of 1 -s/p CTI ablation 09/22/2021 with good results -on Eliquis (apixaban) -seen by [facility] cardiology Dr. Myra Feliciano MD 12/13/2022 recommending 6 month follow up -Cardiology note from 05/04/24 reviewed Recommends Zio path for 24 days, if no further aflutter episodes will discontinue apixaban -repeat Echo ordered -last seen by [facility] 11/09/24, reports follow up for 02/15/25 Had sleep study done -Follow-up appt with Cardiology 03/28/25 Assessment & Plan (02/21/2025 2:03 PM EDT): Noted in [place] during ECG for palpitations. -[id number] of 1 -s/p CTI ablation 09/22/2021 with good results -on Eliquis (apixaban) -seen by [facility] cardiology Dr. Myra Feliciano MD 12/13/2022 recommending 6 month follow up -Cardiology note from 05/04/24 reviewed Recommends Zio path for 24 days, if no further aflutter episodes will discontinue apixaban -repeat Echo ordered -last seen by [facility] 11/09/24, reports follow up for 02/15/25 Had sleep study done -Follow-up appt with Cardiology 03/28/25 Assessment & Plan (11/30/2024 11:13 AM EDT): Noted in [place] during ECG for palpitations. -[id number] of 1 -s/p CTI ablation 09/22/2021 with good results -on Eliquis (apixaban) -seen by [facility] cardiology Dr. Myra Feliciano MD 12/13/2022 recommending 6 month follow up -Cardiology note from 05/04/24 reviewed Recommends Zio path for 24 days, if no further aflutter episodes will discontinue apixaban -repeat Echo ordered Assessment & Plan (05/22/2024 10:53 AM EDT): Noted in [place] during ECG for palpitations. -[id number] of 1 -s/p CTI ablation 09/22/2021 with good results -on Eliquis (apixaban) -seen by [facility] cardiology Dr. 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 Assessment & Plan (01/26/2024 11:23 AM EDT): Noted in [place] during ECG for palpitations. -[id number] of 1 -s/p CTI ablation 09/22/2021 with good results -on Eliquis (apixaban) -seen by [facility] cardiology Dr. Myra Feliciano MD 12/13/2022 recommending 6 month follow up Assessment & Plan (09/17/2023 9:52 AM EST): Noted in [place] during ECG for palpitations. -[id number] of 1 -s/p CTI ablation 09/22/2021 with good results -on Eliquis (apixaban) -seen by [facility] cardiology Dr. Myra Feliciano MD 12/13/2022 recommending 6 month follow up Assessment & Plan (05/31/2023 12:55 PM EDT): Noted in [place] during ECG for palpitations. -[id number] of 1 -s/p CTI ablation 09/22/2021 with good results -on Eliquis (apixaban) -seen by [facility] cardiology Dr. Myra Feliciano MD 12/13/2022 recommending 6 month follow up Assessment & Plan (10/02/2022 12:36 PM EST): Noted in [place] during ECG for palpitations. -s/p CTI ablation 09/22/2021 with good results -on Eliquis Primary hypertension 10/02/2022 Overview (12/13/2024): -Blood pressure is at goal -Continue lifestyle modifications -Continue current medications -Continue Lisinopril 10 mg 11/30/24 -Re-referred to [facility] with our DINO Thompson 11/30/24 -Follows with [facility] cardiology Dr. Myra eFliciano MD Assessment & Plan (02/21/2025 2:03 PM EDT): -Blood pressure is at goal -Continue lifestyle modifications -Continue current medications -Continue Lisinopril 10 mg 11/30/24 -Re-referred to [facility] Program with our DINO Thompson 11/30/24 -Follows with [facility] cardiology Dr. Myra Feliciano MD Orders: Albumin, Random Urine W/Creatinine; Future Basic Metabolic Panel; Future Assessment & Plan (12/13/2024 10:07 AM EDT): -Blood pressure is at goal -Continue lifestyle modifications -Continue current medications -Continue Lisinopril 10 mg 11/30/24 -Re-referred to [facility] Program with our DINO Thompson 11/30/24 -Follows with [facility] cardiology Dr. Myra Feliciano MD Assessment & Plan (11/30/2024 11:09 AM EDT): -Blood pressure is not at goal, not currently on any medications 11/30/24 -Continue lifestyle modifications -Continue current medications -Referred to [facility] Program with DINO berrios PharmD 07/10/24 -Start Lisinopril 10 mg 11/30/24 -Re-referred to [facility] Program with DINO berrios PharmD 11/30/24 -Follows with [facility] cardiology Dr. Myra Feliciano MD Assessment [...] in added sugars, saturated fat, and sodium. Cardiac risk counseling 12/30/202302/27 Overview (11/30/2024): Calculated 11/30/24: Intermediate Risk, patient [...] moderate physical activity and nutrition interventions discussed. Homeless 09/17/2023 01/26/2024 Venous stasis 05/31/2023 01/25/2025 [...] repots hx heart surgery age 5 in [place] for unknown reason Assessment & Plan (10/02/2022 12:31 PM EST): -pt repots hx heart surgery age 5 in [place] for unknown reason Encounters * This document contains information received from the source organization and may not represent a complete record from that organization. Date Type Department Care Team Description 03/13/2025 Refill [facility] MED[facility] [address] [place] [address] Bethany Mccormick MD Primary hypertension 03/03/2025 Refill [facility] [address] [place] [address] Robert Figueredo MD 02/22/2025 Refill [facility] [address] [place] [address] Robert Figueredo MD Mild intermittent asthma with acute exacerbation 02/21/2025 10:30 AM EDT Office Visit [facility] [address] [place] [phone] Bethany Mccormick MD Primary hypertension (Primary Dx); Mild intermittent asthma with acute exacerbation; Hx of hypertrophic cardiomyopathy; Atrial flutter, unspecified type ([facility]); Arterial atherosclerosis; PVD (peripheral vascular disease) ([facility]); Prediabetes; Dyslipidemia; Urinary hesitancy; Benign prostatic hyperplasia with urinary hesitancy; Bilateral deafness; Class 2 severe obesity due to excess calories with serious comorbidity and body mass index (BMI) of 39.0 to 39.9 in adult ([facility]); Dietary counseling; Exercise counseling; Other specified health status 02/21/2025 Telephone [facility] [address] [place] [phone] Bethany Mccormick MD Results; Referral 02/21/2025 Travel 02/20/2025 Telephone [facility] [address] [place] [phone] Bethany Mccormick MD CHART PREP 02/13/2025 Patient Outreach [facility]ED[facility] [address] [place] [address] Bethany Mccormick MD Pre-visit Planning ([facility] unable to reach [facility]) 02/02/[address] [address] Bethany Mccormick MD Bilateral foot pain 02/02/2025 Travel 01/10/2025 11:20 AM EDT Office Visit [facility] [address] [place] [phone] Robert Figueredo MD Parainfluenza type 1 infection (Primary Dx); Mild intermittent asthma with acute exacerbation; Viral URI 01/09/2025 Telephone [facility] [address] [place] [phone] Bethany Mccormick MD Medication Question 01/01/2025 Telephone [facility] [address] [place] [phone] Bethany Mccormick MD 01/01/2025 Travel 12/27/2024 Orders Only [address] [address] Bethany Mccormick MD 12/26/2024 10:30 AM EDT Clinical Support [address] [address] Kathya Rm RN Encounter for tuberculin skin test 12/26/2024 Travel 12/25/[address] [address] Bethany Mccormick MD TSPOT invalid; Appointment Request 12/19/[address] [address] Bethany Mccormick MD Lab Orders; Results 12/19/2024 Orders Only [address] [address] Bethany Mccormick MD Screening-pulmonary TB (Primary Dx) 12/19/2024 Telephone [facility] [address] [place] [address] Bethany Mccormick MD from Last 3 Months Immunizations Immunization Administration [...] Description 05/28/2025 10:45 AM EDT Office Visit [facility] [address] [place] [address] Bethany Mccormick MD [address] [place], [place] [phone] Health Maintenance Due Date Last Done Comments CT Colonography 1959 FIT DNA/Cologuard 1959 FIT 1959 FOBT 1959 Sigmoidoscopy 1959 Influenza Vaccine (#1) 2025 , 05/31/2023, 11/18/2022 Alcohol/Substance Use Screening 07/10/2025 07/10/2024 SDOH Screening 09/19/2025 09/19/2024 Colonoscopy 11/25/2025 11/25/2022 Colorectal Cancer Screening 11/25/2025 Depression Screening 11/30/2025 11/30/2024, 12/01/19 COVID-19 Vaccine ( season) 2026 05/22/2024, 05/31/2023, 11/18/2022 Postponed from 2024 (Patient Refused) Tobacco Screening 02/21/2026 02/21/2025 Diabetes: Hemoglobin A1C 02/26/2026 025, 01/26/2024, 09/17/2023, Additional history exists Lipid Panel 02/26/2030 02/26/2025, 08/30, 10/06/2022 DTaP/Tdap/Td Vaccines (2 - Td or Tdap) 11/12/2032 11/12/2022 Hepatitis C Screening Completed 10/06/2022 Zoster Vaccines Completed 11/12/2022, 09/10/2022 Hepatitis B Vaccines Completed 05/31/2023, 12/22/2022, 11/18/2022 Pneumococcal Vaccine: 50+ Years Completed 09/17/2023 RSV Patients and Patients Aged 60 years or older Completed 02/08/2024 HIB Vaccines Aged Out No longer eligi [...] Procedure Name Priority Date/Time Associated Diagnosis Comments BASIC METABOLIC PANEL Routine 02/26/2025 8:17 AM EDT Primary hypertension HEMOGLOBIN A1C Routine 02/26/2025 8:17 AM EDT Prediabetes LIPID PANEL, STANDARD Routine 02/26/2025 8:17 AM EDT Dyslipidemia HEPATIC FUNCTION PANEL Routine 02/26/2025 8:17 AM EDT Dyslipidemia ALBUMIN, RANDOM URINE W/CREATININE Routine 02/26/2025 8:17 AM EDT Primary hypertension AMB REFERRAL TO PODIATRY Routine 02/06/2025 Bilateral [...] Routine 12/20/2024 8:41 AM EDT Screening-pulmonary TB HM COLONOSCOPY Routine 11/25/2022 HEPATITIS C AB W/REFL TO HCV RNA, QN, PCR Routine 10/06/2022 8:42 AM EST Routine screening for STI (sexually transmitted infection) from Last 3 Months or Most Recently Relevant to Health Maintenance Results * Albumin, Random Urine W/Creatinine (02/26/2025 8:17 AM EDT) Creatinine, Urine 84.15 mg/dL [facility] Microalbumin Urine 13.0 mg/L [facility] Microalbum Creatinine Ratio Ur 15.4 <30 ug/mg cr [facility] Comment:Albumin/Creatinine R atio Reference Ranges: Normal: < 30 ug/mg creatinine Microalbuminuria: 30 - 300 ug/mg creatinineClinical Albuminuria: > 300 ug/mg creatinine Urine 02/26/2025 8:17 AM EDT 02/26/2025 11:10 AM EDT Bethany Mccormick MD LAB URINE ORDERABLES Final Result [facility] [address] [place] [phone] * Hemoglobin A1c (02/26/2025 8:17 AM EDT) Hemoglobin A1c 5.5 <6.0 % [facility] Comment:Hemoglobin A1C Refer ence Range Adults: 4.8 - 6.0 % Non diabetic: < 6.0 % Goal: < 7.0 %Additional Action Suggested: > 8.0 %Note: Hemoglobin A1c results are invalid for patients with abnormal amounts of HbF. Blood transfusions may impact the HbA1c concentration in the patient sample. Estimated Average Glucose 111 mg/dL [facility] Comment:eAG = Estimated ave rage glucose which is %A1C expressed asaverage glucose, using the formula of the V5N-KramklhZrzqria Glucose study (ADAG), Diabetes Care, Vol.31,#8,Mar. 2007 Blood Venous blood specimen / Unknown 02/26/2025 8:17 AM EDT 02/26/2025 10:59 AM EDT Bethany Mccormick MD LAB BLOOD ORDERABLES Final Result Performing Organization Address [facility] de Phone Number [facility] [address] [place] [address] [phone] * (ABNORMAL) Hepatic Function Panel (02/26/2025 8:17 AM EDT) Bilirubin, Total 1.1(H) 0.0 - 1.0 mg/dL [facility] Bilirubin, Direct 0.4 0.0 - 0.5 mg/dL [facility] Aspartate Amino Transferase 53(H) 5 - 37 U/L [facility] Comment:Slight Hemolysis.Int erpret result with caution. Alanine Aminotransferase 48(H) 0 - 40 U/L [facility] Total Protein 7.8 6.5 - 8.0 g/dL [facility] Albumin Level 4.4 3.5 - 5.0 g/dL [facility] Alkaline Phosphatase 79 39 - 117 U/L [facility] Blood Venous blood specimen / Unknown 02/26/2025 8:17 AM EDT 02/26/2025 10:59 AM EDT Bethany Mccormick MD LAB BLOOD ORDERABLES Final Result Performing Organization Address [facility] Co de Phone Number [facility] [address] [place] [phone] * Lipid Panel, Standard (02/26/2025 8:17 AM EDT) Triglycerides 114 <150 mg/dL [facility] Comment:Desirable Triglyceri de: less than 150 mg/dLBorderline High Triglyceride 150-199 mg/dLHigh Triglyceride: 200-499 mg/dLVery High Triglyceride: greater than or equal to 5OO mg/dL Cholesterol 157 <200 mg/dL [facility] Comment:Desirable Cholestero l: less than 200 mg/dLBorderline High Cholesterol: 200-239 mg/dLHigh Cholesterol: greater than 239 mg/dL LDL Cholesterol Calculated 73 <100 mg/dL [facility] Comment:Desirable LDL: less than 100 mg/dLNear Optimal/Above Optimal LDL: 110- 129 mg/dLBorderline High LDL: 130-159 mg/dLHigh LDL: 160-189 mg/dLVery High LDL: greater than or equal to 190 mg/dL HDL Cholesterol 62 >40 mg/dL [facility] Comment:Desirable HDL: great er than 40 mg/dL Note: This HDL assay may give artificially low results in patients with liver disease. Blood Venous blood specimen / Unknown 02/26/2025 8:17 AM EDT 02/26/2025 10:59 AM EDT us Bethany Mccormick MD LAB BLOOD ORDERABLES Final Result [facility] [address] [place] [phone] * (ABNORMAL) Basic Metabolic Panel (02/26/2025 8:17 AM EDT) Sodium 139 135 - 145 mmol/L [facility] Potassium 5.1 3.3 - 5.1 mmol/L [facility] Comment:Slight Hemolysis.Int erpret result with caution. Chloride 103 96 - 108 mmol/L [facility] Carbon Dioxide 29 22 - 29 mmol/L [facility] Anion Gap 12 12 - 20 [facility] Urea Nitrogen (BUN) 20(H) 9 - 16 mg/dL [facility] Creatinine, Serum 0.94 0.5 - 1.4 mg/dL [facility] Estimated Glomerular Filt Rate >60 [facility] Comment:Chronic Kidney Disea se: Estimated GFR < 60 mL/min/1.57j7Javjck Kidney Disease: Estimated GFR < 15 mL/min/1.73m2 Glucose 110 60 - 115 mg/dL [facility] Calcium 9.6 8.4 - 10.2 mg/dL [facility] Blood Venous blood specimen / Unknown 02/26/2025 8:17 AM EDT 02/26/2025 10:59 AM EDT us Bethany Mccormick MD LAB BLOOD ORDERABLES Final Result Performing Organization Address [facility] Co de Phone Number [facility] [address] [place] [phone] * Referral to Podiatry (02/06/2025) us Sadie Foster MD OUTPATIENT REFERRAL O RDERABLES Final Result * Influenza B (ID NOW Rapid Molecular) (01/10/2025 11:46 AM EDT) Influenza B Negative Negative, Indeterminate [facility] Swab 01/10/2025 11:4 6 AM EDT Robert Figueredo MD POINT OF CARE TEST ENTER/EDIT OR DERABLES Final Result Performing Organization Address [facility] Co de Phone Number [facility] [address] [place] [phone] * Influenza A (ID NOW Rapid Molecular) (01/10/2025 11:46 AM EDT) Influenza A Negative Negative, Indeterminate [facility] Swab 01/10/2025 11:4 6 AM EDT Robert Figueredo MD POINT OF CARE TEST ENTER/EDIT OR DERABLES Final Result Performing Organization Address [facility] Co de Phone Number [facility] [address] [place] [phone] * POCT Rapid COVID Ag (01/10/2025 11:46 AM EDT) Rapid COVID Ag Negative [facility] Swab 01/10/2025 11:4 6 AM EDT Robert Figueredo MD POINT OF CARE TEST ENTER/EDIT OR DERABLES Final Result [facility] [address] [place] [phone] * TB Skin Test (12/28/2024 10:15 AM EDT) TB Skin Test Negative Negative Other 12/28/2024 10:1 5 AM EDT Bethany Mccormick MD POINT OF CARE TEST ENTER/E DIT ORDERABLES Final Result * T-SPOT??.TB (12/20/2024 8:41 AM EDT) T Spot TB Invalid Negative [facility] Comment:The test result is i [...] of the patient.For additional information, please refer tohttp://education.[employer] Genome/faq/KQQ188(This link is being provided for informational/educational purposes only.)THIS TEST WAS PERFORMED AT:[employer] [employer] [id number] [place] [phone] FULTON MD,PHD TS PANEL A TNP [facility] Comment:NOTIFIED [facility] 12/25 AT 1205 FORREORDER AND RECOLLECT. TS PANEL B TNP [facility] Comment:NOTIFIED [facility] 12/25 AT 1205 FORREORDER AND RECOLLECT. Negative Control TNP [facility] Comment:NOTIFIED [facility] 12/25 AT 1205 FORREORDER AND RECOLLECT. Positive Control [facility] Comment:NOTIFIED [facility] 12/25 AT 1205 FORREORDER AND RECOLLECT. 12/20/2024 8:41 AM EDT 12/20/2024 11:27 AM EDT Bethany Mccormick MD LAB BLOOD ORDERABLES Final Result [facility] [address] [place] [phone] * (ABNORMAL) Hm Colonoscopy (11/25/2022) Colonoscopy Abnormal(A ) Normal Jose Ramon Provider HEALTH MAINTENANCE Final Result * Hepatitis C Antibody with Reflex to HCV, RNA, Quantitative, Real-Time PCR (10/06/2022 8:42 AM EST) [facility] Hepatitis C Antibody NON-REACT MIRA NON-REACT MIRA [employer] [place] [employer] Index 0.07 <1.00 [employer] [place] [employer] Comment: HCV antibody was non-reactive. There is no laboratory evidence of HCV infection. In most cases, no further action is required. However, if recent HCV exposure is suspected, a test for HCV RNA (test code 39696) is suggested. For additional information please refer to http://education.[employer].Second Genome/faq/HNL20q9 (This link is being provided for informational/ educational purposes only.) Blood Venous blood specimen / Unknown 10/06/2022 8:42 AM EST 10/06/2022 8:43 AM EST Narrative [facility] - 10/09/2022 12:25 AM EST FASTING:YES FASTING: YES us Bethany Mccormick MD LAB BLOOD ORDERABLES Final Result [facility] [address] [facility] [place] [address] [employer] [facility] [place] [facility] [address] [facility], ([address]) [place] [address] from Last 3 Months or Most Recently Relevant to Health Maintenance Insurance [facility] STANDARD [facility] [employer] OPT[employer] (HMO D-SNP) Advance Directives Documents on File Type Date Recorded Patient Digital Associate Media Director Expl anation Power of Soft Metals Engraver Hand 09/21/2023 HealthCare Proxy 09/17/23 Care Teams Netsuite Developer Relationship Specialty Start Date End Date Bethany Mccormick MD [address] [place] [address] PCP - General Family Medicine 09/10/22 Jennifer Kramer, AllanD [address] [place] [address] Pharmacist Internal Medicine 12/04/24 Irineo Arevalo MD [address] [place] [phone] Urology 12/13/24 Chris Edmond [address] [place] [phone] Podiatry 01/25/25 Kelly Cho MD [address] [place] [address] Drive [address] [place] [phone] Urology 02/21/25 Dr. Luevano [address] [address] Cardiology 11/30/24 Rubin Gupta DO Electrophysiology Cardiology [address] [place] [phone] Electrophysiology 12/15/24
--- OUTSIDE RECORDS SUMMARY | 2025-03-20 13:20 | XMS_ITS | Clinical Summary ---
Author Organization 175 [facility] Address [address] [place] [address] Phone Care Team Providers Care Cement Finisher Apprentice Name Role Phone Bethany Mccormick MD Primary Care Provider [phone] Allergies No known active allergies Medications predniSONE (DELTASONE) 20 mg tablet Take 3 tablets (60 mg total) by mouth 1 (one) time each day. 15 tablet 5 Active silver sulfADIAZINE (Silvadene) 1 % cream Apply topically 1 (one) time each day. 50 g 5 01/24/20 26 Active Encounters Date Type Department Care Team Description 02/06/2025 2:00 PM EDT Office Visit [facility] [address] [phone] Chris Edmond DPM Open wound of right great toe, initial encounter (Primary Dx) 01/26/2025 Telephone Orthopedic [facility] [address] [phone] Nita Eisenberg MA 01/25/2025 Telephone Orthopedic [place] [phone] [phone] Chirs Edmond DPM [facility] Request 01/23/2025 1:00 PM EDT Procedure visit [facility] [address] [phone] Chris Edmond DPM Cellulitis of left foot (Primary Dx); Cellulitis of right foot; Ingrown right big toenail; Ingrown left big toenail 01/09/2025 2:00 PM EDT Consult Orthopedic Surgery [facility] [address] [place] [phone] Chris Edmond DPM Equinus contracture of left ankle (Primary Dx); Equinus contracture of right ankle; Pain in right foot; Plantar fasciitis 01/08/2025 8:39 PM EDT - 01/09/2025 2:12 AM EDT Emergency [facility] Emergency [address] [place] [phone] Parainfluenza type 1 infection (Primary Dx); Exacerbation of asthma, unspecified asthma severity, unspecified whether persistent Discharge Disposition: Home or Self Care 12/31/2024 7:30 PM EDT - 12/31/2024 11:26 PM EDT Emergency [facility] Emergency [address] [place] [phone] Jerald Acosta MD Encounter for medical screening examination (Primary Dx) Discharge Disposition: Home or Self Care from Last 3 Months Medical History Medical History Date Comments Asthma Social History Tobacco Use Types Packs/Day Years Used Date Smoking Tobacco: Never Smokeless Tobacco: Never Tobacco Cessation:Counseling Given: Not Answered Alcohol Use Standard Drinks/Week Comments Never 0 (1 standard drink = 0.6 oz pur e alcohol) Sex and Gender Information Value Date Recorded Sex Assigned at Not on file Legal Sex Male 3:44 PM EDT Gender Identity Not on file Sexual Orientation Not on file Obstetrics History Last Filed Vital Signs Vital Sign Reading Time Taken Comments Blood Pressure 129/62 01/09/2025 12:16 AM EDT Pulse 66 01/09/2025 12:16 AM EDT Temperature 36.8 C (98.3 F) 01/09/2025 12:16 AM EDT Respiratory Rate 18 01/09/2025 12:16 AM EDT Oxygen Saturation 96% 01/09/2025 12:16 AM EDT Inhaled Oxygen Concentration - - Weight 127 kg (280 lb) 02/06/2025 2:33 PM EDT Height 185.4 cm (6' 0.99 ) 02/06/2025 2:33 PM ED T Body Mass Index 36.95 02/06/2025 2:33 PM EDT Plan of Treatment Upcoming Encounters Date Type Department Care Team (Late st Contact Info) Description 03/28/2025 1:15 PM EDT Office Visit Orthopedic Surgery - [place] [address] [phone] Chris Edmond, DPPrashant [address] [phone] Health Maintenance Due Date Last Done Comments Colorectal Cancer Screening: Colonoscopy 06/08/2024 Medicare Annual Wellness Visit 06/08/2024 Social Influencers of Health Screening 06/08/2024 Depression Screening 08/30/2024 COVID-19 Vaccine (2023-2 5 season) 2024 05/22/2024, 05/31/2023, 11/18/2022 Influenza Vaccine (#1) 2025 , 05/31/2023, 11/18/2022 Falls Risk Assessment 12/31/2025 12/31/2024 Hypertension/CHF/CAD Annual BMP Blood Test 01/08/2026 01/08/2025, 12/31/2024, 12/13/2024 Cholesterol Screening (Lipid Panel) 09/17/2028 09/17/2023 DTaP,Tdap,and Td Vaccines (2 - Td or Tdap) 11/12/2032 11/12/2022 Hepatitis C Screening Completed 10/06/2022 Zoster Vaccines Completed 11/12/2022, 09/10/2022 Hepatitis B Vaccines Completed 05/31/2023, 12/22/2022, 11/18/2022 Pneumococcal Vaccine: 50+ Years Completed 09/17/2023 RSV Immunization Adult Patients Completed 02/08/2024 HIB Vaccines Aged Out No [...] to complete this topic RSV Immunization Patients Under 20 months Aged Out No longer eligible b ased on patient's age to complete this topic Varicella Vaccines Aged Out No longer eligible based on patient's age to complete this topic Procedures Procedure Name Priority Date/Time Associated Diagnosis Comments B-TYPE NATRIURETIC PEPTIDE STAT 01/08/2025 10:22 PM EDT RESPIRATORY VIRUS PANEL MOLECULAR STUDY STAT 01/08/2025 10:14 PM EDT XR CHEST 2 VIEWS STAT 01/08/2025 9:16 PM EDT TROPONIN I HIGH SENSITIVITY STAT 01/08/2025 8:57 PM EDT ECG 12-LEAD STAT 01/08/2025 8:47 PM EDT CBC WITH AUTO DIFFERENTIAL STAT 01/08/2025 6:52 PM EDT TROPONIN I HIGH SENSITIVITY STAT 01/08/2025 6:52 PM EDT BASIC METABOLIC PANEL STAT 01/08/2025 6:52 PM EDT CBC AND DIFFERENTIAL STAT 01/08/2025 6:52 PM EDT ECG ANNOTATED 01/01/2025 TROPONIN I HIGH SENSITIVITY STAT 12/31/2024 4:40 PM EDT CBC WITH AUTO DIFFERENTIAL STAT 12/31/2024 3:33 PM EDT TROPONIN I HIGH SENSITIVITY STAT 12/31/2024 3:33 PM EDT MAGNESIUM STAT 12/31/2024 3:33 PM EDT BASIC METABOLIC PANEL STAT 12/31/2024 3:33 PM EDT CBC AND DIFFERENTIAL STAT 12/31/2024 3:33 PM EDT ECG 12-LEAD STAT 12/31/2024 3:27 PM EDT from Last 3 Months Results * (ABNORMAL) B-Type Natriuretic Peptide (BNP) (01/08/2025 10:22 PM EDT) [facility] BNP 147(H) <=100 pcg/mL LAB CHEMISTRY METHOD 01/08/2025 11:04 PM EDT [facility] Blood Venous blood specimen / Unknown Venipuncture / Unknown 01/08/2025 10:22 PM EDT 01/08/2025 10:31 PM EDT Corby TORRES LAB BLOOD ORDERABLES Final Resul t [facility] [address] [place] [address], [place] [phone] * (ABNORMAL) Respiratory virus panel molecular study (01/08/2025 10:14 PM EDT) [facility] Adenovirus Detection by PCR Not Detected Not Detected LAB MICROBIOLOGY METHOD 01/08/2025 11:30 PM EDT [facility] Influenza A PCR Not Detected Not Detected LAB MICROBIOLOGY METHOD 01/08/2025 11:30 PM EDT [facility] Influenza B PCR Not Detected Not Detected LAB MICROBIOLOGY METHOD 01/08/2025 11:30 PM EDT [facility] Coronavirus 229E Not Detected Not Detected LAB MICROBIOLOGY METHOD 01/08/2025 11:30 PM EDT [facility] Coronavirus HKU1 Not Detected Not Detected LAB MICROBIOLOGY METHOD 01/08/2025 11:30 PM EDT [facility] Coronavirus OC43 Not Detected Not Detected LAB MICROBIOLOGY METHOD 01/08/2025 11:30 PM EDT [facility] Coronavirus NL63 Not Detected Not Detected LAB MICROBIOLOGY METHOD 01/08/2025 11:30 PM EDT [facility] Parainfluenza Virus 1 Detected(A ) Not Detected LAB MICROBIOLOGY METHOD 01/08/2025 11:30 PM EDT [facility] Parainfluenza Virus 2 Not Detected Not Detected LAB MICROBIOLOGY METHOD 01/08/2025 11:30 PM EDT [facility] Parainfluenza Virus 3 Not Detected Not Detected LAB MICROBIOLOGY METHOD 01/08/2025 11:30 PM EDT [facility] Parainfluenza Virus 4 Not Detected Not Detected LAB MICROBIOLOGY METHOD 01/08/2025 11:30 PM EDT [facility] RSV PCR Not Detected Not Detected LAB MICROBIOLOGY METHOD 01/08/2025 11:30 PM EDT [facility] Human Metapneumovirus A and B Not Detected Not Detected LAB MICROBIOLOGY METHOD 01/08/2025 11:30 PM EDT [facility] Rhinovirus/Entero virus Not Detected Not Detected LAB MICROBIOLOGY METHOD 01/08/2025 11:30 PM EDT [facility] Bordetella pertussis Not Detected Not Detected LAB MICROBIOLOGY METHOD 01/08/2025 11:30 PM EDT [facility] Bordetella parapertussis Not Detected Not Detected LAB MICROBIOLOGY METHOD 01/08/2025 11:30 PM EDT [facility] Mycoplasma pneumo by PCR Not Detected Not Detected LAB MICROBIOLOGY METHOD 01/08/2025 11:30 PM EDT [facility] Chlamydia pneumoniae Not Detected Not Detected LAB MICROBIOLOGY METHOD 01/08/2025 11:30 PM EDT [facility] SARS COV-2 Not Detected Not Detected LAB MICROBIOLOGY METHOD 01/08/2025 11:30 PM EDT [facility] Sputum Both anterior nares / Unknown Non-blood Collection / Unknown 01/08/2025 10:14 PM EDT 01/08/2025 10:31 PM EDT Narrative [facility] - 01/08/2025 11:30 PM EDT Testing was performed using the Daf[employer] Respiratory Pathogen PCR Assay. All results must be correlated with the clinical findings. Results should not be used as the sole basis for diagnosis. False Negative results may occur from the presence of sequence variants in the region targeted by the assay or the presence of inhibitors. Results may be affected by concurrent antiviral/antimicrobial therapy or levels of organisms that are below the limit of detection. us Corby TORRES LAB MICROBIOLOGY - GENERAL ORDER BARBARA Final Result [facility] [address] [place] [address], * XR Chest 2 Views (01/08/2025 9:16 PM EDT) Anatomical Region Laterality Modality Body Radiographic Milvia ging 01/09/2025 8:45 AM EDT Impressions 01/09/2025 8:46 AM EDT Hypoinflated lung rincon without infiltrates or effusions. -------- FINAL REPORT -------- Dictated By: Qasim Blum Dictated Date: 01/09/2025 08:45 ET Assigned Physician: Qasim Blum Reviewed and Electronically Signed By: Qasim Blum Signed Date: 01/09/2025 08:46 ET Workstation ID: [id number] Transcribed By: Self Edit Transcribed Date: 01/09/2025 08:45 ET Narrative 01/09/2025 8:46 AM EDT INDICATION: Shortness of breath FINDINGS: Two views of the chest were obtained. Compared to multiple prior studies most recent from April 03, 2024. Lung rincon are mildly hypoinflated but clear. Cardiomediastinal silhouette is stable in size and shape. Bony structures are within normal limits for the patient's age. Procedure Note Qasim Blum MD - 01/09/2025 INDICATION: Shortness of breath FINDINGS: Two views of the chest were obtained. Compared to multiple priorstudies most recent from April 03, 2024. Lung rincon are mildly hypoinflated but clear. Cardiomediastinal silhouette is stable in size and shape. Bony structures are within normal limits for the patient's age. IMPRESSION: Hypoinflated lung rincon without infiltrates or effusions. -------- FINAL REPORT -------- Dictated By: Qasim Blum Dictated Date: 01/09/2025 08:45 ET Assigned Physician: Qasim Blum Reviewed and Electronically Signed By: Qasim Blum Signed Date: 01/09/2025 08:46 ET Workstation ID: [id number] Transcribed By: Self Edit Transcribed Date: 01/09/2025 08:45 ET us Ju Rodriguez DO IMG XR PROCEDURES Final R esult * Troponin I high sensitivity (01/08/2025 8:57 PM EDT) Only the most recent of4 resultswithin the time period is included. High Sensitivity Troponin I 13 <=79 ng/L LAB CHEMISTRY METHOD 01/08/2025 9:31 PM EDT [facility] Blood Venous blood specimen / Unknown Venipuncture / Unknown 01/08/2025 8:57 PM EDT 01/08/2025 9:03 PM EDT Narrative [facility] - 01/08/2025 9:31 PM EDT High levels of biotin in samples may falsely decrease hsTroponin values. Use caution when interpreting hsTroponin results in patients taking biotin who exhibit renal impairment (eGFR <60) or in patients taking more than 20 mg/day of biotin. us Ju Rodriguez DO LAB BLOOD ORDERABLES Zoë l Result [facility] [address] [place] [address], [place] [phone] * ECG 12 lead (01/08/2025 8:47 PM EDT) Only the most recent of2 resultswithin the time period is included. Ventricular Rate ECG 55 BPM GEMUSE Atrial Rate 208 BPM GEMUSE QRS Duration 98 ms GEMUSE Q-T Interval 456 ms GEMUSE QTc 436 ms GEMUSE R Redford 38 degrees GEMUSE T [place] 92 degrees GEMUSE ECG Interpretation Sinus bradycardia with first degree AV block When compared with ECG of 31-DEC-2024 15:27, No significant change was found Confirmed by ERICA OWENS ([id number]) on 01/10/2025 9:02:09 AM GEMUSE 01/08/2025 8:47 PM EDT 01/10/2025 9:02 AM EDT Westonjenny Steve Rodriguez DO ECG ORDERABLES Final Res ult GEMUSE * (ABNORMAL) CBC auto differential (01/08/2025 6:52 PM EDT) Only the most recent of2 resultswithin the time period is included. Pathologist [facility] WBC 11.2(H) 4.8 - 10.8 K/mcL LAB HEMETOLOGY METHOD 01/08/2025 7:20 PM EDT [facility] RBC 4.50 4.50 - 5.50 M/mcL LAB HEMETOLOGY METHOD 01/08/2025 7:20 PM EDT [facility] Hemoglobin 14.5 13.5 - 17.5 g/dL LAB HEMETOLOGY METHOD 01/08/2025 7:20 PM EDT [facility] Hematocrit 43.7 42.0 - 54.0 % LAB HEMETOLOGY METHOD 01/08/2025 7:20 PM EDT [facility] MCV 97.5 79.0 - 98.0 FL LAB HEMETOLOGY METHOD 01/08/2025 7:20 PM EDT [facility] MCH 32.4(H) 27.0 - 32.0 pcg LAB HEMETOLOGY METHOD 01/08/2025 7:20 PM EDT [facility] MCHC 33.2 32.0 - 37.0 g/dL LAB HEMETOLOGY METHOD 01/08/2025 7:20 PM EDT [facility] RDW 13.3 11.0 - 15.0 % LAB HEMETOLOGY METHOD 01/08/2025 7:20 PM EDT [facility] Platelets 251 130 - 400 K/mcL LAB HEMETOLOGY METHOD 01/08/2025 7:20 PM EDT [facility] MPV 12.3(H) 7.0 - 11.0 FL LAB HEMETOLOGY METHOD 01/08/2025 7:20 PM EDT [facility] NRBC 0.0 <1.0 % LAB HEMETOLOGY METHOD 01/08/2025 7:20 PM EDT [facility] NRBC Absolute 0.00 <0.10 K/mcL LAB HEMETOLOGY METHOD 01/08/2025 7:20 PM EDT [facility] Neutrophils Relative 67.7 % LAB HEMETOLOGY METHOD 01/08/2025 7:20 PM EDT [facility] Lymphocytes Relative 19.3 % LAB HEMETOLOGY METHOD 01/08[facility]2025 7:[facility] Monocytes Relative 10.9 % LAB HEMETOLOGY METHOD 01/08/2025 7:20 [facility] Eosinophils Relative 0.7 % LAB HEMETOLOGY METHOD 01/08/2025 7:20 PM EDT [facility] Basophils Relative 0.5 % LAB HEMETOLOGY METHOD 01/08/2025 7:20 PM EDT [facility] Immature Granulocytes Relative 0.9 % LAB HEMETOLOGY METHOD 01/08/2025 7:20 PM EDT [facility] Neutrophils Absolute 7.55(H) 1.50 - 7.00 K/mcL LAB HEMETOLOGY METHOD 01/08/2025 7:20 PM EDT [facility] Lymphocytes Absolute 2.15 1.00 - 5.00 K/mcL LAB HEMETOLOGY METHOD 01/08/2025 7:20 PM EDT [facility] Monocytes Absolute 1.22(H) 0.20 - 1.00 K/mcL LAB HEMETOLOGY METHOD 01/08/2025 7:20 PM EDT [facility] Eosinophils Absolute 0.08 0.00 - 0.50 K/[facility] LAB HEMETOLOGY METHOD 01/08/2025 7:20 PM EDT [facility] Basophils Absolute 0.06 0.00 - 0.20 K/[facility] LAB HEMETOLOGY METHOD 01/08/2025 7:20 PM EDT [facility] Immature Granulocytes Absolute 0.10(H) 0.00 - 0.03 K/mcL [facility] 01/08/2025 7:20 PM EDT [facility] Blood Venous blood specimen / Unknown Venipuncture / Unknown 01/08/2025 6:52 PM EDT 01/08/2025 7:04 PM EDT us Ju Rodriguez DO LAB BLOOD ORDERABLES Zoë l Result [facility] [address] [place] [address], * (ABNORMAL) Basic metabolic panel (01/08/2025 6:52 PM EDT) Only the most recent of2 resultswithin the time period is included. Sodium 135 133 - 145 mmol/L LAB CHEMISTRY METHOD 01/08/2025 7:38 PM EDT [facility] Potassium 3.6 3.5 - 5.5 mmol/L LAB CHEMISTRY METHOD 01/08/2025 7:38 PM EDT [facility] Chloride 101 96 - 110 mmol/L LAB CHEMISTRY METHOD 01/08/2025 7:38 PM T [facility] CO2 25 21 - 32 mmol/L LAB CHEMISTRY METHOD 01/08/2025 7:[address] [facility] Anion Gap 9 3 - 11 LAB CHEMISTRY METHOD 01/08/2025 7:[address] [facility] Glucose 151(H) 70 - 100 mg/dL LAB CHEMISTRY METHOD 01/08/2025 7:[address] [facility] BUN 13 5 - 25 mg/dL LAB CHEMISTRY METHOD 01/08/2025 7:[address] [facility] Creatinine 0.99 0.70 - 1.30 mg/dL LAB CHEMISTRY METHOD 01/08/2025 7:[address] [facility] eGFR 85 >=60 mL/min/1. 73m2 LAB CHEMISTRY METHOD 01/08/2025 7:38 PM T [facility] Comment:Calculation based on the Chronic Kidney Disease Epidemiology Collaboration (CKD-EPI) equation refit without adjustment for race. BUN/Creatinine Ratio 13.1 LAB CHEMISTRY METHOD 01/08/2025 7:[address] [facility] Calcium 8.9 8.5 - 10.5 mg/dL LAB CHEMISTRY METHOD 01/08/2025 7:[address] [facility] Blood Venous blood specimen / Unknown Venipuncture / Unknown 01/08/2025 6:52 PM EDT 01/08/2025 7:04 PM EDT us Ju Rodriguez DO LAB BLOOD ORDERABLES Zoë l Result [facility] [address] [place] [address], * ECG-Annotated (01/01/2025) us Provider Onbase ECG ORDERABLES Final Result * Magnesium (12/31/2024 3:33 PM EDT) Magnesium 2.0 1.9 - 2.6 mg/dL LAB CHEMISTRY METHOD 12/31/2024 4:27 PM EDT [facility] Blood Venous blood specimen / Unknown Venipuncture / Unknown 12/31/2024 3:33 PM EDT 12/31/2024 3:42 PM EDT us Jerald B Dave VALLE LAB BLOOD ORDERABLES Final Resu lt [facility] [address] [place] [address], from Last 3 Months Additional Health Concerns Infection Onset Date Last Indicated Parainfluenza Virus 01/08/2025 01/08/2025 Insurance [facility] MEDICARE Member Subscriber Plan / Payer (Ef fective 2024-Present) Name:William Caraballo Relation to Subscriber:Self Name:William Caraballo Payer ID:[id number] Group ID:[id number] Type:Not on file Address: [address] [facility] [place] [phone] Care Teams Cement Finisher Apprentice Relationship Specialty Start Date End Date [place], MD Bethany [address] [place] [phone] PCP - General Family Medicine 01/08/25
== END 2025-03-20 12:18 | disposition home or self-care (01) ==
LOC: HO.HMGCX 12:17
PROVIDERS: PCP Family Medicine; Visit Provider Urology
DX: R31.9 Hematuria, unspecified (principal)
CPT/HCPCS: 76775

== ENCOUNTER → 2025-03-20 12:24 | Outpatient (BNV) | payer MEDICARE, SELFPAY | PROVIDERS: PCP Family Medicine; Visit Provider Radiology Diagnostic Radiology | DX: N28.1 Cyst of kidney, acquired (principal); N28.89 Other specified disorders of kidney and ureter | CPT/HCPCS: 76775 ==

== ENCOUNTER 2025-03-30 08:37 | Outpatient (AMB) | payer MEDICARE, SELFPAY ==
--- OUTSIDE RECORDS SUMMARY | 2025-03-30 08:47 | XMS_ITS | Clinical Summary ---
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 15 tablet 07/10/20 24 Active lisinopril 10 MG tabletIndication s:Primary hypertension Take 1 tablet (10 mg) by mouth Once per day. 30 tablet 11 12/01/19 25 026 Active albuterol 108 (90 Base) MCG/ACT inhaler Inhale 2 puffs every 4 (four) hours if needed for wheezing or shortness of breath. 18 g 1 01/11/20 25 Active Spacer/Aero-Hold ing Chambers (OptiChamber Anushka) misc 1 each every 4 (four) hours if needed (asthma). 1 each 01/11/20 25 Active gabapentin (Neurontin) 300 MG capsuleIndicatio ns:Bilateral foot pain Take 1 capsule (300 mg) by mouth 2 times daily. 190 capsule 3 02/03/20 25 Active albuterol (2.5 MG/3ML) 0.083% nebulizer solutionIndicati ons:Mild intermittent asthma with acute exacerbation INHALE 1 AMPULE USING A NEBULIZER EVERY 6 HOURS NEEDED FOR WHEEZING OR SHORTNESS OF BREATH 90 mL 1 02/23/20 25 Active amLODIPine (Norvasc) 5 MG tabletIndication s:Primary hypertension TAKE 1 TABLET BY MOUTH EVERY MORNING 90 tablet 1 03/14/20 25 Active amLODIPine (Norvasc) 5 MG tabletIndication s:Primary hypertension Take 1 tablet (5 mg) by mouth in the morning. 90 tablet 3 07/10/20 24 025 Discontinued Active Problems Problem Noted Date Diagnosed Date AV block 03/08/2025 Overview (03/08/2025): -14 day ambulatory monitory Aug 2024 revealed 34 pauses, longest 4.5 seconds with sinus lslowing and sinus arrest -seen for pacemaker consult 02/08/25 [facility] EP office with Dr. Rubin Gupta DO -no indication for pacemaker at this time, advise test for AMISHA and treat Mild intermittent asthma with acute exacerbation 01/10/2025 Overview (02/21/2025): Continue Assessment & Plan (02/21/2025 2:03 PM EDT): Continue albuterol 108 (90 Base) MCG/ACT inhaler PRN Continue albuterol (2.5 MG/3ML) 0.083% nebulizer solution PRN Urinary hesitancy 11/30/2024 Overview (03/21/2025): Reports frequent urinary hesitancy episodes. -ordered PSA and UA + Culture 11/30/24 -referred to Urology 11/30/[address] Howard with Urology. -renal US 03/20/25 IMPRESSION: Atrophic appearing left kidney with pelvic fullness and renal cortical thinning. 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 No prior exams available for comparison. A follow-up ultrasound is recommended in 6 months to assess for stability. Alternatively if there is high clinical concern for malignancy, CT urogram could be performed. Assessment & Plan (02/21/2025 2:03 PM EDT): [...] ideation. Therapist and psychiatrist offered. -referred to [facility] 11/30/24 Assessment & Plan (11/30/2024 11:12 AM EDT): Denies suicidial or homacidial ideation. Therapist and psychiatrist offered. -referred to [facility] 11/30/24 Bilateral foot pain 09/01/2024 [...] him on gabapentin 300mg Q 8hrs I admitting counselor patient about side effects I will refer him to podiatry Status post fall 07/10/2024 Overview (07/11/2024): - Seen on 06/15/[address] [facility]. Status post fall. Reportedly tripped on [...] AM EST): - Seen on 06/15/[address] [facility]. Status post fall. Reportedly tripped on [...] 11/19, followed by Dr. Naveen Dunn of [facility] -dental is in [place] -[facility] care proxy on file 09/17/23 Assessment & Plan (02/21/2025 2:03 PM EDT): -next comprehensive annual evaluation due after 02/21/26 -eye care last seen on 11/19, followed by Dr. Naveen Dunn of [facility] -dental is in [place] -[facility] care proxy on file 09/17/23 Assessment & Plan (05/22/2024 10:54 AM EDT): -next comprehensive annual evaluation due after 01/25/25 -eye care last seen on 11/19, followed by Dr. Naveen Dunn of [facility] -dental is in [place] -[facility] care proxy on file 09/17/23 Assessment & Plan (01/26/2024 11:24 AM EDT): -Next physical due after 10/01/2023 -Eye care last seen on 11/19 -Dental is in [place] -[facility] care proxy on file 09/17/23 Assessment & Plan (09/17/2023 11:07 AM EST): -Next physical due after 10/01/2023 -Eye care last seen on 11/19 -Dental is in [facility] proxy paperwork given 09/17/23 Right inguinal hernia 11/18/2022 Overview (07/11/2024): -repaired with [facility] general surgeons 01/2023 Assessment & Plan (07/11/2024 10:41 AM EST): -repaired with [facility] general surgeons 01/2023 Assessment & Plan (09/17/2023 9:53 AM EST): -repiared with [facility] general surgeons 01/2023 Assessment & Plan [...] 02/21/25 Deaf 10/02/2022 Overview (03/15/2024): -Patient needs court usher for all visits. Please make note of this in any referrals. -Audiology at [facility] -has appropriate assistive devices in home [...] Plan (02/21/2025 2:03 PM EDT): -Patient needs court usher for all visits. Please make note of this in any referrals. -Audiology at [facility] -has appropriate assistive devices in home [...] Plan (11/30/2024 10:58 AM EDT): -Patient needs court usher for all visits. Please make note of this in any referrals. -Audiology at [facility] -has appropriate assistive devices in home [...] Plan (07/11/2024 10:43 AM EST): -Patient needs court usher for all visits. Please make note of this in any referrals. -Audiology at [facility] -has appropriate assistive devices in home [...] Plan (05/22/2024 10:53 AM EDT): -Patient needs court usher for all visits. Please make note of this in any referrals. -Audiology at [facility] -has appropriate assistive devices in home including fire alarm with light Patient walked in with PT1 denial letter for [employer]. The letter says it was denied because '[employer]' does not participate with medicaid. Patient showed FD appointment reminder for [facility] set for 04/28/2024 at 10am. FD called '[employer]' to ask if the accept Patient insurance or if they can provide on time transpiration. '[employer]' advised they do not accept Patient insurance [...] Plan (01/26/2024 11:23 AM EDT): -Patient needs court usher for all visits. Please make note of this in any referrals. -Audiology at [facility] -has appropriate assistive devices in home including fire alarm with light Assessment & Plan (09/17/2023 9:50 AM EST): -Wallisian Sign Language Assessment & Plan (10/02/2022 12:38 PM EST): -Wallisian Sign Language used during visit PVD (peripheral vascular disease) 10/02/2022 Overview (10/02/2022): -doppler 04/19/2021 in [place] revealed evidence of bilateral common femoral and popliteal venin valves incompetence Assessment & Plan (02/21/2025 2:03 PM EDT): -doppler 04/19/2021 in [place] revealed evidence of bilateral common femoral and popliteal venin valves incompetence Assessment & Plan (09/01/2024 3:17 PM EST): Patient also tells me pain is worse with walking, feels cramps and throbbing sensation I will refer him to vascular specialist in light he already had h/o PVD Assessment & Plan (09/17/2023 9:50 AM EST): -doppler 04/19/2021 in [place] revealed evidence of bilateral common femoral and popliteal venin valves incompetence Assessment & Plan (10/02/2022 12:35 PM EST): -doppler 04/19/2021 in [place] revealed evidence of bilateral common femoral and popliteal venin valves incompetence Arterial atherosclerosis 10/02/2022 Overview (03/08/2025): -unspecified cardiothoracic surgery (congential malformations ) in 1965 -Cardiac cath in [place] 07/05/2020 for chest pain and noted to have normal coronaries without any evidence of atherosclerosis -atrail flutter status post CTI ablation in 2021 on anticoagulation still -14 day Zio patch to monitor for aflutter Aug 2024 found evidence of sinus pauses and evidence of complete heart block, first degree AV block, 1 run SVT lasting 8 beats -seen by [facility] cardiology with Dr. Juan Luis Gonzalez [...] estimation is 29 mmhg + CVP. - [facility] note from 01/18/25 recommends EP consult, seleep study -EP consult on 02/08/25 at [facility] said no indication for pacemaker but recommended testing for AMISHA -Pt now scheduled for sleep study 04/16/25 at 9:30. -Follow-up appt with Cardiology 03/28/25 Assessment & Plan (02/21/2025 2:03 PM EDT): -unspecified cardiothoracic surgery (congential malformations ) in 1965 -Cardiac cath in [place] 07/05/2020 for chest pain and noted to have normal coronaries without any evidence of atherosclerosis -atrail flutter status post CTI ablation in 2021 on anticoagulation still -14 day Zio patch to monitor for aflutter Aug 2024 found evidence of sinus pauses and evidence of complete heart block, first degree AV block, 1 run SVT lasting 8 beats -seen by [facility] cardiology with Dr. Juan Luis Gonzalez [...] estimation is 29 mmhg + CVP. Called [facility] Cardiology, spoke with Alyssa. Pt scheduled for EP consult on 02/08/25 at 1:45pm with Rubin Gupta DO at [address] [place] [address], [address], [place] [address]. Pt does not have sleep study scheduled yet. Message was sent to cards team to inquire if this will be scheduled via cardiology or if needs to be ordered by PCP. -last seen by [facility] 11/09/24, reports follow up for 02/15/25 Had sleep study done -Follow-up appt with Cardiology 03/28/25 Assessment & Plan (07/11/2024 10:40 AM EST): -Cardiac cath in [place] 07/05/2020 for chest pain and noted to have normal coronaries without any evidence of atherosclerosis Assessment & Plan (09/17/2023 9:50 AM EST): -Cardiac cath in [place] 07/05/2020 for chest pain and noted to [...] Overview (02/21/2025): -Hx cardiac cath 07/05/2020 in [place] with normal coronary arteries, mild dilated left [...] -repeat Echo ordered 05/04/24 -last seen by [facility] 11/09/24, reports follow up for 02/15/25 Had sleep study done -Follow-up appt with Cardiology 03/28/25 Assessment & Plan (02/21/2025 2:03 PM EDT): -Hx cardiac cath 07/05/2020 in [place] with normal coronary arteries, mild dilated left [...] -repeat Echo ordered 05/04/24 -last seen by [facility] 11/09/24, reports follow up for 02/15/25 Had sleep study done -Follow-up appt with Cardiology 03/28/25 Assessment & Plan (05/22/2024 10:54 AM EDT): -Hx cardiac cath 07/05/2020 in [place] with normal coronary arteries, mild dilated left ventricle with borderline low EF, mild pulmonary hypertension, normal cardiac output -echo 06/17/2021 EF 60-65%, mild anteroseptal LV wall motion is hypokinetic, mild dilated left atrium, mild enlarged right atrium, calcified aortic cusps, mild MR, mild to mod TR -referred back to Cardiology 05/22/24 Assessment & Plan (01/26/2024 11:23 AM EDT): -Hx cardiac cath 07/05/2020 in [place] with normal coronary arteries, mild dilated left ventricle with borderline low EF, mild pulmonary hypertension, normal cardiac output -echo 06/17/2021 EF 60-65%, mild anteroseptal LV wall motion is hypokinetic, mild dilated left atrium, mild enlarged right atrium, calcified aortic cusps, mild MR, mild to mod TR Assessment & Plan (09/17/2023 9:53 AM EST): -Hx cardiac cath 07/05/2020 in [place] with normal coronary arteries, mild dilated left ventricle with borderline low EF, mild pulmonary hypertension, normal cardiac output -echo 06/17/2021 EF 60-65%, mild anteroseptal LV wall motion is hypokinetic, mild dilated left atrium, mild enlarged right atrium, calcified aortic cusps, mild MR, mild to mod TR Assessment & Plan (10/02/2022 12:33 PM EST): -Hx cardiac cath 07/05/2020 in [place] with normal coronary arteries, mild dilated left ventricle with borderline low EF, mild pulmonary hypertension, normal cardiac output -echo 06/17/2021 EF 60-65%, mild anteroseptal LV wall motion is hypokinetic, mild dilated left atrium, mild enlarged right atrium, calcified aortic cusps, mild MR, mild to mod TR -euvolemic on exam Atrial flutter 10/02/2022 Overview (02/21/2025): Noted in [place] during ECG for palpitations. -[id number] of 1 -s/p CTI ablation 09/22/2021 with good results -on Eliquis (apixaban) -seen by [facility] cardiology Dr. Myra Feliciano MD 12/13/2022 recommending 6 month follow up -Cardiology note from 05/04/24 reviewed Recommends Zio path for 24 days, if no further aflutter episodes will discontinue apixaban -repeat Echo ordered -last seen by [facility] 11/09/24, reports follow up for 02/15/25 Had sleep study done -Follow-up appt with Cardiology 03/28/25 Assessment & Plan (02/21/2025 2:03 PM EDT): Noted in [place] during ECG for palpitations. -[id number] of 1 -s/p CTI ablation 09/22/2021 with good results -on Eliquis (apixaban) -seen by [facility] cardiology Dr. Myra Feliciano MD 12/13/2022 recommending 6 month follow up -Cardiology note from 05/04/24 reviewed Recommends Zio path for 24 days, if no further aflutter episodes will discontinue apixaban -repeat Echo ordered -last seen by [facility] 11/09/24, reports follow up for 02/15/25 Had sleep study done -Follow-up appt with Cardiology 03/28/25 Assessment & Plan (11/30/2024 11:13 AM EDT): Noted in [place] during ECG for palpitations. -[id number] of 1 -s/p CTI ablation 09/22/2021 with good results -on Eliquis (apixaban) -seen by [facility] cardiology Dr. Myra Feliciano MD 12/13/2022 recommending 6 month follow up -Cardiology note from 05/04/24 reviewed Recommends Zio path for 24 days, if no further aflutter episodes will discontinue apixaban -repeat Echo ordered Assessment & Plan (05/22/2024 10:53 AM EDT): Noted in [place] during ECG for palpitations. -[id number] of 1 -s/p CTI ablation 09/22/2021 with good results -on Eliquis (apixaban) -seen by [facility] cardiology Dr. 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 Assessment & Plan (01/26/2024 11:23 AM EDT): Noted in [place] during ECG for palpitations. -[id number] of 1 -s/p CTI ablation 09/22/2021 with good results -on Eliquis (apixaban) -seen by [facility] cardiology Dr. Myra Feliciano MD 12/13/2022 recommending 6 month follow up Assessment & Plan (09/17/2023 9:52 AM EST): Noted in [place] during ECG for palpitations. -[id number] of 1 -s/p CTI ablation 09/22/2021 with good results -on Eliquis (apixaban) -seen by [facility] cardiology Dr. Myra Feliciano MD 12/13/2022 recommending 6 month follow up Assessment & Plan (05/31/2023 12:55 PM EDT): Noted in [place] during ECG for palpitations. -[id number] of 1 -s/p CTI ablation 09/22/2021 with good results -on Eliquis (apixaban) -seen by [facility] cardiology Dr. Myra Feliciano MD 12/13/2022 recommending 6 month follow up Assessment & Plan (10/02/2022 12:36 PM EST): Noted in [place] during ECG for palpitations. -s/p CTI ablation 09/22/2021 with good results -on Eliquis Primary hypertension 10/02/2022 Overview (12/13/2024): -Blood pressure is at goal -Continue lifestyle modifications -Continue current medications -Continue Lisinopril 10 mg 11/30/24 -Re-referred to [facility] with our DINO Thompson 11/30/24 -Follows with [facility] cardiology Dr. Myra Feliciano MD Assessment & Plan (02/21/2025 2:03 PM EDT): -Blood pressure is at goal -Continue lifestyle modifications -Continue current medications -Continue Lisinopril 10 mg 11/30/24 -Re-referred to [facility] with our DINO Thompson 11/30/24 -Follows with [facility] cardiology Dr. Myra Feliciano MD Orders: Albumin, Random Urine W/Creatinine; Future Basic Metabolic Panel; Future Assessment & Plan (12/13/2024 10:07 AM EDT): -Blood pressure is at goal -Continue lifestyle modifications -Continue current medications -Continue Lisinopril 10 mg 11/30/24 -Re-referred to [facility] with our DINO Thompson 11/30/24 -Follows with [facility] cardiology Dr. Myra Feliciano MD Assessment & Plan (11/30/2024 11:09 AM EDT): -Blood pressure is not at goal, not currently on any medications 11/30/24 -Continue lifestyle modifications -Continue current medications -Referred to [facility] with our DINO Thompson 07/10/24 -Start Lisinopril 10 mg 11/30/24 -Re-referred to [facility] with our DINO Thompson 11/30/24 -Follows with [facility] cardiology Dr. Myra Feliciano MD Assessment [...] repots hx heart surgery age 5 in [place] for unknown reason Assessment & Plan (10/02/2022 12:31 PM EST): -pt repots hx heart surgery age 5 in [place] for unknown reason Encounters * This document contains information received from the source organization and may not represent a complete record from that organization. Date Type Department Care Team Description 03/20/2025 Orders Only [facility] External Provider, [facility] Urinary hesitancy (Primary Dx) 03/13/2025 Refill [facility] [address] [place] [address] Bethany Mccormick MD Primary hypertension 03/03/2025 Refill [facility] [address] [place] [address] Robert Figueredo MD 02/22/2025 Refill [facility] [address] [place] [address] Robert Figueredo MD Mild intermittent asthma with acute exacerbation 02/21/2025 10:30 AM EDT Office Visit [facility] [address] [place] [phone] Bethany Mccormick MD Primary hypertension (Primary Dx); Mild intermittent asthma with acute exacerbation; Hx of hypertrophic cardiomyopathy; Atrial flutter, unspecified type ([facility]); Arterial atherosclerosis; PVD (peripheral vascular disease) ([facility]); Prediabetes; Dyslipidemia; Urinary hesitancy; Benign prostatic hyperplasia with urinary hesitancy; Bilateral deafness; Class 2 severe obesity due to excess calories with serious comorbidity and body mass index (BMI) of 39.0 to 39.9 in adult ([facility]); Dietary counseling; Exercise counseling; Other specified health status 02/21/2025 Telephone [facility] [address] [place] [phone] Bethany Mccormick MD Results; Referral 02/21/2025 Travel 02/20/2025 Telephone [facility] [address] [place] [address] Bethany Mccormick MD CHART PREP 02/13/2025 Patient Outreach [facility] [address] [place] [address] Bethany Mccormick MD Pre-visit Planning ([facility] unable to reach [facility]) 02/02/[address] [address] Bethany Mccormick MD Bilateral foot pain 02/02/2025 Travel 01/10/2025 11:20 AM EDT Office Visit [facility] [address] [place] [phone] Robert Figueredo MD Parainfluenza type 1 infection (Primary Dx); Mild intermittent asthma with acute exacerbation; Viral URI 01/09/2025 Telephone [facility] [address] [place] [phone] Bethany Mccormick MD Medication Question 01/01/2025 Telephone [facility] [address] [place] [phone] Bethany Mccormick MD 01/01/2025 Travel from Last 3 Months Immunizations Immunization Administration [...] Description 05/28/2025 10:45 AM EDT Office Visit [facility] [address] [place] [address] Bethany Mccormick MD [address] [place] [address] Health Maintenance Due Date Last Done Comments CT Colonography 1959 FIT DNA/Cologuard 1960 FIT 1960 FOBT 1960 Sigmoidoscopy 1960 Influenza Vaccine (#1) 2025 4, 05/31/2023, 11/18/2022 Alcohol/Substance Use Screening 07/10/2025 07/10/2024 [...] Procedure Name Priority Date/Time Associated Diagnosis Comments US RENAL COMPLETE Routine 03/21/2025 11: 14 AM EDT BASIC METABOLIC PANEL Routine 02/26/2025 8:17 AM [...] AM EDT Encounter for tuberculin skin test HM COLONOSCOPY Routine 11/25/2022 HEPATITIS C AB W/REFL TO HCV RNA, QN, PCR Routine 10/06/2022 8:42 AM EST Routine screening for STI (sexually transmitted infection) from Last 3 Months or Most Recently Relevant to Health Maintenance Results * US Renal Complete (03/21/2025 11:14 AM EDT) Anatomical Region Laterality Modality Kidney Ultrasound 03/21/2025 11:1 4 AM EDT Narrative 03/21/2025 11:15 AM EDT [facility] [address] [place] [address] Ultrasound Report Signed Patient: William Caraballo MR#: [id number] : 1960 Acct:[id number] Age/Sex: 64 / M ADM Date: 03/20/25 Loc: [facility] Attending Dr: Kelly Ha MD Ordering Physician: Kelly Ha MD Date of Service: 03/20/25 Procedure(s): US renal BI Accession Number(s): [id number] cc: Kelly Ha MD; Bethany Mccormick MD CLINICAL HISTORY: R31.9 - Hematuria, unspecified US Renal Comparison: None provided Findings: Right kidney normal size and echotexture, 15.2 cm length. Simple appearing lower pole cyst measuring 39 x 35 x 40 mm. Additional echogenic lesion along the cortex in the lower pole which could be an AML measuring 12 x 11 x 8 mm. Left kidney normal size and echotexture, 9.8 cm length. The left kidney is atrophic in appearance with contour lobulation and cortical thinning. Pelvic fullness. Normal color Doppler. IMPRESSION: 1. Atrophic appearing left kidney with pelvic fullness and renal cortical thinning. 2. 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 No prior exams available for comparison. A follow-up ultrasound is recommended in 6 months to assess for stability. Alternatively if there is high clinical concern for malignancy, CT urogram could be performed. This document has been electronically signed by: Kristen Hinton MD on 03/21/2025 11:14:23 Dictated By: Kristen Hinton MD Signed By: <Electronically signed by Kristen Hinton MD in [place]> 03/21/25 1115 DD/ 1114 TD/TT: 03/21/25 1114 Product Strategy Director: Procedure Note Donotuseinterpreter, Image - 03/21/2025 [facility] [address] [place] [address] [place] [address] Ultrasound Report Signed Patient: Faina CaraballoR#: [id number] : 1960Acct:[id number] Age/Sex: 64 / MADM Date: 03/20/25 Loc: [facility]GCX Attending Dr: Kelly Ha MD Ordering Physician: Kelly Ha MD Date of Service: 03/20/25 Procedure(s): US renal BI Accession Number(s): [id number] cc: Kelly Ha MD; Bethany Mccormick MD CLINICAL HISTORY: R31.9 - Hematuria, unspecified US Renal Comparison: None provided Findings: Right kidney normal size and echotexture, 15.2 cm length. Simple appearing lower pole cyst measuring 39 x 35 x 40 mm. Additional echogenic lesion along the cortex in the lower pole which could be an AML measuring 12 x 11 x 8 mm. Left kidney normal size and echotexture, 9.8 cm length. The left kidney is atrophic in appearance with contour lobulation and cortical thinning. Pelvic fullness. Normal color Doppler. IMPRESSION: 1. Atrophic appearing left kidney with pelvic fullness and renal cortical thinning. 2. 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 No prior exams available for comparison. A follow-up ultrasound is recommended in 6 months to assess for stability. Alternatively if there is high clinical concern for malignancy, CT urogram could be performed. This document has been electronically signed by: Kristen Hinton MD on 03/21/2025 11:14:23 Dictated By: Kristen Hinton MD Signed By: <Electronically signed by Kristen Hinton MD in OV> 03/21/25 1115 DD/ 1114 TD/TT: 03/21/25 1114 Product Strategy Director: us [facility] External Provider IMG US PROCEDURES Final Result * Albumin, Random Urine W/Creatinine (02/26/2025 8:17 AM EDT) Creatinine, Urine 84.15 mg/dL [facility] Microalbumin Urine 13.0 mg/L [facility] Microalbum Creatinine Ratio Ur 15.4 <30 ug/mg cr [facility] Comment:Albumin/Creatinine R atio Reference Ranges: Normal: < 30 ug/mg creatinine Microalbuminuria: 30 - 300 ug/mg creatinineClinical Albuminuria: > 300 ug/mg creatinine Urine 02/26/2025 8:17 AM EDT 02/26/2025 11:10 AM EDT Bethany Mccormick MD LAB URINE ORDERABLES Final Result Performing Organization Address [facility] Co de Phone Number [facility] [address] [place] [phone] * Hemoglobin A1c (02/26/2025 8:17 AM EDT) Hemoglobin A1c 5.5 <6.0 % [facility] Comment:Hemoglobin A1C Refer ence Range Adults: 4.8 - 6.0 % Non diabetic: < 6.0 % Goal: < 7.0 %Additional Action Suggested: > 8.0 %Note: Hemoglobin A1c results are invalid for patients with abnormal amounts of HbF. Blood transfusions may impact the HbA1c concentration in the patient sample. Estimated Average Glucose 111 mg/dL [facility] Comment:eAG = Estimated ave rage glucose which is %A1C expressed asaverage glucose, using the formula of the Z1M-NpyubopOhdicdz Glucose study (ADAG), Diabetes Care, Vol.31,#8,Mar. 2007 Blood Venous blood specimen / Unknown 02/26/2025 8:17 AM EDT 02/26/2025 10:59 AM EDT Bethany Mccormick MD LAB BLOOD ORDERABLES Final Result Performing Organization Address [facility] Co de Phone Number [facility] [address] [place] [phone] * (ABNORMAL) Hepatic Function Panel (02/26/2025 8:17 AM EDT) Bilirubin, Total 1.1(H) 0.0 - 1.0 mg/dL [facility] Bilirubin, Direct 0.4 0.0 - 0.5 mg/dL [facility] Aspartate Amino Transferase 53(H) 5 - 37 U/L [facility] Comment:Slight Hemolysis.Int erpret result with caution. Alanine Aminotransferase 48(H) 0 - 40 U/L [facility] Total Protein 7.8 6.5 - 8.0 g/dL [facility] Albumin Level 4.4 3.5 - 5.0 g/dL [facility] Alkaline Phosphatase 79 39 - 117 U/L [facility] Blood Venous blood specimen / Unknown 02/26/2025 8:17 AM EDT 02/26/2025 10:59 AM EDT Bethany Mccormick MD LAB BLOOD ORDERABLES Final Result Performing Organization Address City/[facility] Co de Phone Number [facility] [address] [place] [phone] * Lipid Panel, Standard (02/26/2025 8:17 AM EDT) Triglycerides 114 <150 mg/dL [facility] Comment:Desirable Triglyceri de: less than 150 mg/dLBorderline High Triglyceride 150-199 mg/dLHigh Triglyceride: 200-499 mg/dLVery High Triglyceride: greater than or equal to 5OO mg/dL Cholesterol 157 <200 mg/dL [facility] Comment:Desirable Cholestero l: less than 200 mg/dLBorderline High Cholesterol: 200-239 mg/dLHigh Cholesterol: greater than 239 mg/dL LDL Cholesterol Calculated 73 <100 mg/dL [facility] Comment:Desirable LDL: less than 100 mg/dLNear Optimal/Above Optimal LDL: 110- 129 mg/dLBorderline High LDL: 130-159 mg/dLHigh LDL: 160-189 mg/dLVery High LDL: greater than or equal to 190 mg/dL HDL Cholesterol 62 >40 mg/dL [facility] Comment:Desirable HDL: great er than 40 mg/dL Note: This HDL assay may give artificially low results in patients with liver disease. Blood Venous blood specimen / Unknown 02/26/2025 8:17 AM EDT 02/26/2025 10:59 AM EDT Bethany Mccormick MD LAB BLOOD ORDERABLES Final Result Performing Organization Address City/[facility]/ZIP Co de Phone Number [facility] [address] [place] [phone] * (ABNORMAL) Basic Metabolic Panel (02/26/2025 8:17 AM EDT) Sodium 139 135 - 145 mmol/L [facility] Potassium 5.1 3.3 - 5.1 mmol/L [facility] Comment:Slight Hemolysis.Int erpret result with caution. Chloride 103 96 - 108 mmol/L [facility] Carbon Dioxide 29 22 - 29 mmol/L [facility] Anion Gap 12 12 - 20 [facility] Urea Nitrogen (BUN) 20(H) 9 - 16 mg/dL [facility] Creatinine, Serum 0.94 0.5 - 1.4 mg/dL [facility] Estimated Glomerular Filt Rate >60 [facility] Comment:Chronic Kidney Disea se: Estimated GFR < 60 mL/min/1.82w5Lwrceb Kidney Disease: Estimated GFR < 15 mL/min/1.73m2 Glucose 110 60 - 115 mg/dL [facility] Calcium 9.6 8.4 - 10.2 mg/dL [facility] Blood Venous blood specimen / Unknown 02/26/2025 8:17 AM EDT 02/26/2025 10:59 AM EDT us Bethany Mccormick MD LAB BLOOD ORDERABLES Final Result [facility] [address] [place] [phone] * Referral to Podiatry (02/06/2025) us Sadie Foster MD OUTPATIENT REFERRAL O RDERABLES Final Result * Influenza B (ID NOW Rapid Molecular) (01/10/2025 11:46 AM EDT) Influenza B Negative Negative, Indeterminate [facility] Swab 01/10/2025 11:4 6 AM EDT Robert Figueredo MD POINT OF CARE TEST ENTER/EDIT OR DERABLES Final Result Performing Organization Address [facility]/ZIP Co de Phone Number [facility] [address] [place] [phone] * Influenza A (ID NOW Rapid Molecular) (01/10/2025 11:46 AM EDT) Influenza A Negative Negative, Indeterminate [facility] Swab 01/10/2025 11:4 6 AM EDT Robert Figueredo MD POINT OF CARE TEST ENTER/EDIT OR DERABLES Final Result Performing Organization Address [facility] Co de Phone Number [facility] [address] [place] [phone] * POCT Rapid COVID Ag (01/10/2025 11:46 AM EDT) Rapid COVID Ag Negative [facility] Swab 01/10/2025 11:4 6 AM EDT Robert Figueredo MD POINT OF CARE TEST ENTER/EDIT OR DERABLES Final Result Performing Organization Address [facility] Co de Phone Number [facility] [address] [place] [phone] * TB Skin Test (12/28/2024 10:15 AM EDT) TB Skin Test Negative Negative Other 12/28/2024 10:1 5 AM EDT Bethany Mccormick MD POINT OF CARE TEST ENTER/E DIT ORDERABLES Final Result * (ABNORMAL) Hm Colonoscopy (11/25/2022) Colonoscopy Abnormal(A ) Normal Jose Ramon Hernández MD HEALTH MAINTENANCE Final Result * Hepatitis C Antibody with Reflex to HCV, RNA, Quantitative, Real-Time PCR (10/06/2022 8:42 AM EST) Hepatitis C Antibody NON-REACT MIRA NON-REACT MIRA [employer] Index 0.07 <1.00 [employer] Comment: HCV antibody was non-reactive. There is no laboratory evidence of HCV infection. In most cases, no further action is required. However, if recent HCV exposure is suspected, a test for HCV RNA (test code 29456) is suggested. For additional information please refer to http://education.[employer]/faq/KTM92o8 (This link is being provided for informational/ educational purposes only.) Blood Venous blood specimen / Unknown 10/06/2022 8:42 AM EST 10/06/2022 8:43 AM EST Narrative [facility] - 10/09/2022 12:25 AM EST FASTING:YES FASTING: YES Bethany Mccormick MD LAB BLOOD ORDERABLES Final Result [facility] [address], [place] [phone] [employer] [address] 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 Luevano [address] [address] Cardiology 11/30/24 Rubin Gupta DO Electrophysiology Cardiology [address] [place] [address] Electrophysiology 12/15/24
--- OUTSIDE RECORDS SUMMARY | 2025-03-30 08:47 | XMS_ITS | Clinical Summary ---
Author Organization [address] [facility] Address [address] [place] [address] Phone Care Team Providers Care Mixer Operator Vacuum Pan Salt Name Role Phone Bethany Mccormick MD Primary Care Provider [phone] Allergies No known active allergies Medications predniSONE (DELTASONE) 20 mg tablet Take 3 tablets (60 mg total) by mouth 1 (one) time each day. 15 tablet 5 Active silver sulfADIAZINE (Silvadene) 1 % cream Apply topically 1 (one) time each day. 50 g 5 01/24/20 26 Active Encounters Date Type Department Care Team Description 03/28/2025 1:15 PM EDT Office Visit Orthopedic [facility] [address] [phone] Chris Edmond DPPrashant Pain in toes of both feet (Primary Dx); Arthritis of both feet; Hammertoes of both feet; Pes planus of both feet 02/06/2025 2:00 PM EDT Office Visit Orthopedic [facility] [address] [phone] Chris Edmond DPPrashant Open wound of right great toe, initial encounter (Primary Dx) 01/26/2025 Telephone Orthopedic [facility] [address] [phone] Nita Eisenberg MA 01/25/2025 Telephone Orthopedic [facility] [address] [phone] Chris Edmond DPM VNA Request 01/23/2025 1:00 PM EDT Procedure visit Orthopedic [place] [address] [phone] Chris Edmond DPM Cellulitis of left foot (Primary Dx); Cellulitis of right foot; Ingrown right big toenail; Ingrown left big toenail 01/09/2025 2:00 PM EDT Consult Orthopedic Surgery [facility] [address] [phone] Chris Edmond DPM Equinus contracture of left ankle (Primary Dx); Equinus contracture of right ankle; Pain in right foot; Plantar fasciitis 01/08/2025 8:39 PM EDT - 01/09/2025 2:12 AM EDT Emergency [facility] Emergency [address] [place] [address] Parainfluenza type 1 infection (Primary Dx); Exacerbation of asthma, unspecified asthma severity, unspecified whether persistent Discharge Disposition: Home or Self Care 12/31/2024 7:30 PM EDT - 12/31/2024 11:26 PM EDT Emergency [facility] Emergency [address] [place] [phone] Jerald Acosta MD Encounter for medical screening [...] Care Team (Late st Contact Info) Description 05/31/2025 2:30 PM EDT Office Visit Orthopedic Surgery - [place] 250 175 [facility] [address] [place] [address] Chris Edmond, DPM 175 [facility] [address] [place] [address] Health Maintenance Due Date Last Done Comments Colorectal Cancer Screening: Colonoscopy 06/08/2024 Medicare Annual Wellness Visit 06/08/2024 Social Influencers of Health Screening 06/08/2024 Depression Screening 08/30/2024 COVID-19 Vaccine ( season) 2024 05/22/2024, 05/31/2023, 11/18/2022 Influenza Vaccine (#1) 2025 , 05/31/2023, 11/18/2022 Falls Risk Assessment 12/31/2025 12/31/2024 Hypertension/CHF/CAD Annual BMP Blood Test 02/26/2026 02/26/2025, 01/08/2025, 12/31/2024, Additional history exists Cholesterol Screening (Lipid Panel) 02/26/2030 02/26/2025, 09/17/2023 DTaP,Tdap,and Td Vaccines (2 - Td [...] 20 months Aged Out No longer eligible based on [...] Natriuretic Peptide (BNP) (01/08/2025 10:22 PM EDT) [facility] BNP 147(H) <=100 pcg/mL LAB CHEMISTRY METHOD 01/08/2025 11:04 PM EDT [facility] Blood Venous blood specimen / Unknown Venipuncture / Unknown 01/08/2025 10:22 PM EDT 01/08/2025 10:31 PM EDT Corby TORRES LAB BLOOD ORDERABLES Final Resul t [facility] [address] [place] [address], [place] [phone] * (ABNORMAL) Respiratory virus panel molecular study (01/08/2025 10:14 PM EDT) [facility] Adenovirus Detection by PCR Not Detected Not Detected LAB MICROBIOLOGY METHOD 01/08/2025 11:30 PM EDT [facility] Influenza A PCR Not Detected Not Detected LAB MICROBIOLOGY METHOD 01/08/2025 11:30 PM EDT [facility] Influenza B PCR Not Detected Not Detected LAB MICROBIOLOGY METHOD 01/08/2025 11:30 PM EDT [facility] Coronavirus 229E Not Detected Not Detected LAB MICROBIOLOGY METHOD 01/08/2025 11:30 PM EDT [facility] Coronavirus HKU1 Not Detected Not Detected LAB MICROBIOLOGY METHOD 01/08/2025 11:30 PM EDT [facility] Coronavirus OC43 Not Detected Not Detected LAB MICROBIOLOGY METHOD 01/08/2025 11:30 PM EDT [facility] Coronavirus NL63 Not Detected Not Detected LAB MICROBIOLOGY METHOD 01/08/2025 11:30 PM EDT [facility] Parainfluenza Virus 1 Detected(A ) Not Detected LAB MICROBIOLOGY METHOD 01/08/2025 11:30 PM EDT [facility] Parainfluenza Virus 2 Not Detected Not Detected LAB MICROBIOLOGY METHOD 01/08/2025 11:30 PM EDT [facility] Parainfluenza Virus 3 Not Detected Not Detected LAB MICROBIOLOGY METHOD 01/08/2025 11:30 PM EDT [facility] Parainfluenza Virus 4 Not Detected Not Detected LAB MICROBIOLOGY METHOD 01/08/2025 11:30 PM EDT [facility] RSV PCR Not Detected Not Detected LAB MICROBIOLOGY METHOD 01/08/2025 11:30 PM EDT [facility] Human Metapneumovirus A and B Not Detected Not Detected LAB MICROBIOLOGY METHOD 01/08/2025 11:30 PM EDT [facility] Rhinovirus/Entero virus Not Detected Not Detected LAB MICROBIOLOGY METHOD 01/08/2025 11:30 PM EDT [facility] Bordetella pertussis Not Detected Not Detected LAB MICROBIOLOGY METHOD 01/08/2025 11:30 PM EDT [facility] Bordetella parapertussis Not Detected Not Detected LAB MICROBIOLOGY METHOD 01/08/2025 11:30 PM EDT [facility] Mycoplasma pneumo by PCR Not Detected Not Detected LAB MICROBIOLOGY METHOD 01/08/2025 11:30 PM EDT [facility] Chlamydia pneumoniae Not Detected Not Detected LAB MICROBIOLOGY METHOD 01/08/2025 11:30 PM EDT [facility] SARS COV-2 Not Detected Not Detected LAB MICROBIOLOGY METHOD 01/08/2025 11:30 PM EDT [facility] Sputum Both anterior nares / Unknown Non-blood Collection / Unknown 01/08/2025 10:14 PM EDT 01/08/2025 10:31 PM EDT Narrative [facility] - 01/08/2025 11:30 PM EDT Testing was performed using the ticckle Respiratory Pathogen PCR Assay. All results must [...] that are below the limit of detection. Coryb TORRES LAB MICROBIOLOGY - GENERAL ORDER BARBARA Final Result [facility] [address] [place] [address], * XR Chest 2 Views (01/08/2025 9:16 [...] Signed Date: 01/09/2025 08:46 ET Workstation ID: [id number] Transcribed By: Self Edit Transcribed Date: 01/09/2025 [...] Signed Date: 01/09/2025 08:46 ET Workstation ID: [id number] Transcribed By: Self Edit Transcribed Date: 01/09/2025 08:45 ET us Ju Rodriguez DO IMG XR PROCEDURES Final R esult * Troponin I high sensitivity (01/08/2025 8:57 PM EDT) Only the most recent of4 resultswithin the time period is included. High Sensitivity Troponin I 13 <=79 ng/L LAB CHEMISTRY METHOD 01/08/2025 9:31 PM EDT [facility] Blood Venous blood specimen / Unknown Venipuncture / Unknown 01/08/2025 8:57 PM EDT 01/08/2025 9:03 PM EDT Narrative [facility] - 01/08/2025 9:31 PM EDT High levels of biotin in samples may falsely decrease hsTroponin values. Use caution when interpreting hsTroponin results in patients taking biotin who exhibit renal impairment (eGFR <60) or in patients taking more than 20 mg/day of biotin. Ju Rodriguez DO LAB BLOOD ORDERABLES Zoë l Result Performing Organization Address City/[facility]/ZIP Co de Phone Number [facility] [address] [place] [address], [place] [phone] * ECG 12 lead (01/08/2025 8:47 PM EDT) Only the most recent of2 resultswithin the time period is included. Ventricular Rate ECG 55 BPM GEMUSE Atrial Rate 208 BPM GEMUSE QRS Duration 98 ms GEMUSE Q-T Interval 456 ms GEMUSE QTc 436 ms GEMUSE R [place] 38 degrees GEMUSE T [place] 92 degrees GEMUSE ECG Interpretation Sinus bradycardia with first degree AV block When compared with ECG of 31-DEC-2024 15:27, No significant change was found Confirmed by ERICA OWENS ([id number]) on 01/10/2025 9:02:09 AM GEMUSE 01/08/2025 8:47 PM EDT 01/10/2025 9:02 AM EDT Ju Rodriguez DO ECG ORDERABLES Final Res ult Performing Organization Address [facility]/ZIP Co de Phone Number GEMUSE * (ABNORMAL) CBC auto differential (01/08/2025 6:52 PM EDT) Only the most recent of2 resultswithin the time period is included. WBC 11.2(H) 4.8 - 10.8 K/mcL LAB HEMETOLOGY METHOD 01/08/2025 7:20 PM EDT [facility] RBC 4.50 4.50 - 5.50 M/mcL LAB HEMETOLOGY METHOD 01/08/2025 7:20 PM EDT [facility] Hemoglobin 14.5 13.5 - 17.5 g/dL LAB HEMETOLOGY METHOD 01/08/2025 7:20 PM EDT [facility] Hematocrit 43.7 42.0 - 54.0 % LAB HEMETOLOGY METHOD 01/08/2025 7:20 PM EDT [facility] MCV 97.5 79.0 - 98.0 FL LAB HEMETOLOGY METHOD 01/08/2025 7:20 PM EDT [facility] MCH 32.4(H) 27.0 - 32.0 pcg LAB HEMETOLOGY METHOD 01/08/2025 7:20 PM EDT [facility] MCHC 33.2 32.0 - 37.0 g/dL LAB HEMETOLOGY METHOD 01/08/2025 7:20 PM EDT [facility] RDW 13.3 11.0 - 15.0 % LAB HEMETOLOGY METHOD 01/08/2025 7:20 PM EDT [facility] Platelets 251 130 - 400 K/mcL LAB [facility]EMETOLOGY [facility] MPV 12.3(H) 7.0 - 11.0 FL LAB HEMETOLOGY METHOD 01/08/2025 7:20 PM EDT [facility] NRBC 0.0 <1.0 % LAB HEMETOLOGY METHOD [facility]/08[facility]2025 [facility] NRBC Absolute 0.00 <0.10 K/mcL LAB HEMETOLOGY METHOD 01/08/2025 7:[address] [facility] Neutrophils Relative 67.7 % LAB HEMETOLOGY METHOD 01/08/2025 7[facility] Lymphocytes Relative 19.3 % LAB HEMETOLOGY METHOD 01/08/2025 7:20 PM EDT [facility] Monocytes Relative 10.9 % LAB HEMETOLOGY METHOD [facility]/08[facility]2025 7[facility] Eosinophils Relative 0.7 % LAB HEMETOLOGY METHOD 01/08/2025 7:20 PM EDT [facility] Basophils Relative 0.5 % LAB HEMETOLOGY METHOD 01/08/2025 7:20 PM EDT [facility] Immature Granulocytes Relative 0.9 % LAB HEMETOLOGY METHOD 01/08/2025 7:20 PM EDT [facility] Neutrophils Absolute 7.55(H) 1.50 - 7.00 K/mcL LAB HEMETOLOGY METHOD 01/08/2025 7:20 PM EDT [facility] Lymphocytes Absolute 2.15 1.00 - 5.00 K/mcL LAB HEMETOLOGY METHOD 01/08/2025 7:20 PM EDT [facility] Monocytes Absolute 1.22(H) 0.20 - 1.00 K/mcL LAB HEMETOLOGY METHOD 01/08/2025 7:20 PM EDT [facility] Eosinophils Absolute 0.08 0.00 - 0.50 K/mcL LAB HEMETOLOGY METHOD 01/08/2025 7:20 PM EDT [facility] Basophils Absolute 0.06 0.00 - 0.20 K/mcL LAB HEMETOLOGY METHOD 01/08/2025 7:20 PM EDT [facility] Immature Granulocytes Absolute 0.10(H) 0.00 - 0.03 K/mcL LAB HEMETOLOGY METHOD 01/08/2025 7:20 PM EDT [facility] Blood Venous blood specimen / Unknown Venipuncture / Unknown 01/08/2025 6:52 PM EDT 01/08/2025 7:04 PM EDT us Ju Rodriguez DO LAB BLOOD ORDERABLES Zoë l Result [facility] [address] [place] [address], * (ABNORMAL) Basic metabolic panel (01/08/2025 6:52 PM EDT) Only the most recent of2 resultswithin the time period is included. [facility] Sodium 135 133 - 145 mmol/L LAB CHEMISTRY METHOD 01/08/2025 7:[address] [facility] Potassium 3.6 3.5 - 5.5 mmol/L LAB CHEMISTRY METHOD 01/08/2025 7:[address] [facility] Chloride 101 96 - 110 mmol/L LAB CHEMISTRY METHOD 01/08/2025 7:[address] [facility] CO2 25 21 - 32 mmol/L LAB CHEMISTRY METHOD 01/08/2025 7:[address] [facility] Anion Gap 9 3 - 11 LAB CHEMISTRY METHOD 01/08/2025 7:[address] [facility] Glucose 151(H) 70 - 100 mg/dL LAB CHEMISTRY METHOD 01/08/2025 7:[address] [facility] BUN 13 5 - 25 mg/dL LAB CHEMISTRY METHOD 01/08/2025 7:[address] [facility] Creatinine 0.99 0.70 - 1.30 mg/dL LAB CHEMISTRY METHOD 01/08/2025 7:[address] [facility] eGFR 85 >=60 mL/min/1. 73m2 LAB CHEMISTRY METHOD 01/08/2025 7:[address] [facility] Comment:Calculation based on the Chronic Kidney Disease Epidemiology Collaboration (CKD-EPI) equation refit without adjustment for race. BUN/Creatinine Ratio 13.1 LAB CHEMISTRY METHOD 01/08/2025 7:[address] [facility] Calcium 8.9 8.5 - 10.5 mg/dL LAB CHEMISTRY METHOD 01/08/2025 7:[address] [facility] Blood Venous blood specimen / Unknown Venipuncture / Unknown 01/08/2025 6:52 PM EDT 01/08/2025 7:04 PM EDT Ju Rodriguez DO LAB BLOOD ORDERABLES Zoë l Result Performing Organization Address [facility] Co de Phone Number [facility] [address] [place] [address], [place] [phone] * ECG-Annotated (01/01/2025) us Provider Onbase ECG ORDERABLES Final Result * Magnesium (12/31/2024 3:33 PM EDT) Magnesium 2.0 1.9 - 2.6 mg/dL LAB CHEMISTRY METHOD 12/31/2024 4:27 PM EDT [facility] Blood Venous blood specimen / Unknown Venipuncture / Unknown 12/31/2024 3:33 PM EDT 12/31/2024 3:42 PM EDT Jerald Acosta MD LAB BLOOD ORDERABLES Final Resu lt Performing Organization Address [facility]/ZIP Co de Phone Number [facility] [address] [place] [address], [place] [phone] from Last 3 Months Additional Health Concerns Infection Onset Date Last Indicated Parainfluenza Virus 01/08/2025 01/08/2025 Insurance [facility] [employer] MEDICARE Member Subscriber Plan / Payer (Ef fective 2024-Present) Name:William Caraballo Relation to Subscriber:Self Name:William Caraballo Payer ID:[id number] Group ID:[id number] Type:Not on file Address: [place] [address] [address] [address] 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
--- NOTE | 2025-03-30 09:31 | MHC.OFFVIS ---
Intake Visit Reasons: cysto/US Intake Note: Patient presents today for cystoscopy/US Renal US 03/21 Urology Medication:Allopurinol, Finasteride, Potassium, Tamsulosin Blood Thinner:Apixaban Antibiotic Allergies:None Lot #: [id number] Exp: 8 Allergies No Known Allergies Allergy (Verified 03/30/25 09:31) HPI Comments Details: 03/30/25--William is a 64 year old here for office cystoscopy was was initially evaluated on 02/09/2025 for lower urinary tract symptoms including urgency and hematuria, the patient is on finasteride and tamsulosin for enlarged prostate. Urine cytology sent on 02/12 25 was negative for malignant cells. 11/30/24--PSA --0.60 ng/mL Results-- 03/20/25--US Renal-- Atrophic appearing left kidney with pelvic fullness and renal cortical thinning. Right kidney normal size and echotexture, 15.2 cm length. Simple appearing lower pole cyst measuring 39 x 35 x 40 mm. Additional echogenic lesion along the cortex in the lower pole which could be an AML measuring 12 x 11 x 8 mm. Cystoscopy today: Significant bladder wall thickening, bladder diverticulum Plan--CT Urogram-- further evaluate urinary tract, renal US findings, renal cyst with echogenic lesion, possible angiomyolipoma 02/09/25 - The patient is a 64-year-old male presenting with urinary changes and incontinence. - Urinary changes began in August or September, characterized by urgency and occasional incontinence. - An episode of incontinence occurred during travel, prompting the use of adult diapers. - Symptoms improved after treatment with Bactrim for a urinary tract infection. - The patient is on tamsulosin and finasteride for prostate management. - History of hematuria, previously frequent, now resolved. Plan - Continue current medications: tamsulosin and finasteride. - Schedule cystoscopy to evaluate the bladder. - Perform renal ultrasound to assess kidney health. - Send urine for cytology to check for abnormal cells. [facility] Medical History Arthritis Hearing impairment Depression Hx of coronary angiogram Venous insufficiency Tricuspid regurgitation Prediabetes Obesity Essential (primary) hypertension Dyslipidemia Benign prostate hyperplasia Atrial flutter Surgical History Hx of appendectomy History of cardiac radiofrequency ablation Hx of heart surgery Family History Father Heart disease Social History Are you a primary primary care physician to a significant other at home: No Do you presently have visiting nurse or other home services: Yes (has TTY hearing assistance) Patient Tobacco Use Status: Never used Tobacco Review of Systems Const All systems reviewed & are unremarkable except as noted in HPI and below Reports no additional complaints Eyes Reports no additional complaints ENT Reports no additional complaints Card Reports no additional complaints Resp Reports no additional complaints GI Reports no additional complaints Reports as per HPI Musc Reports no additional complaints Skin/Breast Reports system reviewed and no additional complaints, except as documented Neuro Reports no additional complaints Psych Reports no additional complaints Endo Reports no additional complaints Fito/Lymph Reports no additional complaints Aller/Immun Reports no additional complaints Office Procedures Cystoscopy Consent Discussed risk and benefit or proposed procedure with the patient. Information consent for procedure given to the patient. Discussed technical aspects, risks, benefits and alternatives in full. Addressed all of the patient's questions and concerns regarding the procedure. The patient demonstrated knowledge and understanding. They wish to proceed with this procedure. Preparation The patient was prepped in the usual manner. A retail planning manager was present and in the room. Genitalia was prepped with betadine solution in a sterile manner. Lidocaine Jelly 2% was placed into the urethra and 16Fr flexible Olympus cystoscope was inserted into the meatus after adequate lubrication. Procedure Time out per protocol performed. The flexible cystoscope is passed transurethrally: The bladder was inspected in its entirety with utilization retroflexion displaying: Tumor(s): no suspicious bladder lesions visualized Trabeculation: Mild to Moderate --wide mouth diverticulum right posterior/lateral wall Mucosal Erthema:NA Orifices: normal shape and position Urethra: normal [id number] DISPOSABLE SCOPE URO-G FLEXIBLE SCOPE Procedure code (CPT) selection complete Office Meds lidocaine HCl 2 % mucosal jelly in applicator Performing Provider: Kelly Ha MD Performing Location[facility] Administered by: Edwin Thompson LPN on 03/30/25 09:48 Dose Route Admin Location Dispensed Lot Number Expiration Date [facility] Clerical Assistant 10 mL intra-urethral 20 mL ciprofloxacin HCl 500 mg tablet Performing Provider: Kelly Ha MD Performing Location: [facility] Administered by: Edwin Thompson LPN on 03/30/25 09:48 Dose Route Admin Location Dispensed Lot Number Expiration Date [facility] Clerical Assistant 500 mg PO 1 tab phenazopyridine 200 mg tablet Performing Provider: Kelly Ha MD Performing Location: [facility] Administered by: Edwin Thompson LPN on 03/30/25 09:48 Dose Route Admin Location Dispensed Lot Number Expiration Date [facility]DC Clerical Assistant 200 mg PO 1 tab Results AMB Urinalysis, Automated UA Leukoctes 0 Trevon/uL Last Edit by Luisa Andrade on 03/30/25 13:22 UA Nitrite Negative Last Edit by Luisa Andrade on 03/30/25 13:22 UA Urobilinogen 17 mg/dL Last Edit by Luisa Andrade on 03/30/25 13:22 UA Protein 1 mg/dL Last Edit by Luisa Andrade on 03/30/25 13:22 UA pH 6.0 Last Edit by Luisa Andrade on 03/30/25 13:22 UA Blood 0 Florencio/uL Last Edit by Luisa Andarde on 03/30/25 13:22 UA Specific Ennis 1.015 Last Edit by Luisa Andrade on 03/30/25 13:22 UA Ketone Negative Last Edit by Luisa Andrade on 03/30/25 13:22 UA Bilirubin 0 mg/dL Last Edit by Luisa Andrade on 03/30/25 13:22 UA Glucose 0 mg/dL Last Edit by Luisa Andrade on 03/30/25 13:22 Results Reviewed Results Reviewed: Laboratory Last Values Urine pH (Auto) 6.0 03/30/25 12:21 Specific Ennis (Auto) 1.015 03/30/25 12:21 Urine Protein (Auto) 1 mg/dL 03/30/25 12:21 Glucose (UA)(Auto) 0 mg/dL 03/30/25 12:21 Urine Ketones (Auto) Negative 03/30/25 12:21 Urine Blood (Auto) 0 Folrencio/uL 03/30/25 12:21 Urine Nitrite (Auto) Negative 03/30/25 12:21 Urine Bilirubin (Auto) 0 mg/dL 03/30/25 12:21 Urine Urobilinogen (Auto) 17 mg/dL 03/30/25 12:21 Leukocyte Esterase (Auto) 0 Trevon/uL 03/30/25 12:21 Date of Service: 03/20/25 CLINICAL HISTORY: R31.9 - Hematuria, unspecified US Renal Comparison: None provided Findings: Right kidney normal size and echotexture, 15.2 cm length. Simple appearing lower pole cyst measuring 39 x 35 x 40 mm. Additional echogenic lesion along the cortex in the lower pole which could be an AML measuring 12 x 11 x 8 mm. Left kidney normal size and echotexture, 9.8 cm length. The left kidney is atrophic in appearance with contour lobulation and cortical thinning. Pelvic fullness. Normal color Doppler. IMPRESSION: 1. Atrophic appearing left kidney with pelvic fullness and renal cortical thinning. 2. 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 No prior exams available for comparison. A follow-up ultrasound is recommended in 6 months to assess for stability. Alternatively if there is high clinical concern for malignancy, CT urogram could be performed. Collected: 02/09/25 Location: [facility] Received: 02/12/25 Diagnosis Urine: Negative for high-grade urothelial carcinoma. COMMENT: Examination of a monolayer preparation slide shows many benign superficial squamous cells with bacteria, occasional benign urothelial cells, occasional red blood cells, and scattered acute inflammatory cells. Clinical History Hematuria, unspecified Material Received Urine Gross Description Received is 41 cc of clear yellow fluid from which a ThinPrep slide is prepared. Assessment & Plan Assessment & Plan (1) Hematuria: Code(s): R31.9 - Hematuria, unspecified Category: Medical (2) BPH loc w urin obs/LUTS: Code(s): N40.1 - Benign prostatic hyperplasia with lower urinary tract symptoms Category: Medical (3) UTI symptoms: Code(s): R39.9 - Unspecified symptoms and signs involving the genitourinary system Category: Medical (4) Renal cyst: Code(s): N28.1 - Cyst of kidney, acquired Category: Medical (5) Renal mass of unknown nature: Code(s): N28.89 - Other specified disorders of kidney and ureter Category: Medical (6) Bladder diverticulum: Code(s): N32.3 - Diverticulum of bladder Category: Medical Plan Plan--CT Urogram-- further evaluate urinary tract, cystoscopy findings, bladder diverticulum, renal US findings, renal cyst with echogenic lesion, possible angiomyolipoma Orders: Orders AMB Cystoscopy 03/30/25 N39.0 - Urinary tract infection, site not specified, N40.1 - Benign prostatic hyperplasia with lower urinary tract symptoms, R31.9 - Hematuria, unspecified AMB Urinalysis Automated 03/30/25 Z13.9 - Encounter for screening, unspecified Patient Instructions: The patient had an opportunity to ask questions regarding treatment plan. The patient expressed understanding and agreement with the above treatment plan. The patient is aware they should contact our office by phone for worsening of their current condition or the appearance of new symptoms. Compliance is encouraged with any medications and followup testing that is ordered. It is a privilege to be allowed the opportunity to participate in the urologic care of your patient. If you have any questions or concerns regarding treatment for the above conditions please do not hesitate to contact me. The office telephone contact is [phone]. This note is constructed in part using voice recognition software. While every effort has been made to ensure accuracy sound person errors may have been included. Yours sincerely, Kelly Ha MD Coding Level of Care Code Est Pt Level 4 (62087) Diagnoses Hematuria R31.9 BPH loc w urin obs/LUTS N40.1 UTI symptoms R39.9 Renal cyst N28.1 Renal mass of unknown nature N28.89 Bladder diverticulum N32.3 CPT Codes Cystoscopy - CPT: 08857-[id number] ([id number])
== END 2025-03-30 10:37 | disposition home or self-care (01) ==
LOC: HO.HUSH 08:37
PROVIDERS: Visit Provider Urology
DX: R31.9 Hematuria, unspecified (principal); N40.1 Benign prostatic hyperplasia with lower urinary tract symptoms; R39.9 Unspecified symptoms and signs involving the genitourinary system; N28.1 Cyst of kidney, acquired; N28.89 Other specified disorders of kidney and ureter; N32.3 Diverticulum of bladder
CPT/HCPCS: 52000; 99214

== ENCOUNTER → 2025-03-30 08:37 | Outpatient (BNVA) | payer OTHER, SELFPAY | PROVIDERS: Visit Provider Urology | DX: N40.1 Benign prostatic hyperplasia with lower urinary tract symptoms (principal); R31.9 Hematuria, unspecified | CPT/HCPCS: 52000; 81003; 99212 ==

== ENCOUNTER 2025-05-23 09:52 | Outpatient (REF) | payer OTHER, SELFPAY ==
--- NOTE | ~2025-05-23 | CT_ITS ---
CLINICAL HISTORY: R39.9 - Unspecified symptoms and signs involving the genitourinary system CT abdomen and pelvis with and without contrast Comparison: None provided Findings: No consolidation or effusion. The heart is mildly enlarged. The left kidney is significantly atrophic and lobular. There is an exophytic right renal cyst measuring up to 4.1 cm. The right ureters normal in course and in caliber. The left ureter demonstrates multifocal dilation, nonspecific. No definite filling defect. Questionable narrowing of the left ureterovesicular junction. A large portion of the bladder extends into a right inguinal hernia. There is thickening of the bladder wall within the hernia. The gallbladder is absent. The liver, spleen, adrenal glands and pancreas are unremarkable. Vzkge-wd-ajxftdyd hiatal hernia. No bowel obstruction or free air. There is diverticulosis present. No acute osseous finding. Impression: The large portion of the bladder extends into a right inguinal hernia. The bladder wall within this hernia appears mildly thickened. Significant atrophy and lobularity of the left kidney without definite suspicious lesion. There is also left hydroureter with questionable narrowing of the left ureterovesicular junction. Additional incidental findings. This document has been electronically signed by: Abhishek Ying MD on 05/24/2025 11:59:07
[2025-05-23] MEDS: iohexoL 350 MG/ML 100 ML INFUS..BTL IV (10:28)
--- OUTSIDE RECORDS SUMMARY | 2025-05-23 11:58 | XMS_ITS | Encounter Summary ---
Author Organization [facility] Address [address] [place] [address] [address] [place] [address] Care Team Providers Care Drug Clerk Name Role Phone Bethany Mccormick MD Primary Care Provider +- [phone] Jennifer Kramer PharmD Unavailable Irineo Arevalo MD Unavailable [phone] Chris Edmond Unavailable Kelly Cho MD Unavailable Reason for Visit * Reason Onset Date Comments PT-1 09/26/2024 Encounter Details Date Type Department Care Team (Late st Contact Info) Description 09/26/2024 Telephone [facility] [address] [place], [place] [phone] Bethany Mccormick MD [address] [place], [place] [phone] PT-1 Social History Tobacco Use Types Packs/Day [...] Y/N: Yes Provider name or facility name: [address] [address] Escort needed: Y/N: Yes Do you have a wheelchair: Y/N: No If yes- Manual or electric: N/A Visits: (amount of visits) ( x monthly, weekly, daily) 5 times a month documented in this encounter Plan of Treatment Upcoming Encounters Date Type Department Care Team ([facility] Contact Info) Description 05/28/2025 10:45 AM EDT Office Visit [facility] [address] [place] [address] Bethany Mccormick MD [address] [place] [address] documented as of this encounter Visit Diagnoses Not on filedocumented in this encounter Additional Health Concerns Assessment Noted Time PHQ-9 Depression Total Score: 0 01/26/20 24 10:39 AM EDT documented as of this encounter Care Teams Drug Clerk Relationship Specialty Start Date End Date Bethany Mccormick MD [address] [place] [address] PCP - General Family Medicine 09/10/22 Jennifer Kramer, AlalnD [address] [place] [address] Pharmacist Internal Medicine 12/04/24 Irineo Arevalo MD [address] [place] [id number] Urology 12/13/24 Chris Edmond [address] [place] [address] Podiatry 01/25/25 Kelly Cho MD [address] [address] Urology 02/21/25 Dr. Bassem Shahid [address] [address] Cardiology 11/30/24 Rubin Gupta DO Electrophysiology Cardiology [address] [place] [address] Electrophysiology 12/15/24 documented as of this encounter
--- OUTSIDE RECORDS SUMMARY | 2025-05-23 11:58 | XMS_ITS | Clinical Summary ---
Author Organization [employer] Address [address] [place] [address] 7[address] [place] [address] Care Team Providers Care Wire Splicer Name Role Phone Bethany Mccormick MD Primary Care Provider [phone]- [phone] Jennifer Kramer PharmD Unavailable Irineo Arevalo MD Unavailable [phone] Chris Edmond Unavailable Kelly Cho MD Unavailable Allergies No known active allergies Medications * This document contains information received from the source organization and may not represent a complete record from that organization. apixaban (Eliquis) 5 MG tabletIndications :Atrial flutter, unspecified type (CMS/HCC) Take 1 tablet (5 mg) by mouth 2 times daily. 180 tablet 3 4 Active finasteride (Proscar) 5 MG tabletIndications :Benign prostatic hyperplasia without lower urinary tract symptoms Take 1 tablet (5 mg) by mouth in the morning. 90 tablet 3 4 Active atorvastatin (Lipitor) 10 MG tabletIndications :Dyslipidemia Take 1 tablet (10 mg) by mouth at bedtime. 90 tablet 3 4 Active pantoprazole (ProtoNix) 40 MG EC tabletIndications :Gastroesophageal reflux disease without esophagitis Take 1 tablet (40 mg) by mouth in the morning. 90 tablet 3 4 Active allopurinol (Zyloprim) 300 MG tabletIndications :Gout, unspecified cause, unspecified chronicity, unspecified site Take 1 tablet (300 mg) by mouth in the morning. 90 tablet 3 4 Active FLUoxetine (PROzac) 20 MG capsuleIndication s:Major depressive disorder, recurrent episode, mild (CMS/HCC) Take 1 capsule (20 mg) by mouth Once per day. 90 capsule 3 4 Active ibuprofen 600 MG tabletIndications :Status post fall Take 1 tablet (600 mg) by mouth every 8 (eight) hours if needed for moderate pain or fever. 15 tablet 4 Active lisinopril 10 MG tabletIndications :Primary hypertension Take 1 tablet (10 mg) by mouth Once per day. 30 tablet 11 5 12/01/19 26 Active Spacer/Aero-Holdi ng Chambers (OptiChamber Anushka) misc 1 each every 4 (four) hours if needed (asthma). 1 each 5 Active gabapentin (Neurontin) 300 MG capsuleIndication s:Bilateral foot pain Take 1 capsule (300 mg) by mouth 2 times daily. 190 capsule 3 5 Active albuterol (2.5 MG/3ML) 0.083% nebulizer solutionIndicatio ns:Mild intermittent asthma with acute exacerbation INHALE 1 AMPULE USING A NEBULIZER EVERY 6 HOURS NEEDED FOR WHEEZING OR SHORTNESS OF BREATH 90 mL 1 5 Active amLODIPine (Norvasc) 5 MG tabletIndications :Primary hypertension TAKE 1 TABLET BY MOUTH EVERY MORNING 90 tablet 1 5 Active spironolactone (Aldactone) 25 MG tabletIndications :Primary hypertension TAKE 1 TABLET BY MOUTH EVERY MORNING 90 tablet 1 5 Active Ventolin HFA 108 (90 Base) MCG/ACT inhaler INHALE 2 PUFFS BY MOUTH EVERY 4 HOURS NEEDED FOR WHEEZING OR SHORTNESS OF BREATH 18 g 1 5 Active Active Problems Problem Noted Date Diagnosed Date Obstructive sleep apnea 04/24/2025 Overview (04/26/2025): Home sleep study from 04/16/25 with [facility] reveals obstructive sleep apnia. Advising pt be started on Auto CPAP 8-20 cm H2O -re-referred for in person sleep study by cardiology 03/28/25 -will call and get details of next steps 04/26/25 Assessment & Plan (05/02/2025 8:57 AM EDT): Home sleep study from 04/16/25 with [facility] reveals obstructive sleep apnia. Advising pt be started on Auto CPAP 8-20 cm H2O -re-referred for in person sleep study by cardiology 03/28/25 -will call and get details of next steps 04/26/25 AV block 03/08/2025 Overview (03/08/2025): -14 day ambulatory monitory Aug 2024 revealed 34 pauses, longest 4.5 seconds with sinus lslowing and sinus arrest -seen for pacemaker consult 02/08/25 [facility] EP office with Dr. Rubin Gupta DO [...] ideation. Therapist and psychiatrist offered. -referred to N 11/30/24 Assessment & Plan (11/30/2024 11:12 AM EDT): Denies suicidial or homacidial ideation. Therapist and psychiatrist offered. 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 Status post fall. Reportedly tripped on [...] AM EST): - Seen on 06/15/24 at [facility]. Status post fall. Reportedly tripped on [...] 11/19, followed by Dr. Naveen Dunn of [facility] -dental is in [place] -[facility] proxy on file 09/17/23 Assessment & Plan (02/21/2025 2:03 PM EDT): -next comprehensive annual evaluation due after 02/21/26 -eye care last seen on 11/19, followed by Dr. Naveen Dunn of [facility] -dental is in [place] -[facility] proxy on file 09/17/23 Assessment & Plan (05/22/2024 10:54 AM EDT): -next comprehensive annual evaluation due after 01/25/25 -eye care last seen on 11/19, followed by Dr. Naveen Dunn of [facility] -dental is in [place] -[facility] proxy on file 09/17/23 Assessment & Plan (01/26/2024 11:24 AM EDT): -Next physical due after 10/01/2023 -Eye care last seen on 11/19 -Dental is in [place] -[facility] proxy on file 09/17/23 Assessment & Plan (09/17/2023 11:07 AM EST): -Next physical due after 10/01/2023 -Eye care last seen on 11/19 -Dental is in [place] -[facility] proxy paperwork given 09/17/23 Right inguinal hernia 11/18/2022 Overview (07/11/2024): -repaired with [facility] general surgeons 01/2023 Assessment & Plan (07/11/2024 10:41 AM EST): -repaired with [facility] general surgeons 01/2023 Assessment & Plan (09/17/2023 9:53 AM EST): -repiared with [facility] general surgeons 01/2023 Assessment & Plan [...] 02/21/25 Deaf 10/02/2022 Overview (03/15/2024): -Patient needs outside plant field engineer for all visits. Please make note of this in any referrals. -Audiology at [facility] -has appropriate assistive devices in home [...] Plan (02/21/2025 2:03 PM EDT): -Patient needs outside plant field engineer for all visits. Please make note of this in any referrals. -Audiology at [facility] -has appropriate assistive devices in home [...] Plan (11/30/2024 10:58 AM EDT): -Patient needs outside plant field engineer for all visits. Please make note of this in any referrals. -Audiology at [facility] -has appropriate assistive devices in home including fire alarm with light Patient walked in with PT1 denial letter for [facility]. The letter says it was denied because '[employer] does not participate with medicaid. Patient showed FD appointment reminder for '[facility] set for 04/28/2024 at 10am. [...] Plan (07/11/2024 10:43 AM EST): -Patient needs outside plant field engineer for all visits. Please make note of this in any referrals. -Audiology at [facility] -has appropriate assistive devices in home [...] Plan (05/22/2024 10:53 AM EDT): -Patient needs outside plant field engineer for all visits. Please make note of this in any referrals. -Audiology at [facility] -has appropriate assistive devices in home including fire alarm with light Patient walked in with PT1 denial letter for [employer]. The letter says it was denied because '[employer] does not participate with medicaid. Patient showed FD appointment reminder for '[facility]' set for 04/28/2024 at 10am. FD called '[facility]' to ask if the accept Patient insurance [...] Plan (01/26/2024 11:23 AM EDT): -Patient needs outside plant field engineer for all visits. Please make note of this in any referrals. -Audiology at [facility] -has appropriate assistive devices in home including fire alarm with light Assessment & Plan (09/17/2023 9:50 AM EST): -Bangladeshi Sign Language Assessment & Plan (10/02/2022 12:38 PM EST): -Bangladeshi Sign Language used during visit PVD (peripheral vascular disease) 10/02/2022 Overview (10/02/2022): -doppler 04/19/2021 in [place] revealed evidence of bilateral common femoral and popliteal venin valves incompetence Assessment & Plan (02/21/2025 2:03 PM EDT): -doppler 04/19/2021 in [place] revealed evidence of bilateral common femoral and popliteal venin valves incompetence Assessment & Plan (09/01/2024 3:17 PM EST): Patient also tells me pain is worse with walking, feels cramps and throbbing sensation I will refer him to vascular specialist in light he already had h/o PVD Assessment & Plan (09/17/2023 9:50 AM EST): -doppler 04/19/2021 in [place] revealed evidence of bilateral common femoral and popliteal venin valves incompetence Assessment & Plan (10/02/2022 12:35 PM EST): -doppler 04/19/2021 in [place] revealed evidence of bilateral common femoral and popliteal venin valves incompetence Arterial atherosclerosis 10/02/2022 Overview (03/08/2025): -unspecified cardiothoracic surgery (congential malformations ) in 1965 -Cardiac cath in [place] 07/05/2020 for chest pain and noted to have normal coronaries without any evidence of atherosclerosis -atrail flutter status post CTI ablation in 2021 on anticoagulation still -14 day Zio patch to monitor for aflutter Aug 2024 found evidence of sinus pauses and evidence of complete heart block, first degree AV block, 1 run SVT lasting 8 beats -seen by [facility] cardiology with Dr. Juan Luis Gonzalez MD: [...] estimation is 29 mmhg + CVP. - [facility] [place]25 recommends EP consult, seleep study -EP consult on 02/08/25 at [facility] said no indication for pacemaker but recommended testing for AMISHA -Pt now scheduled for sleep study 04/16/25 at 9:30. -Follow-up appt with Cardiology 03/28/25 Assessment & Plan (05/02/2025 8:57 AM EDT): -unspecified cardiothoracic surgery (congential malformations ) in 1965 -Cardiac cath in [place] 07/05/2020 for chest pain and noted to have normal coronaries without any evidence of atherosclerosis -atrail flutter status post CTI ablation in 2021 on anticoagulation still -14 day Zio patch to monitor for aflutter Aug 2024 found evidence of sinus pauses and evidence of complete heart block, first degree AV block, 1 run SVT lasting 8 beats -seen by [facility] cardiology with Dr. Juan Luis Gonzalez MD: [...] estimation is 29 mmhg + CVP. - [facility] [place] from 01/18/25 recommends EP consult, seleep study -EP consult on 02/08/25 at [facility] said no indication for pacemaker but recommended testing for AMISHA -Pt now scheduled for sleep study 04/16/25 at 9:30. -Follow-up appt with Cardiology 03/28/25 -will call and get details of next steps 04/26/25 Assessment & Plan (02/21/2025 2:03 PM EDT): -unspecified cardiothoracic surgery (congential malformations ) in 1966 -Cardiac cath in [place] 07/05/2020 for chest pain and noted to have normal coronaries without any evidence of atherosclerosis -atrail flutter status post CTI ablation in 2021 on anticoagulation still -14 day Zio patch to monitor for aflutter Aug 2024 found evidence of sinus pauses and evidence of complete heart block, first degree AV block, 1 run SVT lasting 8 beats -seen by [facility] cardiology with Dr. Juan Luis Gonzalez MD: [...] estimation is 29 mmhg + CVP. Called [facility], spoke with Alyssa. Pt scheduled for EP consult on 02/08/25 at 1:45pm with Rubin Gupta DO at [address] [place] [address], [address], [place] [address]. Pt does not have sleep study scheduled yet. Message was sent to cards team to inquire if this will be scheduled via cardiology or if needs to be ordered by PCP. -last seen by [facility] 11/09/24, reports follow up for 02/15/25 Had sleep study done -Follow-up appt with Cardiology 03/28/25 Assessment & Plan (07/11/2024 10:40 AM EST): -Cardiac cath in [place] 07/05/2020 for chest pain and noted to have normal coronaries without any evidence of atherosclerosis Assessment & Plan (09/17/2023 9:50 AM EST): -Cardiac cath in [place] 07/05/2020 for chest pain and noted to [...] 10/02/2022 Hx of hypertrophic cardiomyopathy 10/02/2022 Overview (04/26/2025): -Hx cardiac cath 07/05/2020 in [place] with normal coronary arteries, mild dilated left [...] -repeat Echo ordered 05/04/24 -last seen by [facility] 11/09/24, reports follow up for 02/15/25 Had home sleep study done -Follow-up appt with Cardiology 03/28/25 Assessment & Plan (05/02/2025 8:57 AM EDT): -Hx cardiac cath 07/05/2020 in [place] with normal coronary arteries, mild dilated left [...] -repeat Echo ordered 05/04/24 -last seen by [facility] 11/09/24, reports follow up for 02/15/25 Had home sleep study done -Follow-up appt with Cardiology 03/28/25 -referred to sleep medicine, will call and get details of next steps 04/26/25 Assessment & Plan (02/21/2025 2:03 PM EDT): -Hx cardiac cath 07/05/2020 in [place] with normal coronary arteries, mild dilated left [...] -repeat Echo ordered 05/04/24 -last seen by [facility] 11/09/24, reports follow up for 02/15/25 Had sleep study done -Follow-up appt with Cardiology 03/28/25 Assessment & Plan (05/22/2024 10:54 AM EDT): -Hx cardiac cath 07/05/2020 in [place] with normal coronary arteries, mild dilated left ventricle with borderline low EF, mild pulmonary hypertension, normal cardiac output -echo 06/17/2021 EF 60-65%, mild anteroseptal LV wall motion is hypokinetic, mild dilated left atrium, mild enlarged right atrium, calcified aortic cusps, mild MR, mild to mod TR -referred back to Cardiology 05/22/24 Assessment & Plan (01/26/2024 11:23 AM EDT): -Hx cardiac cath 07/05/2020 in [place] with normal coronary arteries, mild dilated left ventricle with borderline low EF, mild pulmonary hypertension, normal cardiac output -echo 06/17/2021 EF 60-65%, mild anteroseptal LV wall motion is hypokinetic, mild dilated left atrium, mild enlarged right atrium, calcified aortic cusps, mild MR, mild to mod TR Assessment & Plan (09/17/2023 9:53 AM EST): -Hx cardiac cath 07/05/2020 in [place] with normal coronary arteries, mild dilated left ventricle with borderline low EF, mild pulmonary hypertension, normal cardiac output -echo 06/17/2021 EF 60-65%, mild anteroseptal LV wall motion is hypokinetic, mild dilated left atrium, mild enlarged right atrium, calcified aortic cusps, mild MR, mild to mod TR Assessment & Plan (10/02/2022 12:33 PM EST): -Hx cardiac cath 07/05/2020 in [place] with normal coronary arteries, mild dilated left ventricle with borderline low EF, mild pulmonary hypertension, normal cardiac output -echo 06/17/2021 EF 60-65%, mild anteroseptal LV wall motion is hypokinetic, mild dilated left atrium, mild enlarged right atrium, calcified aortic cusps, mild MR, mild to mod TR -euvolemic on exam Atrial flutter 10/02/2022 Overview (02/21/2025): Noted in [place] during ECG for palpitations. -[id number] of 1 -s/p CTI ablation 09/22/2021 with good results -on Eliquis (apixaban) -seen by [facility] cardiology Dr. Myra Feliciano MD 12/13/2022 recommending 6 month follow up -Cardiology note from 05/04/24 reviewed Recommends Zio path for 24 days, if no further aflutter episodes will discontinue apixaban -repeat Echo ordered -last seen by [facility] 11/09/24, reports follow up for 02/15/25 Had sleep study done -Follow-up appt with Cardiology 03/28/25 Assessment & Plan (02/21/2025 2:03 PM EDT): Noted in [place] during ECG for palpitations. -[id number] of 1 -s/p CTI ablation 09/22/2021 with good results -on Eliquis (apixaban) -seen by [facility] cardiology Dr. Myra Feliciano MD 12/13/2022 recommending 6 month follow up -Cardiology note from 05/04/24 reviewed Recommends Zio path for 24 days, if no further aflutter episodes will discontinue apixaban -repeat Echo ordered -last seen by [facility] 11/09/24, reports follow up for 02/15/25 Had sleep study done -Follow-up appt with Cardiology 03/28/25 Assessment & Plan (11/30/2024 11:13 AM EDT): Noted in [place] during ECG for palpitations. -[id number] of 1 -s/p CTI ablation 09/22/2021 with good results -on Eliquis (apixaban) -seen by [facility] cardiology Dr. Myra Feliciano MD 12/13/2022 recommending 6 month follow up -Cardiology note from 05/04/24 reviewed Recommends Zio path for 24 days, if no further aflutter episodes will discontinue apixaban -repeat Echo ordered Assessment & Plan (05/22/2024 10:53 AM EDT): Noted in [place] during ECG for palpitations. -[id number] of 1 -s/p CTI ablation 09/22/2021 with good results -on Eliquis (apixaban) -seen by [facility] cardiology Dr. Myra Feliciano MD 12/13/2022 recommending 6 month follow up -has not been to see audio visual coordinator since, referred back again today 05/22/24. Assessment & Plan (01/26/2024 11:23 AM EDT): Noted in [place] during ECG for palpitations. -[id number] of 1 -s/p CTI ablation 09/22/2021 with good results -on Eliquis (apixaban) -seen by [facility] cardiology Dr. Myra Feliciano MD 12/13/2022 recommending 6 month follow up Assessment & Plan (09/17/2023 9:52 AM EST): Noted in [place] during ECG for palpitations. -[id number] of 1 -s/p CTI ablation 09/22/2021 with good results -on Eliquis (apixaban) -seen by [facility] cardiology Dr. Myra Feliciano MD 12/13/2022 recommending 6 month follow up Assessment & Plan (05/31/2023 12:55 PM EDT): Noted in [place] during ECG for palpitations. -[id number] of 1 -s/p CTI ablation 09/22/2021 with good results -on Eliquis (apixaban) -seen by [facility] cardiology Dr. Myra Feliciano MD 12/13/2022 recommending 6 month follow up Assessment & Plan (10/02/2022 12:36 PM EST): Noted in [place] during ECG for palpitations. -s/p CTI ablation 09/22/2021 with good results -on Eliquis Primary hypertension 10/02/2022 Overview (12/13/2024): -Blood pressure is at goal -Continue lifestyle modifications -Continue current medications -Continue Lisinopril 10 mg 11/30/24 -Re-referred to [facility] with our DINO Thompson 11/30/24 -Follows with [facility] cardiology Dr. Myra Feliciano MD Assessment & Plan (02/21/2025 2:03 PM EDT): -Blood pressure is at goal -Continue lifestyle modifications -Continue current medications -Continue Lisinopril 10 mg 11/30/24 -Re-referred to [facility] Program with DINO berrios PharmD 11/30/24 -Follows with [facility] cardiology Dr. Myra Feliciano MD Orders: Albumin, Random Urine W/Creatinine; Future Basic Metabolic Panel; Future Assessment & Plan (12/13/2024 10:07 AM EDT): -Blood pressure is at goal -Continue lifestyle modifications -Continue current medications -Continue Lisinopril 10 mg 11/30/24 -Re-referred to [facility] Therapy [facility]agment Program with our DINO Thompson 11/30/24 -Follows with [facility] cardiology Dr. Myra Feliciano MD Assessment & Plan (11/30/2024 11:09 AM EDT): -Blood pressure is not at goal, not currently on any medications 11/30/24 -Continue lifestyle modifications -Continue current medications -Referred to [facility] Program with our DINO Thompson 07/10/24 -Start Lisinopril 10 mg 11/30/24 -Re-referred to [facility] Drug Therapy Managment Program with our PharmDINO Teixeira 11/30/24 -Follows with [facility] cardiology Dr. Myra Feliciano MD Assessment & [...] goal The 10-year ASCVD risk score (Geronimo DK, et al., 2019) is: 10.7% Values used [...] repots hx heart surgery age 5 in [place] for unknown reason Assessment & Plan (10/02/2022 12:31 PM EST): -pt repots hx heart surgery age 5 in [place] for unknown reason Encounters Date Type Department Care Team Description 05/15/2025 Telephone [facility] [address] [place] [id number] Bethany Mccormick MD Lab Orders 04/26/2025 4:00 PM EDT Telemedicine [facility] [address] [place] [id number] Bethany Mccormick MD Obstructive sleep apnea (Primary Dx); Hx of hypertrophic cardiomyopathy; Arterial atherosclerosis 04/26/2025 Travel 04/24/2025 Telephone [facility] [address] [place] [id number] Bethany Mccormick MD Referral 04/18/2025 [facility] [address] [address] Robert Figueredo MD 04/08/2025 Refill [facility] [address] [place] [id number] Bethany Mccormick MD Primary hypertension 03/20/2025 Orders Only [facility] External Provider, [facility] Urinary hesitancy (Primary Dx) 03/13/2025 Refill [facility] [address] [place] [id number] Bethany Mccormick MD Primary hypertension 03/03/2025 Refill [facility] [address] [address] Robert Figureedo MD 02/22/2025 Refill [facility] [address] [address] Robert Figueredo MD Mild intermittent asthma with acute exacerbation 02/21/2025 10:30 AM EDT Office Visit [facility] [address] [place] [id number] Bethany Mccormick MD Primary hypertension (Primary Dx); Mild intermittent asthma with acute exacerbation; Hx of hypertrophic cardiomyopathy; Atrial flutter, unspecified type (CMS/HCC); Arterial atherosclerosis; PVD (peripheral vascular disease) (CMS/HCC); Prediabetes; Dyslipidemia; Urinary hesitancy; Benign prostatic hyperplasia with urinary hesitancy; Bilateral deafness; Class 2 severe obesity due to excess calories with serious comorbidity and body mass index (BMI) of 39.0 to 39.9 in adult ([facility]); Dietary counseling; Exercise counseling; Other specified health status 02/21/2025 Telephone [facility] [address] [place] [address] Bethany Mccormick MD Results; Referral 02/21/2025 Travel 02/20/2025 Telephone [facility] [address] [place] [address] Bethany Mccormick MD CHART PREP from Last 3 Months Immunizations Immunization Administration [...] Description 05/28/2025 10:45 AM EDT Office Visit [facility] [address] [place] [address] Bethany Mccormick MD [address] [place] [address] Health Maintenance Due Date Last Done Comments CT Colonography 1959 FIT DNA/Cologuard 1959 FIT 1959 FOBT 1959 Sigmoidoscopy 1959 COVID-19 Vaccine ( season) 2025 05/22/2024, 05/31/2023, 11/18/2022 Influenza Vaccine (#1) 2025 , 05/31/2023, 11/18/2022 Alcohol/Substance Use Screening 07/10/2025 07/10/2024 SDOH Screening 09/19/2025 09/19/2024 Colonoscopy 11/25/2025 11/25/2022 Colorectal Cancer Screening 11/25/2025 Depression Screening 11/30/2025 11/30/2024, 12/01/19 Tobacco Screening 02/21/2026 02/21/2025 Diabetes: Hemoglobin A1C [...] Routine 02/26/2025 8:17 AM EDT Primary hypertension HM COLONOSCOPY Routine 11/25/2022 HEPATITIS C AB W/REFL TO HCV RNA, QN, PCR Routine 10/06/2022 8:42 AM EST Routine screening for STI (sexually transmitted infection) from Last 3 Months or Most Recently Relevant to Health Maintenance Results * US Renal Complete (03/21/2025 11:14 AM EDT) Anatomical Region Laterality Modality Kidney Ultrasound 03/21/2025 11:1 4 AM EDT Narrative 03/21/2025 11:15 AM EDT [facility] [place] [facility] [place] [address] Ultrasound Report Signed Patient: William Caraballo MR#: [id number] : 1960 Acct:[id number] Age/Sex: 64 / M ADM Date: 03/20/25 Loc: [facility] Attending Dr: Kelly Ha MD Ordering Physician: Kelly Ha MD Date of Service: 03/20/25 Procedure(s): US renal BI Accession Number(s): [id number] cc: Kelly Ha MD; Bethany Mccormick MD [...] 03/21/25 1115 DD/ 1114 TD/TT: 03/21/25 1114 Make Up Operator: Procedure Note Donotuseinterpreter, Image - 03/21/2025 [facility] [place] [address] Ultrasound Report Signed Patient: Debbie Caraballo#: [id number] : 1960Acct:[id number] Age/Sex: 64 / MADM Date: 03/20/25 Loc: HO.[facility] Attending Dr: Kelly Ha MD Ordering Physician: Kelly Ha MD Date of Service: 03/20/25 Procedure(s): US renal BI Accession Number(s): [id number] cc: Kelly Ha MD; Bethany Mccormick MD [...] by Kristen Hinton MD in OV> 03/21/25 111 DD/ 111 TD/TT: 03/21/25 111 Make Up Operator: [facility] External Provider IMG US PROCEDURES Final Result * Albumin, Random Urine W/Creatinine (02/26/2025 8:17 AM EDT) Creatinine, Urine 84.15 mg/dL [facility] Microalbumin Urine 13.0 mg/L [facility] Microalbum Creatinine Ratio Ur 15.4 <30 ug/mg cr [facility] Comment:Albumin/Creatinine R atio Reference Ranges: Normal: < 30 ug/mg creatinine Microalbuminuria: 30 - 300 ug/mg creatinineClinical Albuminuria: > 300 ug/mg creatinine Urine 02/26/2025 8:17 AM EDT 02/26/2025 11:10 AM EDT Bethany Mccormick MD LAB URINE ORDERABLES Final Result Performing Organization Address [facility] Co de Phone Number [facility] [address] [place] [phone] * Hemoglobin A1c (02/26/2025 8:17 AM EDT) Hemoglobin A1c 5.5 <6.0 % [facility] Comment:Hemoglobin A1C Refer ence Range Adults: 4.8 - 6.0 % Non diabetic: < 6.0 % Goal: < 7.0 %Additional Action Suggested: > 8.0 %Note: Hemoglobin A1c results are invalid for patients with abnormal amounts of HbF. Blood transfusions may impact the HbA1c concentration in the patient sample. Estimated Average Glucose 111 mg/dL [facility] Comment:eAG = Estimated ave rage glucose which is %A1C expressed asaverage glucose, using the formula of the N8I-KgghpnuYmgzrjt Glucose study (ADAG), Diabetes Care, Vol.31,#8,2007 Blood Venous blood specimen / Unknown 02/26/2025 8:17 AM EDT 02/26/2025 10:59 AM EDT Bethany Mccormick MD LAB BLOOD ORDERABLES Final Result Performing Organization Address [facility] de Phone Number [facility] [address] [place] [phone] * (ABNORMAL) Hepatic Function Panel (02/26/2025 8:17 AM EDT) Bilirubin, Total 1.1(H) 0.0 - 1.0 mg/dL [facility] Bilirubin, Direct 0.4 0.0 - 0.5 mg/dL [facility] Aspartate Amino Transferase 53(H) 5 - 37 U/L [facility] Comment:Slight Hemolysis.Int erpret result with caution. Alanine Aminotransferase 48(H) 0 - 40 U/L [facility] Total Protein 7.8 6.5 - 8.0 g/dL [facility] Albumin Level 4.4 3.5 - 5.0 g/dL [facility] Alkaline Phosphatase 79 39 - 117 U/L [facility] Blood Venous blood specimen / Unknown 02/26/2025 8:17 AM EDT 02/26/2025 10:59 AM EDT Bethany Mccormick MD LAB BLOOD ORDERABLES Final Result Performing Organization Address City/[facility]/ZIP Co de Phone Number [facility] [address] [place] [address] [phone] * Lipid Panel, Standard (02/26/2025 8:17 AM EDT) Triglycerides 114 <150 mg/dL [facility] Comment:Desirable Triglyceri de: less than 150 mg/dLBorderline High Triglyceride 150-199 mg/dLHigh Triglyceride: 200-499 mg/dLVery High Triglyceride: greater than or equal to 5OO mg/dL Cholesterol 157 <200 mg/dL [facility] Comment:Desirable Cholestero l: less than 200 mg/dLBorderline High Cholesterol: 200-239 mg/dLHigh Cholesterol: greater than 239 mg/dL LDL Cholesterol Calculated 73 <100 mg/dL [facility] Comment:Desirable LDL: less than 100 mg/dLNear Optimal/Above Optimal LDL: 110- 129 mg/dLBorderline High LDL: 130-159 mg/dLHigh LDL: 160-189 mg/dLVery High LDL: greater than or equal to 190 mg/dL HDL Cholesterol 62 >40 mg/dL [facility] Comment:Desirable HDL: great er than 40 mg/dL Note: This HDL assay may give artificially low results in patients with liver disease. Blood Venous blood specimen / Unknown 02/26/2025 8:17 AM EDT 02/26/2025 10:59 AM EDT Bethany Mccormick MD LAB BLOOD ORDERABLES Final Result Performing Organization Address City/[facility]/ZIP Co de Phone Number [facility] [address] [place] [address] [phone] * (ABNORMAL) Basic Metabolic Panel (02/26/2025 8:17 AM EDT) [facility] Sodium 139 135 - 145 mmol/L [facility] Potassium 5.1 3.3 - 5.1 mmol/L [facility] Comment:Slight Hemolysis.Int erpret result with caution. Chloride 103 96 - 108 mmol/L [facility] Carbon Dioxide 29 22 - 29 mmol/L [facility] Anion Gap 12 12 - 20 [facility] Urea Nitrogen (BUN) 20(H) 9 - 16 mg/dL [facility] Creatinine, Serum 0.94 0.5 - 1.4 mg/dL [facility] Estimated Glomerular Filt Rate >60 [facility] Comment:Chronic Kidney Disea se: Estimated GFR < 60 mL/min/1.72g8Pwrtmy Kidney Disease: Estimated GFR < 15 mL/min/1.73m2 Glucose 110 60 - 115 mg/dL [facility] Calcium 9.6 8.4 - 10.2 mg/dL [facility] Blood Venous blood specimen / Unknown 02/26/2025 8:17 AM EDT 02/26/2025 10:59 AM EDT Bethany Mccormick MD LAB BLOOD ORDERABLES Final Result [facility] [address] [place] [phone] * (ABNORMAL) Colonoscopy (11/25/2022) [facility] Colonoscopy Abnormal(A ) Normal Historical Provider HEALTH MAINTENANCE Final Result * Hepatitis C Antibody with Reflex to HCV, RNA, Quantitative, Real-Time PCR (10/06/2022 8:42 AM EST) [facility] Hepatitis C Antibody NON-REACT MIRA NON-REACT MIRA [facility] [place] Rail[employer]unn[employer] Index 0.07 <1.00 [facility] [place] B-152 Comment: HCV antibody was non-reactive. There is no laboratory evidence of HCV infection. In most cases, no further action is required. However, if recent HCV exposure is suspected, a test for HCV RNA (test code 78317) is suggested. For additional information please refer to http://education.Tumotorizado.com.Zimplistic/faq/BYG59m6 (This link is being provided for informational/ educational purposes only.) Blood Venous blood specimen / Unknown 10/06/2022 8:42 AM EST 10/06/2022 8:43 AM EST Narrative [facility] - 10/09/2022 12:25 AM EST FASTING:YES FASTING: YES Bethany Mccormick MD LAB BLOOD ORDERABLES Final Result [facility] [address], [place] [address] [facility] [employer] [address] [facility], ([address]) [place] [address] from Last 3 Months or Most Recently Relevant to Health Maintenance Insurance [facility] SHELTER OPTIONS (O D-SNP) Advance Directives Documents on File Type Date Recorded Patient Knife Operator Expl anation Power of Tool Lathe Operator 09/21/2023 HealthCare Proxy 09/17/23 Care Teams Wire Splicer Relationship Specialty Start Date End Date Rogers, MD Bethany [address] [place] [address] PCP - General Family Medicine 09/10/22 Jennifer Kramer PharmD [address] [place] [address] Pharmacist Internal Medicine 12/04/24 Irineo Arevalo MD [address] [place] [address] Urology 12/13/24 Chrsi Edmond [address] [place] [address] Podiatry 01/25/25 Kelly Cho MD [address] [place] [address] Drive [address] [place] [address] Urology 02/21/25 Dr. Bassem Shahid [address] [address] Cardiology 11/30/24 Rubin Gupta DO Electrophysiology Cardiology [address] [place] [address] Electrophysiology 12/15/24
--- OUTSIDE RECORDS SUMMARY | 2025-05-23 11:58 | XMS_ITS | Clinical Summary ---
Author Organization [facility] Address [address] [place] [address] Phone Care Team Providers Care Payment Analyst Name Role Phone Bethany Mccormick MD Primary Care Provider [phone] Allergies No known active allergies Medications predniSONE (DELTASONE) 20 mg tablet Take 3 tablets (60 mg total) by mouth 1 (one) time each day. 15 tablet 5 Active silver sulfADIAZINE (Silvadene) 1 % cream Apply topically 1 (one) time each day. 50 g 5 01/24/20 26 Active Encounters Date Type Department Care Team Description 03/28/2025 1:15 PM EDT Office Visit Orthopedic Surgery [facility] [address] [phone] Chris Edmond DPM Pain in toes of both feet (Primary Dx); Arthritis of both feet; Hammertoes of both feet; Pes planus of both feet from Last 3 Months Medical History Medical [...] PM EDT Office Visit Orthopedic Surgery - [place] [phone] [phone] Chris Edmond, DPM [address] [address] Health Maintenance Due Date Last Done Comments Colorectal Cancer Screening: Colonoscopy 06/08/2024 Medicare Annual Wellness Visit 06/08/2024 Social Influencers of Health Screening 06/08/2024 Depression Screening 08/30/2024 COVID-19 Vaccine ( season) 2025 05/22/2024, 05/31/2023, [...] Date/Time Associated Diagnosis Comments BASIC METABOLIC PANEL STAT 01/08/2025 6:52 PM EDT from Last 3 Months or Most Recently Relevant to Health Maintenance Results * (ABNORMAL) Basic metabolic panel (01/08/2025 6:52 PM EDT) Sodium 135 133 - 145 mmol/L LAB CHEMISTRY METHOD 01/08/2025 7:38 PM [facility] Potassium 3.6 3.5 - 5.5 mmol/L LAB CHEMISTRY [facility] Chloride 101 96 - 110 mmol/L LAB CHEMISTRY METHOD 01/08/2025 7:38 PM [facility] CO2 25 21 - 32 mmol/L LAB CHEMISTRY METHOD 01/08/2025 7:38 PM [facility] Anion Gap 9 3 - 11 LAB CHEMISTRY METHOD 01/08/2025 7:38 PM [facility] Glucose 151(H) 70 - 100 mg/dL LAB CHEMISTRY METHOD 01/08/2025 7:38 PM EDT [facility] BUN 13 5 - 25 mg/dL LAB CHEMISTRY METHOD 01/08/2025 7:38 PM EDT [facility] Creatinine 0.99 0.70 - 1.30 mg/dL LAB CHEMISTRY METHOD 01/08/2025 7:38 PM EDT [facility] eGFR 85 >=60 mL/min/1. 73m2 LAB CHEMISTRY METHOD 01/08/2025 7:38 PM EDT [facility] Comment:Calculation based on the Chronic Kidney Disease Epidemiology Collaboration (CKD-EPI) equation refit without adjustment for race. BUN/Creatinine Ratio 13.1 LAB CHEMISTRY METHOD 01/08/2025 7:38 PM EDT [facility] Calcium 8.9 8.5 - 10.5 mg/dL LAB CHEMISTRY METHOD 01/08/2025 7:38 PM EDT [facility] Blood Venous blood specimen / Unknown Venipuncture / Unknown 01/08/2025 6:52 PM EDT 01/08/2025 7:04 PM EDT us [place] Steve Rodriguez DO LAB BLOOD ORDERABLES Zoë l Result [facility] [address] [place] [address], from Last 3 Months or Most Recently Relevant to Health Maintenance Additional Health Concerns Infection Onset Date Last Indicated Parainfluenza Virus 01/08/2025 01/08/[address] [facility] MEDICARE Member Subscriber Plan / Payer (Ef fective 2024-Present) Name:William Caraballo Relation to Subscriber:Self Name:William Caraballo Payer ID:[id number] Group ID:[id number] Type:Not on file Address: [address] [place] [address] Care Teams Payment Analyst Relationship Specialty Start Date End Date Bethany Mccormick MD [address] [place] [phone] PCP - General Family Medicine 01/08/25
--- OUTSIDE RECORDS SUMMARY | 2025-05-23 11:58 | XMS_ITS | Encounter Summary ---
Author Organization [employer] Address [address] [place] [address] 7t [place] [address] Care Team Providers Care Barrel Leveler Name Role Phone Bethany Mccormick MD Primary Care Provider +- [phone] Jennifer Kramer PharmD Unavailable [phone] Irineo Arevalo MD Unavailable +-[phone] Chris Edmond Unavailable Kelly Cho MD Unavailable Encounter Details Date Type Department Care Team (Late st Contact Info) Description 12/27/2024 Orders Only [facility] [address] [place], [place] [phone] Bethany Mccormick MD [address] [place], [place] [phone] Social History Tobacco Use Types Packs/Day Years [...] Description 05/28/2025 10:45 AM EDT Office Visit [facility] [address] [place] [address] Bethany Mccormick MD [address] [place] [address] documented as of this encounter Visit Diagnoses Not on filedocumented in this encounter Additional Health Concerns Assessment Noted Time PHQ-9 Depression Total Score: 2 12/01/19 25 10:35 AM EDT documented as of this encounter Care Teams Barrel Leveler Relationship Specialty Start Date End Date Bethany Mccormick MD [address] [place] [address] PCP - General Family Medicine 09/10/22 Jennifer Kramer, AllanD [address] [place] [address] Pharmacist Internal Medicine 12/04/24 Irineo Arevalo MD [address] [place] [address] Urology 12/13/24 Chris Edmond [address] [place] [address] Podiatry 01/25/25 Kelly Cho MD [address] [facility] [address] [place] [address] Urology 02/21/25 Dr. Bassem Shahid [address] [address] Cardiology 11/30/24 Rubin Gupta DO Electrophysiology Cardiology [address] [place] [address] Electrophysiology 12/15/24 documented as of this encounter
--- OUTSIDE RECORDS SUMMARY | 2025-05-23 11:58 | XMS_ITS | Encounter Summary ---
Author Organization [employer] Address [address] [place] [address] 7 [place] [address] Care Team Providers Care Sap Ppm Consultant Name Role Phone Bethany Mccormick MD Primary Care Provider +- [phone] Jennifer Kramer PharmD Unavailable Irineo Arevalo MD Unavailable [phone] Chris Edmond Unavailable Kelly Cho MD Unavailable Reason for Visit * Reason Onset Date Comments Med Refill 12/23/2023 Encounter Details Date Type Department Care Team (Late st Contact Info) Description 12/23/2023 Telephone [facility] [address] [place] [address] Bethany Mccormick MD [address] [place], [place] [phone] Med Refill Social History Tobacco Use Types Packs/Day Years Used Date Smoking Tobacco: Never Smokeless Tobacco: Never Alcohol Use Standard Drinks/Week Comments Never 0 (1 standard drink = 0.6 oz pur e alcohol) Depression Answer Date Recorded Patient Health Questionnaire-9 Score 0 10/02/2022 Housing Stability Answer Date Recorded What is your housing situation today? I have nimishapaul esquivel 06/22/[address] you [...] 1:40 PM EDT Medication was sent to [facility] on 09/21/23 #90 with 1 refill. * Telephone Encounter - Ilya Culver - 12/23/2023 1:38 PM EDT TC from pt requesting medication refill. Medications needing refill : finasteride (Proscar) 5 MG tablet To be sent to: [facility] - [place], [place] - [address] [facility] documented in this encounter Plan of Treatment Upcoming Encounters Date Type Department Care Team (Late st Contact Info) Description 05/28/2025 10:45 AM EDT Office Visit [facility] [address] [place] [address] Bethany Mccormick MD [address] [place] [address] documented as of this encounter Visit Diagnoses Not on filedocumented in this encounter Additional Health Concerns Assessment Noted Time PHQ-9 Depression Total Score: 0 10/02/19 23 9:21 AM EST documented as of this encounter Care Teams Sap Ppm Consultant Relationship Specialty Start Date End Date Bethany Mccormick MD [address] [place] [address] PCP - General Family Medicine 09/10/22 Jennifer Kramer, PharmD [address] [place] [address] Pharmacist Internal Medicine 12/04/24 Irineo Arevalo MD [address] [place] [address] Urology 12/13/24 Chris Edmond [address] [place] [address] Podiatry 01/25/25 Kelly Cho MD [address] [place] [address] Urology 02/21/25 Dr. Luevano [address] [address] Cardiology 11/30/24 Rubin Gupta DO Electrophysiology Cardiology [address] [place] [address] Electrophysiology 12/15/24 documented as of this encounter
--- OUTSIDE RECORDS SUMMARY | 2025-05-23 11:58 | XMS_ITS | Encounter Summary ---
Author Organization [employer] Address [address] [place] [address] 7 [place] [address] Care Team Providers Care Plaster Maker Name Role Phone Bethany Mccormick MD Primary Care Provider +- [phone] Jennifer Kramer PharmD Unavailable Irineo Arevalo MD Unavailable Chris Edmond Unavailable Kelly Cho MD Unavailable Reason for Visit * Reason Comments Med Refill Encounter Details Date Type Department Care Team (Late st Contact Info) Description 08/17/2024 Refill [facility] [address] [place], [place] [phone] Bethany Mccormick MD [address] [place], [place] [phone] Primary hypertension; Gastroesophageal reflux disease without esophagitis; [...] Description 05/28/2025 10:45 AM EDT Office Visit [facility] [address] [place] [address] Bethany Mccormick MD [address] [place] [address] documented as of this encounter Visit Diagnoses Diagnosis Primary hypertension Unspecified essential hypertension Gastroesophageal reflux disease without esophagitis Esophageal reflux Gout, unspecified cause, unspecified chronicity, unspecified site Major depressive disorder, recurrent episode, mild (CMS/HCC) Major depressive disorder, recurrent episode, mild documented in this encounter Additional Health Concerns Assessment Noted Time PHQ-9 Depression Total Score: 0 01/26/20 10:39 AM EDT documented as of this encounter Care Teams Plaster Maker Relationship Specialty Start Date End Date Bethany Mccormick MD [address] [place] [address] PCP - General Family Medicine 09/10/22 Jennifer Kramer, AllanD [address] [place] [address] Pharmacist Internal Medicine 12/04/24 Irineo Arevalo MD [address] [place] [address] Urology 12/13/24 Chris Edmond [address] [place] [address] Podiatry 01/25/25 Kelly Cho MD [address] [place] [address] Drive [address] [place] [address] Urology 02/21/25 Dr. Bassem Shahid [address] [address] Cardiology 11/30/24 Rubin Gupta DO Electrophysiology Cardiology [address] [place] [address] Electrophysiology 12/15/24 documented as of this encounter
--- OUTSIDE RECORDS SUMMARY | 2025-05-23 11:58 | XMS_ITS | Encounter Summary ---
Author Organization [employer] Address [address] [place] [address] 7t [place] [address] Care Team Providers Care Curriculum And Instruction Specialist Name Role Phone Bethany Mccormick MD Primary Care Provider +- [phone] Jennifer Kramer PharmD Unavailable Irineo Arevalo MD Unavailable [phone] Chris Edmond Unavailable Kelly Cho MD Unavailable Encounter Details Date Type Department Care Team (Late st Contact Info) Description 01/01/2025 Telephone [facility] [address] [place] [address] Bethany Mccormick MD [address] [place], [place] [phone] Social History Tobacco Use Types Packs/Day Years [...] encounter Miscellaneous Notes * Telephone Encounter - Aminata Doshi - 01/01/2025 4:23 PM EDT Tc from pt stating he had a missed call but no voicemail was left. Flower Grower advise sangitaate chart. documented in this encounter Plan of Treatment Upcoming Encounters Date Type Department Care Team (Late st Contact Info) Description 05/28/2025 10:45 AM EDT Office Visit [facility] [address] [place] [address] Bethany Mccormick MD [address] [place], [place] [phone] documented as of this encounter Visit Diagnoses Not on filedocumented in this encounter Additional Health Concerns Assessment Noted Time PHQ-9 Depression Total Score: 2 12/01/19 25 10:35 AM EDT documented as of this encounter Care Teams Curriculum And Instruction Specialist Relationship Specialty Start Date End Date Bethany Mccormick MD [address] [place] [address] PCP - General Family Medicine 09/10/22 Jennifer Kramer, AllanD [address] [place] [address] Pharmacist Internal Medicine 12/04/24 Irineo Arevalo MD [address] [place] [address] Urology 12/13/24 Chris Edmond [address] [place] [address] Podiatry 01/25/25 Kelly Cho MD [address] [place] [address] Urology 02/21/25 Dr. Bassem Shahid [address] [address] Cardiology 11/30/24 Rubin Gupta DO Electrophysiology Cardiology [address] [place] [address] Electrophysiology 12/15/24 documented as of this encounter
--- OUTSIDE RECORDS SUMMARY | 2025-05-23 11:58 | XMS_ITS | Encounter Summary ---
Author Organization [employer] Address [address] [facility] 7t [place] [address] Care Team Providers Care Tray Line Supervisor Name Role Phone Bethany Mccormick MD Primary Care Provider +- [phone] Jennifer Kramer PharmD Unavailable [phone] Irineo Arevalo MD Unavailable [phone] Chris Edmond Unavailable Kelly Cho MD Unavailable Reason for Visit * Reason Comments Med Refill Encounter Details Date Type Department Care Team (Late st Contact Info) Description 03/03/2025 Refill [facility] 230 [place], [place] [phone] Robert Figueredo MD [address] [place] [address] Social History Tobacco Use Types Packs/Day Years [...] 10:45 AM EDT Office Visit [facility] [address] [place] [address] Bethany Mccormick MD [address] [place] [address] documented as of this encounter Visit Diagnoses Not on filedocumented in this encounter Additional Health Concerns Assessment Noted Time PHQ-9 Depression Total Score: 2 12/01/19 25 10:35 AM EDT documented as of this encounter Care Teams Tray Line Supervisor Relationship Specialty Start Date End Date Bethany Mccormick MD [address] [place] [address] PCP - General Family Medicine 09/10/22 Jennifer Kramer PharmD [address] [place] [address] Pharmacist Internal Medicine 12/04/24 Irineo Arevalo MD [address] [place] [address] Urology 12/13/24 Chris Edmond [address] [place] [address] Podiatry 01/25/25 Kelly Cho MD [address] [place] [address] Urology 02/21/25 Dr. Bassem Shahid [address] [address] Cardiology 11/30/24 Rbuin Gupta DO Electrophysiology Cardiology [address] [place] [address] Electrophysiology 12/15/24 documented as of this encounter
--- OUTSIDE RECORDS SUMMARY | 2025-05-23 11:58 | XMS_ITS | Encounter Summary ---
Author Organization [employer] Address [address] [place] [address] 7 [place] [address] Care Team Providers Care Wreath Machine Operator Name Role Phone Bethany Mccormick MD Primary Care Provider +- [phone] Jennifer Kramer PharmD Unavailable Irineo Arevalo MD Unavailable [phone] Chris Edmond Unavailable Kelly Cho MD Unavailable Reason for Visit * Reason Comments Med Refill Encounter Details Date Type Department Care Team ([facility] Contact Info) Description 05/04/2023 Refill [facility] [address] [place], [place] [phone] Darling Savage DO 230 [place] [address] Benign prostatic hyperplasia, unspecified whether lower urinary [...] Description 05/28/2025 10:45 AM EDT Office Visit [facility] [address] [place] [address] Bethany Mccormick MD 230 [place] [address] documented as of this encounter Visit Diagnoses Diagnosis Benign prostatic hyperplasia, unspecified whether lower urinary tract symptoms present documented in this encounter Additional Health Concerns Assessment Noted Time PHQ-9 Depression Total Score: 0 10/02/19 9:21 AM EST documented as of this encounter Care Teams Wreath Machine Operator Relationship Specialty Start Date End Date Bethany Mccormick MD 230 [place], [place] [phone] PCP - General Family Medicine 09/10/22 Jennifer Kramer, AllanD [address] [place] [address] Pharmacist Internal Medicine 12/04/24 Irineo Arevalo MD [address] [place] [address] Urology 12/13/24 Chris Edmond [address] [place] [address] Podiatry 01/25/25 Kelly Cho MD [address] [place] [address] Urology 02/21/25 Dr. Bassem Shahid [address] [address] Cardiology 11/30/24 Rubin Gupta DO Electrophysiology Cardiology [address] [place] [address] Electrophysiology 12/15/24 documented as of this encounter
--- OUTSIDE RECORDS SUMMARY | 2025-05-23 11:58 | XMS_ITS | Encounter Summary ---
Author Organization [employer] Address [address] [place] [address] 7t [place] [address] Care Team Providers Care Mutuel Clerk Name Role Phone Bethany Mccormick MD Primary Care Provider +- [phone] Jennifer Kramer PharmD Unavailable Irineo Arevalo MD Unavailable [phone] Chris Edmond Unavailable Kelly Cho MD Unavailable Encounter Details Date Type Department Care Team (Late st Contact Info) Description 10/06/2024 Telephone [facility] 230 [place], [place] [phone] Bethany Mccormick MD 230 [place], [place] [phone] Social History Tobacco Use Types Packs/Day Years [...] Description 05/28/2025 10:45 AM EDT Office Visit [facility] [address] [place] [address] Bethany Mccormick MD [address] [place] [address] documented as of this encounter Visit Diagnoses Not on filedocumented in this encounter Additional Health Concerns Assessment Noted Time PHQ-9 Depression Total Score: 0 01/26/20 24 10:39 AM EDT documented as of this encounter Care Teams Mutuel Clerk Relationship Specialty Start Date End Date Bethany Mccormick MD [address] [place] [address] PCP - General Family Medicine 09/10/22 Jennifer Kramer, AllanD [address] [place] [address] Pharmacist Internal Medicine 12/04/24 Irineo Arevalo MD [address] [place] [address] Urology 12/13/24 Chris Edmond [address] [place] [address] Podiatry 01/25/25 Kelly Cho MD [address] [facility] [address] [place] [address] Urology 02/21/25 Dr. Bassem Shahid [address] [address] Cardiology 11/30/24 Rubin Gupta DO Electrophysiology Cardiology [address] [place] [address] Electrophysiology 12/15/24 documented as of this encounter
--- OUTSIDE RECORDS SUMMARY | 2025-05-23 11:58 | XMS_ITS | Encounter Summary ---
Author Organization [employer] Address [address] [place] [address] 7 [place] [address] Care Team Providers Care Color Straining Bag Washer Name Role Phone Bethany Mccormick MD Primary Care Provider +- [phone] Jennifer Kramer PharmD Unavailable [phone] Irineo Arevalo MD Unavailable [phone] Chris Edmond Unavailable Kelly Cho MD Unavailable Reason for Visit * Reason Onset Date Comments PT1 08/31/2024 Encounter Details Date Type Department Care Team (Late st Contact Info) Description 08/31/2024 Telephone [facility] 230 [place], [place] [phone] Bethany Mccormick MD 230 [place], [place] [phone] PT1 Social History Tobacco Use Types Packs/Day [...] Y/N: Yes Provider name or facility name: [address] [address] [address] Bassem Shahid (Canal Structure Operator) Escort needed: Y/N: No Do you have a wheelchair: Y/N: No If yes- Manual or electric: N/A Visits: (2) ( x monthly) documented in this encounter Plan of Treatment Upcoming Encounters Date Type Department Care Team ([facility] st Contact Info) Description 05/28/2025 10:45 AM EDT Office Visit [facility] [address] [place] [address] Bethany Mccormick MD 230 [place] [address] documented as of this encounter Visit Diagnoses Not on filedocumented in this encounter Additional Health Concerns Assessment Noted Time PHQ-9 Depression Total Score: 0 01/26/20 24 10:39 AM EDT documented as of this encounter Care Teams Color Straining Bag Washer Relationship Specialty Start Date End Date Bethany Mccormick MD 230 [place] [address] PCP - General Family Medicine 09/10/22 Jennifer Kramer, AllanD 230 [place] [address] Pharmacist Internal Medicine 12/04/24 Irineo Arevalo MD [address] [place] [address] Urology 12/13/24 Chris Edmond [address] [place] [address] Podiatry 01/25/25 Kelly Cho MD [address] [place] [address] [address] Urology 02/21/25 Dr. Bassem Shahid [address] [address] Cardiology 11/30/24 Rubin Gupta DO Electrophysiology Cardiology [address] [place] [address] Electrophysiology 12/15/24 documented as of this encounter
[2025-05-24 07:25] LABS: Creatinine POC 0.9 mg/dL (0.5-1.4); GFR POC > 60
== END 2025-05-23 09:53 | disposition home or self-care (01) ==
LOC: HO.CT 09:52
PROVIDERS: Visit Provider Urology
DX: R39.9 Unspecified symptoms and signs involving the genitourinary system (principal); R31.9 Hematuria, unspecified; N32.3 Diverticulum of bladder; N28.1 Cyst of kidney, acquired; N28.89 Other specified disorders of kidney and ureter; N40.1 Benign prostatic hyperplasia with lower urinary tract symptoms
CPT/HCPCS: 74178; 82565; Q9967

== ENCOUNTER → 2025-05-23 09:54 | Outpatient (BNV) | payer OTHER, SELFPAY | PROVIDERS: Visit Provider Radiology Vascular & Interventional Radiology | DX: N28.1 Cyst of kidney, acquired (principal); K40.90 Unilateral inguinal hernia, without obstruction or gangrene, not specified as recurrent | CPT/HCPCS: 74178 ==

== ENCOUNTER 2025-08-20 08:36 | Outpatient (AMB) | payer MEDICARE, MEDICAID, SELFPAY ==
--- NOTE | 2025-08-20 08:45 | MHC.OFFVIS ---
Intake Visit Reasons: CT/PVR (set)UA+PVR) Intake Note: Patient is present for CT/PVR IMAGIN05/24/25 Urology Medication:FINASTERIDE,TAMSULOSIN,ALLOPURINOL,POTASSUIM CHLORIDE Antibiotic Allergy:NONE Blood Thinner:APIXABAN TODAY'S PVR:8ML'S Allergies No Known Allergies Allergy (Verified 08/20/25 08:48) HPI Comments Details: 08/20/25-- 03/30/25--William is a 64 year old here for office cystoscopy was was initially evaluated on 02/09/2025 for lower urinary tract symptoms including urgency and hematuria, the patient is on finasteride and tamsulosin for enlarged prostate. Urine cytology sent on 02/12 25 was negative for malignant cells. 11/30/24--PSA --0.60 ng/mL Results-- 03/20/25--US Renal-- Atrophic appearing left kidney with pelvic fullness and renal cortical thinning. Right kidney normal size and echotexture, 15.2 cm length. Simple appearing lower pole cyst measuring 39 x 35 x 40 mm. Additional echogenic lesion along the cortex in the lower pole which could be an AML measuring 12 x 11 x 8 mm. Cystoscopy today: Significant bladder wall thickening, bladder diverticulum Plan--CT Urogram-- further evaluate urinary tract, renal US findings, renal cyst with echogenic lesion, possible angiomyolipoma 02/09/25 - The patient is a 64-year-old male presenting with urinary changes and incontinence. - Urinary changes began in August or September, characterized by urgency and occasional incontinence. - An episode of incontinence occurred during travel, prompting the use of adult diapers. - Symptoms improved after treatment with Bactrim for a urinary tract infection. - The patient is on tamsulosin and finasteride for prostate management. - History of hematuria, previously frequent, now resolved. Plan - Continue current medications: tamsulosin and finasteride. - Schedule cystoscopy to evaluate the bladder. - Perform renal ultrasound to assess kidney health. - Send urine for cytology to check for abnormal cells. [facility] Medical History Arthritis Hearing impairment Depression Hx of coronary angiogram Venous insufficiency Tricuspid regurgitation Prediabetes Obesity Essential (primary) hypertension Dyslipidemia Benign prostate hyperplasia Atrial flutter Surgical History Hx of appendectomy History of cardiac radiofrequency ablation Hx of heart surgery Family History Father Heart disease Social History Are you a primary childcare center administrator to a significant other at home: No Do you presently have visiting nurse or other home services: Yes (has TTY hearing assistance) Patient Tobacco Use Status: Never used Tobacco Office Procedures Post Void Residual Post Residual Void Post Void Residual (PVR): 8 [id number]-[id number] Void Residual by ultrasound Results AMB Urinalysis, Automated UA Leukoctes 0 Trevon/uL Last Edit by CHRISTIANO Stanley on 08/20/25 09:04 UA Nitrite Negative Last Edit by CHRISTIANO Stanley on 08/20/25 09:04 UA Urobilinogen 0.2 mg/dL Last Edit by CHRISTIANO Stanley on 08/20/25 09:04 UA Protein 0 mg/dL Last Edit by CHRISTIANO Stanley on 08/20/25 09:04 UA pH 6.0 Last Edit by CHRISTIANO Stanley on 08/20/25 09:04 UA Blood 0 Florencio/uL Last Edit by CHRISTIANO Stanley on 08/20/25 09:04 UA Specific Barnett 1.020 Last Edit by CHRISTIANO Stanley on 08/20/25 09:04 UA Ketone Negative Last Edit by CHRISTIANO Stanley on 08/20/25 09:04 UA Bilirubin 0 mg/dL Last Edit by CHRISTIANO Stanley on 08/20/25 09:04 UA Glucose 0 mg/dL Last Edit by CHRISTIANO Stanley on 08/20/25 09:04 Results Reviewed Results Reviewed: Laboratory Last Values Urine pH (Auto) 6.0 08/20/25 09:03 Specific Barnett (Auto) 1.020 08/20/25 09:03 Urine Protein (Auto) 0 mg/dL 08/20/25 09:03 Glucose (UA)(Auto) 0 mg/dL 08/20/25 09:03 Urine Ketones (Auto) Negative 08/20/25 09:03 Urine Blood (Auto) 0 Florencio/uL 08/20/25 09:03 Urine Nitrite (Auto) Negative 08/20/25 09:03 Urine Bilirubin (Auto) 0 mg/dL 08/20/25 09:03 Urine Urobilinogen (Auto) 0.2 mg/dL 08/20/25 09:03 Leukocyte Esterase (Auto) 0 Trevon/uL 08/20/25 09:03 Date of Service: 05/23/25 Procedure(s): CT urogram Accession Number(s): [id number] cc: Kelly Ha MD; Physician,Unknown ~ Report Number: [id number]: Total DLP = 1689.00 mGy-cm Reason for Exam: R39.9 - Unspecified symptoms and signs involving the genitourinary system CLINICAL HISTORY: R39.9 - Unspecified symptoms and signs involving the genitourinary system CT abdomen and pelvis with and without contrast Comparison: None provided Findings: No consolidation or effusion. The heart is mildly enlarged. The left kidney is significantly atrophic and lobular. There is an exophytic right renal cyst measuring up to 4.1 cm. The right ureters normal in course and in caliber. The left ureter demonstrates multifocal dilation, nonspecific. No definite filling defect. Questionable narrowing of the left ureterovesicular junction. A large portion of the bladder extends into a right inguinal hernia. There is thickening of the bladder wall within the hernia. The gallbladder is absent. The liver, spleen, adrenal glands and pancreas are unremarkable. Tdvee-yk-unadjzca hiatal hernia. No bowel obstruction or free air. There is diverticulosis present. No acute osseous finding. Impression: The large portion of the bladder extends into a right inguinal hernia. The bladder wall within this hernia appears mildly thickened. Significant atrophy and lobularity of the left kidney without definite suspicious lesion. There is also left hydroureter with questionable narrowing of the left ureterovesicular junction. Assessment & Plan Assessment & Plan (1) Inguinal hernia: Code(s): K40.90 - Unilateral inguinal hernia, without obstruction or gangrene, not specified as recurrent Category: Medical Orders: Orders AMB Urinalysis Automated Today Z13.9 - Encounter for screening, unspecified Referrals General Surgery Referral K40.90 - Unilateral inguinal hernia, without obstruction or gangrene, not specified as recurrent Coding Diagnoses Inguinal hernia K40.90 CPT Codes Post Residual Void - PVR CPT Code: 50569-[id number] Void Residual by ultrasound ([id number])
--- OUTSIDE RECORDS SUMMARY | 2025-08-20 08:53 | XMS_ITS | Encounter Summary ---
Author Organization [employer] Address [address] [facility] 7t [place] [address] Care Team Providers Care Kayak Maker Name Role Phone Bethany Mccormick MD Primary Care Provider +- [phone] Jennifer Kramer PharmD Unavailable Irineo Arevalo MD Unavailable [phone] Chris Edmond Unavailable Kelly Cho MD Unavailable Reason for Visit * Reason Comments Med Refill Encounter Details Date Type Department Care Team (Late st Contact Info) Description 03/03/2025 Refill [facility] 230 [place], [place] [phone] Robert Figueredo MD 230 [place] [address] Social History Tobacco Use Types Packs/Day Years [...] Care Team (Late st Contact Info) Description 09/05/2025 11:15 AM EST Office Visit [facility] [address] [place] [address] Bethany Mccormick MD [address] [place] [address] documented as of this encounter Visit Diagnoses Not on filedocumented in this encounter Additional Health Concerns Assessment Noted Time PHQ-9 Depression Total Score: 2 12/01/19 25 10:35 AM EDT documented as of this encounter Care Teams Kayak Maker Relationship Specialty Start Date End Date Bethany Mccormick MD [address] [place] [address] PCP - General Family Medicine 1/12/23 Jennifer Kramer PharmD 230 [place] [address] Pharmacist Internal Medicine 12/04/24 Irineo Arevalo MD [address] [place] [address] Urology 12/13/24 Chris Edmond [address] [place] [address] Podiatry 01/25/25 Kelly Cho MD [address] [place] [address] Urology 02/21/25 Dr. Luevano [address] [address] Cardiology 11/30/24 Rubin Gupta DO Electrophysiology Cardiology [address] [place] [address] Electrophysiology 12/15/24 documented as of this encounter
--- OUTSIDE RECORDS SUMMARY | 2025-08-20 08:53 | XMS_ITS | Encounter Summary ---
Author Organization [employer] Address [address] [place] [address] 7 [place] [address] Care Team Providers Care Harness Brusher Name Role Phone Bethany Mccormick MD Primary Care Provider +- [phone] Jennifer Kramer PharmD Unavailable [phone] Irineo Arevalo MD Unavailable [phone] Chris Edmond Unavailable Kelly Cho MD Unavailable Reason for Visit * Reason Onset Date Comments PT1 08/31/2024 Encounter Details Date Type Department Care Team (Late st Contact Info) Description 08/31/2024 Telephone [facility] 230 [place], [place] [phone] Bethany Mccormick MD 230 [place], [place] [phone] PT1 Social History Tobacco Use Types Packs/Day [...] Y/N: Yes Provider name or facility name: [address] [address] [address] Bassem Shahid (Performance Makeup Artist) Escort needed: Y/N: No Do you have a wheelchair: Y/N: No If yes- Manual or electric: N/A Visits: (2) ( x monthly) documented in this encounter Plan of Treatment Upcoming Encounters Date Type Department Care Team ([facility] st Contact Info) Description 09/05/2025 11:15 AM EST Office Visit [facility] [address] [place] [address] Bethany Mccormick MD 230 [place] [address] documented as of this encounter Visit Diagnoses Not on filedocumented in this encounter Additional Health Concerns Assessment Noted Time PHQ-9 Depression Total Score: 0 01/26/20 24 10:39 AM EDT documented as of this encounter Care Teams Harness Brusher Relationship Specialty Start Date End Date Bethany Mccormick MD 230 [place] [address] PCP - General Family Medicine 09/10/22 Jennifer Kramer, AllanD 230 [place] [address] Pharmacist Internal Medicine 12/04/24 Irineo Arevalo MD [address] [place] [address] Urology 12/13/24 Chris Edmond [address] [place] [address] Podiatry 01/25/25 Kelly Cho MD [address] [place] [address] [address] Urology 02/21/25 Dr. Bassem Shahid [address] [address] Cardiology 11/30/24 Rubin Gupta DO Electrophysiology Cardiology [address] [place] [address] Electrophysiology 12/15/24 documented as of this encounter
--- OUTSIDE RECORDS SUMMARY | 2025-08-20 08:53 | XMS_ITS | Clinical Summary ---
Author Organization [facility] Address [address] [place] [address] Phone Care Team Providers Care Railway Signalling Engineer Name Role Phone Bethany Mccormick MD Primary Care Provider [phone] Allergies No known active allergies Medications predniSONE (DELTASONE) 20 mg tablet Take 3 tablets (60 mg total) by mouth 1 (one) time each day. 15 tablet 5 Active silver sulfADIAZINE (Silvadene) 1 % cream Apply topically 1 (one) time each day. 50 g 5 01/24/20 26 Active Medical History Medical History Date Comments Asthma [...] on file Sexual Orientation Not on file Last Filed Vital Signs Vital Sign Reading [...] 02/06/2025 2:33 PM EDT Plan of Treatment Health Maintenance Due Date Last Done Comments Colorectal Cancer Screening: Colonoscopy 1960 Medicare Annual Wellness Visit 06/08/2024 Social Influencers [...] mmol/L LAB CHEMISTRY METHOD 01/08/2025 7:38 PM [facility] Potassium 3.6 3.5 - 5.5 mmol/L LAB CHEMISTRY METHOD 01/08/2025 7:38 PM [facility] Chloride 101 96 - 110 mmol/L LAB CHEMISTRY METHOD 01/08/2025 7:38 PM [facility] CO2 25 21 - 32 mmol/L LAB CHEMISTRY METHOD 01/08/2025 7:38 PM [facility] Anion Gap 9 3 - 11 LAB CHEMISTRY METHOD 01/08/2025 7:38 PM [facility] Glucose 151(H) 70 - 100 mg/dL LAB CHEMISTRY METHOD 01/08/2025 7:38 PM [facility] BUN 13 5 - 25 mg/dL LAB CHEMISTRY METHOD 01/08/2025 7:38 PM [facility] Creatinine 0.99 0.70 - 1.30 mg/dL LAB CHEMISTRY METHOD 01/08/2025 7:38 PM [facility] eGFR 85 >=60 mL/min/1. 73m2 LAB CHEMISTRY METHOD 01/08/2025 7:38 PM [facility] Comment:Calculation based on the Chronic Kidney Disease Epidemiology Collaboration (CKD-EPI) equation refit without adjustment for race. BUN/Creatinine Ratio 13.1 LAB CHEMISTRY METHOD 01/08/2025 7:38 PM [facility] Calcium 8.9 8.5 - 10.5 mg/dL LAB CHEMISTRY METHOD 01/08/2025 7:38 PM EDT [facility] Blood Venous blood specimen / Unknown Venipuncture / Unknown 01/08/2025 6:52 PM EDT 01/08/2025 7:04 PM EDT us Ju Rodriguez DO LAB BLOOD ORDERABLES Zoë l Result [facility] ([facility] [address] [place] [address], [place] [phone] from Last 3 Months or Most Recently Relevant to Health Maintenance Additional Health Concerns Infection Onset Date Last Indicated Parainfluenza Virus 01/08/2025 01/08/2025 Insurance [place]ICAID - [place] [facility] MEDICARE Member Subscriber Plan / Payer (Ef fective 2024-Present) Name:William Caraballo Relation to Subscriber:Self Name:William Caraballo Payer ID:[id number] Group ID:[id number] Type:Not on file Address: [address] [place] [address] MEDICARE Care Teams Railway Signalling Engineer Relationship Specialty Start Date End Date Jace, MD Bethany [address] [place] [address] [place] [address] PCP - General Family Medicine 01/08/25
--- OUTSIDE RECORDS SUMMARY | 2025-08-20 08:53 | XMS_ITS | Encounter Summary ---
Author Organization [employer] Address [address] [place] [address] 7 [place] [address] Care Team Providers Care It Infrastructure Architect Name Role Phone Bethany Mccormick MD Primary Care Provider +- [phone] Jennifer Kramer PharmD Unavailable Irineo Arevalo MD Unavailable [phone] Chris Edmond Unavailable Kelly hCo MD Unavailable Reason for Visit * Reason Comments Med Refill Encounter Details Date Type Department Care Team ([facility] Contact Info) Description 05/04/2023 Refill [facility] 230 [place], [place] [phone] Darling Savage DO [address] [place] [address] Benign prostatic hyperplasia, unspecified whether lower urinary [...] Description 09/05/2025 11:15 AM EST Office Visit [facility] [address] [place] [address] Bethany Mccormick MD [address] [place] [address] documented as of this encounter Visit Diagnoses Diagnosis Benign prostatic hyperplasia, unspecified whether lower urinary tract symptoms present documented in this encounter Additional Health Concerns Assessment Noted Time PHQ-9 Depression Total Score: 0 10/02/19 9:21 AM EST documented as of this encounter Care Teams It Infrastructure Architect Relationship Specialty Start Date End Date Bethany Mccormick MD 230 [place], [place] [phone] PCP - General Family Medicine 09/10/22 Jennifer Kramer, AllanD [address] [place] [address] Pharmacist Internal Medicine 12/04/24 Irineo Arevalo MD [address] [place] [address] Urology 12/13/24 Chris Edmond [address] [place] [address] Podiatry 01/25/25 Kelly Cho MD [address] [place] [address] Urology 02/21/25 Dr. Bassem Shahid [address] [address] Cardiology 11/30/24 Rubin Gupta DO Electrophysiology Cardiology [address] [address] Electrophysiology 12/15/24 documented as of this encounter
--- OUTSIDE RECORDS SUMMARY | 2025-08-20 08:53 | XMS_ITS | Encounter Summary ---
Author Organization [employer] Address [address] [place] [address] [address] [place] [address] Care Team Providers Care Mason Foreman/Superintendant Name Role Phone Bethany Mccormick MD Primary Care Provider +- [phone] Jennifer Kramer PharmD Unavailable Irineo Arevalo MD Unavailable [phone] Chris Edmond Unavailable Kelly Cho MD Unavailable Encounter Details Date Type Department Care Team (Late st Contact Info) Description 01/01/2025 Telephone [facility] MED[facility]INE [address] [place] [address] Bethany Mccormick MD [address] [place], [place] [phone] Social History Tobacco Use Types Packs/Day Years [...] missed call but no voicemail was left. Die Maker Apprentice advise sangitaate chart. documented in this encounter Plan of Treatment Upcoming Encounters Date Type Department Care Team (Late st Contact Info) Description 09/05/2025 11:15 AM EST Office Visit [facility] MED[facility]INE [address] [place] [address] Bethany Mccormick MD [address] [place], [place] [phone] documented as of this encounter Visit Diagnoses Not on filedocumented in this encounter Additional Health Concerns Assessment Noted Time PHQ-9 Depression Total Score: 2 12/01/19 10:35 AM EDT documented as of this encounter Care Teams Mason Foreman/Superintendant Relationship Specialty Start Date End Date Bethany Mccormick MD [address] [place] [address] PCP - General Family Medicine 09/10/22 Jennifer Kramer, AllanD [address] [place] [address] Pharmacist Internal Medicine 12/04/24 Irineo Arevalo MD [address] [place] [phone] Urology 12/13/24 Chris Edmond [address] [place] [phone] Podiatry 01/25/25 Kelly Cho MD [address] [place] [phone] Urology 02/21/25 Dr. Luevano [address] [address] Cardiology 11/30/24 Rubin Gupta DO Electrophysiology Cardiology [address] [place] [id number] Electrophysiology 12/15/24 documented as of this encounter
--- OUTSIDE RECORDS SUMMARY | 2025-08-20 08:53 | XMS_ITS | Clinical Summary ---
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 apixaban (Eliquis) 5 MG tabletIndications :Atrial flutter, unspecified type (CMS/HCC) (HCC) Take 1 tablet (5 mg) by mouth 2 times daily. 180 tablet 3 4 Active allopurinol (Zyloprim) 300 [...] mouth Once per day. 30 tablet 11 07/25/2025 11:23 AM EST 5 12/01/19 26 Active Spacer/Aero-Holdi ng Chambers [...] BY MOUTH EVERY MORNING 90 tablet 1 07/25/2025 11:24 AM EST 5 Active Ventolin HFA 108 (90 Base) MCG/ACT inhaler INHALE 2 PUFFS BY MOUTH EVERY 4 HOURS NEEDED FOR WHEEZING OR SHORTNESS OF BREATH 18 g 1 07/25/2025 11:23 AM EST 5 Active atorvastatin (Lipitor) 10 MG tabletIndications :Dyslipidemia TAKE 1 TABLET BY MOUTH AT BEDTIME 90 tablet 3 5 Active finasteride (Proscar) 5 MG tabletIndications :Benign prostatic hyperplasia without lower urinary tract symptoms TAKE 1 TABLET BY MOUTH EVERY MORNING 90 tablet 3 07/25/2025 11:24 AM EST 5 Active pantoprazole (ProtoNix) 40 MG EC tabletIndications :Gastroesophageal reflux disease without esophagitis TAKE 1 TABLET BY MOUTH EVERY MORNING 90 tablet 3 07/25/2025 11:24 AM EST 5 Active Active Problems Problem Noted Date Diagnosed Date Obstructive sleep apnea 04/24/2025 Overview (05/28/2025): Home sleep study from 04/16/25 with [facility] reveals obstructive sleep apnia. Advising pt be started on Auto CPAP 8-20 cm H2O -re-referred for in person sleep study by cardiology 03/28/25 -will call and get details of next steps 04/26/25 -Cardiology reported they sent a sleep study referral to sleep medicine 04/18/25 -Sleep medicine processed the referral and pt is on the list 05/07/25 -will call again to follow-up, pt has not heard 05/28/25 Assessment & Plan (05/28/2025 11:09 AM EDT): Home sleep study from 04/16/25 with [facility] reveals obstructive sleep apnia. Advising pt be started on Auto CPAP 8-20 cm H2O -re-referred for in person sleep study by cardiology 03/28/25 -will call and get details of next steps 04/26/25 -Cardiology reported they sent a sleep study referral to sleep medicine 04/18/25 -Sleep medicine processed the referral and pt is on the list 05/07/25 -will call again to follow-up, pt has not heard 05/28/25 Assessment & Plan (05/02/2025 8:57 AM EDT): Home sleep study from 04/16/25 with [facility] reveals obstructive sleep apnia. Advising pt be started on Auto CPAP 8-20 cm H2O -re-referred for in person sleep study by cardiology 03/28/25 -will call and get details of next steps 04/26/25 AV block 03/08/2025 Overview (03/08/2025): -14 day ambulatory monitory Aug 2024 revealed 34 pauses, longest 4.5 seconds with sinus lslowing and sinus arrest -seen for pacemaker consult 02/08/25 [facility] EP office with Dr. Rubin Gupta, -no indication for pacemaker at this time, [...] initial goals with patient. Assessment & Plan (05/28/2025 11:09 AM EDT): Assessment & Plan (02/21/2025 2:03 PM EDT): [...] Therapist and psychiatrist offered. -referred to [facility] 11/30/24 Assessment & Plan (11/30/2024 11:12 AM EDT): Denies suicidial or homacidial ideation. Therapist and psychiatrist offered. 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 Status post fall. Reportedly tripped [...] AM EST): - Seen on 06/15/24 at [facility]. Status post fall. Reportedly tripped [...] recommending repeat in 3 years Severe obesity (CMS/HCC) 05/24/2023 Tricuspid regurgitation 05/24/2023 Other specified health status 01/12/2023 Overview (02/21/2025): -next comprehensive annual evaluation due after 02/21/26 -eye care last seen on 11/19, followed by Dr. Naveen Dunn of [facility] -dental is in [place] -[facility] care proxy on file 09/17/23 Assessment & Plan (02/21/2025 2:03 PM EDT): -next comprehensive annual evaluation due after 02/21/26 -eye care last seen on 11/19, followed by Dr. Naveen Dunn of [facility] -dental is in [place] -[facility] care proxy on file 09/17/23 Assessment & Plan (05/22/2024 10:54 AM EDT): -next comprehensive annual evaluation due after 01/25/25 -eye care last seen on 11/19, followed by Dr. Naveen Dunn of [facility] -dental is in [place] -[facility] care proxy on file 09/17/23 Assessment & Plan (01/26/2024 11:24 AM EDT): -Next physical due after 10/01/2023 -Eye care last seen on 11/19 -Dental is in [place] -[facility] care proxy on file 09/17/23 Assessment & Plan (09/17/2023 11:07 AM EST): -Next physical due after 10/01/2023 -Eye care last seen on 11/19 -Dental is in [place] -[facility] proxy paperwork given 09/17/23 Right inguinal hernia 11/18/2022 Overview (07/11/2024): -repaired with [facility] general surgeons 01/2023 Assessment & Plan (07/11/2024 10:41 AM EST): -repaired with [facility] general surgeons 01/2023 Assessment & Plan (09/17/2023 9:53 AM EST): -repiared with [facility] general surgeons 01/2023 Assessment & Plan (11/18/2022 12:04 PM EDT): Referral for surgery done 11/18/22. Gout 10/02/2022 Dyslipidemia 10/02/2022 Overview (05/28/2025): Lab Results Component Value Date CHOL 157 02/26/2025 CHOL 146 09/17/2023 TRIG 114 02/26/2025 TRIG 85 09/17/2023 TRIG 95 10/06/2022 HDL 62 02/26/2025 HDL 60 09/17/2023 LDLCHOLCAL 73 02/26/2025 LDLCHOLCAL 69 09/17/2023 -LDL is at goal [...] 02/21/25 Deaf 10/02/2022 Overview (03/15/2024): -Patient needs chassis inspector for all visits. Please make note of this in any referrals. -Audiology at [facility] -has appropriate assistive devices in home including fire alarm with light Patient walked in with PT1 denial letter for [facility]. The letter says it was denied because '[place] does not participate with medicaid. Patient showed FD appointment reminder for [facility]' set for 04/28/2024 at 10am. [...] placed to audiology 03/15/24 Assessment & Plan (05/28/2025 11:09 AM EDT): -Patient needs chassis inspector for all visits. Please make note of this in any referrals. -Audiology at [facility] -has appropriate assistive devices in home including fire alarm with light Patient walked in with PT1 denial letter for [facility]. The letter says it was denied because '[place]' does not participate with medicaid. Patient showed FD appointment reminder for '[facility]' set for 04/28/2024 at 10am. [...] Plan (02/21/2025 2:03 PM EDT): -Patient needs chassis inspector for all visits. Please make note of this in any referrals. -Audiology at [facility] -has appropriate assistive devices in home including fire alarm with light Patient walked in with PT1 denial letter for [facility]. The letter says it was denied because [...] Plan (11/30/2024 10:58 AM EDT): -Patient needs chassis inspector for all visits. Please make note of this in any referrals. -Audiology at [facility] -has appropriate assistive devices in home including fire alarm with light Patient walked in with PT1 denial letter for [facility]. The letter says it was denied because '[facility] does not participate with medicaid. Patient showed FD appointment reminder for [facility] set for 04/28/2024 at 10am. [...] Plan (07/11/2024 10:43 AM EST): -Patient needs chassis inspector for all visits. Please make note of this in any referrals. -Audiology at [facility] -has appropriate assistive devices in home [...] Plan (05/22/2024 10:53 AM EDT): -Patient needs chassis inspector for all visits. Please make note of this in any referrals. -Audiology at [facility] -has appropriate assistive devices in home [...] Plan (01/26/2024 11:23 AM EDT): -Patient needs chassis inspector for all visits. Please make note of this in any referrals. -Audiology at [facility] -has appropriate assistive devices in home including fire alarm with light Assessment & Plan (09/17/2023 9:50 AM EST): -Cypriot Sign Language Assessment & Plan (10/02/2022 12:38 PM EST): -Cypriot Sign Language used during visit PVD (peripheral [...] venin valves incompetence Arterial atherosclerosis 10/02/2022 Overview (05/28/2025): -unspecified cardiothoracic surgery (congential malformations ) in [...] run SVT lasting 8 beats -seen by [facility] cardiology with Dr. Juan Luis Gonzalez [...] estimation is 29 mmhg + CVP. - [facility] Cardiology note from 01/18/25 recommends EP consult, seleep study -EP consult on 02/08/25 at [facility] said no indication for pacemaker but recommended testing for AMISHA -Pt now scheduled for sleep study 04/16/25 at 9:30. -Follow-up appt with Cardiology 03/28/25 -will call and get details of next steps 04/26/25 -Cardiology reported they sent a sleep study referral to sleep medicine 04/18/25 -Sleep medicine processed the referral and pt is on the list 05/07/25 -will call again to follow-up, pt has not heard 05/28/25 Assessment & Plan (05/28/2025 11:09 AM EDT): -unspecified cardiothoracic surgery (congential malformations [...] run SVT lasting 8 beats -seen by [facility] cardiology with Dr. Juan Luis Gonzalez [...] estimation is 29 mmhg + CVP. - [facility] Cardiology note from 01/18/25 recommends EP consult, seleep study -EP consult on 02/08/25 at [facility] said no indication for pacemaker but recommended testing for AMISHA -Pt now scheduled for sleep study 04/16/25 at 9:30. -Follow-up appt with Cardiology 03/28/25 -will call and get details of next steps 04/26/25 -Cardiology reported they sent a sleep study referral to sleep medicine 04/18/25 -Sleep medicine processed the referral and pt is on the list 05/07/25 -will call again to follow-up, pt has not heard 05/28/25 Assessment & Plan (05/02/2025 8:57 AM EDT): [...] run SVT lasting 8 beats -seen by [facility] cardiology with Dr. Juan Luis Gonzalez [...] estimation is 29 mmhg + CVP. - [facility] Cardiology note from 01/18/25 recommends EP consult, seleep study -EP consult on 02/08/25 at [facility] said no indication for pacemaker but recommended testing for AMISHA -Pt now scheduled for sleep study 04/16/25 at 9:30. -Follow-up appt with Cardiology 03/28/25 -will call and get details of next steps 04/26/25 Assessment & Plan (02/21/2025 2:03 PM EDT): -unspecified cardiothoracic surgery (congential malformations ) in 1966 -Cardiac cath in [place] 07/05/2020 for chest pain and noted to have normal coronaries without any evidence of atherosclerosis -atrail flutter status post CTI ablation in 2021 on anticoagulation still -14 day Zio patch to monitor for aflutter Aug 2024 found evidence of sinus pauses and evidence of complete heart block, first degree AV block, 1 run SVT lasting 8 beats -seen by [facility] cardiology with Dr. Juan Luis Gonzalez [...] estimation is 29 mmhg + CVP. Called [facility], spoke with Alyssa. Pt scheduled for EP consult on 02/08/25 at 1:45pm with Rubin Gupta DO at [address] [place] [address], [address], [place] [address]. Pt does not have sleep study scheduled [...] Overview (04/26/2025): -Hx cardiac cath 07/05/2020 in [place] with [...] -repeat Echo ordered 05/04/24 -last seen by [facility] Cardiology 11/09/24, reports follow up for 02/15/25 Had home sleep study done -Follow-up appt with Cardiology 03/28/25 Assessment & Plan (05/28/2025 11:09 AM EDT): -Hx cardiac cath 07/05/2020 in [...] -repeat Echo ordered 05/04/24 -last seen by [facility] Cardiology 11/09/24, reports follow up for 02/15/25 [...] -repeat Echo ordered 05/04/24 -last seen by [facility] Cardiology 11/09/24, reports follow up for 02/15/25 [...] -repeat Echo ordered 05/04/24 -last seen by [facility] Cardiology 11/09/24, reports follow up for 02/15/25 [...] mod TR -euvolemic on exam Atrial flutter (CMS/HCC) 10/02/2022 Overview (02/21/2025): Noted in [place] during ECG for palpitations. -[id number] of 1 -s/p CTI ablation 09/22/2021 with good results -on Eliquis (apixaban) -seen by [facility] cardiology Dr. Myra Feliciano MD 12/13/2022 recommending 6 month follow up -Cardiology note from 05/04/24 reviewed Recommends Zio path for 24 days, if no further aflutter episodes will discontinue apixaban -repeat Echo ordered -last seen by [facility] Cardiology 11/09/24, reports follow up for 02/15/25 Had sleep study done -Follow-up appt with Cardiology 03/28/25 Assessment & Plan (05/28/2025 11:09 AM EDT): Noted in [place] during ECG for palpitations. -[id number] of 1 -s/p CTI ablation 09/22/2021 with good results -on Eliquis (apixaban) -seen by [facility] cardiology Dr. Myra Feliciano MD 12/13/2022 recommending 6 month follow up -Cardiology note from 05/04/24 reviewed Recommends Zio path for 24 days, if no further aflutter episodes will discontinue apixaban -repeat Echo ordered -last seen by [facility] Cardiology 11/09/24, reports follow up for 02/15/25 Had sleep study done -Follow-up appt with Cardiology 03/28/25 Assessment & Plan (02/21/2025 2:03 PM EDT): Noted in [place] during ECG for palpitations. -[id number] of 1 -s/p CTI ablation 09/22/2021 with good results -on Eliquis (apixaban) -seen by [facility] cardiology Dr. Myra Feliciano MD 12/13/2022 recommending 6 month follow up -Cardiology note from 05/04/24 reviewed Recommends Zio path for 24 days, if no further aflutter episodes will discontinue apixaban -repeat Echo ordered -last seen by [facility] Cardiology 11/09/24, reports follow up for 02/15/25 Had sleep study done -Follow-up appt with Cardiology 03/28/25 Assessment & Plan (11/30/2024 11:13 AM EDT): Noted in [place] during ECG for palpitations. -[id number] of 1 -s/p CTI ablation 09/22/2021 with good results -on Eliquis (apixaban) -seen by [facility] cardiology Dr. Myra Feliciano MD 12/13/2022 recommending 6 month follow up -Cardiology note from 05/04/24 reviewed Recommends Zio path for 24 days, if no further aflutter episodes will discontinue apixaban -repeat Echo ordered Assessment & Plan (05/22/2024 10:53 AM EDT): Noted in [place] during ECG for palpitations. -[id number] of 1 -s/p CTI ablation 09/22/2021 with good results -on Eliquis (apixaban) -seen by [facility] cardiology Dr. Myra Feliciano MD 12/13/2022 recommending 6 month follow up -has not been to see body maker since, referred back again today 05/22/24. Assessment & Plan (01/26/2024 11:23 AM EDT): Noted in [place] during ECG for palpitations. -[id number] of 1 -s/p CTI ablation 09/22/2021 with good results -on Eliquis (apixaban) -seen by [facility] cardiology Dr. Myra Feliciano MD 12/13/2022 recommending 6 month follow up Assessment & Plan (09/17/2023 9:52 AM EST): Noted in [place] during ECG for palpitations. -[id number] of 1 -s/p CTI ablation 09/22/2021 with good results -on Eliquis (apixaban) -seen by [facility] cardiology Dr. Myra Feliciano MD 12/13/2022 recommending 6 month follow up Assessment & Plan (05/31/2023 12:55 PM EDT): Noted in [place] during ECG for palpitations. -[id number] of 1 -s/p CTI ablation 09/22/2021 with good results -on Eliquis (apixaban) -seen by [facility] cardiology Dr. Myra Feliciano MD 12/13/2022 recommending 6 month follow up Assessment & Plan (10/02/2022 12:36 PM EST): Noted in [place] during ECG for palpitations. -s/p CTI ablation 09/22/2021 with good results -on Eliquis Primary hypertension 10/02/2022 Overview (05/28/2025): -Blood pressure is at goal 05/28/25 -Continue lifestyle modifications -Continue current medications -Continue Lisinopril 10 mg 11/30/24 -Re-referred to [facility] with our DINO Thompson 11/30/24 -Follows with [facility] cardiology Dr. Myra Feliciano MD Assessment & Plan (05/28/2025 11:09 AM EDT): -Blood pressure is at goal 05/28/25 -Continue lifestyle modifications -Continue current medications -Continue Lisinopril 10 mg 11/30/24 -Re-referred to [facility] with DINO berrios PharmD 11/30/24 -Follows with [facility] cardiology Dr. Myar Feliciano MD Assessment & Plan (02/21/2025 2:03 PM EDT): -Blood pressure is at goal -Continue lifestyle modifications -Continue current medications -Continue Lisinopril 10 mg 11/30/24 -Re-referred to [facility] with DINO berrios PharmD 11/30/24 -Follows with [facility] cardiology Dr. Myra Feliciano MD Orders: Albumin, Random Urine W/Creatinine; Future Basic Metabolic Panel; Future Assessment & Plan (12/13/2024 10:07 AM EDT): -Blood pressure is at goal -Continue lifestyle modifications -Continue current medications -Continue Lisinopril 10 mg 11/30/24 -Re-referred to [facility] with our DINO Thompson 11/30/24 -Follows with [facility] cardiology Dr. Myra Feliciano MD Assessment & Plan (11/30/2024 11:09 AM EDT): -Blood pressure is not at goal, not currently on any medications 11/30/24 -Continue lifestyle modifications -Continue current medications -Referred to [facility] with our DINO Thompson 07/10/24 -Start Lisinopril 10 mg 11/30/24 -Re-referred to [facility] with our DINO Thompson 11/30/24 -Follows with [facility] cardiology Dr. Myra Feliciano MD Assessment [...] 6 in [place] for unknown reason Encounters Date Type Department Care Team Description 07/19/2025 Refill [facility] [address] [place] [phone] Bethany Mccormick MD Gastroesophageal reflux disease without esophagitis 07/17/2025 Telephone [facility] [address] [place] [phone] Bethany Mccormick MD [facility] Follow up 07/11/2025 Refill [facility] [address] [place] [phone] Bethany Mccormick MD Dyslipidemia; Benign prostatic hyperplasia without lower urinary tract symptoms 06/25/2025 Travel 06/07/2025 Telephone [facility] [address] [place] [phone] Bethany Mccormick MD Durable Medical Equipment 06/07/2025 Refill [facility] [address] [place] [phone] Bethany Mccormick MD 05/28/2025 10:45 AM EDT Office Visit [facility] [address] [place] [phone] Bethany Mccormick MD Obstructive sleep apnea (Primary Dx); Arterial atherosclerosis; Atrial flutter, unspecified type (CMS/HCC); Hx of hypertrophic cardiomyopathy; Primary hypertension; Class 3 severe obesity due to excess calories with serious comorbidity and body mass index (BMI) of 40.0 to 44.9 in adult; Dietary counseling; Exercise counseling; Bilateral deafness; Encounter for immunization 05/28/2025 Travel 05/25/2025 Telephone [facility] [address] [place] [phone] Ira Marquez MA from Last 3 Months Immunizations Immunization Administration Dates Next Due Hep B, adult 05/31/2023,12/22/2022,11/18/2022 Influenza injectable quadriv alent preservative free 05/31/2023,11/18/2022 Influenza, High Dose Seasona l, Preservative Free 05/28/2025 Influenza, seasonal, injecta ble, preservative free 05/22/2024 [...] housing situation today? I have nimishapaul esquivel 01/26/[address] you [...] Sign Reading Time Taken Comments Blood Pressure 116/72 05/28/2025 10:21 AM EDT Pulse 58 05/28/2025 10:21 AM EDT Temperature 36.1 C (96.9 F) 02/21/2025 10:28 AM EDT Respiratory Rate 20 05/28/2025 10:21 AM EDT Oxygen Saturation 98% 05/28/2025 10:21 AM EDT Inhaled Oxygen Concentration - - Weight 142 kg (312 lb) 05/28/2025 10:21 AM EDT Height 185.4 cm (6' 1 ) 02/21/2025 10:28 AM EDT Body Mass Index 41.16 02/21/2025 10:28 AM EDT Plan of Treatment Upcoming Encounters Date Type Department Care Team (Late st Contact Info) Description 09/05/2025 11:15 AM EST Office Visit [facility] [address] [place] [address] Bethany Mccormick MD [address] [place] [address] Health Maintenance Due Date Last Done Comments CT Colonography 1959 FIT DNA/Cologuard 1959 FIT 1959 FOBT 1960 Sigmoidoscopy 1959 COVID-19 Vaccine ( season) 2025 05/22/2024, 05/31/2023, 11/18/2022 SDOH Screening 09/19/2025 09/19/2024 Colonoscopy 11/25/2025 11/25/2022 Colorectal Cancer Screening 11/25/2025 Depression Screening 11/30/2025 11/30/2024, 12/01/19 Diabetes: Hemoglobin A1C 02/26/2026 025, 01/26/2024, 09/17/2023, Additional history exists Alcohol/Substance Use Screening 05/28/2026 05/28/2025 Tobacco Screening 05/28/2026 05/28/2025 Lipid Panel 02/26/2030 02/26/2025, 08/30, 10/06/2022 DTaP/Tdap/Td Vaccines (2 - Td or Tdap) 11/12/2032 11/12/2022 Hepatitis C Screening Completed 10/06/2022 Zoster Vaccines Completed 11/12/2022, 09/10/2022 Hepatitis B Vaccines Completed 05/31/2023, 12/22/2022, 11/18/2022 Pneumococcal Vaccine: 50+ Years Completed 09/17/2023 RSV Patients and Patients Aged 60 years or older Completed 02/08/2024 Influenza Vaccine Completed 05/28/2025, , 05/31/2023, Additional history exists HIB Vaccines Aged Out No longer eligi [...] Procedure Name Priority Date/Time Associated Diagnosis Comments HEMOGLOBIN A1C Routine 02/26/2025 8:17 AM EDT Prediabetes LIPID PANEL, STANDARD Routine 02/26/2025 8:17 AM EDT Dyslipidemia HM COLONOSCOPY Routine 11/25/2022 HEPATITIS C AB W/REFL TO HCV RNA, QN, PCR Routine 10/06/2022 8:42 AM EST Routine screening for STI (sexually transmitted infection) from Last 3 Months or Most Recently Relevant to Health Maintenance Results * Hemoglobin A1c (02/26/2025 8:17 AM EDT) Hemoglobin A1c 5.5 <6.0 % [facility] Comment:Hemoglobin A1C Refer ence Range Adults: 4.8 - 6.0 % Non diabetic: < 6.0 % Goal: < 7.0 %Additional Action Suggested: > 8.0 %Note: Hemoglobin A1c results are invalid for patients with abnormal amounts of HbF. Blood transfusions may impact the HbA1c concentration in the patient sample. Estimated Average Glucose 111 mg/dL [facility] Comment:eAG = Estimated ave rage glucose which is %A1C expressed asaverage glucose, using the formula of the [id number] Glucose study (ADAG), Diabetes Care, Vol.31,#8,Mar. 2007 Blood Venous blood specimen / Unknown 02/26/2025 8:17 AM EDT 02/26/2025 10:59 AM EDT us Bethany Mccormick MD LAB BLOOD ORDERABLES Final Result [facility] [address] [place] [address] [phone] * Lipid Panel, Standard (02/26/2025 8:17 AM EDT) Triglycerides 114 <150 mg/dL [facility] Comment:Desirable Triglyceri de: less than 150 mg/dLBorderline High Triglyceride 150-199 mg/dLHigh Triglyceride: 200-499 mg/dLVery High Triglyceride: greater than or equal to 5OO mg/dL Cholesterol 157 <200 mg/dL [facility] Comment:Desirable Cholestero l: less than 200 mg/dLBorderline High Cholesterol: 200-239 mg/dLHigh Cholesterol: greater than 239 mg/dL LDL Cholesterol Calculated 73 <100 mg/dL [facility] [facility] Comment:Desirable LDL: less than 100 mg/dLNear Optimal/Above Optimal LDL: 110- 129 mg/dLBorderline High LDL: 130-159 mg/dLHigh LDL: 160-189 mg/dLVery High LDL: greater than or equal to 190 mg/dL HDL Cholesterol 62 >40 mg/dL [facility] Comment:Desirable HDL: great er than 40 mg/dL Note: This HDL assay may give artificially low results in patients with liver disease. Blood Venous blood specimen / Unknown 02/26/2025 8:17 AM EDT 02/26/2025 10:59 AM EDT Bethany Mccormick MD LAB BLOOD ORDERABLES Final Result [facility] [address] [place] [phone] * (ABNORMAL) Hm Colonoscopy (11/25/2022) Pathologist [facility] Colonoscopy Abnormal(A ) Normal Jose Ramon Hernández MD HEALTH MAINTENANCE Final Result * Hepatitis C Antibody with Reflex to HCV, RNA, Quantitative, Real-Time PCR (10/06/2022 8:42 AM EST) [facility] Hepatitis C Antibody NON-REACT MIRA NON-REACT MIRA [facility] [place] [facility] the [facility] Index 0.07 <1.00 [facility] Comment: HCV antibody was non-reactive. There is no laboratory evidence of HCV infection. In most cases, no further action is required. However, if recent HCV exposure is suspected, a test for HCV RNA (test code 10741) is suggested. For additional information please refer to http://education.GridAnts.Talkable/faq/EPX15o0 (This link is being provided for informational/ educational purposes only.) Blood Venous blood specimen / Unknown 10/06/2022 8:42 AM EST 10/06/2022 8:43 AM EST Narrative [facility] - 10/09/2022 12:25 AM EST FASTING:YES FASTING: YES Bethany Mccormick MD LAB BLOOD ORDERABLES Final Result [facility] [address] [facility], 3rd Fl, [place] [address] [facility] [place] [facility] [address] [facility], (Nl2) [place] [address] from Last 3 Months or Most Recently Relevant to Health Maintenance Insurance [facility] SKILLED NURSING OPTIONS (HMO D-SNP) MEDICARE Advance Directives Documents on File Type Date Recorded Patient Inspector And Clerk Expl anation Power of Physician Aide 09/21/2023 HealthCare Proxy 09/17/23 Care Teams Steamfitter Supervisor Relationship Specialty Start Date End Date Jace, MD Bethany [address] [place] [address] PCP - General Family Medicine 09/10/22 Jennifer Kramer, PharmD 230 [place] [address] Pharmacist Internal Medicine 12/04/24 Irineo Arevalo MD [address] [place] [address] Urology 12/13/24 Chris Edmond [address] [place] [address] Podiatry 01/25/25 Kelly Cho MD [address] [place] [address] [address] Urology 02/21/25 Dr. Bassem Shahid [address] [address] Cardiology 11/30/24 Rubin Gupta DO Electrophysiology Cardiology [address] [place] [address] Electrophysiology 12/15/24
--- OUTSIDE RECORDS SUMMARY | 2025-08-20 08:53 | XMS_ITS | Encounter Summary ---
Author Organization [employer] Address [address] [place] [address] 7t [place] [address] Care Team Providers Care Leadite Worker Name Role Phone Bethany Mccormick MD Primary Care Provider +- [phone] Jennifer Kramer PharmD Unavailable Irineo Arevalo MD Unavailable +-[phone] Chris Edmond Unavailable Kelly Cho MD Unavailable Reason for Visit * Reason Onset Date Comments PT-1 09/26/2024 Encounter Details Date Type Department Care Team (Late st Contact Info) Description 09/26/2024 Telephone [facility] 230 [place], [place] [phone] Bethany Mccormick MD 230 [place], [place] [phone] PT-1 Social History Tobacco Use Types Packs/Day [...] Y/N: Yes [facility] [address] [place] [address] Escort needed: Y/N: Yes Do you have a wheelchair: Y/N: No If yes- Manual or electric: N/A Visits: (amount of visits) ( x monthly, weekly, daily) 5 times a month documented in this encounter Plan of Treatment Upcoming Encounters Date Type Department Care Team ([facility] Contact Info) Description 09/05/2025 11:15 AM EST Office Visit [facility] [address] [place] [address] [place] [address] Bethany Mccormick MD 230 [place] [address] documented as of this encounter Visit Diagnoses Not on filedocumented in this encounter Additional Health Concerns Assessment Noted Time PHQ-9 Depression Total Score: 0 01/26/20 24 10:39 AM EDT documented as of this encounter Care Teams Leadite Worker Relationship Specialty Start Date End Date Bethany Mccormick MD 230 [place] [address] PCP - General Family Medicine 09/10/22 Jennifer Kramer, AllanD [address] [place] [address] Pharmacist Internal Medicine 12/04/24 Irineo Arevalo MD [address] [place] [address] Urology 12/13/24 Chris Edmond [address] [place] [address] Podiatry 01/25/25 Kelly Cho MD [address] [place] [address] [address] Urology 02/21/25 Dr. Bassem Shahid [address] [address] Cardiology 11/30/24 Rubin Gupta DO Electrophysiology Cardiology [address] [address] Electrophysiology 12/15/24 documented as of this encounter
--- OUTSIDE RECORDS SUMMARY | 2025-08-20 08:53 | XMS_ITS | Encounter Summary ---
Author Organization [employer] Address [address] [place] [address] 7 [place] [address] Care Team Providers Care Radial Drill Press Operator Name Role Phone Bethany Mccormick MD Primary Care Provider +- [phone] Jennifer Kramer PharmD Unavailable Irineo Arevalo MD Unavailable Chris Edmond Unavailable Kelly Cho MD Unavailable Reason for Visit * Reason Comments Med Refill Encounter Details Date Type Department Care Team (Late st Contact Info) Description 08/17/2024 Refill [facility] MED[facility]INE 230 [place], [place] [phone] Bethany Mccormick MD 230 [place], [place] [phone] Primary hypertension; Gastroesophageal reflux disease without esophagitis; [...] AM EST Office Visit [facility] 230 [place] [address] Bethany Mccormick MD 230 [place] [address] documented as of this encounter Visit Diagnoses [...] documented as of this encounter Care Teams Radial Drill Press Operator Relationship Specialty Start Date End Date Bethany Mccormick MD 230 [place] [address] PCP - General Family Medicine 09/10/22 Jennifer Kramer, Donna 230 [place] [address] Pharmacist Internal Medicine 12/04/24 Irineo Arevalo MD [address] [place] [address] Urology 12/13/24 Chris Edmond [address] [place] [address] Podiatry 01/25/25 Kelly Cho MD [address] [place] [address] Drive [address] [place] [address] Urology 02/21/25 Dr. Bassem Shahid [address] [address] Cardiology 11/30/24 Rubin Gupta DO Electrophysiology Cardiology [address] [address] Electrophysiology 12/15/24 documented as of this encounter
--- OUTSIDE RECORDS SUMMARY | 2025-08-20 08:53 | XMS_ITS | Encounter Summary ---
Author Organization [employer] Address [address] [place] [address] 7 [place] [address] Care Team Providers Care Color Dipper Name Role Phone Bethayn Mccormick MD Primary Care Provider +- [phone] Jennifer Kramer PharmD Unavailable Irineo Arevalo MD Unavailable +-[phone] Chris Edmond Unavailable Kelly Cho MD Unavailable Reason for Visit * Reason Onset Date Comments Med Refill 12/23/2023 Encounter Details Date Type Department Care Team (Late st Contact Info) Description 12/23/2023 Telephone [facility] 230 [place] [address] Bethany Mccormick MD 230 [place], [place] [phone] Med Refill Social History Tobacco Use Types [...] 1:40 PM EDT Medication was sent to [facility] on 09/21/23 #90 with 1 refill. * Telephone Encounter - Ilya Culver - 12/23/2023 1:38 PM EDT TC from pt requesting medication refill. Medications needing refill : finasteride (Proscar) 5 MG tablet To be sent to: [facility] - [place], [place] - [address] [facility] documented in this encounter Plan of Treatment Upcoming Encounters Date Type Department Care Team (Late st Contact Info) Description 09/05/2025 11:15 AM EST Office Visit [facility] 230 [place] [address] Bethany Mccormick MD 230 [place] [address] documented as of this encounter Visit Diagnoses Not on filedocumented in this encounter Additional Health Concerns Assessment Noted Time PHQ-9 Depression Total Score: 0 10/02/19 23 9:21 AM EST documented as of this encounter Care Teams Color Dipper Relationship Specialty Start Date End Date Bethany Mccormick MD 230 [place] [address] PCP - General Family Medicine 09/10/22 Jennifer Kramer, AllanD 230 [place] [address] Pharmacist Internal Medicine 12/04/24 Irineo Arevalo MD [address] [place] [address] Urology 12/13/24 Chris Edmond [address] [place] [address] Podiatry 01/25/25 Kelly Cho MD [address] [place] [address] Urology 02/21/25 Dr. Bassem Shahid [address] [address] Cardiology 11/30/24 Rubin Gupta DO Electrophysiology Cardiology [address] [place] [address] Electrophysiology 12/15/24 documented as of this encounter
--- OUTSIDE RECORDS SUMMARY | 2025-08-20 08:53 | XMS_ITS | Encounter Summary ---
Author Organization [employer] Address [address] [place] [address] 7t [place] [address] Care Team Providers Care Ship Fastener Name Role Phone Bethany Mccormick MD Primary Care Provider +- [phone] Jennifer Kramer PharmD Unavailable Irineo Arevalo MD Unavailable +-[phone] Chris Edmond Unavailable Kelly Cho MD Unavailable Encounter Details Date Type Department Care Team (Late st Contact Info) Description 12/27/2024 Orders Only [facility] 230 [place], [place] [phone] Bethany Mccormick MD 230 [place], [place] [phone] Social History Tobacco Use Types Packs/Day Years [...] Description 09/05/2025 11:15 AM EST Office Visit [facility] [address] [place] [address] Bethany Mccormick MD [address] [place] [address] documented as of this encounter Visit Diagnoses Not on filedocumented in this encounter Additional Health Concerns Assessment Noted Time PHQ-9 Depression Total Score: 2 12/01/19 25 10:35 AM EDT documented as of this encounter Care Teams Ship Fastener Relationship Specialty Start Date End Date Bethany Mccormick MD [address] [place] [address] PCP - General Family Medicine 09/10/22 Jennifer Kramer, AllanD 230 [place] [address] Pharmacist Internal Medicine 12/04/24 Irineo Arevalo MD [address] [place] [address] Urology 12/13/24 Chris Edmond [address] [place] [address] Podiatry 01/25/25 Kelly Cho MD 10 [facility] [address] [place] [address] Urology 02/21/25 Dr. Bassem Shahid [address] [address] Cardiology 11/30/24 Rubin Gupta DO Electrophysiology Cardiology [address] [place] [address] Electrophysiology 12/15/24 documented as of this encounter
--- OUTSIDE RECORDS SUMMARY | 2025-08-20 08:53 | XMS_ITS | Encounter Summary ---
Author Organization [employer] Address [address] [place] [address] 7t [place] [address] Care Team Providers Care Operations Administrator Name Role Phone Bethany Mccormick MD Primary Care Provider +- [phone] Jennifer Kramer PharmD Unavailable Irineo Arevalo MD Unavailable +-[phone] Chris Edmond Unavailable Kelly Cho MD Unavailable Encounter Details Date Type Department Care Team (Late st Contact Info) Description 10/06/2024 Telephone [facility] MED[facility]INE 230 [place], [place] [phone] Bethany Mccormick MD 230 [place], [place] [phone] Social History Tobacco Use Types Packs/Day Years [...] 09/05/2025 11:15 AM EST Office Visit [facility] MEDICINE [address] [place] [address] Bethany Mccormick MD [address] [place] [address] documented as of this encounter Visit Diagnoses Not on filedocumented in this encounter Additional Health Concerns Assessment Noted Time PHQ-9 Depression Total Score: 0 01/26/20 24 10:39 AM EDT documented as of this encounter Care Teams Operations Administrator Relationship Specialty Start Date End Date Bethany Mccormick MD [address] [place] [address] PCP - General Family Medicine 09/10/22 Jennifer Kramer, AllanD 230 [place] [address] Pharmacist Internal Medicine 12/04/24 Irineo Arevalo MD [address] [facility] [address] [facility] [address] [place] [address] Urology 12/13/24 Chris Edmond [address] [place] [address] Podiatry 01/25/25 Kelly Cho MD 10 [facility] [address] [place] [address] Urology 02/21/25 Dr. Bassem Shahid [address] [address] Cardiology 11/30/24 Rubin Gupta DO Electrophysiology Cardiology [address] [place] [address] Electrophysiology 12/15/24 documented as of this encounter
== END 2025-08-20 09:21 | disposition home or self-care (01) ==
LOC: HO.HUSH 08:37
PROVIDERS: Visit Provider Urology
DX: Z13.9 Encounter for screening, unspecified (principal)

== ENCOUNTER → 2025-08-20 08:36 | Outpatient (BNVA) | payer MEDICARE, MEDICAID, SELFPAY | PROVIDERS: Visit Provider Urology | DX: K40.90 Unilateral inguinal hernia, without obstruction or gangrene, not specified as recurrent (principal) | CPT/HCPCS: 51798; 81003 ==

== ENCOUNTER 2025-08-24 09:48 | Outpatient (AMB) | payer MEDICARE, MEDICAID, SELFPAY ==
--- OUTSIDE RECORDS SUMMARY | 2025-08-24 09:52 | XMS_ITS | Encounter Summary ---
Author Organization [employer] Address [address] [place] [address] 7t [place] [address] Care Team Providers Care Saturation Equipment Operator Name Role Phone Bethany Mccormick MD Primary Care Provider +1- [phone] Jennifer Kramer PharmD Unavailable +1- [phone] Irineo Arevalo MD Unavailable +-[phone] Chris Edmond Unavailable Kelly Cho MD Unavailable Reason for Visit * Reason Onset Date Comments Paperwork/Forms 08/21/2025 Encounter Details Date Type Department Care Team (Late st Contact Info) Description 08/21/2025 Telephone [facility] MED[facility]INE [address] [place] [address] Dulce Maria Valera, ALEJANDRINA Paperwork/Forms Social History Tobacco Use Types Packs/Day Years [...] Encounter - Dulce Maria Valera RN - 08/22/2025 11:20 AM EST Faxed signed form to [facility] pharmacy, confirmation received. * Telephone Encounter - Dulce Maria Valera RN - 08/21/2025 2:30 PM EST Received [facility] physician order for nebulizer form. Placed on PCP desk for signature. documented in this encounter Plan of Treatment Upcoming Encounters Date Type Department Care Team (Late st Contact Info) Description 09/05/2025 11:15 AM EST Office Visit [facility] [address] [place] [address] [phone] Bethany Mccormick MD 230 [place] [address] documented as of this encounter Visit Diagnoses Not on filedocumented in this encounter Additional Health Concerns Assessment Noted Time PHQ-9 Depression Total Score: 2 12/01/19 25 10:35 AM EDT documented as of this encounter Care Teams Saturation Equipment Operator Relationship Specialty Start Date End Date Bethany Mccormick MD 230 [place] [address] PCP - General Family Medicine 09/10/22 Jennifer Kramer, AllanD 230 [place] [address] Pharmacist Internal Medicine 12/04/24 Irineo Arevalo MD [address] [facility] [place] [address] Urology 12/13/24 Chris Edmond [address] [place] [address] Podiatry 01/25/25 Kelly Cho MD [address] [facility] [place] [address] Urology 02/21/25 Dr. Bassem Shahid [address] [address] Cardiology 11/30/24 Rubin Gupta DO Electrophysiology Cardiology [address] [address] Electrophysiology 12/15/24 documented as of this encounter
--- OUTSIDE RECORDS SUMMARY | 2025-08-24 09:52 | XMS_ITS | Encounter Summary ---
Author Organization [email or web address] Address [address] [place] [address] 7t [place] [address] Care Team Providers Care Quality Tech Name Role Phone Bethany Mccormick MD Primary Care Provider +- [phone] Jennifer Kramer PharmD Unavailable Irineo Arevalo MD Unavailable Chris Edmond Unavailable Kelly Cho MD Unavailable Reason for Visit * Reason Comments Med Refill Encounter Details Date Type Department Care Team (Late st Contact Info) Description 08/20/2025 Refill [facility] [address] [place] [address] [phone] Bethany Mccormick MD 230 [place], [place] [phone] Social History Tobacco Use Types Packs/Day Years [...] 09/05/2025 11:15 AM EST Office Visit [facility] 230 [place] [address] Bethany Mccormick MD 230 [place] [address] documented as of this encounter Visit Diagnoses Not on filedocumented in this encounter Additional Health Concerns Assessment Noted Time PHQ-9 Depression Total Score: 2 12/01/19 25 10:35 AM EDT documented as of this encounter Care Teams Quality Tech Relationship Specialty Start Date End Date Bethany Mccormick MD [address] [place] [address] PCP - General Family Medicine 09/10/22 Jennifer Kramer, AllanD 230 [place] [address] Pharmacist Internal Medicine 12/04/24 Irineo Arevalo MD [address] [place] [address] Urology 12/13/24 Chris Edmond [address] [place] [address] Podiatry 01/25/25 Kelly Cho MD 10 [facility] [address] [place] [address] Urology 02/21/25 Dr. Luevano [address] [address] Cardiology 11/30/24 Rubni Gupta DO Electrophysiology Cardiology [address] [place] [address] Electrophysiology 12/15/24 documented as of this encounter
--- OUTSIDE RECORDS SUMMARY | 2025-08-24 09:52 | XMS_ITS | Encounter Summary ---
Author Organization [employer] Address [address] [place] [address] 7 [place] [address] Care Team Providers Care Crowning Hammer Operator Name Role Phone Bethany Mccormick MD Primary Care Provider +1- [phone] Jennifer Kramer PharmD Unavailable Irineo Arevalo MD Unavailable Chris Edmond Unavailable Kelly Coh MD Unavailable Reason for Visit * Reason Onset Date Comments PT1 08/20/2025 Encounter Details Date Type Department Care Team (Late st Contact Info) Description 08/20/2025 Telephone [facility] MEDICINE 230 [place], [place] [phone] Bethany Mccormick MD 230 [place], [place] [phone] PT1 Social History Tobacco Use Types Packs/Day [...] encounter Miscellaneous Notes * Telephone Encounter - Zainab Loera - 08/20/2025 10:32 AM EST Patient calling requesting PT1 Home Address verified: Y/N: Yes Provider name or facility name: [facility] -Dr. Mccormick 230 [facility] [address] Urology - [address] 2[address] Floor [address] [facility] [address] Physical Therapy Assistant Instructor- [address]00 [place] [address] Dentist- [address] [facility] [place] [address] [facility]- [facility]- [address] [place] [address] Escort needed: Y/N: No Do you have a wheelchair: Y/N: No If yes- Manual or electric: Visits: (amount of visits) ( x monthly, weekly, daily) documented in this encounter Plan of Treatment Upcoming Encounters Date Type Department Care Team (Late st Contact Info) Description 09/05/2025 11:15 AM EST Office Visit [facility] MEDICINE 230 [place] [address] Bethany Mccormick MD 230 [place] [address] documented as of this encounter Visit Diagnoses Not on filedocumented in this encounter Additional Health Concerns Assessment Noted Time PHQ-9 Depression Total Score: 2 12/01/19 10:35 AM EDT documented as of this encounter Care Teams Crowning Hammer Operator Relationship Specialty Start Date End Date Bethany Mccormick MD 230 [place] [address] PCP - General Family Medicine 09/10/22 Jennifer Kramer, AllanD 230 [place] [address] Pharmacist Internal Medicine 12/04/24 Irineo Arevalo MD [address] [place] [address] Urology 12/13/24 Chris Edmond [address] [place] [address] Podiatry 01/25/25 Kelly Cho MD [address] [place] [address] Urology 02/21/25 Dr. Bassem Shahid [address] [address] Cardiology 11/30/24 Rubin Gupta DO Electrophysiology Cardiology [address] [place] [address] Electrophysiology 12/15/24 documented as of this encounter
--- OUTSIDE RECORDS SUMMARY | 2025-08-24 09:52 | XMS_ITS | Encounter Summary ---
Author Organization [employer] Address [address] [place] [address] 7t [place] [address] Care Team Providers Care Plasterer Foreman Name Role Phone Bethany Mccormick MD Primary Care Provider +- [phone] Jennifer Kramer PharmD Unavailable Irineo Arevalo MD Unavailable +-[phone] Chris Edmond Unavailable Kelly Cho MD Unavailable Encounter Details Date Type Department Care Team (Late st Contact Info) Description 10/06/2024 Telephone [facility] 230 [place], [place] [phone] Bethany Mccormick MD 230 [place], [place] [phone] Social History Tobacco Use Types Packs/Day Years [...] Description 09/05/2025 11:15 AM EST Office Visit [facility] [address] [place] [address] Bethany Mccormick MD [address] [place] [address] documented as of this encounter Visit Diagnoses Not on filedocumented in this encounter Additional Health Concerns Assessment Noted Time PHQ-9 Depression Total Score: 0 01/26/20 24 10:39 AM EDT documented as of this encounter Care Teams Plasterer Foreman Relationship Specialty Start Date End Date Bethany Mccormick MD [address] [place] [address] PCP - General Family Medicine 09/10/22 Jennifer Kramer, AllanD 230 [place] [address] Pharmacist Internal Medicine 12/04/24 Irineo Arevalo MD [address] [place] [address] Urology 12/13/24 Chris Edmond [address] [place] [address] Podiatry 01/25/25 Kelly Cho MD 10 [facility] [address] [place] [address] Urology 02/21/25 Dr. Bassem Shahid [address] [address] Cardiology 11/30/24 Rubin Gupta DO Electrophysiology Cardiology [address] [place] [address] Electrophysiology 12/15/24 documented as of this encounter
--- OUTSIDE RECORDS SUMMARY | 2025-08-24 09:52 | XMS_ITS | Encounter Summary ---
Author Organization [employer] Address [address] [place] [address] 7 [place] [address] Care Team Providers Care Merchandise Complaint Adjuster Name Role Phone Bethany Mccormick MD Primary Care Provider +- [phone] Jennifer Kramer PharmD Unavailable Irineo Arevalo MD Unavailable [phone] Chris Edmond Unavailable Kelly Cho MD Unavailable Reason for Visit * Reason Comments Med Refill Encounter Details Date Type Department Care Team (Late st Contact Info) Description 08/17/2024 Refill [facility] MEDICINE 230 [place], [place] [phone] Bethany Mccormick MD 230 [place], [place] [phone] Primary hypertension; Gastroesophageal reflux disease without esophagitis; [...] Description 09/05/2025 11:15 AM EST Office Visit [facility] MEDICINE 230 [place] [address] Bethany Mccormick MD 230 [place] [address] documented as of this encounter Visit Diagnoses [...] documented as of this encounter Care Teams Merchandise Complaint Adjuster Relationship Specialty Start Date End Date Bethany Mccormick MD 230 [place] [address] PCP - General Family Medicine 09/10/22 Jennifer Kramer, Donna 230 [place] [address] Pharmacist Internal Medicine 12/04/24 Irineo Arevalo MD [address] [place] [address] Urology 12/13/24 Chris Edmond [address] [place] [address] Podiatry 01/25/25 Kelly Cho MD [address] [place] [address] Drive [address] [place] [address] Urology 02/21/25 Dr. Bassem Shahid [address] [address] Cardiology 11/30/24 Rubin Gupta DO Electrophysiology Cardiology [address] [address] Electrophysiology 12/15/24 documented as of this encounter
--- OUTSIDE RECORDS SUMMARY | 2025-08-24 09:52 | XMS_ITS | Encounter Summary ---
Author Organization [employer] Address [address] [place] [address] 7 [place] [address] Care Team Providers Care Coke Loader Name Role Phone Bethany Mccormick MD Primary Care Provider +- [phone] Jennifer Kramer PharmD Unavailable Irineo Arevalo MD Unavailable [phone] Chris Edmond Unavailable Kelly Cho MD Unavailable Reason for Visit * Reason Comments Med Refill Encounter Details Date Type Department Care Team ([facility] Contact Info) Description 05/04/2023 Refill [facility] [address] [place], [place] [phone] Darling Savage DO [address] [place] [address] Benign prostatic hyperplasia, unspecified whether lower urinary [...] Description 09/05/2025 11:15 AM EST Office Visit [facility] [address] [place] [address] Bethany Mccormick MD [address] [place] [address] documented as of this encounter Visit Diagnoses Diagnosis Benign prostatic hyperplasia, unspecified whether lower urinary tract symptoms present documented in this encounter Additional Health Concerns Assessment Noted Time PHQ-9 Depression Total Score: 0 10/02/19 9:21 AM EST documented as of this encounter Care Teams Coke Loader Relationship Specialty Start Date End Date Bethany Mccormick MD [address] [place], [place] [phone] PCP - General Family Medicine 09/10/22 Jennifer Kramer, AllanD [address] [place] [address] Pharmacist Internal Medicine 12/04/24 Irineo Arevalo MD [address] [place] [address] Urology 12/13/24 Chris Edmond [address] [place] [address] Podiatry 01/25/25 Kelly Cho MD [address] [place] [address] Urology 02/21/25 Dr. Bassem Shahid [address] [address] Cardiology 11/30/24 Rubin Gupta DO Electrophysiology Cardiology [address] [address] Electrophysiology 12/15/24 documented as of this encounter
--- OUTSIDE RECORDS SUMMARY | 2025-08-24 09:52 | XMS_ITS | Clinical Summary ---
Author Organization [facility] Address [address] [place] [address] Phone Care Team Providers Care Abrading Machine Tender Name Role Phone Bethany Mccormick MD Primary Care Provider [phone] Allergies No known active allergies Medications predniSONE [...] mmol/L LAB CHEMISTRY METHOD 01/08/2025 7:38 PM [facility] Potassium 3.6 3.5 - 5.5 mmol/L LAB CHEMISTRY METHOD 01/08/2025 7:38 PM [facility] Chloride 101 96 - 110 mmol/L LAB CHEMISTRY METHOD 01/08/2025 7:38 PM [facility] CO2 25 21 - 32 mmol/L LAB CHEMISTRY METHOD 01/08/2025 7:38 PM [facility] Anion Gap 9 3 - 11 LAB CHEMISTRY METHOD 01/08/2025 7:38 PM [facility] Glucose 151(H) 70 - 100 mg/dL LAB CHEMISTRY METHOD 01/08/2025 7:38 PM [facility] BUN 13 5 - 25 mg/dL LAB CHEMISTRY METHOD 01/08/2025 7:38 PM [facility] Creatinine 0.99 0.70 - 1.30 mg/dL LAB CHEMISTRY METHOD 01/08/2025 7:38 PM [facility] eGFR 85 >=60 mL/min/1. 73m2 LAB CHEMISTRY METHOD 01/08/2025 7:38 PM [facility] Comment:Calculation based on the Chronic Kidney Disease Epidemiology Collaboration (CKD-EPI) equation refit without adjustment for race. BUN/Creatinine Ratio 13.1 LAB CHEMISTRY METHOD 01/08/2025 7:38 PM [facility] Calcium 8.9 8.5 - 10.5 mg/dL LAB CHEMISTRY METHOD 01/08/2025 7:38 PM EDT [facility] Blood Venous blood specimen / Unknown Venipuncture / Unknown 01/08/2025 6:52 PM EDT 01/08/2025 7:04 PM EDT us Ju Rodriguez DO LAB BLOOD ORDERABLES Zoë l Result [facility] ([facility]) [facility] [address] [place] [address], [place] [phone] from Last 3 Months or Most Recently Relevant to Health Maintenance Additional Health Concerns Infection Onset Date Last Indicated Parainfluenza Virus 01/08/2025 01/08/2025 Insurance MEDICAID - [place] [facility] MEDICARE Member Subscriber Plan / Payer (Ef fective 2024-Present) Name:William Caraballo Relation to Subscriber:Self Name:William Caraballo Payer ID:[id number] Group ID:[id number] Type:Not on file Address: [address] [place] [address] MEDICARE Care Teams Abrading Machine Tender Relationship Specialty Start Date End Date Jace, MD Bethany [address] [place] [address] [place] [phone] PCP - General Family Medicine 01/08/25
--- OUTSIDE RECORDS SUMMARY | 2025-08-24 09:52 | XMS_ITS | Encounter Summary ---
Author Organization [employer] Address [address] [place] [address] [address] [place] [address] Care Team Providers Care Rcis Name Role Phone Bethany Mccormick MD Primary Care Provider +- [phone] Jennifer Kramer PharmD Unavailable [phone] Irineo Arevalo MD Unavailable [phone] Chris Edmond Unavailable Kelly Cho MD Unavailable Reason for Visit * Reason Onset Date Comments PT-1 09/26/2024 Encounter Details Date Type Department Care Team (Late st Contact Info) Description 09/26/2024 Telephone [facility] [address] [place], [place] [phone] Bethany Mccormick MD [address] [place], [place] [phone] PT-1 Social History Tobacco Use Types Packs/Day [...] Yes [facility] [address] [place] [id number] Escort needed: Y/N: Yes Do you have a wheelchair: Y/N: No If yes- Manual or electric: N/A Visits: (amount of visits) ( x monthly, weekly, daily) 5 times a month documented in this encounter Plan of Treatment Upcoming Encounters Date Type Department Care Team ([facility] Contact Info) Description 09/05/2025 11:15 AM EST Office Visit [facility] [address] [place] [address] [place] [address] Bethany Mccormick MD [address] [place] [address] documented as of this encounter Visit Diagnoses Not on filedocumented in this encounter Additional Health Concerns Assessment Noted Time PHQ-9 Depression Total Score: 0 01/26/20 24 10:39 AM EDT documented as of this encounter Care Teams Rcis Relationship Specialty Start Date End Date Bethany Mccormick MD [address] [place] [address] PCP - General Family Medicine 09/10/22 Jennifer Kramer, AllanD [address] [place] [address] Pharmacist Internal Medicine 12/04/24 Irineo Arevalo MD [address] [place] [address] Urology 12/13/24 Chris Edmond [address] [place] [address] Podiatry 01/25/25 Kelly Cho MD [address] [place] [address] [address] Urology 02/21/25 Dr. Bassem Shahid [address] [address] Cardiology 11/30/24 Rubin Gupta DO Electrophysiology Cardiology [address] [address] Electrophysiology 12/15/24 documented as of this encounter
--- OUTSIDE RECORDS SUMMARY | 2025-08-24 09:52 | XMS_ITS | Clinical Summary ---
Author Organization [employer] Address [address] [place] [address] [address] [place] [address] Care Team Providers Care Coach Wirer Name Role Phone Bethany Mccormick MD Primary Care Provider [phone]- [phone] Jennifer Kramer PharmD Unavailable [phone] Irineo Arevalo MD Unavailable [phone] Chris Edmond Unavailable Kelly Cho MD Unavailable Allergies No known active allergies Medications * This document contains information received from the source organization and may not represent a complete record from that organization. apixaban (Eliquis) 5 MG tabletIndication s:Atrial flutter, unspecified type (CMS/HCC) (HCC) Take 1 tablet (5 mg) by mouth 2 times daily. 180 tablet 3 07/10/20 24 Active allopurinol (Zyloprim) 300 MG tabletIndication s:Gout, unspecified cause, unspecified chronicity, unspecified site Take 1 tablet (300 mg) by mouth in the morning. 90 tablet 3 07/10/20 24 Active FLUoxetine (PROzac) 20 MG capsuleIndicatio ns:Major depressive disorder, recurrent episode, mild (CMS/HCC) Take 1 capsule (20 mg) by mouth Once per day. 90 capsule 3 07/10/20 24 Active ibuprofen 600 MG tabletIndication s:Status post fall Take 1 tablet (600 mg) by mouth every 8 (eight) hours if needed for moderate pain or fever. 15 tablet 07/10/20 24 Active lisinopril 10 MG tabletIndication s:Primary hypertension Take 1 tablet (10 mg) by mouth Once per day. 30 tablet 11 5 11:22 AM EST 12/01/19 25 026 Active Spacer/Aero-Hold ing Chambers (OptiChamber Anushka) misc [...] SHORTNESS OF BREATH 90 mL 1 5 11:22 AM EST 02/23/20 25 Active amLODIPine (Norvasc) 5 MG tabletIndication s:Primary hypertension TAKE 1 TABLET BY MOUTH EVERY MORNING 90 tablet 1 03/14/20 25 Active spironolactone (Aldactone) 25 MG tabletIndication s:Primary hypertension TAKE 1 TABLET BY MOUTH EVERY MORNING 90 tablet 1 5 11:24 AM EST 04/09/20 25 Active atorvastatin (Lipitor) 10 MG tabletIndication s:Dyslipidemia TAKE 1 TABLET BY MOUTH AT BEDTIME 90 tablet 3 5 11:22 AM EST 07/11/20 25 Active finasteride (Proscar) 5 MG tabletIndication s:Benign prostatic hyperplasia without lower urinary tract symptoms TAKE 1 TABLET BY MOUTH EVERY MORNING 90 tablet 3 5 11:24 AM EST 07/11/20 25 Active pantoprazole (ProtoNix) 40 MG EC tabletIndication s:Gastroesophage al reflux disease without esophagitis TAKE 1 TABLET BY MOUTH EVERY MORNING 90 tablet 3 5 11:24 AM EST 07/20/20 25 Active Ventolin HFA 108 (90 Base) MCG/ACT inhaler INHALE 2 PUFFS BY MOUTH EVERY 4 HOURS NEEDED FOR WHEEZING OR SHORTNESS OF BREATH 18 g 1 08/22/20 25 Active Ventolin HFA 108 (90 Base) MCG/ACT inhaler INHALE 2 PUFFS BY MOUTH EVERY 4 HOURS NEEDED FOR WHEEZING OR SHORTNESS OF BREATH 18 g 1 5 11:23 AM EST 06/08/20 025 Discontinued Active Problems Problem Noted Date Diagnosed Date Obstructive sleep apnea 04/24/2025 Overview (05/28/2025): Home sleep study from 04/16/25 with [facility] reveals obstructive sleep [...] EDT): Home sleep study from 04/16/25 with [facility] reveals obstructive sleep [...] EDT): Home sleep study from 04/16/25 with [facility] reveals obstructive sleep [...] sinus arrest -seen for pacemaker consult 02/08/25 [facility] EP office with Dr. Rubin Gobeil, DO -no indication for pacemaker at this [...] ideation. Therapist and psychiatrist offered. -referred to [facility] 11/30/24 Assessment & Plan (11/30/2024 11:12 AM EDT): Denies suicidial or homacidial ideation. Therapist and psychiatrist offered. 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 Status post fall. Reportedly tripped on [...] AM EST): - Seen on 06/15/24 at [facility]. Status post fall. Reportedly tripped on [...] followed by Dr. Naveen Dunn of [facility] -[facility] [place] [facility] proxy on file 09/17/23 Assessment & Plan (02/21/2025 2:03 PM EDT): -next comprehensive annual evaluation due after 02/21/26 -eye care last seen on 11/19, followed by Dr. Naveen Dunn of [facility] -[facility] [place] [facility] care proxy on file 09/17/23 Assessment & Plan (05/22/2024 10:54 AM EDT): -next comprehensive annual evaluation due after 01/25/25 -eye care last seen on 11/19, followed by Dr. Naveen Dunn of [facility] -[facility] [place] [facility] care proxy on file 09/17/23 Assessment & Plan (01/26/2024 11:24 AM EDT): -Next physical due after 10/01/2023 -Eye care last seen on 11/19 -[facility] [place] [facility] care proxy on file 09/17/23 Assessment & Plan (09/17/2023 11:07 AM EST): -Next physical due after 10/01/2023 -Eye care last seen on 11/19 -[facility] [place] [facility] care proxy paperwork given 09/17/23 Right inguinal hernia 11/18/2022 Overview (07/11/2024): -repaired with [facility] general surgeons 01/2023 Assessment & Plan (07/11/2024 10:41 AM EST): -repaired with [facility] general surgeons 01/2023 Assessment & Plan (09/17/2023 9:53 AM EST): -repiared with [facility] general surgeons 01/2023 Assessment & Plan (11/18/2022 [...] 02/21/25 Deaf 10/02/2022 Overview (03/15/2024): -Patient needs usability architect for all visits. Please make note of this in any referrals. -Audiology at [facility] -has appropriate assistive devices in home [...] Plan (05/28/2025 11:09 AM EDT): -Patient needs usability architect for all visits. Please make note of this in any referrals. -Audiology at [facility] -has appropriate assistive devices in home [...] Plan (02/21/2025 2:03 PM EDT): -Patient needs usability architect for all visits. Please make note of this in any referrals. -Audiology at [facility] -has appropriate assistive devices in home [...] Plan (11/30/2024 10:58 AM EDT): -Patient needs usability architect for all visits. Please make note of this in any referrals. -Audiology at [facility] -has appropriate assistive devices in home [...] Plan (07/11/2024 10:43 AM EST): -Patient needs usability architect for all visits. Please make note of this in any referrals. -Audiology at [facility] -has appropriate assistive devices in home [...] Plan (05/22/2024 10:53 AM EDT): -Patient needs usability architect for all visits. Please make note of this in any referrals. -Audiology at [facility] -has appropriate assistive devices in home [...] Plan (01/26/2024 11:23 AM EDT): -Patient needs usability architect for all visits. Please make note of this in any referrals. -Audiology at [facility] -has appropriate assistive devices in home including fire alarm with light Assessment & Plan (09/17/2023 9:50 AM EST): -Barbadian Sign Language Assessment & Plan (10/02/2022 12:38 PM EST): -Barbadian Sign Language used during visit PVD (peripheral vascular disease) 10/02/2022 Overview (10/02/2022): -doppler 04/19/2021 in [place] revealed evidence of bilateral common femoral and popliteal venin valves incompetence Assessment & Plan (02/21/2025 2:03 PM EDT): -doppler 04/19/2021 in [place] revealed evidence of bilateral common femoral and popliteal venin valves incompetence Assessment & Plan (09/01/2024 3:17 PM EST): Patient also tells me pain is worse with walking, feels cramps and throbbing sensation I will refer him to vascular specialist in light he already had h/o PVD Assessment & Plan (09/17/2023 9:50 AM EST): -doppler 04/19/2021 in [place] revealed evidence of bilateral common femoral and popliteal venin valves incompetence Assessment & Plan (10/02/2022 12:35 PM EST): -doppler 04/19/2021 in [place] revealed evidence of bilateral common femoral and popliteal venin valves incompetence Arterial atherosclerosis 10/02/2022 Overview (05/28/2025): -unspecified cardiothoracic surgery (congential malformations ) in 1965 -Cardiac cath in [place] 07/05/2020 for chest pain and noted to have normal coronaries without any evidence of atherosclerosis -atrail flutter status post CTI ablation in 2021 on anticoagulation still -14 day Zio patch to monitor for aflutter Aug 2024 found evidence of sinus pauses and evidence of complete heart block, first degree AV block, 1 run SVT lasting 8 beats -seen by [facility] cardiology with Dr. Juan Luis Gonzalez [...] estimation is 29 mmhg + CVP. - [facility] note from 01/18/25 recommends EP consult, seleep study -EP consult on 02/08/25 at [facility] said no indication for pacemaker but [...] malformations ) in 1965 -Cardiac cath in [place] 07/05/2020 for chest pain and noted to have normal coronaries without any evidence of atherosclerosis -atrail flutter status post CTI ablation in 2021 on anticoagulation still -14 day Zio patch to monitor for aflutter Aug 2024 found evidence of sinus pauses and evidence of complete heart block, first degree AV block, 1 run SVT lasting 8 beats -seen by [facility] cardiology with Dr. Juan Luis Gonzalez [...] estimation is 29 mmhg + CVP. - [facility] Cardiology note from 01/18/25 recommends EP consult, seleep study -EP consult on 02/08/25 at [facility] said no indication for pacemaker but [...] malformations ) in 1966 -Cardiac cath in [place] 07/05/2020 for chest pain and noted to have normal coronaries without any evidence of atherosclerosis -atrail flutter status post CTI ablation in 2021 on anticoagulation still -14 day Zio patch to monitor for aflutter Aug 2024 found evidence of sinus pauses and evidence of complete heart block, first degree AV block, 1 run SVT lasting 8 beats -seen by [facility] cardiology with Dr. Juan Luis Gonzalez [...] estimation is 29 mmhg + CVP. - [facility] Cardiology note from 01/18/25 recommends EP consult, seleep study -EP consult on 02/08/25 at [facility] said no indication for pacemaker but recommended testing for AMISHA -Pt now scheduled for sleep study 04/16/25 at 9:30. -Follow-up appt with Cardiology 03/28/25 -will call and get details of next steps 04/26/25 Assessment & Plan (02/21/2025 2:03 PM EDT): -unspecified cardiothoracic surgery (congential malformations ) in 1965 -Cardiac cath in [place] 07/05/2020 for chest pain and noted to have normal coronaries without any evidence of atherosclerosis -atrail flutter status post CTI ablation in 2021 on anticoagulation still -14 day Zio patch to monitor for aflutter Aug 2024 found evidence of sinus pauses and evidence of complete heart block, first degree AV block, 1 run SVT lasting 8 beats -seen by [facility] cardiology with Dr. Juan Luis Gonzalez [...] estimation is 29 mmhg + CVP. Called [facility], spoke with Alyssa. Pt scheduled for EP consult on 02/08/25 at 1:45pm with Rubin Gupta DO at [address] [place] [address], [address], [place] [address]. Pt does not have sleep study scheduled yet. Message was sent to cards team to inquire if this will be scheduled via cardiology or if needs to be ordered by PCP. -last seen by [facility] 11/09/24, reports follow up for 02/15/25 Had sleep study done -Follow-up appt with Cardiology 03/28/25 Assessment & Plan (07/11/2024 10:40 AM EST): -Cardiac cath in [place] 07/05/2020 for chest pain and noted to have normal coronaries without any evidence of atherosclerosis Assessment & Plan (09/17/2023 9:50 AM EST): -Cardiac cath in [place] 07/05/2020 for chest pain and noted to [...] Overview (04/26/2025): -Hx cardiac cath 07/05/2020 in [place] with normal coronary arteries, mild dilated left [...] AM EDT): -Hx cardiac cath 07/05/2020 in [place] with normal coronary arteries, mild dilated left [...] -repeat Echo ordered 05/04/24 -last seen by [facility] Cardiology 11/09/24, reports follow up for 02/15/25 Had home sleep study done -Follow-up appt with Cardiology 03/28/25 Assessment & Plan (05/02/2025 8:57 AM EDT): -Hx cardiac cath 07/05/2020 in [place] with normal coronary arteries, mild dilated left [...] -repeat Echo ordered 05/04/24 -last seen by [facility] Cardiology 11/09/24, reports follow up for 02/15/25 Had home sleep study done -Follow-up appt with Cardiology 03/28/25 -referred to sleep medicine, will call and get details of next steps 04/26/25 Assessment & Plan (02/21/2025 2:03 PM EDT): -Hx cardiac cath 07/05/2020 in [place] with normal coronary arteries, mild dilated left [...] -repeat Echo ordered 05/04/24 -last seen by [facility] Cardiology 11/09/24, reports follow up for 02/15/25 Had sleep study done -Follow-up appt with Cardiology 03/28/25 Assessment & Plan (05/22/2024 10:54 AM EDT): -Hx cardiac cath 07/05/2020 in [place] with normal coronary arteries, mild dilated left ventricle with borderline low EF, mild pulmonary hypertension, normal cardiac output -echo 06/17/2021 EF 60-65%, mild anteroseptal LV wall motion is hypokinetic, mild dilated left atrium, mild enlarged right atrium, calcified aortic cusps, mild MR, mild to mod TR -referred back to Cardiology 05/22/24 Assessment & Plan (01/26/2024 11:23 AM EDT): -Hx cardiac cath 07/05/2020 in [place] with normal coronary arteries, mild dilated left ventricle with borderline low EF, mild pulmonary hypertension, normal cardiac output -echo 06/17/2021 EF 60-65%, mild anteroseptal LV wall motion is hypokinetic, mild dilated left atrium, mild enlarged right atrium, calcified aortic cusps, mild MR, mild to mod TR Assessment & Plan (09/17/2023 9:53 AM EST): -Hx cardiac cath 07/05/2020 in [place] with normal coronary arteries, mild dilated left ventricle with borderline low EF, mild pulmonary hypertension, normal cardiac output -echo 06/17/2021 EF 60-65%, mild anteroseptal LV wall motion is hypokinetic, mild dilated left atrium, mild enlarged right atrium, calcified aortic cusps, mild MR, mild to mod TR Assessment & Plan (10/02/2022 12:33 PM EST): -Hx cardiac cath 07/05/2020 in [place] with normal coronary arteries, mild dilated left ventricle with borderline low EF, mild pulmonary hypertension, normal cardiac output -echo 06/17/2021 EF 60-65%, mild anteroseptal LV wall motion is hypokinetic, mild dilated left atrium, mild enlarged right atrium, calcified aortic cusps, mild MR, mild to mod TR -euvolemic on exam Atrial flutter (CMS/HCC) 10/02/2022 Overview (02/21/2025): Noted in [place] during ECG for palpitations. -[id number] of 1 -s/p CTI ablation 09/22/2021 with good results -on Eliquis (apixaban) -seen by [facility] cardiology Dr. Myra Feliciano MD 12/13/2022 recommending 6 month follow up -Cardiology note from 05/04/24 reviewed Recommends Zio path for 24 days, if no further aflutter episodes will discontinue apixaban -repeat Echo ordered -last seen by [facility] Cardiology 11/09/24, reports follow up for 02/15/25 Had sleep study done -Follow-up appt with Cardiology 03/28/25 Assessment & Plan (05/28/2025 11:09 AM EDT): Noted in [place] during ECG for palpitations. -[id number] of 1 -s/p CTI ablation 09/22/2021 with good results -on Eliquis (apixaban) -seen by [facility] cardiology Dr. Myra Feliciano MD 12/13/2022 recommending 6 month follow up -Cardiology note from 05/04/24 reviewed Recommends Zio path for 24 days, if no further aflutter episodes will discontinue apixaban -repeat Echo ordered -last seen by [facility] Cardiology 11/09/24, reports follow up for 02/15/25 Had sleep study done -Follow-up appt with Cardiology 03/28/25 Assessment & Plan (02/21/2025 2:03 PM EDT): Noted in [place] during ECG for palpitations. -[id number] of 1 -s/p CTI ablation 09/22/2021 with good results -on Eliquis (apixaban) -seen by [facility] cardiology Dr. Myra Feliciano MD 12/13/2022 recommending 6 month follow up -Cardiology note from 05/04/24 reviewed Recommends Zio path for 24 days, if no further aflutter episodes will discontinue apixaban -repeat Echo ordered -last seen by [facility] Cardiology 11/09/24, reports follow up for 02/15/25 Had sleep study done -Follow-up appt with Cardiology 03/28/25 Assessment & Plan (11/30/2024 11:13 AM EDT): Noted in [place] during ECG for palpitations. -[id number] of 1 -s/p CTI ablation 09/22/2021 with good results -on Eliquis (apixaban) -seen by [facility] cardiology Dr. Myra Feliciano MD 12/13/2022 recommending 6 month follow up -Cardiology note from 05/04/24 reviewed Recommends Zio path for 24 days, if no further aflutter episodes will discontinue apixaban -repeat Echo ordered Assessment & Plan (05/22/2024 10:53 AM EDT): Noted in [place] during ECG for palpitations. -[id number] of 1 -s/p CTI ablation 09/22/2021 with good results -on Eliquis (apixaban) -seen by [facility] cardiology Dr. Myra Feliciano MD 12/13/2022 recommending 6 month follow up -has not been to see benefits officer since, referred back again today 05/22/24. Assessment & Plan (01/26/2024 11:23 AM EDT): Noted in [place] during ECG for palpitations. -[id number] of 1 -s/p CTI ablation 09/22/2021 with good results -on Eliquis (apixaban) -seen by [facility] cardiology Dr. Myra Feliciano MD 12/13/2022 recommending 6 month follow up Assessment & Plan (09/17/2023 9:52 AM EST): Noted in [place] during ECG for palpitations. -[id number] of 1 -s/p CTI ablation 09/22/2021 with good results -on Eliquis (apixaban) -seen by [facility] cardiology Dr. Myra Feliciano MD 12/13/2022 recommending 6 month follow up Assessment & Plan (05/31/2023 12:55 PM EDT): Noted in [place] during ECG for palpitations. -[id number] of 1 -s/p CTI ablation 09/22/2021 with good results -on Eliquis (apixaban) -seen by [facility] cardiology Dr. Myra Feliciano MD 12/13/2022 recommending 6 month follow up Assessment & Plan (10/02/2022 12:36 PM EST): Noted in [place] during ECG for palpitations. -s/p CTI ablation 09/22/2021 with good results -on Eliquis Primary hypertension 10/02/2022 Overview (05/28/2025): -Blood pressure is at goal 05/28/25 -Continue lifestyle modifications -Continue current medications -Continue Lisinopril 10 mg 11/30/24 -Re-referred to [facility] with our PharmDINO Teixeira 11/30/24 -Follows with [facility] cardiology Dr. Myra Feliciano MD Assessment & Plan (05/28/2025 11:09 AM EDT): -Blood pressure is at goal 05/28/25 -Continue lifestyle modifications -Continue current medications -Continue Lisinopril 10 mg 11/30/24 -Re-referred to [facility] with our DINO Thompson 11/30/24 -Follows with [facility] cardiology Dr. Myra Feliciano MD Assessment & Plan (02/21/2025 2:03 PM EDT): -Blood pressure is at goal -Continue lifestyle modifications -Continue current medications -Continue Lisinopril 10 mg 11/30/24 -Re-referred to [facility] with our PharmDINO Teixeira 11/30/24 -Follows with [facility] cardiology Dr. Myra Feliciano MD Orders: Albumin, Random Urine W/Creatinine; Future Basic Metabolic Panel; Future Assessment & Plan (12/13/2024 10:07 AM EDT): -Blood pressure is at goal -Continue lifestyle modifications -Continue current medications -Continue Lisinopril 10 mg 11/30/24 -Re-referred to [facility] with our PharmDINO Teixeira 11/30/24 -Follows with [facility] cardiology Dr. Myra Felicinao MD Assessment & Plan (11/30/2024 11:09 AM EDT): -Blood pressure is not at goal, not currently on any medications 11/30/24 -Continue lifestyle modifications -Continue current medications -Referred to [facility] with our DINO Thompson 07/10/24 -Start Lisinopril 10 mg 11/30/24 -Re-referred to [facility] with our PharmDDINO 11/30/24 -Follows with [facility] cardiology Dr. Myra Feliciano MD Assessment & Plan (11/30/2024 11:02 AM EDT): >>ASSESSMENT AND PLAN FOR ESSENTIAL HYPERTENSION WRITTEN ON 09/17/2023 10:58 AM BY CHICO NIELSEN -Blood pressure is at goal -Continue lifestyle modifications -Continue current medications Assessment & Plan (11/30/2024 11:02 AM EDT): >>ASSESSMENT AND PLAN FOR ESSENTIAL HYPERTENSION WRITTEN ON 01/26/2024 11:23 AM BY BTEHANY MCCORMICK MD -Blood pressure is at goal [...] repots hx heart surgery age 5 in [place] for unknown reason Assessment & Plan (10/02/2022 12:31 PM EST): -pt repots hx heart surgery age 5 in [place] for unknown reason Encounters Date Type Department Care Team Description 08/21/2025 Telephone [facility] [address] [place] [id number] Dulce Maria Valera RN Paperwork/Forms 08/20/2025 Refill [facility] [address] [place] [phone] Bethany Mccormick MD 08/20/2025 Telephone [facility] [address] [place] [phone] Bethany Mccormick MD PT1 07/19/2025 Refill [facility] [address] [place] [phone] Bethany Mccormick MD Gastroesophageal reflux disease without esophagitis 07/17/2025 Telephone [facility] [address] [place] [phone] Bethany Mccormick MD [facility] Follow up 07/11/2025 Refill [facility] [address] [place] [phone] Bethany Mccormick MD Dyslipidemia; Benign prostatic hyperplasia without lower urinary tract symptoms 06/25/2025 Travel 06/07/2025 Telephone [facility] [address] [place] [phone] Bethany Mccormick MD Durable Medical Equipment 06/07/2025 Refill [facility] [address] [place] [phone] Bethany Mccormick MD 05/28/2025 10:45 AM EDT Office Visit [facility] [address] [place] [address] Bethany Mccormick MD Obstructive sleep apnea (Primary Dx); Arterial atherosclerosis; Atrial flutter, unspecified type (CMS/HCC); Hx of hypertrophic cardiomyopathy; Primary hypertension; Class 3 severe obesity due to excess calories with serious comorbidity and body mass index (BMI) of 40.0 to 44.9 in adult; Dietary counseling; Exercise counseling; Bilateral deafness; Encounter for immunization 05/28/2025 Travel 05/25/2025 Telephone [facility] [address] [place] [address] Ira Marquez MA from Last 3 Months [...] Description 09/05/2025 11:15 AM EST Office Visit [facility] [address] [place] [address] Bethany Mccormick MD [address] [place] [address] Health Maintenance Due Date Last Done Comments CT Colonography 1959 FIT DNA/Cologuard 1959 FIT 1959 FOBT 1959 Sigmoidoscopy 1959 COVID-19 Vaccine ( season) 2025 05/22/2024, 05/31/2023, 11/18/2022 SDOH Screening 09/19/2025 09/19/2024 Colonoscopy 11/25/2025 11/25/2022 Colorectal Cancer Screening 11/25/2025 Depression Screening 11/30/2025 11/30/2024, 12/01/19 25 Diabetes: Hemoglobin A1C 02/26/2026 025, 01/26/2024, 09/17/2023, [...] AM EDT) Hemoglobin A1c 5.5 <6.0 % [facility] Comment:Hemoglobin A1C Refer ence Range Adults: 4.8 - 6.0 % Non diabetic: < 6.0 % Goal: < 7.0 %Additional Action Suggested: > 8.0 %Note: Hemoglobin A1c results are invalid for patients with abnormal amounts of HbF. Blood transfusions may impact the HbA1c concentration in the patient sample. Estimated Average Glucose 111 mg/dL [facility] Comment:eAG = Estimated ave rage glucose which is %A1C expressed asaverage glucose, using the formula of the N4D-NzowbglTrjkivm Glucose study (ADAG), Diabetes Care, Vol.31,#8,Mar. 2007 Blood Venous blood specimen / Unknown 02/26/2025 8:17 AM EDT 02/26/2025 10:59 AM EDT Bethany Mccormick MD LAB BLOOD ORDERABLES Final Result Performing Organization Address [facility] Co de Phone Number [facility] [address] [place] [address] [phone] * Lipid Panel, Standard (02/26/2025 8:17 AM EDT) Triglycerides 114 <150 mg/dL [facility] Comment:Desirable Triglyceri de: less than 150 mg/dLBorderline High Triglyceride 150-199 mg/dLHigh Triglyceride: 200-499 mg/dLVery High Triglyceride: greater than or equal to 5OO mg/dL Cholesterol 157 <200 mg/dL [facility] Comment:Desirable Cholestero l: less than 200 mg/dLBorderline High Cholesterol: 200-239 mg/dLHigh Cholesterol: greater than 239 mg/dL LDL Cholesterol Calculated 73 <100 mg/dL [facility] Comment:Desirable LDL: less than 100 mg/dLNear Optimal/Above Optimal LDL: 110- 129 mg/dLBorderline High LDL: 130-159 mg/dLHigh LDL: 160-189 mg/dLVery High LDL: greater than or equal to 190 mg/dL HDL Cholesterol 62 >40 mg/dL [facility] Comment:Desirable HDL: great er than 40 mg/dL Note: This HDL assay may give artificially low results in patients with liver disease. Blood Venous blood specimen / Unknown 02/26/2025 8:17 AM EDT 02/26/2025 10:59 AM EDT Bethany Mccormick MD LAB BLOOD ORDERABLES Final Result Performing Organization Address City/[facility]/ZIP Co de Phone Number [facility] [address] [place] [address] [phone] * (ABNORMAL) Hm Colonoscopy (11/25/2022) Pathologist [facility] Colonoscopy Abnormal(A ) Normal Jose Ramon Hernández MD HEALTH MAINTENANCE Final Result * Hepatitis C Antibody with Reflex to HCV, RNA, Quantitative, Real-Time PCR (10/06/2022 8:42 AM EST) Hepatitis C Antibody NON-REACT MIRA NON-REACT MIRA [employer] [place] [employer] Index 0.07 <1.00 [employer] Comment: HCV antibody was non-reactive. There is no laboratory evidence of HCV infection. In most cases, no further action is required. However, if recent HCV exposure is suspected, a test for HCV RNA (test code 82744) is suggested. For additional information please refer to http://education.Simple Emotion/faq/CGS34s0 (This link is being provided for informational/ educational purposes only.) Blood Venous blood specimen / Unknown 10/06/2022 8:42 AM EST 10/06/2022 8:43 AM EST Narrative [facility] - 10/09/2022 12:25 AM EST FASTING:YES FASTING: YES Bethayn Mccormick MD LAB BLOOD ORDERABLES Final Result [facility] [address], [place] [address] [employer] [place] [employer] [address] [facility], (Nl2) [place] [address] from Last 3 Months or Most Recently Relevant to Health Maintenance [place] [address] [place] [address] [place] [phone] Advance Directives Documents on File Type Date Recorded Patient Credit Risk Modeler Expl anation Power of Treasury Director 09/21/2023 HealthCare Proxy 09/17/23 Care Teams Coach Wirer Relationship Specialty Start Date End Date Laurens, MD Bethany [address] [place] [address] PCP - General Family Medicine 09/10/22 Jennifer Kramer, PharmD [address] [place] [address] Pharmacist Internal Medicine 12/04/24 Irineo Arevalo MD [address] [place] [address] Urology 12/13/24 Chris Edmond [address] [place] [address] Podiatry 01/25/25 Kelly Cho MD [address] [place] [address] Urology 02/21/25 Dr. Bassem Shahid [address] [address] Cardiology 11/30/24 Rubin Gupta DO Electrophysiology Cardiology [address] [facility] [address] [place] [address] Electrophysiology 12/15/24
--- OUTSIDE RECORDS SUMMARY | 2025-08-24 09:52 | XMS_ITS | Encounter Summary ---
Author Organization [employer] Address [address] [place] [address] 7 [place] [address] Care Team Providers Care Guest Advisor Name Role Phone Bethany Mccormick MD Primary Care Provider +- [phone] Jennifer Kramer PharmD Unavailable [phone] Irineo Arevalo MD Unavailable [phone] Chris Edmond Unavailable Kelly Cho MD Unavailable Reason for Visit * Reason Onset Date Comments PT1 08/31/2024 Encounter Details Date Type Department Care Team (Late st Contact Info) Description 08/31/2024 Telephone [facility] [address] [place], [place] [phone] Bethayn Mccormick MD [address] [place], [place] [phone] PT1 Social History Tobacco Use Types Packs/Day [...] Y/N: Yes Provider name or facility name: [address] [address] [address] Bassem Shahid (Laboratory Development Technician) Escort needed: Y/N: No Do you have a wheelchair: Y/N: No If yes- Manual or electric: N/A Visits: (2) ( x monthly) documented in this encounter Plan of Treatment Upcoming Encounters Date Type Department Care Team ([facility] st Contact Info) Description 09/05/2025 11:15 AM EST Office Visit [facility] [address] [place] [address] Bethany Mccormick MD [address] [place] [address] documented as of this encounter Visit Diagnoses Not on filedocumented in this encounter Additional Health Concerns Assessment Noted Time PHQ-9 Depression Total Score: 0 01/26/20 24 10:39 AM EDT documented as of this encounter Care Teams Guest Advisor Relationship Specialty Start Date End Date Bethany Mccormick MD [address] [place] [address] PCP - General Family Medicine 09/10/22 Jennifer Kramer, AllanD [address] [place] [address] Pharmacist Internal Medicine 12/04/24 Irineo Arevalo MD [address] [place] [address] Urology 12/13/24 Chris Edmond [address] [place] [address] Podiatry 01/25/25 Kelly Cho MD [address] [place] [address] [address] Urology 02/21/25 Dr. Bassem Shahid [address] [address] Cardiology 11/30/24 Rubin Gupta DO Electrophysiology Cardiology [address] [place] [address] Electrophysiology 12/15/24 documented as of this encounter
--- OUTSIDE RECORDS SUMMARY | 2025-08-24 09:52 | XMS_ITS | Encounter Summary ---
Author Organization [employer] Address [address] [facility] 7t [place] [address] Care Team Providers Care Global Account Manager Name Role Phone Bethany Mccormick MD Primary Care Provider +- [phone] Jennifer Kramer PharmD Unavailable Irineo Arevalo MD Unavailable [phone] Chris Edmond Unavailable Kelly Cho MD Unavailable Reason for Visit * Reason Comments Med Refill Encounter Details Date Type Department Care Team (Late st Contact Info) Description 03/03/2025 Refill [facility] [address] [place], [place] [phone] Robert Figueredo MD [address] [place] [address] Social History Tobacco Use Types Packs/Day Years [...] Description 09/05/2025 11:15 AM EST Office Visit [facility] [address] [place] [address] Bethany Mccormick MD [address] [place] [address] documented as of this encounter Visit Diagnoses Not on filedocumented in this encounter Additional Health Concerns Assessment Noted Time PHQ-9 Depression Total Score: 2 12/01/19 25 10:35 AM EDT documented as of this encounter Care Teams Global Account Manager Relationship Specialty Start Date End Date Bethany Mccormick MD [address] [place] [address] PCP - General Family Medicine 1/12/23 Jennifer Kramer PharmD [address] [place] [address] Pharmacist Internal Medicine 12/04/24 Irineo Arevalo MD [address] [place] [address] Urology 12/13/24 Chris Edmond [address] [place] [address] Podiatry 01/25/25 Kelly Cho MD [address] [facility] [address] [facility] [address] [place] [address] Urology 02/21/[address] Luevano [address] [address] Cardiology 11/30/24 Rubni Gupta DO Electrophysiology Cardiology [address] [place] [address] Electrophysiology 12/15/24 documented as of this encounter
--- OUTSIDE RECORDS SUMMARY | 2025-08-24 09:53 | XMS_ITS | Encounter Summary ---
Author Organization [employer] Address [address] [place] [address] 7t [place] [address] Care Team Providers Care Lot Associate Name Role Phone Bethany Mccormick MD Primary Care Provider +- [phone] Jennifer Kramer PharmD Unavailable Irineo Arevalo MD Unavailable [phone] Chris Edmond Unavailable Kelly Cho MD Unavailable Encounter Details Date Type Department Care Team (Late st Contact Info) Description 12/27/2024 Orders Only [facility] [address] [place], [place] [phone] Bethany Mccormick MD [address] [place], [place] [phone] Social History Tobacco Use Types Packs/Day Years [...] Description 09/05/2025 11:15 AM EST Office Visit [facility] [address] [place] [address] Bethany Mccormick MD [address] [place] [address] documented as of this encounter Visit Diagnoses Not on filedocumented in this encounter Additional Health Concerns Assessment Noted Time PHQ-9 Depression Total Score: 2 12/01/19 25 10:35 AM EDT documented as of this encounter Care Teams Lot Associate Relationship Specialty Start Date End Date Bethany Mccormick MD [address] [place] [address] PCP - General Family Medicine 09/10/22 Jennifer Kramer, AllanD [address] [place] [address] Pharmacist Internal Medicine 12/04/24 Irineo Arevalo MD [address] [place] [address] Urology 12/13/24 Chris Edmond [address] [place] [address] Podiatry 01/25/25 Kelly Cho MD 10 [facility] [address] [place] [address] Urology 02/21/25 Dr. Bassem Shahid [address] [address] Cardiology 11/30/24 Rubin Gupta DO Electrophysiology Cardiology [address] [place] [address] Electrophysiology 12/15/24 documented as of this encounter
--- OUTSIDE RECORDS SUMMARY | 2025-08-24 09:53 | XMS_ITS | Encounter Summary ---
Author Organization [employer] Address [address] [place] [address] 7 [place] [address] Care Team Providers Care Certified Scrum Master Name Role Phone Bethany Mccormick MD Primary Care Provider +- [phone] Jennifer Kramer PharmD Unavailable Irineo Arevalo MD Unavailable [phone] Chris Edmond Unavailable Kelly Cho MD Unavailable Reason for Visit * Reason Onset Date Comments Med Refill 12/23/2023 Encounter Details Date Type Department Care Team (Late st Contact Info) Description 12/23/2023 Telephone [facility] [address] [place] [address] Bethany Mccormick MD 230 [place], [place] [phone] Med Refill Social History Tobacco Use Types [...] 1:40 PM EDT Medication was sent to [facility] on 09/21/23 #90 with 1 refill. * Telephone Encounter - Ilya Culver - 12/23/2023 1:38 PM EDT TC from pt requesting medication refill. Medications needing refill : finasteride (Proscar) 5 MG tablet To be sent to: [facility] - [place], [place] - [address] [facility] documented in this encounter Plan of Treatment Upcoming Encounters Date Type Department Care Team (Late st Contact Info) Description 09/05/2025 11:15 AM EST Office Visit [facility] [address] [place] [address] Bethany Mccormick MD [address] [place] [address] documented as of this encounter Visit Diagnoses Not on filedocumented in this encounter Additional Health Concerns Assessment Noted Time PHQ-9 Depression Total Score: 0 10/02/19 23 9:21 AM EST documented as of this encounter Care Teams Certified Scrum Master Relationship Specialty Start Date End Date Bethany Mccormick MD [address] [place] [address] PCP - General Family Medicine 09/10/22 Jennifer Kramer, AllanD [address] [place] [address] Pharmacist Internal Medicine 12/04/24 Irineo Arevalo MD [address] [place] [address] Urology 12/13/24 Chris Edmond [address] [place] [address] Podiatry 01/25/25 Kelly Cho MD [address] [place] [address] Urology 02/21/25 Dr. Bassem Shahid [address] [address] Cardiology 11/30/24 Rubin Gupta DO Electrophysiology Cardiology [address] [place] [address] Electrophysiology 12/15/24 documented as of this encounter
--- OUTSIDE RECORDS SUMMARY | 2025-08-24 09:53 | XMS_ITS | Encounter Summary ---
Author Organization [employer] Address [address] [place] [address] 7t [place] [address] Care Team Providers Care Service Writer Name Role Phone Bethany Mccormick MD Primary Care Provider +- [phone] Jennifer Kramer PharmD Unavailable Irineo Arevalo MD Unavailable [phone] Chris Edmond Unavailable Kelly Cho MD Unavailable Encounter Details Date Type Department Care Team (Late st Contact Info) Description 01/01/2025 Telephone [facility] [address] [place] [address] Bethany Mccormick MD [address] [place], [place] [phone] Social History Tobacco Use Types Packs/Day Years [...] missed call but no voicemail was left. Drafter Directional Survey advise sangitaate chart. documented in this encounter Plan of Treatment Upcoming Encounters Date Type Department Care Team (Late st Contact Info) Description 09/05/2025 11:15 AM EST Office Visit [facility] [address] [place] [address] Bethany Mccormick MD [address] [place], [place] [phone] documented as of this encounter Visit Diagnoses Not on filedocumented in this encounter Additional Health Concerns Assessment Noted Time PHQ-9 Depression Total Score: 2 12/01/19 10:35 AM EDT documented as of this encounter Care Teams Service Writer Relationship Specialty Start Date End Date Bethany Mccormick MD [address] [place] [address] PCP - General Family Medicine 09/10/22 Jennifer Kramer, AllanD [address] [place] [address] Pharmacist Internal Medicine 12/04/24 Irineo Arevalo MD [address] [place] [address] Urology 12/13/24 Chris Edmond [address] [place] [address] Podiatry 01/25/25 Kelly Cho MD [address] [place] [address] Urology 02/21/25 Dr[address] Luevano [address] [address] Cardiology 11/30/24 Rubin Gupta DO Electrophysiology Cardiology [address] [place] [address] Electrophysiology 12/15/24 documented as of this encounter
--- NOTE | 2025-08-24 10:11 | A.OFFVIS_ITS ---
Vital Signs 08/24/25 10:48 Height 5 ft 11 in Weight 318 lb 4 oz BMI 44.4 BP 137/64 Blood Pressure Location Rt brachial Position Sitting Pulse 61 Intake Visit Reasons: Right inguinal hernia Intake Note: Pt presents for right inguina hernia assessment. Pt c/o; hungarian ASL required, he was not sure why he was referred, he reports some senstivity with bowel movements. Software Test Technician Required: Yes Software Test Technician Language: Supervisor [employer] Services: Software Test Technician Present Software Test Technician Name: Paradise Accompanied by: Self / Same As Patient Allergies No Known Allergies Allergy (Verified 08/24/25 10:49) HPI Comments Details: Patient presents today for reason he is not entirely sure. He has deaf and uses sign language however the signing counter checker today speaks Uzbek and he apparently speaks Persian inside. Be that as it may he is referred for a right inguinal hernia as seen on imaging. Patient reports that he has had some discomfort with bowel movements and micturition however he also reports upper abdominal discomfort as well. He denies any fevers chills nausea or vomiting. PFSH Medical History Arthritis Hearing impairment Depression Hx of coronary angiogram Venous insufficiency Tricuspid regurgitation Prediabetes Obesity Essential (primary) hypertension Dyslipidemia Benign prostate hyperplasia Atrial flutter Surgical History Hx of appendectomy History of cardiac radiofrequency ablation Hx of heart surgery Family History Father Heart disease Social History Are you a primary ambulatory care coordinator to a significant other at home: No Do you presently have visiting nurse or other home services: Yes (has TTY hearing assistance) Patient Tobacco Use Status: Never used Tobacco Review of Systems Const All systems reviewed & are unremarkable except as noted in HPI and below Physical Exam Vital Signs: Last Vital Signs Pulse 61 08/24/25 10:48 BP 137/64 08/24/25 10:48 BMI result Body Mass Index 44.4 Const General: cooperative and healthy appearing Nutritional Appearance: obese morbidly obese HEENT Head: Yes normal to inspection Ears: hearing grossly normal bilaterally Eyes General: appearance normal, both eyes and all related structures Chest Chest palpation & inspection: normal inspection of the chest GI Other: Morbidly obese nontender nondistended he has a pendulous pannicular drape. He has abundant skin and soft tissue in the fatty upper pubic area as well as the inguinal regions bilaterally. I can not appreciate any hernia clinically despite examination in the upright position with coughing. Genitalia are largely occult secondary to body habitus. Extrem General: Yes normal to inspection Assessment & Plan Assessment & Plan (1) Right inguinal hernia: Code(s): K40.90 - Unilateral inguinal hernia, without obstruction or gangrene, not specified as recurrent Category: Medical Plan: Patient appears to have right inguinal hernia on imaging however he also reports some abdominal pain with eating although the history is somewhat difficult secondary to language and interpretation barriers. Because of this I think it is reasonable to pursue CT scan of his abdomen and pelvis with oral contrast. Should this not radiographically delineate any further issues then pursuing his right inguinal hernia laparoscopically would be appropriate. I explained this to the patient he indicated that he understood and also indicated that he is happy to proceed with the plan as it was outlined to him. Coding Level of Care Code New Pt Level 3 (70297) Diagnoses Right inguinal hernia K40.90 Time Spent (min) 30 Comment Record review patient visit and coordination of care time
[2025-08-24 10:48] VITALS: BP 137/64; PULSE 61; BMI 44.4
== END 2025-08-24 10:47 | disposition home or self-care (01) ==
LOC: HO.HGS 09:49
PROVIDERS: PCP Family Medicine; Visit Provider Surgery
DX: K40.90 Unilateral inguinal hernia, without obstruction or gangrene, not specified as recurrent (principal)
CPT/HCPCS: 99203

== ENCOUNTER → 2025-08-24 09:48 | Outpatient (BNVA) | payer MEDICARE, MEDICAID, SELFPAY | PROVIDERS: PCP Family Medicine; Visit Provider Surgery | DX: K40.90 Unilateral inguinal hernia, without obstruction or gangrene, not specified as recurrent (principal); E66.9 Obesity, unspecified; Z68.41 Body mass index [BMI] 40.0-44.9, adult; H91.93 Unspecified hearing loss, bilateral | CPT/HCPCS: 99202 ==